=== PATIENT | male | born 1945 | race African-American/Black ===

== ENCOUNTER 2017-03-29 18:36 | Inpatient (IN) | payer MEDICARE, BC ==
[2017-03-29] MEDS: fentaNYL PF VIAL 100 MCG/2 ML VIAL IV ×3 (20:02→23:39)
[2017-03-29] MEDS: ONDANSETRON PF 4 MG/2 ML VIAL. IV (20:02)
[2017-03-29 20:11] LABS: ADD MAN DIFF? NO
[2017-03-29 20:13] LABS: BASO # 0.1 x10^3/uL (0.0-0.2); BASO % 1 % (0-3); EOS # 0.1 x10^3/uL (0.0-0.7); EOS % 1 % (0-3); HEMOGLOBIN 10.8 g/dL (13.0-17.5); LYMPH # 1.6 x10^3/uL (1.0-4.8); LYMPH % 22 % (24-48); MEAN CORPUSCULAR HEMOGLOBIN 31 pg (25-35); MEAN CORPUSCULAR HGB CONC 35 g/dL (31-37); MEAN CORPUSCULAR VOLUME 88 fL (79-100); MONO # 0.6 x10^3/uL (0.0-1.1); MONO % 8 % (0-9); NEUT # 4.8 x10^3uL (1.8-7.7); NEUT % 68 % (31-73); PLATELET COUNT 137 x10^3/uL (140-400); RED BLOOD COUNT 3.53 x10^6/uL (4.30-5.70); RED CELL DISTRIBUTION WIDTH 13.8 % (11.5-14.5); WHITE BLOOD COUNT 7.2 x10^3/uL (4.0-11.0)
[2017-03-29] MEDS ORDERED: ONDANSETRON PF 4 MG/2 ML VIAL. IV (20:15)
[2017-03-29 20:33] LABS: ANION GAP 8 (6-14); BLOOD UREA NITROGEN 11 mg/dL (8-26); BUN/CREATININE RATIO 12 (6-20); CALCIUM 8.9 mg/dL (8.5-10.1); CARBON DIOXIDE 27 mmol/L (21-32); CHLORIDE 107 mmol/L (98-107); CREATININE 0.9 mg/dL (0.7-1.3); GFR 100.9; GLUCOSE 172 mg/dL (70-99); POTASSIUM 4.1 mmol/L (3.5-5.1); SODIUM 142 mmol/L (136-145)
[2017-03-29 20:39] LABS: ALBUMIN/GLOBULIN RATIO 0.9 (1.0-1.7); ALK PHOS 140 U/L (46-116); ALT (SGPT) 23 U/L (16-63); AST (SGOT) 18 U/L (15-37); TOTAL BILIRUBIN 0.2 mg/dL (0.2-1.0); TOTAL PROTEIN 6.3 g/dL (6.4-8.2)
[2017-03-29] MEDS: IV NORMAL SALINE 1000ML BAG 1,000 ML IV (22:26)
[2017-03-30] MEDS: fentaNYL PF VIAL 100 MCG/2 ML VIAL IV ×8 (00:46→21:07)
[2017-03-30] MEDS: LABETALOL 20 MG/4 ML DISP.SYRIN. IVP ×3 (01:50→19:20)
[2017-03-30] MEDS: IV NORMAL SALINE 1000ML BAG 1,000 ML IV ×2 (04:54→08:25)
[2017-03-30] MEDS: HYDROcodone/APAP 7.5/325MG 1 TAB TABLET PO ×3 (10:04→19:21)
[2017-03-30] MEDS: DEXAMETHASONE SOD PHOS 4 MG/ML VIAL IV ×2 (10:04→18:27)
[2017-03-30] MEDS: GLIMEPIRIDE 2 MG TABLET. PO (18:32)
[2017-03-30] MEDS: GABAPENTIN 300 MG CAPSULE. PO (18:32)
[2017-03-30] MEDS: LOSARTAN POTASSIUM 25 MG TABLET. PO (18:33)
[2017-03-30] MEDS: ALBUTEROL SULFATE 2.5 MG/3 ML NEBU. NEB (20:15)
[2017-03-30] MEDS: BUDESONIDE 0.5 MG/2 ML NEBU. NEB (20:15)
[2017-03-30] MEDS ORDERED: ACETAMINOPHEN 325 MG TABLET. PO (21:00)
[2017-03-30 22:20] LABS: MRSA BY PCR Negative (Negative)
[2017-03-31] MEDS: DEXAMETHASONE SOD PHOS 4 MG/ML VIAL IV ×2 (00:09→05:38)
[2017-03-31] MEDS: HYDROcodone/APAP 7.5/325MG 1 TAB TABLET PO ×3 (01:00→15:28)
[2017-03-31] MEDS: LABETALOL 20 MG/4 ML DISP.SYRIN. IVP (02:09)
[2017-03-31] MEDS: fentaNYL PF VIAL 100 MCG/2 ML VIAL IV ×2 (04:49→08:51)
[2017-03-31] MEDS: GLIMEPIRIDE 2 MG TABLET. PO (08:00)
[2017-03-31] MEDS: GABAPENTIN 300 MG CAPSULE. PO (08:00)
[2017-03-31] MEDS: LOSARTAN POTASSIUM 25 MG TABLET. PO (08:01)
[2017-03-31 08:22] LABS: POC GLUCOSE 191 mg/dL (70-99)
[2017-03-31] MEDS ORDERED: DEXTROSE 50% 25 GM / 50ML DISP.SYRIN. IV (08:30)
[2017-03-31] MEDS: BUDESONIDE 0.5 MG/2 ML NEBU. NEB ×2 (08:49→19:41)
[2017-03-31] MEDS: ALBUTEROL SULFATE 2.5 MG/3 ML NEBU. NEB ×4 (08:49→19:44)
[2017-03-31] MEDS: INSULIN ASPART 300 UNITS/3 ML INSULN.PEN SQ ×3 (08:59→18:04)
[2017-03-31] MEDS ORDERED: INSULIN ASPART 300 UNITS/3 ML INSULN.PEN SQ (12:00)
[2017-03-31] MEDS ORDERED: ALPRAZolam 0.5 MG TABLET PO (12:15)
[2017-03-31 12:16] LABS: BASO % 0 % (0-3); EOS % 0 % (0-3); HEMATOCRIT 36.9 % (39.0-53.0); HEMOGLOBIN 12.6 g/dL (13.0-17.5); LYMPH # 0.6 x10^3/uL (1.0-4.8); LYMPH % 5 % (24-48); MEAN CORPUSCULAR HEMOGLOBIN 33 pg (25-35); MEAN CORPUSCULAR HGB CONC 34 g/dL (31-37); MEAN CORPUSCULAR VOLUME 96 fL (79-100); MONO # 0.5 x10^3/uL (0.0-1.1); MONO % 4 % (0-9); NEUT # 12.3 x10^3uL (1.8-7.7); NEUT % 91 % (31-73); PLATELET COUNT 196 x10^3/uL (140-400); RED BLOOD COUNT 3.85 x10^6/uL (4.30-5.70); RED CELL DISTRIBUTION WIDTH 13.2 % (11.5-14.5); WHITE BLOOD COUNT 13.5 x10^3/uL (4.0-11.0)
[2017-03-31 12:18] LABS: ADD MAN DIFF? YES
[2017-03-31 12:28] LABS: % SAT IRON 17 % (15-34); IRON,SERUM 39 ug/dL (65-175)
[2017-03-31] MEDS ORDERED: METOPROLOL SUCC 24HR ER 25 MG TAB.ER.24H. PO (12:30)
[2017-03-31 12:32] LABS: ALBUMIN 2.5 g/dL (3.4-5.0); ALBUMIN/GLOBULIN RATIO 0.9 (1.0-1.7); ALK PHOS 47 U/L (46-116); ALT (SGPT) 10 U/L (16-63); ANION GAP 6 (6-14); AST (SGOT) 13 U/L (15-37); BLOOD UREA NITROGEN 9 mg/dL (8-26); BUN/CREATININE RATIO 13 (6-20); CALCIUM 7.2 mg/dL (8.5-10.1); CARBON DIOXIDE 27 mmol/L (21-32); CHLORIDE 108 mmol/L (98-107); CREATININE 0.7 mg/dL (0.7-1.3); GFR 134.9; GLUCOSE 194 mg/dL (70-99); SODIUM 141 mmol/L (136-145); TOTAL BILIRUBIN 0.4 mg/dL (0.2-1.0); TOTAL PROTEIN 5.4 g/dL (6.4-8.2)
[2017-03-31 12:35] LABS: POC GLUCOSE 156 mg/dL (70-99)
[2017-03-31 13:05] LABS: % LYMPHS 2 % (24-48); % MONOS 1 % (0-10); % SEGS 97 % (35-66); PLT ESTIMATE ADEQUATE (ADEQUATE)
[2017-03-31 13:18] LABS: RETIC COUNT 1.4 % (0.5-2.5)
[2017-03-31] MEDS: POLYETHYLENE GLYCOL 3350 17 GM PACKET. PO (13:36)
[2017-03-31 13:39] LABS: FOLATE 10.66 ng/ml (3.2-20.0)
[2017-03-31 13:39] LABS: VITAMIN-B12 389 pg/mL (247-911)
[2017-03-31] MEDS: TAMSULOSIN 0.4 MG CAP.ER.24H. PO (14:04)
[2017-03-31] MEDS: DULoxetine HCL 30 MG CAPSULE.DR PO ×2 (14:04→20:48)
[2017-03-31] MEDS: oxyCODONE IR 5 MG TABLET PO ×2 (14:04→20:52)
[2017-03-31] MEDS: PREGABALIN 75 MG CAPSULE PO ×2 (14:04→20:49)
[2017-03-31] MEDS: amLODIPine BESYLATE 2.5 MG TABLET PO (14:06)
[2017-03-31] MEDS: METOPROLOL SUCC 24HR ER 25 MG TAB.ER.24H. PO (20:48)
[2017-03-31] MEDS: ATORVASTATIN CALCIUM 40 MG TABLET. PO (20:49)
[2017-03-31] MEDS ORDERED: METOPROLOL TART IMMED RELEASE 25 MG TABLET. PO (21:00)
[2017-03-31 21:17] LABS: POC GLUCOSE 160 mg/dL (70-99)
[2017-04-01 00:10] LABS: HCV ANTIBODY >11.0 s/co ratio (0.0-0.9); HEP A IGM ABDY Negative (Negative); HEP B SURFACE AG Negative (Negative)
[2017-04-01 04:23] LABS: HEMOGLOBIN A1C 5.5 % (4.8-5.6)
[2017-04-01] MEDS: BUDESONIDE 0.5 MG/2 ML NEBU. NEB ×2 (07:15→19:38)
[2017-04-01] MEDS: ALBUTEROL SULFATE 2.5 MG/3 ML NEBU. NEB ×4 (07:15→19:38)
[2017-04-01] MEDS: PREGABALIN 75 MG CAPSULE PO ×2 (07:59→20:53)
[2017-04-01] MEDS: TAMSULOSIN 0.4 MG CAP.ER.24H. PO (07:59)
[2017-04-01] MEDS: DULoxetine HCL 30 MG CAPSULE.DR PO ×2 (07:59→20:51)
[2017-04-01] MEDS: METOPROLOL SUCC 24HR ER 25 MG TAB.ER.24H. PO ×2 (08:00→20:51)
[2017-04-01] MEDS: LOSARTAN POTASSIUM 25 MG TABLET. PO (08:00)
[2017-04-01] MEDS ORDERED: ONDANSETRON PF 4 MG/2 ML VIAL. IV (08:00)
[2017-04-01] MEDS: amLODIPine BESYLATE 2.5 MG TABLET PO (08:00)
[2017-04-01] MEDS: INSULIN ASPART 300 UNITS/3 ML INSULN.PEN SQ ×3 (08:00→17:00)
[2017-04-01] MEDS ORDERED: ONDANSETRON ODT 4 MG TAB.RAPDIS. PO (08:00)
[2017-04-01] MEDS: POLYETHYLENE GLYCOL 3350 17 GM PACKET. PO (08:01)
[2017-04-01] MEDS: GLIMEPIRIDE 2 MG TABLET. PO (08:01)
[2017-04-01] MEDS: HYDROcodone/APAP 7.5/325MG 1 TAB TABLET PO ×3 (08:05→23:48)
[2017-04-01 08:16] LABS: POC GLUCOSE 123 mg/dL (70-99)
[2017-04-01 08:49] LABS: POC GLUCOSE 119 mg/dL (70-99)
[2017-04-01 11:41] LABS: POC GLUCOSE 97 mg/dL (70-99)
[2017-04-01] MEDS ORDERED: ALPRAZolam 0.5 MG TABLET PO (12:30)
[2017-04-01 16:53] LABS: POC GLUCOSE 140 mg/dL (70-99)
[2017-04-01 18:47] LABS: POC GLUCOSE 195 mg/dL (70-99)
[2017-04-01 20:42] LABS: POC GLUCOSE 182 mg/dL (70-99)
[2017-04-01] MEDS: ATORVASTATIN CALCIUM 40 MG TABLET. PO (20:51)
[2017-04-01] MEDS: oxyCODONE IR 5 MG TABLET PO (20:52)
[2017-04-02] MEDS: HYDROcodone/APAP 7.5/325MG 1 TAB TABLET PO ×2 (03:50→13:39)
[2017-04-02] MEDS: ALBUTEROL SULFATE 2.5 MG/3 ML NEBU. NEB ×3 (07:18→15:55)
[2017-04-02] MEDS: BUDESONIDE 0.5 MG/2 ML NEBU. NEB (07:18)
[2017-04-02] MEDS: INSULIN ASPART 300 UNITS/3 ML INSULN.PEN SQ ×2 (08:00→12:00)
[2017-04-02] MEDS: POLYETHYLENE GLYCOL 3350 17 GM PACKET. PO (08:13)
[2017-04-02] MEDS: LOSARTAN POTASSIUM 25 MG TABLET. PO (08:14)
[2017-04-02] MEDS: TAMSULOSIN 0.4 MG CAP.ER.24H. PO (08:14)
[2017-04-02] MEDS: PREGABALIN 75 MG CAPSULE PO (08:14)
[2017-04-02] MEDS: METOPROLOL SUCC 24HR ER 25 MG TAB.ER.24H. PO (08:14)
[2017-04-02] MEDS: GLIMEPIRIDE 2 MG TABLET. PO (08:15)
[2017-04-02] MEDS: DULoxetine HCL 30 MG CAPSULE.DR PO (08:15)
[2017-04-02] MEDS: amLODIPine BESYLATE 2.5 MG TABLET PO (08:15)
[2017-04-02] MEDS: oxyCODONE IR 5 MG TABLET PO (11:20)
[2017-04-02 12:10] LABS: POC GLUCOSE 109 mg/dL (70-99)
[2017-04-02 12:10] LABS: POC GLUCOSE 97 mg/dL (70-99)
== END 2017-04-02 16:50 | DRG 82 ==
LOC: 4 NORTH 03-31 15:05 → ER 18:36 → 1 WEST ICU 20:10
DX: S06.5X9A Traumatic subdural hemorrhage with loss of consciousness of unspecified duration, initial encounter (principal); G95.11 Acute infarction of spinal cord (embolic) (nonembolic); G93.6 Cerebral edema; E11.42 Type 2 diabetes mellitus with diabetic polyneuropathy; J44.9 Chronic obstructive pulmonary disease, unspecified; D63.8 Anemia in other chronic diseases classified elsewhere; E11.40 Type 2 diabetes mellitus with diabetic neuropathy, unspecified; B19.20 Unspecified viral hepatitis C without hepatic coma; F41.9 Anxiety disorder, unspecified; G89.29 Other chronic pain; H53.2 Diplopia; I10 Essential (primary) hypertension; W01.0XXA Fall on same level from slipping, tripping and stumbling without subsequent striking against object, initial encounter; I25.10 Atherosclerotic heart disease of native coronary artery without angina pectoris; N40.0 Benign prostatic hyperplasia without lower urinary tract symptoms; Z79.84 Long term (current) use of oral hypoglycemic drugs; Z79.899 Other long term (current) drug therapy; Z80.0 Family history of malignant neoplasm of digestive organs; Z91.81 History of falling; Z95.5 Presence of coronary angioplasty implant and graft; Z79.4 Long term (current) use of insulin; Y93.89 Activity, other specified; Y92.89 Other specified places as the place of occurrence of the external cause; Y99.8 Other external cause status; Z90.49 Acquired absence of other specified parts of digestive tract
CPT/HCPCS: 36415; 70450; 72125; 76700; 80053; 80074; 82607; 82746; 82962; 83036; 83540; 83550; 85007; 85025; 85045; 85610; 87641; 94640; 94760; 96374; 96375; 97162-GP; 97166-GO; 99285; 99285-25; J1100; J1815; J2405; J3010; J3490; J7030; J7613; J7626

== ENCOUNTER 2017-04-08 12:56 | Inpatient (IN) | payer MEDICARE, BC ==
[2017-04-08] MEDS: IV NORMAL SALINE 1000ML BAG 1,000 ML IV (16:52)
[2017-04-08] MEDS: MORPHINE SULFATE 2 MG/ML DISP.SYRIN. IV ×2 (16:52→20:33)
[2017-04-08 18:19] LABS: ADD MAN DIFF? NO
[2017-04-08 18:22] LABS: BASO % 0 % (0-3); EOS % 0 % (0-3); HEMATOCRIT 30.7 % (39.0-53.0); HEMOGLOBIN 10.9 g/dL (13.0-17.5); LYMPH # 1.4 x10^3/uL (1.0-4.8); LYMPH % 18 % (24-48); MEAN CORPUSCULAR HEMOGLOBIN 30 pg (25-35); MEAN CORPUSCULAR HGB CONC 36 g/dL (31-37); MEAN CORPUSCULAR VOLUME 85 fL (79-100); MONO # 0.7 x10^3/uL (0.0-1.1); MONO % 9 % (0-9); NEUT # 5.9 x10^3uL (1.8-7.7); NEUT % 72 % (31-73); PLATELET COUNT 145 x10^3/uL (140-400); RED CELL DISTRIBUTION WIDTH 13.7 % (11.5-14.5); WHITE BLOOD COUNT 8.2 x10^3/uL (4.0-11.0)
[2017-04-08 18:36] LABS: INR 1.2 (0.8-1.1); PARTIAL THROMBOPLASTIN TIME 32 SEC (24-38)
[2017-04-08 18:46] LABS: ALBUMIN 2.9 g/dL (3.4-5.0); ALBUMIN/GLOBULIN RATIO 0.8 (1.0-1.7); ALK PHOS 135 U/L (46-116); ALT (SGPT) 18 U/L (16-63); ANION GAP 10 (6-14); AST (SGOT) 19 U/L (15-37); BLOOD UREA NITROGEN 17 mg/dL (8-26); BUN/CREATININE RATIO 17 (6-20); CALCIUM 8.7 mg/dL (8.5-10.1); CARBON DIOXIDE 26 mmol/L (21-32); CHLORIDE 100 mmol/L (98-107); GFR 89.4; GLUCOSE 121 mg/dL (70-99); POTASSIUM 3.8 mmol/L (3.5-5.1); SODIUM 136 mmol/L (136-145); TOTAL BILIRUBIN 0.4 mg/dL (0.2-1.0); TOTAL PROTEIN 6.5 g/dL (6.4-8.2)
[2017-04-08] MEDS: oxyCODONE/APAP 5/325 1 TAB TABLET PO (18:59)
[2017-04-08 19:14] LABS: MRSA BY PCR Negative (Negative)
[2017-04-08] MEDS: LABETALOL 20 MG/4 ML DISP.SYRIN. IVP (20:33)
[2017-04-08] MEDS: hydrOXYzine 10 MG TABLET PO (20:52)
[2017-04-09] MEDS: oxyCODONE/APAP 5/325 1 TAB TABLET PO ×4 (00:05→22:20)
[2017-04-09] MEDS: IV NORMAL SALINE 1000ML BAG 1,000 ML IV (05:49)
[2017-04-09] MEDS ORDERED: fentaNYL PF VIAL 100 MCG/2 ML VIAL IV (07:00)
[2017-04-09] MEDS ORDERED: PROCHLORPERAZINE 10 MG/2 ML VIAL. IV (07:00)
[2017-04-09] MEDS ORDERED: ONDANSETRON PF 4 MG/2 ML VIAL. IV ×2 (07:00→11:45)
[2017-04-09] MEDS ORDERED: HYDROmorphone 2 MG/ML VIAL IV (07:00)
[2017-04-09] MEDS ORDERED: MORPHINE SULFATE 2 MG/ML DISP.SYRIN. IV ×2 (07:00→11:45)
[2017-04-09] MEDS: IV RINGERS,LACTATED 1000ML 1,000 ML IV (07:00)
[2017-04-09] MEDS ORDERED: LIDOCAINE 1% PF 2 ML VIAL. ID (07:00)
[2017-04-09] MEDS ORDERED: SURGICEL HEMOSTAT 4X8 EACH. (07:10)
[2017-04-09] MEDS: BUPIVAC MPF-EPI 0.5%-1:200000 30 ML VIAL. INJ (07:30)
[2017-04-09] MEDS ORDERED: DEXAMETHASONE SOD PHOS 20 MG/5 ML VIAL. (07:51)
[2017-04-09] MEDS ORDERED: PROPOFOL 50 ML IV (07:51)
[2017-04-09] MEDS ORDERED: PHENYLEPHRINE 10 MG/ML VIAL. (07:51)
[2017-04-09] MEDS ORDERED: ONDANSETRON PF 4 MG/2 ML VIAL. (07:51)
[2017-04-09] MEDS ORDERED: PROPOFOL 20 ML IV (07:51)
[2017-04-09] MEDS ORDERED: LIDOCAINE 2% PF Vial for OR 5 ML VIAL. (07:51)
[2017-04-09] MEDS ORDERED: ROCURONIUM 50 MG/5 ML VIAL. (07:52)
[2017-04-09] MEDS ORDERED: REMIFENTANIL 2 MG VIAL. IV (07:52)
[2017-04-09] MEDS ORDERED: LIDOCAINE 4% KIT 4 ML SOLUTION. TP (08:14)
[2017-04-09] MEDS ORDERED: GLYCOPYRROLATE 1 MG/5 ML VIAL. (09:31)
[2017-04-09] MEDS: GELATIN SPONGE SIZE 100. (09:40)
[2017-04-09] MEDS: BACITRACIN 50,000 UNIT in IV NORMAL SALINE 1000ML BAG 1,000 ML IRR (09:40)
[2017-04-09] MEDS: BUPIVAC MPF-EPI 0.5%-1:200000 30 ML VIAL. (09:40)
[2017-04-09] MEDS: THROMBIN TOPICAL 20,000 UNIT SPRAY.SYRN KIT TP (09:40)
[2017-04-09] MEDS ORDERED: NEOSTIGMINE METHYLSULFATE 5 MG/5 ML SYRINGE. (10:08)
[2017-04-09] MEDS ORDERED: SEVOFLURANE 61 TO 120 MINUTES. IH (10:17)
[2017-04-09] MEDS: LABETALOL 20 MG/4 ML DISP.SYRIN. IVP (10:51)
[2017-04-09] MEDS ORDERED: traMADol 50 MG TABLET PO (11:45)
[2017-04-09] MEDS ORDERED: oxyCODONE IR 5 MG TABLET PO (11:45)
[2017-04-09] MEDS ORDERED: DEXTROSE 50% 25 GM / 50ML DISP.SYRIN. IV (11:45)
[2017-04-09] MEDS ORDERED: CYCLOBENZAPRINE 10 MG TABLET. PO (11:45)
[2017-04-09] MEDS: INSULIN ASPART 300 UNITS/3 ML INSULN.PEN SQ ×2 (12:00→17:00)
[2017-04-09] MEDS: DULoxetine HCL 30 MG CAPSULE.DR PO ×2 (12:30→20:34)
[2017-04-09] MEDS: METOPROLOL TART IMMED RELEASE 25 MG TABLET. PO ×2 (12:30→20:33)
[2017-04-09] MEDS: amLODIPine BESYLATE 2.5 MG TABLET PO ×2 (12:30→16:51)
[2017-04-09] MEDS: GLIMEPIRIDE 2 MG TABLET. PO (12:30)
[2017-04-09] MEDS: LOSARTAN POTASSIUM 25 MG TABLET. PO ×2 (12:30→16:51)
[2017-04-09] MEDS: TAMSULOSIN 0.4 MG CAP.ER.24H. PO (12:30)
[2017-04-09] MEDS: PREGABALIN 75 MG CAPSULE PO ×2 (12:30→20:34)
[2017-04-09] MEDS: hydrALAZINE 20 MG/ML VIAL. IVP ×2 (12:32→17:54)
[2017-04-09] MEDS: MORPHINE SULFATE 2 MG/ML DISP.SYRIN. IV ×3 (12:32→19:36)
[2017-04-09 12:50] LABS: POC GLUCOSE 164 mg/dL (70-99)
[2017-04-09] MEDS: hydrOXYzine PAMOATE 25 MG CAPSULE PO ×3 (13:00→20:41)
[2017-04-09] MEDS: PREGABALIN 50 MG CAPSULE PO ×2 (13:15→20:34)
[2017-04-09] MEDS: fentaNYL PF VIAL 100 MCG/2 ML VIAL IV (15:03)
[2017-04-09] MEDS: ALBUTEROL SULFATE 2.5 MG/3 ML NEBU. NEB ×2 (15:52→20:05)
[2017-04-09 16:58] LABS: POC GLUCOSE 170 mg/dL (70-99)
[2017-04-09] MEDS: ceFAZolin SODIUM IV Push 1 GM VIAL. IVP (17:39)
[2017-04-09] MEDS: BUDESONIDE 0.5 MG/2 ML NEBU. NEB (20:05)
[2017-04-09] MEDS: ATORVASTATIN CALCIUM 40 MG TABLET. PO (20:33)
[2017-04-09] MEDS: hydrOXYzine 10 MG TABLET PO (20:36)
[2017-04-10] MEDS: ceFAZolin SODIUM IV Push 1 GM VIAL. IVP ×3 (02:42→17:56)
[2017-04-10] MEDS: MORPHINE SULFATE 2 MG/ML DISP.SYRIN. IV (02:43)
[2017-04-10 05:45] LABS: ADD MAN DIFF? NO
[2017-04-10 05:48] LABS: BASO # 0.1 x10^3/uL (0.0-0.2); BASO % 1 % (0-3); EOS # 0.1 x10^3/uL (0.0-0.7); EOS % 1 % (0-3); HEMOGLOBIN 11.2 g/dL (13.0-17.5); LYMPH # 2.6 x10^3/uL (1.0-4.8); LYMPH % 21 % (24-48); MEAN CORPUSCULAR HEMOGLOBIN 29 pg (25-35); MEAN CORPUSCULAR HGB CONC 33 g/dL (31-37); MEAN CORPUSCULAR VOLUME 88 fL (79-100); MONO # 1.3 x10^3/uL (0.0-1.1); MONO % 11 % (0-9); NEUT # 7.9 x10^3uL (1.8-7.7); NEUT % 66 % (31-73); PLATELET COUNT 150 x10^3/uL (140-400); RED BLOOD COUNT 3.85 x10^6/uL (4.30-5.70); RED CELL DISTRIBUTION WIDTH 13.4 % (11.5-14.5)
[2017-04-10 06:05] LABS: ANION GAP 6 (6-14); BLOOD UREA NITROGEN 11 mg/dL (8-26); CALCIUM 8.3 mg/dL (8.5-10.1); CARBON DIOXIDE 27 mmol/L (21-32); CHLORIDE 105 mmol/L (98-107); CREATININE 0.9 mg/dL (0.7-1.3); GFR 100.9; GLUCOSE 128 mg/dL (70-99); POTASSIUM 3.7 mmol/L (3.5-5.1); SODIUM 138 mmol/L (136-145)
[2017-04-10] MEDS: oxyCODONE/APAP 5/325 1 TAB TABLET PO ×2 (07:18→15:34)
[2017-04-10] MEDS: INSULIN ASPART 300 UNITS/3 ML INSULN.PEN SQ ×3 (07:56→17:00)
[2017-04-10] MEDS: BUDESONIDE 0.5 MG/2 ML NEBU. NEB ×2 (08:45→19:08)
[2017-04-10] MEDS: ALBUTEROL SULFATE 2.5 MG/3 ML NEBU. NEB ×4 (08:45→19:08)
[2017-04-10] MEDS: IV NORMAL SALINE 1000ML BAG 1,000 ML IV (08:51)
[2017-04-10] MEDS: amLODIPine BESYLATE 2.5 MG TABLET PO (08:51)
[2017-04-10] MEDS: LOSARTAN POTASSIUM 25 MG TABLET. PO (08:51)
[2017-04-10] MEDS: GLIMEPIRIDE 2 MG TABLET. PO (08:51)
[2017-04-10] MEDS: PREGABALIN 50 MG CAPSULE PO ×3 (08:52→21:04)
[2017-04-10] MEDS: PREGABALIN 75 MG CAPSULE PO ×2 (08:52→21:04)
[2017-04-10] MEDS: hydrOXYzine PAMOATE 25 MG CAPSULE PO ×4 (08:52→21:04)
[2017-04-10] MEDS: TAMSULOSIN 0.4 MG CAP.ER.24H. PO (08:52)
[2017-04-10] MEDS: METOPROLOL TART IMMED RELEASE 25 MG TABLET. PO ×2 (08:52→21:05)
[2017-04-10] MEDS: DULoxetine HCL 30 MG CAPSULE.DR PO ×2 (08:52→21:03)
[2017-04-10] MEDS ORDERED: NON FORMULARY ITEM (Fluticasone/Salmeterol (Advair 100-50 Diskus) 1 PUFF) IH (09:00)
[2017-04-10] MEDS: LACTOBACILLUS RHAMNOSUS GG 1 CAPSULE. PO ×2 (12:18→21:03)
[2017-04-10 12:26] LABS: POC GLUCOSE 168 mg/dL (70-99)
[2017-04-10 16:40] LABS: POC GLUCOSE 91 mg/dL (70-99)
[2017-04-10] MEDS: hydrOXYzine 10 MG TABLET PO (17:56)
[2017-04-10 20:41] LABS: POC GLUCOSE 198 mg/dL (70-99)
[2017-04-10] MEDS: ATORVASTATIN CALCIUM 40 MG TABLET. PO (21:03)
[2017-04-11] MEDS: ceFAZolin SODIUM IV Push 1 GM VIAL. IVP ×2 (01:28→09:56)
[2017-04-11] MEDS: oxyCODONE/APAP 5/325 1 TAB TABLET PO ×4 (01:29→21:35)
[2017-04-11 06:22] LABS: ADD MAN DIFF? NO
[2017-04-11 06:27] LABS: BASO % 0 % (0-3); EOS # 0.1 x10^3/uL (0.0-0.7); EOS % 1 % (0-3); HEMOGLOBIN 10.1 g/dL (13.0-17.5); LYMPH # 2.3 x10^3/uL (1.0-4.8); LYMPH % 22 % (24-48); MEAN CORPUSCULAR HEMOGLOBIN 29 pg (25-35); MEAN CORPUSCULAR HGB CONC 34 g/dL (31-37); MEAN CORPUSCULAR VOLUME 87 fL (79-100); MONO # 1.1 x10^3/uL (0.0-1.1); MONO % 11 % (0-9); NEUT # 6.9 x10^3uL (1.8-7.7); NEUT % 66 % (31-73); PLATELET COUNT 132 x10^3/uL (140-400); RED BLOOD COUNT 3.45 x10^6/uL (4.30-5.70); WHITE BLOOD COUNT 10.5 x10^3/uL (4.0-11.0)
[2017-04-11 06:35] LABS: ANION GAP 6 (6-14); BLOOD UREA NITROGEN 24 mg/dL (8-26); CALCIUM 8.1 mg/dL (8.5-10.1); CARBON DIOXIDE 25 mmol/L (21-32); CHLORIDE 107 mmol/L (98-107); CREATININE 1.2 mg/dL (0.7-1.3); GFR 72.4; GLUCOSE 91 mg/dL (70-99); POTASSIUM 3.8 mmol/L (3.5-5.1); SODIUM 138 mmol/L (136-145)
[2017-04-11] MEDS: BUDESONIDE 0.5 MG/2 ML NEBU. NEB ×2 (07:09→19:28)
[2017-04-11] MEDS: ALBUTEROL SULFATE 2.5 MG/3 ML NEBU. NEB ×4 (07:09→19:28)
[2017-04-11 07:27] LABS: POC GLUCOSE 83 mg/dL (70-99)
[2017-04-11] MEDS: INSULIN ASPART 300 UNITS/3 ML INSULN.PEN SQ ×3 (08:00→17:14)
[2017-04-11] MEDS: GLIMEPIRIDE 2 MG TABLET. PO (09:53)
[2017-04-11] MEDS: DOCUSATE SODIUM 100 MG CAPSULE. PO (09:53)
[2017-04-11] MEDS: hydrOXYzine PAMOATE 25 MG CAPSULE PO ×4 (09:54→20:34)
[2017-04-11] MEDS: TAMSULOSIN 0.4 MG CAP.ER.24H. PO (09:54)
[2017-04-11] MEDS: PREGABALIN 50 MG CAPSULE PO ×3 (09:54→20:31)
[2017-04-11] MEDS: DULoxetine HCL 30 MG CAPSULE.DR PO ×2 (09:54→20:31)
[2017-04-11] MEDS: amLODIPine BESYLATE 2.5 MG TABLET PO (09:54)
[2017-04-11] MEDS: LOSARTAN POTASSIUM 25 MG TABLET. PO (09:55)
[2017-04-11] MEDS: LACTOBACILLUS RHAMNOSUS GG 1 CAPSULE. PO ×2 (09:55→20:31)
[2017-04-11] MEDS: METOPROLOL TART IMMED RELEASE 25 MG TABLET. PO ×2 (09:55→20:32)
[2017-04-11] MEDS: PREGABALIN 75 MG CAPSULE PO ×2 (09:56→20:31)
[2017-04-11 11:25] LABS: POC GLUCOSE 99 mg/dL (70-99)
[2017-04-11 16:28] LABS: POC GLUCOSE 218 mg/dL (70-99)
[2017-04-11] MEDS: ATORVASTATIN CALCIUM 40 MG TABLET. PO (20:31)
[2017-04-11] MEDS: hydrOXYzine 10 MG TABLET PO (20:31)
[2017-04-11 21:28] LABS: POC GLUCOSE 112 mg/dL (70-99)
[2017-04-12] MEDS: ACETAMINOPHEN 325 MG TABLET. PO ×2 (01:00→09:42)
[2017-04-12 05:05] LABS: ADD MAN DIFF? NO
[2017-04-12 05:09] LABS: BASO % 0 % (0-3); EOS # 0.1 x10^3/uL (0.0-0.7); EOS % 1 % (0-3); HEMATOCRIT 29.1 % (39.0-53.0); HEMOGLOBIN 10.2 g/dL (13.0-17.5); LYMPH % 20 % (24-48); MEAN CORPUSCULAR HEMOGLOBIN 31 pg (25-35); MEAN CORPUSCULAR HGB CONC 35 g/dL (31-37); MEAN CORPUSCULAR VOLUME 87 fL (79-100); MONO % 10 % (0-9); NEUT # 6.6 x10^3uL (1.8-7.7); NEUT % 68 % (31-73); PLATELET COUNT 142 x10^3/uL (140-400); RED BLOOD COUNT 3.33 x10^6/uL (4.30-5.70); RED CELL DISTRIBUTION WIDTH 14.2 % (11.5-14.5); WHITE BLOOD COUNT 9.7 x10^3/uL (4.0-11.0)
[2017-04-12 05:36] LABS: ANION GAP 7 (6-14); BLOOD UREA NITROGEN 25 mg/dL (8-26); CALCIUM 8.5 mg/dL (8.5-10.1); CARBON DIOXIDE 25 mmol/L (21-32); CHLORIDE 107 mmol/L (98-107); CREATININE 1.3 mg/dL (0.7-1.3); GLUCOSE 101 mg/dL (70-99); POTASSIUM 3.9 mmol/L (3.5-5.1); SODIUM 139 mmol/L (136-145)
[2017-04-12] MEDS: oxyCODONE/APAP 5/325 1 TAB TABLET PO ×2 (07:11→13:45)
[2017-04-12 07:37] LABS: POC GLUCOSE 111 mg/dL (70-99)
[2017-04-12] MEDS: ALBUTEROL SULFATE 2.5 MG/3 ML NEBU. NEB ×3 (08:00→15:24)
[2017-04-12] MEDS: INSULIN ASPART 300 UNITS/3 ML INSULN.PEN SQ ×2 (08:00→12:00)
[2017-04-12] MEDS: BUDESONIDE 0.5 MG/2 ML NEBU. NEB (08:00)
[2017-04-12] MEDS: GLIMEPIRIDE 2 MG TABLET. PO (09:41)
[2017-04-12] MEDS: METOPROLOL TART IMMED RELEASE 25 MG TABLET. PO (09:41)
[2017-04-12] MEDS: amLODIPine BESYLATE 2.5 MG TABLET PO (09:42)
[2017-04-12] MEDS: LACTOBACILLUS RHAMNOSUS GG 1 CAPSULE. PO (09:42)
[2017-04-12] MEDS: PREGABALIN 50 MG CAPSULE PO ×2 (09:42→13:45)
[2017-04-12] MEDS: PREGABALIN 75 MG CAPSULE PO (09:42)
[2017-04-12] MEDS: hydrOXYzine PAMOATE 25 MG CAPSULE PO ×2 (09:43→13:44)
[2017-04-12] MEDS: TAMSULOSIN 0.4 MG CAP.ER.24H. PO (09:43)
[2017-04-12] MEDS: DULoxetine HCL 30 MG CAPSULE.DR PO (09:43)
[2017-04-12] MEDS: DOCUSATE SODIUM 100 MG CAPSULE. PO (09:43)
[2017-04-12] MEDS: LOSARTAN POTASSIUM 25 MG TABLET. PO (09:43)
[2017-04-12 17:53] LABS: POC GLUCOSE 188 mg/dL (70-99)
[2017-04-13] MEDS ORDERED: amLODIPine BESYLATE 5 MG TABLET PO (09:00)
== END 2017-04-12 17:50 | disposition home or self-care (01) | DRG 26 ==
LOC: 4 NORTH 04-10 16:40 → 1 WEST ICU 12:56
PROVIDERS: Neurological Surgery
PROC: 00C40ZZ Extirpation of Matter from Intracranial Subdural Space, Open Approach (ICD-10-PCS; principal; 2017-04-09 08:30)
DX: I62.00 Nontraumatic subdural hemorrhage, unspecified (principal); E44.1 Mild protein-calorie malnutrition; E11.42 Type 2 diabetes mellitus with diabetic polyneuropathy; E11.51 Type 2 diabetes mellitus with diabetic peripheral angiopathy without gangrene; W18.39XA Other fall on same level, initial encounter; D64.9 Anemia, unspecified; I10 Essential (primary) hypertension; I25.10 Atherosclerotic heart disease of native coronary artery without angina pectoris; M21.371 Foot drop, right foot; Z82.49 Family history of ischemic heart disease and other diseases of the circulatory system; Y93.89 Activity, other specified; Y92.89 Other specified places as the place of occurrence of the external cause; Y99.8 Other external cause status; Z90.49 Acquired absence of other specified parts of digestive tract; Z98.61 Coronary angioplasty status
CPT/HCPCS: 36415; 70450; 80048; 80053; 82962; 85025; 85610; 85730; 87641; 94640; 94760; 97116-GP; 97162-GP; 97530-GP; C1713; J0360; J0690; J1100; J1815; J2270; J2405; J2704; J2710; J3010; J3490; J7030; J7613; J7626; Q0177

== ENCOUNTER 2017-09-17 13:30 | Emergency (ER) | payer MEDICARE, BC ==
[2017-09-17 14:56] LABS: ADD MAN DIFF? NO
[2017-09-17 14:58] LABS: BASO # 0.1 x10^3/uL (0.0-0.2); BASO % 1 % (0-3); EOS # 0.1 x10^3/uL (0.0-0.7); EOS % 1 % (0-3); HEMATOCRIT 35.8 % (39.0-53.0); HEMOGLOBIN 12.3 g/dL (13.0-17.5); LYMPH # 1.9 x10^3/uL (1.0-4.8); LYMPH % 26 % (24-48); MEAN CORPUSCULAR HEMOGLOBIN 29 pg (25-35); MEAN CORPUSCULAR HGB CONC 34 g/dL (31-37); MEAN CORPUSCULAR VOLUME 86 fL (79-100); MONO # 0.7 x10^3/uL (0.0-1.1); MONO % 10 % (0-9); NEUT # 4.7 x10^3uL (1.8-7.7); NEUT % 62 % (31-73); PLATELET COUNT 146 x10^3/uL (140-400); RED BLOOD COUNT 4.19 x10^6/uL (4.30-5.70); RED CELL DISTRIBUTION WIDTH 14.8 % (11.5-14.5); WHITE BLOOD COUNT 7.5 x10^3/uL (4.0-11.0)
[2017-09-17 15:08] LABS: ANION GAP 9 (6-14); BLOOD UREA NITROGEN 10 mg/dL (8-26); BUN/CREATININE RATIO 8 (6-20); CALCIUM 9.1 mg/dL (8.5-10.1); CARBON DIOXIDE 25 mmol/L (21-32); CHLORIDE 102 mmol/L (98-107); CREATININE 1.3 mg/dL (0.7-1.3); GFR 65.8; GLUCOSE 179 mg/dL (70-99); POTASSIUM 4.5 mmol/L (3.5-5.1); SODIUM 136 mmol/L (136-145)
[2017-09-17 15:16] LABS: ALBUMIN 3.2 g/dL (3.4-5.0); ALBUMIN/GLOBULIN RATIO 0.8 (1.0-1.7); ALK PHOS 157 U/L (46-116); ALT (SGPT) 14 U/L (16-63); AST (SGOT) 15 U/L (15-37); LIPASE 122 U/L (73-393); TOTAL BILIRUBIN 0.3 mg/dL (0.2-1.0)
[2017-09-17] MEDS: IOHEXOL 300 MG/ML 100ML VIAL. IV (16:14)
[2017-09-17] MEDS ORDERED: CONTRAST GIVEN. MC (16:15)
[2017-09-17 17:21] LABS: BILIRUBIN,URINE NEGATIVE (NEG); CLARITY,URINE CLEAR; COLOR,URINE YELLOW; GLUCOSE,URINE NEGATIVE (NEG); NITRITE,URINE NEGATIVE (NEG); PH,URINE 6.5; PROTEIN,URINE 100 mg/dL (NEG-TRACE)
[2017-09-17 17:33] LABS: BACTERIA,URINE 0 /HPF (0-FEW); SQUAMOUS EPITHELIAL CELL,UR MOD /LPF; WBC,URINE OCC /HPF (0-4)
[2017-09-17 17:34] LABS: BARBITURATES NEG (NEG); BENZODIAZEPINES NEG (NEG); CANNABINOIDS NEG (NEG); COCAINE NEG (NEG); METHADONE NEG (NEG); OPIATES NEG (NEG); PHENCYCLIDINE NEG (NEG)
[2017-09-17 17:36] LABS: AMPHETAMINE/METHAMPHETAMINE NEG (NEG); ETHANOL, URINE NEG (NEG)
== END 2017-09-17 17:22 | disposition home or self-care (01) ==
LOC: ER 17:22
DX: K59.00 Constipation, unspecified (principal); N40.0 Benign prostatic hyperplasia without lower urinary tract symptoms; E11.40 Type 2 diabetes mellitus with diabetic neuropathy, unspecified; I10 Essential (primary) hypertension; J44.9 Chronic obstructive pulmonary disease, unspecified; I25.10 Atherosclerotic heart disease of native coronary artery without angina pectoris; Z90.49 Acquired absence of other specified parts of digestive tract; Z95.5 Presence of coronary angioplasty implant and graft; Z88.8 Allergy status to other drugs, medicaments and biological substances
CPT/HCPCS: 36415; 74177; 80053; 80307; 81001; 83690; 85025; 99285-25; Q9967

== ENCOUNTER → 2018-04-25 | Outpatient (CLI) | payer MEDICARE, BC ==
[2017-09-17 16:30] VITALS: BP 151/72
[~2018-04-25] MED LIST: ALPR0.5T6 PO; AMLO2.5T5 PO; AMLO5TAB10 PO; ATOR40TA59 PO; CHOL5000 PO; CYCL5TAB PO; DULO30CA2 PO; FLUT1DIS IH; GABA300C18 PO; GLIM4TAB2 PO; HYDR25TA PO; MAGN296S9 PO; METF500T16 PO; METO25TA4 PO; OLME5TAB4 PO; OXYC5TAB4 PO; POLY17PO29 PO; PREG100C PO; PREG75CA PO; TAMS0.4C2 PO
--- NOTE | 2018-04-25 11:05 | KCIC ---
EXAM: Head CT without contrast. HISTORY: Headache. Subdural hematoma. TECHNIQUE: Computed tomographic images of the head were obtained without contrast. *One or more of the following individualized dose reduction techniques were utilized for this examination: 1. Automated exposure control. 2. Adjustment of the mA and/or kV according to patient size. 3. Use of iterative reconstruction technique. COMPARISON: 05/10/2017. FINDINGS: There is no convincing acute or subacute intracranial hemorrhage. There is chronic increased density along the falx due to slight calcification. There are right frontal craniotomy changes. There are areas of decreased attenuation within the cerebral white matter, likely due to chronic small vessel disease. There is mild cerebral volume loss. There are incidental calcifications within the bilateral basal ganglia. The visualized portions of the orbits, paranasal sinuses and mastoid air cells are unremarkable. No suspicious calvarial lesion is seen. IMPRESSION: 1. No acute intracranial finding. 2. Scattered areas of hypodensity within the cerebral white matter, likely due to chronic small vessel disease. 3. Mild cerebral volume loss. 4. Right frontal craniotomy changes. Electronically signed by: Carla Robins MD (04/25/2018 11:01 AM) [place] [id number]
== END | disposition home or self-care (01) ==
LOC: KCIC CT 10:30
PROVIDERS: ATTEND Nurse Practitioner
DX: R51 Headache (principal); R90.82 White matter disease, unspecified; Z87.820 Personal history of traumatic brain injury; Z91.81 History of falling
CPT/HCPCS: 70450

== ENCOUNTER → 2018-07-13 | Outpatient (CLI) | payer MEDICARE, BC ==
[2017-09-17 16:30] VITALS: BP 151/72
--- NOTE | 2018-07-13 13:35 | RAD ---
MRI Brain without contrast History: Worsening headaches, previous hematoma and surgery Technique: Multiplanar, multisequential noncontrast MR imaging was performed of the brain. Comparison: 04/19/2017 Findings: There is mild motion. There is a small 2 mm focus of restricted diffusion of the left periventricular white matter in the left temporal region. There is associated mild T2 and FLAIR hyperintense signal. Ventricular size is within normal limits. There is no midline shift or extra-axial fluid collection. There is a couple of small old left thalamic lacunar infarcts, new since previous exam. Small old lacunar infarct of the right frontal white matter is similar. There is other scattered overall mild T2 and FLAIR hyperintense signal abnormality of the supratentorial parenchyma bilaterally, present previously. There are a couple of old left pontine lacunar infarcts also new since the previous exam, adjacent mild T2 and FLAIR hyperintense signal also somewhat greater. There are a few tiny foci of old microhemorrhage of the left occipital temporal lobes. There is preservation of the major arterial flow voids at the skull base. There has been right parietal craniotomy. There has been lens surgery bilaterally. There is negligible mild maxillary sinus mucosal thickening. There is minimal fluid of the left mastoid air cells greater inferiorly. Cerebellar tonsils are normal in location. There is preserved marrow signal of the clivus. Impression: 1. There is a small subacute lacunar infarct of the left temporal periventricular white matter. There is old lacunar infarcts of the left thalamus and left ba although new since March 2017 exam, also somewhat increased mild T2 and FLAIR hyperintense signal of the ba which may be due to chronic microvascular ischemic disease. There is also mild T2 and FLAIR hyperintense is signal abnormality of the supratentorial parenchyma bilaterally, nonspecific although probably related to chronic microvascular ischemic disease in a patient this age. FOR INTERNAL CODING PURPOSES Critical result: Findings discussed with nurse Yasmeen in the office of Dr. Abdi at 07/13/2018 1:31 PM. RESULT CODE: (C) Electronically signed by: Livan Valdez MD (07/13/2018 1:33 PM) [facility]
== END | disposition home or self-care (01) ==
LOC: MRI 11:54
PROVIDERS: ATTEND Psychiatry & Neurology Neurology
DX: I63.81 Other cerebral infarction due to occlusion or stenosis of small artery (principal)
CPT/HCPCS: 70551

== ENCOUNTER → 2018-08-11 | Outpatient (CLI) | payer MEDICARE, BC ==
[2017-09-17 16:30] VITALS: BP 151/72
--- NOTE | 2018-08-12 16:22 | EEG ---
DATE OF SERVICE: 08/11/2018 EEG NUMBER: [id number] OBJECTIVE: This is a 73-year-old male patient with history of memory loss and confusional episodes. EEG was requested to evaluate cerebral activity and help rule out subclinical seizures. METHODS: Twenty electrodes were applied according to the international 10-20 electrode placement system. EKG monitoring, hyperventilation, intermittent photic stimulation, monopolar and bipolar montages are routinely utilized. The record was obtained on a digital system with video monitoring. FINDINGS: 1. Background: The patient was recorded in the awake and drowsy states. No actual sleep state was recorded. The overall background amplitude is 5-15 microvolts. A posterior dominant rhythm of 8 Hz is observed. However, the overall background amplitude is asymmetric with relatively higher amplitude in C4 and T4 regions. 2. Abnormalities: No specific epileptiform discharge or electrographic seizure is seen. No focal or diffuse slowing. 3. Activation: Hyperventilation was performed with good efforts and normal response. Intermittent photic stimulation was performed with photic driving. No specific epileptiform discharge or electrographic seizure induced by hyperventilation or intermittent photic stimulation. IMPRESSION: This EEG raises question about relative asymmetric amplitude between two hemispheres with higher amplitude in the right parietal and central regions; however, the definitive abnormality cannot be determined in this study. No focal, lateralizing, specific epileptiform discharge or electrographic seizure is seen. WANDER VAZQUZE MD DR: Rosemarie JOB#: [id number] / [id number] DIVYA
== END | disposition home or self-care (01) ==
LOC: RT 08:57
PROVIDERS: ATTEND Psychiatry & Neurology Neurology
DX: R41.3 Other amnesia (principal)
CPT/HCPCS: 95816

== ENCOUNTER → 2018-08-24 | Outpatient (CLI) | payer MEDICARE, BC ==
[2017-09-17 16:30] VITALS: BP 151/72
--- NOTE | 2018-08-24 16:35 | RAD ---
Clinical indications: Lacunar stroke. Duplex sonography of the cervical portion of both carotid arteries was performed including color flow imaging and spectral waveform analysis with flow velocity measurement and geller scale evaluation. Right side: Peak systolic flow velocity of the CCA is 196 cm/sec. Peak systolic flow velocity of the ICA is 72 cm/sec. Thus, the ICA/CCA ratio is 0.36. Peak end diastolic flow velocity of the ICA is 28 cm/sec. The peak systolic velocity of the ECA is 94 cm/sec. Left side: Peak systolic flow velocity of the CCA is 106 cm/sec. Peak systolic flow velocity of the ICA is 189 cm/sec. Thus, the ICA/CCA ratio is 1.8. Peak end diastolic flow velocity of the ICA is 54 cm/sec. Peak systolic flow velocity of the ECA is 132 cm/sec. There is diffuse soft plaque formation throughout the cervical portion of both carotid arteries. On right side, there is a significant stenosis of the mid CCA of 50-69% based on flow velocity. There is plaque within the right carotid bulb and proximal right ICA which is less than 50%.. On the left side, there is plaque present within the carotid bulb along with the CCA. This plaque is less than 50%. There is moderate plaque within the left ICA which is 50-60% based on flow velocity. Antegrade vertebral flow is seen bilaterally. The measurements were made using the NASCET criteria. IMPRESSION: Diffuse plaque is seen within the cervical portion accredited arteries bilaterally. On the right side, there is a 50-69% stenosis of the mid CCA and on left side, there is a 50-69% stenosis of the ICA. However, this is based on flow velocity measurements and not ratios. There is a diffuse increase in flow velocities on both sides which could be due to hypertension. This may artificially accentuate the stenosis. Therefore, recommend CTA of the neck for further evaluation. Electronically signed by: Agustin Garcia MD (08/24/2018 4:31 PM) [place] [id number]
== END | disposition home or self-care (01) ==
LOC: ECHO 08:52
PROVIDERS: ATTEND Psychiatry & Neurology Neurology
DX: I65.23 Occlusion and stenosis of bilateral carotid arteries (principal); I63.9 Cerebral infarction, unspecified; I10 Essential (primary) hypertension
CPT/HCPCS: 93880

== ENCOUNTER → 2018-08-24 | Outpatient (CLI) | payer MEDICARE, BC ==
[2017-09-17 16:30] VITALS: BP 151/72
--- NOTE | 2018-08-24 09:58 | CARD ---
MR#: [id number] Date of Study: 08/24/2018 Ordering Physician: WANDER VAZQUEZ, Referring Physician: WANDER VAZQUEZ, Tech: Evelia Clifford [facility] APPROVED REPORT EXAM: Two-dimensional and M-mode echocardiogram with Doppler, color Doppler with bubble study. Other Information Quality : GoodHR: 79bpm Rhythm : NSR INDICATION CVA/TIA 2D DIMENSIONS RVDd2.9 (2.9-3.5cm)Left Atrium(2D)3.3 (1.6-4.0cm) IVSd1.1 (0.7-1.1cm)Aortic Root(2D)3.3 (2.0-3.7cm) LVDd4.5 (3.9-5.9cm)LVOT Diameter2.2 (1.8-2.4cm) PWd0.9 (0.7-1.1cm)LVDs2.7 (2.5-4.0cm) FS (%) 38.4 %SV62.4 ml LVEF(%)68.9 (>50%) Aortic Valve AoV Peak Cezar.142.3cm/sAoV VTI31.1cm AO Peak GR.8.1mmHgLVOT Peak Cezar.121.6cm/s AO Mean GR.4mmHgAVA (VMAX)3.20cm2 Mitral Valve MV E Sqqqpfnx85.7cm/sMV DECEL UGRE870fg MV A Doabmygs295.5cm/sE/A Ratio0.8 MV A Onacfuai890tg Pulmonary Valve PV Peak Yskeeawp757.2cm/s Tricuspid Valve TR P. Oetaphww004td/sRAP AZAGTUNY2rrVj TR Peak Gr.09dkTlIHZN87mpJf LEFT VENTRICLE The left ventricle is normal size. There is mild concentric left ventricular hypertrophy. The left ve ntricular systolic function is normal and the ejection fraction is within normal range. The Ejection Fraction is 65-70%. There is normal LV segmental wall motion. Transmitral Doppler flow pattern is Gra de I-abnormal relaxation pattern. RIGHT VENTRICLE The right ventricle is normal size. There is normal right ventricular wall thickness. The right ventr icular systolic function is normal. ATRIA The left atrium size is normal. The right atrium size is normal. The interatrial septum is intact wit h no evidence for an atrial septal defect or patent foramen ovale as noted on 2-D or Doppler imaging. Suboptimal agitated saline study but no clear evidence of right to left shunting AORTIC VALVE The aortic valve is normal in structure and function. The aortic valve is trileaflet. Doppler and Col or Flow revealed no significant aortic regurgitation. There is no significant aortic valvular stenosi s. There is no aortic valvular vegetation. MITRAL VALVE The mitral valve is thickened but opens well. There is no evidence of mitral valve prolapse. There is no mitral valve stenosis. Doppler and Color-flow revealed trace mitral regurgitation. TRICUSPID VALVE The tricuspid valve is normal in structure and function. Doppler and Color Flow revealed mild tricusp id regurgitation. There is moderate pulmonary hypertension. The PA pressure was estimated at 54 mmHg. There is no tricuspid valve prolapse or vegetation. There is no tricuspid valve stenosis. PULMONIC VALVE Doppler and Color Flow revealed no pulmonic valvular regurgitation. There is no pulmonic valvular tonia nosis. GREAT VESSELS The aortic root is normal in size. The ascending aorta is normal in size. The IVC is normal in size a nd collapses >50% with inspiration. PERICARDIAL EFFUSION There is no evidence of significant pericardial effusion. Critical Notification Critical Value: No <Conclusion> The left ventricular systolic function is normal and the ejection fraction is within normal range. Th e Ejection Fraction is 65-70%. There is normal LV segmental wall motion. The interatrial septum is intact with no evidence for an atrial septal defect or patent foramen ovale as noted on 2-D or Doppler imaging. Suboptimal agitated saline study but no clear evidence of right to left shunting Doppler and Color Flow revealed mild tricuspid regurgitation. There is moderate pulmonary hypertensio n. The PA pressure was estimated at 54 mmHg. Signed by : Dean Webster, Electronically Approved : 08/24/2018 09:57:29
== END | disposition home or self-care (01) ==
LOC: ECHO 09:00
PROVIDERS: ATTEND Psychiatry & Neurology Neurology
DX: I07.1 Rheumatic tricuspid insufficiency (principal); I27.20 Pulmonary hypertension, unspecified
CPT/HCPCS: 93306

== ENCOUNTER 2018-12-22 06:05 | Inpatient (IN) | payer MEDICARE, BC ==
[~2018-12-22] VITALS: Ht 167.6 cm; Wt 66.9 kg
[~2018-12-22 06:05] MED LIST changes: -GLIM4TAB2 PO; +GLIM4TAB4 PO
[2018-12-22] MEDS ORDERED: DEXTROSE 50% 25 GM / 50ML DISP.SYRIN. IV ONE ×3 (07:15→10:45)
--- NOTE | 2018-12-22 07:21 | RAD ---
AP chest. HISTORY: Short of air AP view was taken of the chest. There is elevation the right diaphragm. There is linear atelectasis in both lung bases. There is mild hazy infiltrate in the mid lung on the right side. PA and lateral views would be of benefit for better evaluation. Heart is normal in size without heart failure. There is no effusion. IMPRESSION: 1. Mild right midlung infiltrate. 2. Linear atelectasis both lung bases. Electronically signed by: Shreyas Freeman MD (12/22/2018 7:18 AM) [facility]
[2018-12-22 07:34] LABS: BILIRUBIN,URINE NEGATIVE (NEG); CLARITY,URINE CLEAR; COLOR,URINE YELLOW; NITRITE,URINE NEGATIVE (NEG); PH,URINE 5.5; PROTEIN,URINE 100 mg/dL (NEG-TRACE); UROBILINOGEN,URINE 0.2 mg/dL (0.2 mg/dL)
[2018-12-22 07:56] LABS: BASO % 0 % (0-3); EOS % 0 % (0-3); HEMATOCRIT 27.2 % (39.0-53.0); HEMOGLOBIN 9.2 g/dL (13.0-17.5); LYMPH % 6 % (24-48); MEAN CORPUSCULAR HEMOGLOBIN 30 pg (25-35); MEAN CORPUSCULAR HGB CONC 34 g/dL (31-37); MEAN CORPUSCULAR VOLUME 88 fL (79-100); MONO # 0.7 x10^3/uL (0.0-1.1); MONO % 5 % (0-9); NEUT # 13.7 x10^3/uL (1.8-7.7); NEUT % 89 % (31-73); PLATELET COUNT 145 x10^3/uL (140-400); RED BLOOD COUNT 3.08 x10^6/uL (4.30-5.70); RED CELL DISTRIBUTION WIDTH 14.1 % (11.5-14.5); WHITE BLOOD COUNT 15.4 x10^3/uL (4.0-11.0)
[2018-12-22 08:01] LABS: RBC,URINE OCC /HPF (0-2)
[2018-12-22 08:02] LABS: BACTERIA,URINE 0 /HPF (0-FEW); SQUAMOUS EPITHELIAL CELL,UR FEW /LPF
--- NOTE | 2018-12-22 08:04 | EKG ---
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
[2018-12-22 08:05] LABS: HYALINE CASTS, URINE FEW /HPF
[2018-12-22] MEDS ORDERED: IV DEXTROSE 5 %-0.45 % NACL 1,000 ML IV ONE (08:15)
[2018-12-22 08:16] LABS: CALCIUM 8.3 mg/dL (8.5-10.1); CREATININE 1.2 mg/dL (0.7-1.3)
[2018-12-22 08:22] LABS: ALBUMIN 2.9 g/dL (3.4-5.0); ALBUMIN/GLOBULIN RATIO 0.9 (1.0-1.7); TOTAL BILIRUBIN 0.1 mg/dL (0.2-1.0); TOTAL PROTEIN 6.1 g/dL (6.4-8.2)
--- NOTE | 2018-12-22 08:33 | PDOC1 ---
History and Physical Date of Admission Date of Admission DATE: 12/22/18 TIME: 08:33 Identification/Chief Complaint Chief Complaint Confusion Source Source: Chart review, Patient History of Present Illness History of Present Illness Mr Oleary is a 73yo M w/ PMHx HTN, DM2, peripheral vascular disease who comes to the ED due to glucose of 22 at home with confusion per his and daughter. Despite D50 x2 doses his glucose continues to drop to 33 and 44. He also c/o chest pain and cough. The pain is right sided, sharp, does not radiate. He also notes a cough for the past 10 days that is productive of some foul sputum. In addition to that he has lost 80 pounds over the past 5 months mostly he claims due to fear of eating with severe abdominal pain on every meal. He feels he had an EGD recently at [facility], is not aware of the results. He was also seen by Dr. Medel and underwent what sounds to be a left femoral arterial procedure as well as C ( and daughter states stenting and bypass) this past 12/14/18. Right middle lobe infiltrate on CXR. EKG - Left axis, S1S2S3 pattern with RBBB and RVH with no prior EKG available at this time. Initial troponin 0.4 Past Medical History Cardiovascular: CAD, HTN CENTRAL NERVOUS SYSTEM: Periperal neuropathy Heme/Onc: Anemia NOS Endocrine: Diabetes Past Surgical History Past Surgical History: Cholecystectomy, Other Family History Family History: Heart Disease Family History: Parent Social History Smoke: No ALCOHOL: occassional Current Medications Current Medications Current Medications Dextrose (Dextrose 50%-Water Syringe) 25 gm STK-MED ONCE IV ; Start 12/22/18 at 07:15; Stop 12/22/18 at 07:16; Status DC Dextrose (Dextrose 50%-Water Syringe) 25 gm 1X ONCE IV Last administered on 12/22/18at 07:27; Start 12/22/18 at 07:15; Stop 12/22/18 at 07:18; Status DC Dextrose/Sodium Chloride 1,000 ml @ 125 mls/hr 1X ONCE IV Last administered on 12/22/18at 08:11; Start 12/22/18 at 08:15; Stop 12/22/18 at 16:14 Active Scripts Active Magnesium Citrate 296 Ml Solution 296 Ml PO ONCE Miralax (Polyethylene Glycol 3350) 17 Gm Powd.pack 1 Packet PO DAILY Vitamin D3 (Cholecalciferol (Vitamin D3)) 5,000 Unit Capsule 5,000 Unit PO DAILY 30 Days Amlodipine Besylate 5 Mg Tablet 5 Mg PO [id number] 30 Days Reported Tamsulosin Hcl 0.4 Mg Cap.er.24h 1 Cap PO DAILY Oxycodone Hcl 5 Mg Tablet 1 Tab PO PRN Q6HRS PRN Benicar (Olmesartan Medoxomil) 5 Mg Tablet 5 Mg PO DAILY Metoprolol Tartrate 25 Mg Tablet 1 Tab PO BID Metformin Hcl 500 Mg Tablet 750 Mg PO TID Lyrica (Pregabalin) 100 Mg Capsule 1 Cap PO TID Hydroxyzine Hcl 25 Mg Tablet 1 Tab PO QID Glimepiride 4 Mg Tablet 1 Tab PO DAILY Cymbalta (Duloxetine Hcl) 30 Mg Capsule.dr 1 Cap PO BID Cyclobenzaprine Hcl 5 Mg Tablet 1-2 Tab PO PRN TID PRN Atorvastatin Calcium 40 Mg Tablet 1 Tab PO HS Alprazolam 0.5 Mg Tablet 1 Tab PO PRN QHS Advair 100-50 Diskus (Fluticasone/Salmeterol) 1 Each Disk.w.dev 1 Puff IH DAILY Allergies Allergies: Coded Allergies: lisinopril (Verified Allergy, Severe, ANGIOEDEMA, 03/29/17) ROS General: YES: Fatigue, Malaise, Appetite; No: Chills, Night Sweats, Other PSYCHOLOGICAL ROS: No: Anxiety, Behavioral Disorder, Concentration difficultie, Decreased libido, Depression, Disorientation, Hallucinations, Hostility, Irritablity, Memory difficulties, Mood Swings, Obsessive thoughts, Physical abuse, Sexual abuse, Sleep disturbances, Suicidal ideation, Other Eyes: No Blurry vision, No Decreased vision, No Double vision, No Dry eyes, No Excessive tearing, No Eye Pain, No Itchy Eyes, No Loss of vision, No Photophobia, No Scotomata, No Uses contacts, No Uses glasses, No Other HEENT: No: Heacaches, Visual Changes, Hearing change, Nasal congestion, Nasal discharge, Oral lesions, Sinus pain, Sore Throat, Epistaxis, Sneezing, Snoring, Tinnitus, Vertigo, Vocal changes, Other ALLERGY AND IMMUNOLOGY: No: Hives, Insect Bite Sensitivity, Itchy/Watery Eyes, Nasal Congestion, Post Nasal Drip, Seasonal Allergies, Other Hematological and Lymphatic: No: Bleeding Problems, Blood Clots, Blood Transfusions, Brusing, Night Sweats, Pallor, Swollen Lymph Nodes, Other ENDOCRINE: No: Breast Changes, Galactorrhea, Hair Pattern Changes, Hot Flashes, Malaise/lethargy, Mood Swings, Palpitations, Polydipsia/polyuria, Skin Changes, Temperature Intolerance, Unexpected Weight Changes, Other Breast: No New/Changing Breast Lumps, No Nipple changes, No Nipple discharge, No Other Respiratory: YES: Cough, Shortness of breath, Tachypnea; No: Hemoptysis, Orthopnea, Pleuritic Pain, SOB with excertion, Sputum Changes, Stridor, Wheezing, Other Cardiovascular: yes Chest Pain; No Palpitations, No Orthopnea, No Paroxysmal Noc. Dyspnea, No Edema, No Lt Headedness, No Other Gastrointestinal: Yes Nausea, Yes Abdominal Pain; No Vomiting, No Diarrhea, No Constipation, No Melena, No Hematochezia, No Other Genitourinary: No Dysuria, No Frequency, No Incontinence, No Hematuria, No Retention, No Discharge, No Urgency, No Pain, No Flank Pain, No Other, No , No , No , No , No , No , No Musculoskeletal: No Gait Disturbance, No Joint Pain, No Joint Stiffness, No Joint Swelling, No Muscle Pain, No Muscular Weakness, No Pain In:, No Swelling In:, No Other Neurological: Yes Confusion; No Behavorial Changes, No Bowel/Bladder ControlChng, No Dizziness, No Gait Disturbance, No Headaches, No Impaired Coord/balance, No Memory Loss, No Numbness/Tingling, No Seizures, No Speech Problems, No Tremors, No Visual Changes, No Weakness, No Other Skin: No Dry Skin, No Eczema, No Hair Changes, No Lumps, No Mole Changes, No Mottling, No Nail Changes, No Pruritus, No Rash, No Skin Lesion Changes, No Other, No Acne Physical Exam General: Alert, Cooperative, moderate distress HEENT: Atraumatic, PERRLA, EOMI, Mucous membr. moist/pink Lungs: Other (Rhonchi on right) Heart: S1S2, RRR, no thrills, no rubs Abdomen: Normal bowel sounds, Soft, No hepatosplenomegaly, No masses, Other (RUQ tender) Rectal Exam: not examined Extremities: No clubbing, No cyanosis, No edema, No tenderness/swelling, Other (Decreased pulses right foot) Skin: No rashes, No breakdown, No significant lesion Neuro: Normal speech, Strength at 5/5 X4 ext, Normal tone, Sensation intact, Cranial nerves 3-12 NL, Reflexes 2+ Psych/Mental Status: Mood NL Vitals Vitals Vital Signs Date Time Temp Pulse Resp B/P (MAP) Pulse Ox O2 Delivery O2 Flow Rate FiO2 12/22/18 06:22 97.8 88 18 158/112 (127) 97 Room Air 97.8 Labs Labs Laboratory Tests Test 12/22/18 06:12 12/22/18 07:14 12/22/18 07:25 12/22/18 07:45 Glucose (Fingerstick) 63 mg/dL (70-99) 33 mg/dL (70-99) Urine Collection Type Unknown Urine Color Yellow Urine Clarity Clear Urine pH 5.5 Urine Specific [place] 1.010 Urine Protein 100 mg/dL (NEG-TRACE) Urine Glucose (UA) Negative mg/dL (NEG) Urine Ketones (Stick) Negative mg/dL (NEG) Urine Blood Negative (NEG) Urine Nitrite Negative (NEG) Urine Bilirubin Negative (NEG) Urine Urobilinogen Dipstick 0.2 mg/dL (0.2 mg/dL) Urine Leukocyte Esterase Negative (NEG) Urine RBC Occ /HPF (0-2) Urine WBC 1-4 /HPF (0-4) Urine Squamous Epithelial Cells Few /LPF Urine Bacteria 0 /HPF (0-FEW) Urine Hyaline Casts Few /HPF White Blood Count 15.4 x10^3/uL (4.0-11.0) Red Blood Count 3.08 x10^6/uL (4.30-5.70) Hemoglobin 9.2 g/dL (13.0-17.5) Hematocrit 27.2 % (39.0-53.0) Mean Corpuscular Volume 88 fL (79-100) Mean Corpuscular Hemoglobin 30 pg (25-35) Mean Corpuscular Hemoglobin Concent 34 g/dL (31-37) Red Cell Distribution Width 14.1 % (11.5-14.5) Platelet Count 145 x10^3/uL (140-400) Neutrophils (%) (Auto) 89 % (31-73) Lymphocytes (%) (Auto) 6 % (24-48) Monocytes (%) (Auto) 5 % (0-9) Eosinophils (%) (Auto) 0 % (0-3) Basophils (%) (Auto) 0 % (0-3) Neutrophils # (Auto) 13.7 x10^3/uL (1.8-7.7) Lymphocytes # (Auto) 1.0 x10^3/uL (1.0-4.8) Monocytes # (Auto) 0.7 x10^3/uL (0.0-1.1) Eosinophils # (Auto) 0.0 x10^3/uL (0.0-0.7) Basophils # (Auto) 0.0 x10^3/uL (0.0-0.2) Sodium Level 142 mmol/L (136-145) Potassium Level 4.0 mmol/L (3.5-5.1) Chloride Level 107 mmol/L (98-107) Carbon Dioxide Level 28 mmol/L (21-32) Anion Gap 7 (6-14) Blood Urea Nitrogen 22 mg/dL (8-26) Creatinine 1.2 mg/dL (0.7-1.3) Estimated GFR (Cockcroft-Gault) 72.0 BUN/Creatinine Ratio 18 (6-20) Glucose Level 70 mg/dL (70-99) Calcium Level 8.3 mg/dL (8.5-10.1) Total Bilirubin 0.1 mg/dL (0.2-1.0) Aspartate Amino Transf (AST/SGOT) 26 U/L (15-37) Alanine Aminotransferase (ALT/SGPT) 21 U/L (16-63) Alkaline Phosphatase 138 U/L (46-116) XP-Umx-J-Type Natriuretic Peptide 1470 pg/mL (0-124) Total Protein 6.1 g/dL (6.4-8.2) Albumin 2.9 g/dL (3.4-5.0) Albumin/Globulin Ratio 0.9 (1.0-1.7) Laboratory Tests Test 12/22/18 06:12 12/22/18 07:14 12/22/18 07:25 12/22/18 07:45 Glucose (Fingerstick) 63 mg/dL (70-99) 33 mg/dL (70-99) Urine Collection Type Unknown Urine Color Yellow Urine Clarity Clear Urine pH 5.5 Urine Specific [place] 1.010 Urine Protein 100 mg/dL (NEG-TRACE) Urine Glucose (UA) Negative mg/dL (NEG) Urine Ketones (Stick) Negative mg/dL (NEG) Urine Blood Negative (NEG) Urine Nitrite Negative (NEG) Urine Bilirubin Negative (NEG) Urine Urobilinogen Dipstick 0.2 mg/dL (0.2 mg/dL) Urine Leukocyte Esterase Negative (NEG) Urine RBC Occ /HPF (0-2) Urine WBC 1-4 /HPF (0-4) Urine Squamous Epithelial Cells Few /LPF Urine Bacteria 0 /HPF (0-FEW) Urine Hyaline Casts Few /HPF White Blood Count 15.4 x10^3/uL (4.0-11.0) Red Blood Count 3.08 x10^6/uL (4.30-5.70) Hemoglobin 9.2 g/dL (13.0-17.5) Hematocrit 27.2 % (39.0-53.0) Mean Corpuscular Volume 88 fL (79-100) Mean Corpuscular Hemoglobin 30 pg (25-35) Mean Corpuscular Hemoglobin Concent 34 g/dL (31-37) Red Cell Distribution Width 14.1 % (11.5-14.5) Platelet Count 145 x10^3/uL (140-400) Neutrophils (%) (Auto) 89 % (31-73) Lymphocytes (%) (Auto) 6 % (24-48) Monocytes (%) (Auto) 5 % (0-9) Eosinophils (%) (Auto) 0 % (0-3) Basophils (%) (Auto) 0 % (0-3) Neutrophils # (Auto) 13.7 x10^3/uL (1.8-7.7) Lymphocytes # (Auto) 1.0 x10^3/uL (1.0-4.8) Monocytes # (Auto) 0.7 x10^3/uL (0.0-1.1) Eosinophils # (Auto) 0.0 x10^3/uL (0.0-0.7) Basophils # (Auto) 0.0 x10^3/uL (0.0-0.2) Sodium Level 142 mmol/L (136-145) Potassium Level 4.0 mmol/L (3.5-5.1) Chloride Level 107 mmol/L (98-107) Carbon Dioxide Level 28 mmol/L (21-32) Anion Gap 7 (6-14) Blood Urea Nitrogen 22 mg/dL (8-26) Creatinine 1.2 mg/dL (0.7-1.3) Estimated GFR (Cockcroft-Gault) 72.0 BUN/Creatinine Ratio 18 (6-20) Glucose Level 70 mg/dL (70-99) Calcium Level 8.3 mg/dL (8.5-10.1) Total Bilirubin 0.1 mg/dL (0.2-1.0) Aspartate Amino Transf (AST/SGOT) 26 U/L (15-37) Alanine Aminotransferase (ALT/SGPT) 21 U/L (16-63) Alkaline Phosphatase 138 U/L (46-116) QU-Pth-O-Type Natriuretic Peptide 1470 pg/mL (0-124) Total Protein 6.1 g/dL (6.4-8.2) Albumin 2.9 g/dL (3.4-5.0) Albumin/Globulin Ratio 0.9 (1.0-1.7) Images Images CXR - elevation the right diaphragm. There is linear atelectasis in both lung bases. There is mild hazy infiltrate in the mid lung on the right side. PA and lateral views would be of benefit for better evaluation. Heart is normal in size without heart failure. There is no effusion. IMPRESSION: 1. Mild right midlung infiltrate. 2. Linear atelectasis both lung bases. VTE Prophylaxis Ordered VTE Prophylaxis Devices: Yes VTE Pharmacological Prophylaxi: Yes Assessment/Plan Assessment/Plan A/P: Metabolic encephalopathy - likely 2/2 hypoglycemia Hypoglycemia - likely 2/2 sulfonylurea, will place on D10 Right middle lobe pneumonia - will treat for CAP. Consult pulm Headache with photosensitivity - will use tylenol prn Weakness - will have PT work with him. Vascular surgery to see for decreased RLE pulses Recent history SDH with evacuation after a fall - no new hemorrhages noted on CT scan 04/17/17 Anemia - likely of chronic disease Diabetes mellitus type II - will hold sulfonylurea permanently given his hypoglycemia. Glucose checks History of chronic right leg weakness for 2 months - Will consult vascular surgery Hypertension - Cont meds CAD - with PCI in 2006. apparently had C this past wednesday12/14/2018 per daughter with no intervention but diffuse disease COPD - nebs Peripheral neuropathy - on gabapentin NSTEMI - Left axis, S1S2S3 pattern with RBBB and RVH with no prior EKG available at this time. Initial troponin 0.4. Will consult cardiology, trend troponins, if greater than 1 would initiate heparin GTT PAD - 12/14 LLE percutaneous revascularization and due for RLE with Dr. Medel on 12/29/2018 Hx of CVA/SDH and moderate carotid artery disease Abdominal pain with distention - will consult GI, order [facility] records. He has a strong appetite currently, but states he is scared to eat 2/2 pain Abnormal weight loss - states he has had through w/u at [facility]. records ordered H/o Hep C - states in SVR, will order HCV FEN - General diet PPX - Lovenox FULL CODE Dispo - Inpatient [facility] KIARRA FLORES MD Dec 22, 2018 08:33
[2018-12-22 08:41] LABS: % BANDS 1 % (0-9); % LYMPHS 11 % (24-48); % MONOS 3 % (0-10); % SEGS 85 % (35-66); PLT ESTIMATE ADEQUATE (ADEQUATE)
--- NOTE | 2018-12-22 09:02 | PDOC2 ---
GWEN RENAE BILINGUAL TEACHER 12/22/18 0902: CARDIAC CONSULT DATE OF CONSULT Date of Consult DATE: 12/22/18 TIME: 08:50 REASON FOR CONSULT Reason for Consult: Elevated troponin REFERRING PHYSICIAN Referring Physician: Swapnil SOURCE Source: Chart review, Patient HISTORY OF PRESENT ILLNESS HISTORY OF PRESENT ILLNESS This is a pleasant 73 yo female admitted for complains of confusion. spouse at the bedside, noted that he started getting confused yesterday then got better and then this morning prompting them to bring him to ED with BG noted at 22 at home. HE was given juice by his daughter. In the last 2 days he also has been having some SOA with exertion but otherwise no respiratory issues, coughs and no fever or chills. No nausea or vomiting. No palpitations and denies any recent falls or injury. Reports no chest pain and no frequent dizziness. He just started getting confused and no specific focal neuro symptoms. His mentation is better after treatment. The consult is for elevated troponin and again he does not have any chest pain. He had LHC last week Wednesday with no intervention but noted with small distal disease per his daughter. He also had LLE revascularization in the iliac region per his spouse description. and is due to see Dr. Medel again on 12/29/2018 for RLE revascularization. 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) GI: Diverticulosis Heme/Onc: Anemia NOS Psych: Anxiety Musculoskeletal: Osteoarthritis Renal/: Benign prostatic enlarg., Other (cystitis) Endocrine: Diabetes (2) Dermatology: No pertinent hx PAST SURGICAL HISTORY Past Surgical History: Cholecystectomy, Other (PCI 2006) FAMILY HISTORY Family History: Heart Disease (father) SOCIAL HISTORY Smoke: <1 pack per day ALCOHOL: occassional Drugs: None Lives: with Family CURRENT MEDICATIONS CURRENT MEDICATIONS Current Medications Medications (Trade) Dose Ordered Sig/Ray Route PRN Reason Start Time Stop Time Status Last Admin Dose Admin Dextrose (Dextrose 50%-Water Syringe) 25 gm 1X ONCE IV 12/22/18 07:15 12/22/18 07:18 DC 12/22/18 07:27 Dextrose/Sodium Chloride 1,000 ml @ 125 mls/hr 1X ONCE IV 12/22/18 08:15 12/22/18 16:14 12/22/18 08:11 ALLERGIES ALLERGIES: Coded Allergies: lisinopril (Verified Allergy, Severe, ANGIOEDEMA, 03/29/17) ROS Review of System 14 point ROS evaluated with pertinent positives noted per HPI PHYSICAL EXAM General: Alert, Oriented X3, Cooperative, No acute distress HEENT: Atraumatic, Mucous membr. moist/pink Lungs: Clear to auscultation, Normal air movement Heart: Regular rate, Normal S1, Normal S2, Other (2/6 RAZ systolic murmur) Extremities: No cyanosis, Other (1+ bilateral LE pitting edema) Skin: No breakdown, No significant lesion Neuro: Normal speech, Sensation intact Psych/Mental Status: Mental status NL, Mood NL MUSCULOSKELETAL: Osteoarthritic changes both hands VITALS/I&O VITALS/I&O: Vital Signs Date Time Temp Pulse Resp B/P (MAP) Pulse Ox O2 Delivery O2 Flow Rate FiO2 12/22/18 06:22 97.8 88 18 158/112 (127) 97 Room Air 97.8 LABS Lab: Laboratory Tests Test 12/22/18 06:12 12/22/18 07:14 12/22/18 07:25 12/22/18 07:45 Glucose (Fingerstick) 63 mg/dL (70-99) L 33 mg/dL (70-99) *L Urine Collection Type Unknown Urine Color Yellow Urine Clarity Clear Urine pH 5.5 Urine Specific [place] 1.010 Urine Protein 100 mg/dL (NEG-TRACE) Urine Glucose (UA) Negative mg/dL (NEG) Urine Ketones (Stick) Negative mg/dL (NEG) Urine Blood Negative (NEG) Urine Nitrite Negative (NEG) Urine Bilirubin Negative (NEG) Urine Urobilinogen Dipstick 0.2 mg/dL (0.2 mg/dL) Urine Leukocyte Esterase Negative (NEG) Urine RBC Occ /HPF (0-2) Urine WBC 1-4 /HPF (0-4) Urine Squamous Epithelial Cells Few /LPF Urine Bacteria 0 /HPF (0-FEW) Urine Hyaline Casts Few /HPF White Blood Count 15.4 x10^3/uL (4.0-11.0) H Red Blood Count 3.08 x10^6/uL (4.30-5.70) L Hemoglobin 9.2 g/dL (13.0-17.5) L Hematocrit 27.2 % (39.0-53.0) L Mean Corpuscular Volume 88 fL (79-100) Mean Corpuscular Hemoglobin 30 pg (25-35) Mean Corpuscular Hemoglobin Concent 34 g/dL (31-37) Red Cell Distribution Width 14.1 % (11.5-14.5) Platelet Count 145 x10^3/uL (140-400) Neutrophils (%) (Auto) 89 % (31-73) H Lymphocytes (%) (Auto) 6 % (24-48) L Monocytes (%) (Auto) 5 % (0-9) Eosinophils (%) (Auto) 0 % (0-3) Basophils (%) (Auto) 0 % (0-3) Neutrophils # (Auto) 13.7 x10^3/uL (1.8-7.7) H Lymphocytes # (Auto) 1.0 x10^3/uL (1.0-4.8) Monocytes # (Auto) 0.7 x10^3/uL (0.0-1.1) Eosinophils # (Auto) 0.0 x10^3/uL (0.0-0.7) Basophils # (Auto) 0.0 x10^3/uL (0.0-0.2) Segmented Neutrophils % 85 % (35-66) H Band Neutrophils % 1 % (0-9) Lymphocytes % 11 % (24-48) L Monocytes % 3 % (0-10) Platelet Estimate Adequate (ADEQUATE) Sodium Level 142 mmol/L (136-145) Potassium Level 4.0 mmol/L (3.5-5.1) Chloride Level 107 mmol/L (98-107) Carbon Dioxide Level 28 mmol/L (21-32) Anion Gap 7 (6-14) Blood Urea Nitrogen 22 mg/dL (8-26) Creatinine 1.2 mg/dL (0.7-1.3) Estimated GFR (Cockcroft-Gault) 72.0 BUN/Creatinine Ratio 18 (6-20) Glucose Level 70 mg/dL (70-99) Calcium Level 8.3 mg/dL (8.5-10.1) L Total Bilirubin 0.1 mg/dL (0.2-1.0) L Aspartate Amino Transferase (AST) 26 U/L (15-37) Alanine Aminotransferase (ALT) 21 U/L (16-63) Alkaline Phosphatase 138 U/L (46-116) H Troponin I Quantitative 0.439 ng/mL (0.000-0.055) ND-Fxh-N-Type Natriuretic Peptide 1470 pg/mL (0-124) H Total Protein 6.1 g/dL (6.4-8.2) L Albumin 2.9 g/dL (3.4-5.0) L Albumin/Globulin Ratio 0.9 (1.0-1.7) L Thyroid Stimulating Hormone (TSH) 0.870 uIU/mL (0.358-3.74) Test 12/22/18 08:05 12/22/18 08:45 Glucose (Fingerstick) 42 mg/dL (70-99) *L 54 mg/dL (70-99) L Laboratory Tests 12/22/18 07:45 Laboratory Tests 12/22/18 07:45 IMAGES IMAGES CONCLUSION: 12/14/2018 Successful drug-eluting stent angioplasty of calcified distal SFA subtotal occlusion with 6.0 x 60 mm Jill NICOLE. Successful drug-eluting balloon angioplasty of proximal right SFA with 5.0 x 40 mm In.Pact Admiral drug-eluting balloon. Successful balloon angioplasty of right LEVER OPERATOR with 7.0 x 20 mm [place] peripheral vascular balloon. RECOMMENDATIONS: Standard post catheterization care. Optimize medical therapy of peripheral arterial disease to prevent future vascular events. Dual antiplatelet therapy with aspirin 81 mg and Plavix 75 mg daily. Attending physician, Dr. Medel, was present for the entire case and performed silva elements of the procedure as needed. ECHOCARDIOGRAM ECHOCARDIOGRAM <Conclusion> The left ventricular systolic function is normal and the ejection fraction is within normal range. The Ejection Fraction is 65-70%. There is normal LV segmental wall motion. The interatrial septum is intact with no evidence for an atrial septal defect or patent foramen ovale as noted on 2-D or Doppler imaging. Suboptimal agitated saline study but no clear evidence of right to left shunting Doppler and Color Flow revealed mild tricuspid regurgitation. There is moderate pulmonary hypertension. The PA pressure was estimated at 54 mmHg. DATE: 08/24/18 0957 STRESS TEST STRESS TEST 09/27/2018 SUMMARY/OPINION: This study is an abnormal study with a moderate sized, moderate intensity, reversible perfusion abnormality involving the inferior wall from apex to midsegments. This may correlate with right coronary artery with or without known disease of apical left anterior descending artery. Left ventricular systolic function is normal with calculated ejection fraction of 71% and end diastolic volume of 86 mL. There are technically no high risk prognostic indicators present. The pharmacologic ECG portion of the study is non-diagnostic for ischemia. Comparison is made to [facility] study performed on September 19, 2009 which showed left ventricular ejection fraction of 69%, left ventricular end-diastolic volume of 55 mL with reversible defect involving the inferior wall probably representing right coronary artery ischemia. The two studies are performed with different cameras and thus precise comparison is difficult to establish. However, current study appears to show reversible perfusion abnormality in the similar territory but with a larger extent and higher intensity. HEART CATH HEART CATH FINDINGS OF SELECTIVE CORONARY ANGIOGRAPHY: 12/02/2018 Left main coronary artery: The left main coronary artery is a medium-sized though relatively long vessel with mild plaquing with calcification distally causing about a 20% stenosis. Left anterior descending artery: The LAD is a vessel that is large and reaches the apex and wraps around it. It has moderate disease throughout its course with a 30% to 40% stenosis diffusely in the proximal midportion, then distally, pre-apically, there is an 80% stenosis unchanged from before. The LAD does give rise to a couple of smaller diagonal branches that have severe disease. Left circumflex artery: The left circumflex artery appears to be a dominant vessel. The previously placed stent patent in its midportion. The stent is patent with only mild restenosis. The large obtuse marginal comes off just before the stent and had a 50% to 40% proximal stenosis and distally toward the end of the obtuse marginal, there is a 70% to 80% stenosis which is new. The circumflex artery wraps around the AV groove to supply a PDA that has moderate diffuse disease. A couple of small obtuse marginal branches come off the circumflex artery and have severe disease. RCA: The RCA appears to be nondominant and is completely occluded. ABDOMINAL AORTOGRAM: The patient has a single renal artery supplying both kidneys without severe stenosis. Abdominal aorta is without significant plaque or aneurysm dilatation. Both common iliac arteries have mild plaquing. Both internal iliac arteries are patent but have severe disease. Both external iliac arteries are patent though the right side has an interposition graft with about a 40% stenosis in the proximal anastomosis, unchanged from before. RIGHT LOWER EXTREMITY ARTERIOGRAM: The right common femoral artery is patent. The right profunda femoris is patent. The right proximal SFA has a 70% stenosis which is focal. The mid-SFA has heavy calcification, and there is a short segment of complete occlusion in the mid-SFA in the calcified segment with reconstitution through collaterals in the prof unda. The right popliteal artery is patent without significant stenosis. Distally below the knee, there is severe disease of an 80% to 90% stenosis in the origin of the proximal portion of the anterior tibial artery. The peroneal artery is completely occluded. The TP trunk has 80% to 90% diffuse stenosis going into the posterior tibial artery. The right foot receives runoff from both the PT and the AT though the flow is sluggish because of 2 tandem lesions proximally as described above. LEFT LOWER EXTREMITY ARTERIOGRAM: The left common femoral artery is widely patent. The left profunda femoris is patent with severe diffuse disease in multiple branches. The previously occluded fem-pop bypass graft is still occluded. The SFA has diffuse moderate to severe disease in its proximal portion of about 70% to 75% throughout, unchanged from before. The mid-SFA has a short segment of focal occlusion which is new. The distal SFA has a previously placed short, 40 mm, drug-eluting stent which is generally patent at its edge with a new 80% stenosis. The patient has severe distal disease though the popliteal has only moderate disease of about 40% to 50%. The TP trunk is completely occluded. The anterior tibial has multiple tandem lesions of 80% to 90%. Distally, the posterior tibial reconstitutes from collaterals. The foot does have 2-vessel runoff from a severely disease AT and occluded PT. FINAL IMPRESSION: This patient does have significant coronary artery disease with complete occlusion of a nondominant RCA, 40% stenosis of the mid-LAD, 80% apical stenosis of the apical LAD, and multiple obtuse marginals having severe diffuse disease. These findings are somewhat progressed from before though the apical LAD lesion was unchanged from before and the obtuse marginal has worsened but is not amenable to PCI. Medical management is recommended. In addition to peripheral arterial disease, we could discuss bringing him back for re-intervention of both legs, at least in the fem-pop region, as the occlusions and the areas of restenosis are still focal and some of them are new and some of them are old. However, long-term patency rate is guarded. He is not a candidate for a fem-pop on left side because of prior failure and non-critical limb ischemia. I am severely concerned about severe distal disease below the knee for future risk for critical limb ischemia. Deepthi Medel MD ASSESSMENT/PLAN ASSESSMENT/PLAN 1. NSTEMI: demand mediated with concurrent diffuse disease as noted in recent [facility] report not amenable to PCI 2. Metabolic encephalopathy: due to hypoglycemia 3. Hypoglycemic reaction: on sulfonylyureas 4. Possible pneumonia with underlying COPD with tobaccoism 5. HTN: labile 6. HLP 7. CAD; PCI in 2006. Recent [facility] 12/14/2018 per daughter with distal diffuse disease 8. PAD: 12/14 LLE percutaneous revascularization and due for RLE with Dr. Medel on 12/29/2018 9. DM2 10. Dementia 11. Hx of CVA/SDH and moderate carotid artery disease 12. Anemia of chronic disease 13. Chronic RBBB Recommendations 1. Continue with ASA and plavix. Diffuse disease as described to coronaries treated medically. 2. Resume BP regimen and secondary prevention measures. Start on imdur. Hydralazine IV PRN 3. Alternate to amaryl and DM regimen per PCP 4. Trend troponin, lipids. A1C. Supportive care. 5. [facility] records reviewed as above ALEJANDRO DIXON MD 12/22/18 1606: CARDIAC CONSULT ASSESSMENT/PLAN ASSESSMENT/PLAN Patient seen and examined. Agree with GAS ATTENDANT's assessment and plan. Agree that non-STEMI most probably demand ischemia. CAD status clinically stable. Mental status changes probably due to metabolic encephalopathy from hypoglycemia Recent cardiac catheterization and aortogram/SENIOR CENTER MANAGER noted above Recent echo showed normal LV function Thank you for your consultation GWEN RENAE APRN Dec 22, 2018 09:02 ALEJANDRO DIXON MD Dec 22, 2018 16:06
--- NOTE | 2018-12-22 09:04 | PHYS DOC ---
Past Medical History Past Medical History: Anxiety, CAD, COPD, Diabetes-Type II, Hypertension, Other Additional Past Medical Histor: BPH,PAD,HEP C,NEUROPATHY,CHRONIC NECK PAIN, SUBDURAL HEMATOMA Past Surgical History: Angioplasty, Cholecystectomy, Other Additional Past Surgical Histo: CARDIAC STENTS,NECK,VEIN STRIPPING,CARPAL TUNNEL, SUBDURAL Alcohol Use: Rarely Drug Use: None Adult General Chief Complaint Chief Complaint: HYPOGLYCEMIA HPI HPI Patient is a 73 year old type 2 diabetes, CAD, hypertension, CVA presents with altered mental status and hypoglycemia. Patient lives at home with spouse. Patient's spouse contacted EMS twice in the past 24 hours due changes of the patient's mental status. To most recent episode, the patient was sleeping and had deep sonorous respirations and was unable to be aroused. Initial blood sugar 22 on EMS arrival. IM Glucagon and oral glucose tablets given prior to ED arrival. Blood sugar is 64. Patient is currently on metformin does not take any other oral hypoglycemics and is not on insulin. Denies recent change medications or missed meals. Patient does have history of dementia. Additional history obtained from patient and spouse. Patient had a coronary stent placed at [facility] in the past week. Denies chest pain or shortness of breath.[] Review of Systems Review of Systems ROS as per HPI All other systems were reviewed and found to be within normal limits, except as documented in this note. Current Medications Current Medications Current Medications Medications (Trade) Dose Ordered Sig/[facility] Start Time Stop Time Status Last Admin Dose Admin Dextrose (Dextrose 50%-Water Syringe) 25 gm 1X ONCE 12/22/18 07:15 12/22/18 07:18 DC 12/22/18 07:27 25 GM Dextrose/Sodium Chloride 1,000 ml @ 125 mls/hr 1X ONCE 12/22/18 08:15 12/22/18 16:14 12/22/18 08:11 125 MLS/HR Allergies Allergies Allergies Coded Allergies Type Severity Reaction Last Updated Verified lisinopril Allergy Severe ANGIOEDEMA 03/29/17 Yes Physical Exam Physical Exam Constitutional: Well developed, disheveled. [] HENT: Normocephalic, atraumatic, bilateral external ears normal, oropharynx moist, nose normal. [] Eyes: PERRL, EOMI. [] Neck: Normal range of motion, no tenderness. [] Cardiovascular:Heart rate regular rhythm, no murmur. [] Lungs & Thorax: Bilateral breath sounds clear to auscultation [] Abdomen: Bowel sounds normal, soft, no tenderness. [] Skin: Warm, dry. [] Back: No tenderness. [] Extremities: No tenderness, no edema. [] Neurologic: Alert and oriented X 3, normal motor function, normal sensory function, no focal deficits noted. [] Psychologic: Affect normal, judgement normal, mood normal. [] Current Patient Data Vital Signs Vital Signs Date Time Temp Pulse Resp B/P (MAP) Pulse Ox O2 Delivery O2 Flow Rate FiO2 12/22/18 06:22 97.8 88 18 158/112 (127) 97 Room Air 97.8 Lab Values Laboratory Tests Test 12/22/18 06:12 12/22/18 07:14 12/22/18 07:25 12/22/18 07:45 Glucose (Fingerstick) 63 mg/dL (70-99) L 33 mg/dL (70-99) *L Urine Collection Type Unknown Urine Color Yellow Urine Clarity Clear Urine pH 5.5 Urine Specific [place] 1.010 Urine Protein 100 mg/dL (NEG-TRACE) Urine Glucose (UA) Negative mg/dL (NEG) Urine Ketones (Stick) Negative mg/dL (NEG) Urine Blood Negative (NEG) Urine Nitrite Negative (NEG) Urine Bilirubin Negative (NEG) Urine Urobilinogen Dipstick 0.2 mg/dL (0.2 mg/dL) Urine Leukocyte Esterase Negative (NEG) Urine RBC Occ /HPF (0-2) Urine WBC 1-4 /HPF (0-4) Urine Squamous Epithelial Cells Few /LPF Urine Bacteria 0 /HPF (0-FEW) Urine Hyaline Casts Few /HPF White Blood Count 15.4 x10^3/uL (4.0-11.0) H Red Blood Count 3.08 x10^6/uL (4.30-5.70) L Hemoglobin 9.2 g/dL (13.0-17.5) L Hematocrit 27.2 % (39.0-53.0) L Mean Corpuscular Volume 88 fL (79-100) Mean Corpuscular Hemoglobin 30 pg (25-35) Mean Corpuscular Hemoglobin Concent 34 g/dL (31-37) Red Cell Distribution Width 14.1 % (11.5-14.5) Platelet Count 145 x10^3/uL (140-400) Neutrophils (%) (Auto) 89 % (31-73) H Lymphocytes (%) (Auto) 6 % (24-48) L Monocytes (%) (Auto) 5 % (0-9) Eosinophils (%) (Auto) 0 % (0-3) Basophils (%) (Auto) 0 % (0-3) Neutrophils # (Auto) 13.7 x10^3/uL (1.8-7.7) H Lymphocytes # (Auto) 1.0 x10^3/uL (1.0-4.8) Monocytes # (Auto) 0.7 x10^3/uL (0.0-1.1) Eosinophils # (Auto) 0.0 x10^3/uL (0.0-0.7) Basophils # (Auto) 0.0 x10^3/uL (0.0-0.2) Segmented Neutrophils % 85 % (35-66) H Band Neutrophils % 1 % (0-9) Lymphocytes % 11 % (24-48) L Monocytes % 3 % (0-10) Platelet Estimate Adequate (ADEQUATE) Sodium Level 142 mmol/L (136-145) Potassium Level 4.0 mmol/L (3.5-5.1) Chloride Level 107 mmol/L (98-107) Carbon Dioxide Level 28 mmol/L (21-32) Anion Gap 7 (6-14) Blood Urea Nitrogen 22 mg/dL (8-26) Creatinine 1.2 mg/dL (0.7-1.3) Estimated GFR (Cockcroft-Gault) 72.0 BUN/Creatinine Ratio 18 (6-20) Glucose Level 70 mg/dL (70-99) Calcium Level 8.3 mg/dL (8.5-10.1) L Total Bilirubin 0.1 mg/dL (0.2-1.0) L Aspartate Amino Transferase (AST) 26 U/L (15-37) Alanine Aminotransferase (ALT) 21 U/L (16-63) Alkaline Phosphatase 138 U/L (46-116) H Troponin I Quantitative 0.439 ng/mL (0.000-0.055) RK-Ptn-B-Type Natriuretic Peptide 1470 pg/mL (0-124) H Total Protein 6.1 g/dL (6.4-8.2) L Albumin 2.9 g/dL (3.4-5.0) L Albumin/Globulin Ratio 0.9 (1.0-1.7) L Thyroid Stimulating Hormone (TSH) 0.870 uIU/mL (0.358-3.74) Test 12/22/18 08:05 12/22/18 08:45 Glucose (Fingerstick) 42 mg/dL (70-99) *L 54 mg/dL (70-99) L Laboratory Tests 12/22/18 07:45 Laboratory Tests 12/22/18 07:45 EKG EKG [EKG: Sinus rhythm, right bundle branch block. Radiology/Procedures Radiology/Procedures [Chest x-ray: Right middle lung infiltrate.] Course & Med Decision Making Course & Med Decision Making Pertinent Labs and Imaging studies reviewed. (See chart for details) [Patient given repeat doses of D50 and placed on D5 drip male due to refractory hypoglycemia. Troponin noted be elevated possibly due to recent procedure. Denies chest pain chest pressure. Patient noted to have elevated white blood cell count with right middle lobe infiltrate. Will place on antibiotics, to the hospitalist service with cardiology consult.] Dragon Disclaimer Dragon Disclaimer This electronic medical record was generated, in whole or in part, using a voice recognition dictation system. Departure Departure Impression: Primary Impression: Hypoglycemia Additional Impressions: Elevated troponin Right middle lobe pneumonia Disposition: ADMITTED INPATIENT Condition: IMPROVED Referrals: SARAH FUENTES (PCP) Problem Qualifiers RICHIE TRINIDAD DO Dec 22, 2018 09:04
[2018-12-22] MEDS ORDERED: CEFEPIME HCL IV Push 2 GM VIAL. IVP ONE (09:15)
[2018-12-22] MEDS ORDERED: AZITHRMYCN 500MG IVPB FOR OMNI 250 ML IV ONE (09:15)
[2018-12-22 09:29] LABS: CHOLESTEROL/HDL RATIO 1.7
[2018-12-22] MEDS ORDERED: CLOPIDOGREL BISULFATE 75 MG TABLET PO ONE (09:30)
[2018-12-22] MEDS: CLOPIDOGREL BISULFATE 75 MG TABLET PO SCH (10:00)
[2018-12-22] MEDS ORDERED: ACETAMINOPHEN 500 MG TABLET PO ONE (11:15)
[2018-12-22] MEDS: IV DEXTROSE 10% 1,000 ML IV SCH ×2 (11:20→22:41)
[2018-12-22 11:30] VITALS: BP 181/69
[2018-12-22] MEDS ORDERED: FLU VAX QS 2019-20 (36MOS+)/PF 0.5 ML SYRINGE. VAX IM ONE (12:30)
[2018-12-22] MEDS: ASPIRIN ENTERIC COATED 81 MG TABLET.DR. PO SCH (12:36)
[2018-12-22] MEDS: METOPROLOL TART IMMED RELEASE 25 MG TABLET. PO SCH ×2 (12:37→20:43)
[2018-12-22] MEDS: amLODIPine BESYLATE 5 MG TABLET PO SCH ×2 (12:37→17:31)
[2018-12-22] MEDS: LOSARTAN POTASSIUM 25 MG TABLET. PO SCH (12:39)
--- NOTE | 2018-12-22 12:40 | PDOC2 ---
GI CONSULT Reason For Consult: abd pain, weight loss HPI: HPI: 73 y/o male evaluated in ER for confusion and hypoglycemia. GI-cabrera, has had abdominal pain for months (?years). Feels "sore" and "burning" and "just hurts" - worse w/ eating, family says afraid to eat and has lost 80 pounds. Reports some bloating and distention as well. No reflux, dysphagia, n/v, diarrhea, hematochezia, or melena. Chronic constipation, previously reported Miralax use. Had EGD and colonoscopy @ [facility] in 2017 prior to cholecystectomy as part of eval for abdominal pain - recalls no significant findings. Cholecystectomy didn't help. H/o Hep C, treated. No pancreas or PUD history. On ASA and Plavix. Chronic anemia, iron studies c/w ACD in 2018. Past imaging noted diverticulosis. PMH: PMH: CAD w/ stent, CVA, NABIL, HTN, HLD, COPD, DM, BPH, peripheral neuropathy, Hep C, SDH w/ evacuation, diverticulosis, anemia heart cath, LLE revascularization FH: Family History: Cancer (brother - colon) Social History: Smoke: Quit ALCOHOL: occassional Drugs: None ROS: GEN: Denies fevers, chills, sweats HEENT: Denies blurred vision, sore throat CV: Denies chest pain RESP: Denies shortness of air, cough GI: Per HPI : Denies hematuria, dysuria ENDO: +weight loss NEURO: +confusion MSK: +weakness SKIN: Denies jaundice, pruritus Vitals: Vitals: Vital Signs Date Time Temp Pulse Resp B/P (MAP) Pulse Ox O2 Delivery O2 Flow Rate FiO2 12/22/18 11:30 98.9 91 20 181/69 (106) 100 Nasal Cannula 1.0 98.9 Labs: Labs: Laboratory Tests Test 12/22/18 06:12 12/22/18 07:14 12/22/18 07:25 12/22/18 07:45 Glucose (Fingerstick) 63 mg/dL (70-99) 33 mg/dL (70-99) Urine Collection Type Unknown Urine Color Yellow Urine Clarity Clear Urine pH 5.5 Urine Specific [place] 1.010 Urine Protein 100 mg/dL (NEG-TRACE) Urine Glucose (UA) Negative mg/dL (NEG) Urine Ketones (Stick) Negative mg/dL (NEG) Urine Blood Negative (NEG) Urine Nitrite Negative (NEG) Urine Bilirubin Negative (NEG) Urine Urobilinogen Dipstick 0.2 mg/dL (0.2 mg/dL) Urine Leukocyte Esterase Negative (NEG) Urine RBC Occ /HPF (0-2) Urine WBC 1-4 /HPF (0-4) Urine Squamous Epithelial Cells Few /LPF Urine Bacteria 0 /HPF (0-FEW) Urine Hyaline Casts Few /HPF White Blood Count 15.4 x10^3/uL (4.0-11.0) Red Blood Count 3.08 x10^6/uL (4.30-5.70) Hemoglobin 9.2 g/dL (13.0-17.5) Hematocrit 27.2 % (39.0-53.0) Mean Corpuscular Volume 88 fL (79-100) Mean Corpuscular Hemoglobin 30 pg (25-35) Mean Corpuscular Hemoglobin Concent 34 g/dL (31-37) Red Cell Distribution Width 14.1 % (11.5-14.5) Platelet Count 145 x10^3/uL (140-400) Neutrophils (%) (Auto) 89 % (31-73) Lymphocytes (%) (Auto) 6 % (24-48) Monocytes (%) (Auto) 5 % (0-9) Eosinophils (%) (Auto) 0 % (0-3) Basophils (%) (Auto) 0 % (0-3) Neutrophils # (Auto) 13.7 x10^3/uL (1.8-7.7) Lymphocytes # (Auto) 1.0 x10^3/uL (1.0-4.8) Monocytes # (Auto) 0.7 x10^3/uL (0.0-1.1) Eosinophils # (Auto) 0.0 x10^3/uL (0.0-0.7) Basophils # (Auto) 0.0 x10^3/uL (0.0-0.2) Segmented Neutrophils % 85 % (35-66) Band Neutrophils % 1 % (0-9) Lymphocytes % 11 % (24-48) Monocytes % 3 % (0-10) Platelet Estimate Adequate (ADEQUATE) Sodium Level 142 mmol/L (136-145) Potassium Level 4.0 mmol/L (3.5-5.1) Chloride Level 107 mmol/L (98-107) Carbon Dioxide Level 28 mmol/L (21-32) Anion Gap 7 (6-14) Blood Urea Nitrogen 22 mg/dL (8-26) Creatinine 1.2 mg/dL (0.7-1.3) Estimated GFR (Cockcroft-Gault) 72.0 BUN/Creatinine Ratio 18 (6-20) Glucose Level 70 mg/dL (70-99) Lactic Acid Level 1.4 mmol/L (0.4-2.0) Calcium Level 8.3 mg/dL (8.5-10.1) Total Bilirubin 0.1 mg/dL (0.2-1.0) Aspartate Amino Transf (AST/SGOT) 26 U/L (15-37) Alanine Aminotransferase (ALT/SGPT) 21 U/L (16-63) Alkaline Phosphatase 138 U/L (46-116) Troponin I Quantitative 0.439 ng/mL (0.000-0.055) WB-Kui-F-Type Natriuretic Peptide 1470 pg/mL (0-124) Total Protein 6.1 g/dL (6.4-8.2) Albumin 2.9 g/dL (3.4-5.0) Albumin/Globulin Ratio 0.9 (1.0-1.7) Triglycerides Level 41 mg/dL (0-150) Cholesterol Level 89 mg/dL (0-200) LDL Cholesterol, Calculated 28 mg/dL (0-100) VLDL Cholesterol, Calculated 8 mg/dL (0-40) Non-HDL Cholesterol Calculated 36 mg/dL (0-129) HDL Cholesterol 53 mg/dL (40-60) Cholesterol/HDL Ratio 1.7 Procalcitonin 0.20 ng/mL (0.00-0.10) Thyroid Stimulating Hormone (TSH) 0.870 uIU/mL (0.358-3.74) Test 12/22/18 08:05 12/22/18 08:45 12/22/18 10:19 12/22/18 10:56 Glucose (Fingerstick) 42 mg/dL (70-99) 54 mg/dL (70-99) 29 mg/dL (70-99) 109 mg/dL (70-99) Test 12/22/18 11:45 12/22/18 12:00 Troponin I Quantitative 1.646 ng/mL (0.000-0.055) Glucose (Fingerstick) 137 mg/dL (70-99) Allergies: Coded Allergies: lisinopril (Verified Allergy, Severe, ANGIOEDEMA, 03/29/17) Medications: Current Medications Medications (Trade) Dose Ordered Sig/Ray Route PRN Reason Start Time Stop Time Status Last Admin Dose Admin Dextrose (Dextrose 50%-Water Syringe) 25 gm 1X ONCE IV 12/22/18 07:15 12/22/18 07:18 DC 12/22/18 07:27 Dextrose/Sodium Chloride 1,000 ml @ 125 mls/hr 1X ONCE IV 12/22/18 08:15 12/22/18 16:14 12/22/18 08:11 Azithromycin 250 ml @ 250 mls/hr 1X ONCE IV 12/22/18 09:15 12/22/18 10:14 DC 12/22/18 10:50 Clopidogrel Bisulfate (Plavix) 75 mg 1X ONCE PO 12/22/18 09:30 12/22/18 09:35 DC 12/22/18 10:55 Dextrose (Dextrose 50%-Water Syringe) 25 gm 1X ONCE IV 12/22/18 10:45 12/22/18 10:46 DC 12/22/18 10:54 Dextrose 1,000 ml @ 125 mls/hr Q8H IV 12/22/18 10:45 12/22/18 11:20 Acetaminophen (Tylenol) 1,000 mg 1X ONCE PO 12/22/18 11:15 12/22/18 11:16 DC 12/22/18 11:05 Imaging: Imaging: CXR IMPRESSION: 1. Mild right midlung infiltrate. 2. Linear atelectasis both lung bases. PE: GEN: uncomfortable HEENT: Atraumatic, PERRL LUNGS: NC, clear anteriorly HEART: RRR ABD: hyperactive bowel sounds, distended, diffusely tender EXTREMITY: No edema SKIN: No rashes, no jaundice NEURO/PSYCH: A & O 3 A/P: A/P: AMS, hypoglycemia Abd pain, distention, weight loss Leucocytosis, ACD CRC screen - UTD Diverticulosis Chronic constipation S/p cholecystectomy Elevated troponin, h/o CAD and PAD w/ recent heart cath and LLE intervention -- Check CT A/P. Rehabilitation Supervisor says [facility] records re: previous 'scopes have been requested. GERMAN OLIVO Dec 22, 2018 12:40
--- NOTE | 2018-12-22 12:43 | NUR ---
Patient received to room 210 per neelima at 1130 from ER accompanied by family. Patient able to walk few steps to bed with assist. Patient alert and oriented to himself and place, confused as to day and date. See assessment and admission. Patient and family verb. understanding fall protocol and bed alarm and code for release of information to family and friends. Patient and family received information folder on hospital. Side rails up times two, bed alarm set, call light at hand. Plavix ordered for 1000 not given as given in ER. Patient has D10 running 125 cc per hour left forearm, right forearm IV saline lock and capped after antibiotic infused, see IV spreadsheet. Patient and family verb. understanding POC, continue cares and monitor.
[2018-12-22] MEDS ORDERED: HEPARIN for IV BOLUS 10,000 UNIT/10 ML VIAL. IV PRN (13:00)
[2018-12-22] MEDS ORDERED: CONTRAST GIVEN. MC PRN (13:00)
[2018-12-22] MEDS ORDERED: IOHEXOL 240 MG/ML 50ML VIAL. PO ONE (13:00)
[2018-12-22] MEDS ORDERED: HEPARIN 25,000UTS/500ML PREMIX 500 ML IV PRN (13:00)
[2018-12-22] MEDS ORDERED: IOHEXOL 300 MG/ML 100ML VIAL. IV ONE (13:00)
--- NOTE | 2018-12-22 13:00 | NUR ---
Patient with elevated troponin, Dr. Camarena and Carley Parikh CHANGE NUMBER OPERATOR notified. See orders.
[2018-12-22] MEDS: IPRATRPIUM/ALBUTEROL 0.5/2.5MG 3 ML NEBU. NEB SCH ×3 (13:09→20:03)
--- NOTE | 2018-12-22 13:10 | EKG ---
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
[2018-12-22] MEDS: CHOLECALCIFEROL (VITAMIN D3) 5,000 UNIT CAPSULE PO SCH (13:13)
[2018-12-22] MEDS: PANTOPRAZOLE IV PUSH 40 MG VIAL. IVP SCH (13:14)
[2018-12-22] MEDS: TAMSULOSIN 0.4 MG CAP.ER.24H. PO SCH (13:14)
--- NOTE | 2018-12-22 13:39 | NUR ---
Heparin drip initiated per protocol, see orders and emar. Patient verb. understanding POC. Dr. Camarena received 12 lead EKG and compared to earlier EKG, stating no changes. Patient verb. understanding NPO for tests except for ice chips and sips water with medications. Consent for release of patient information as requested from [facility] signed with patient arrival on unit and faxed for requested information. Continue cares and monitor.
--- NOTE | 2018-12-22 14:18 | EKG ---
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
[2018-12-22] MEDS: DOXYCYCLINE HYCLATE 100 MG in IV DEXTROSE 5% 100ML 100 ML IV SCH ×2 (14:24→20:43)
[2018-12-22 15:00] VITALS: BP 146/70
--- NOTE | 2018-12-22 15:25 | PDOC2 ---
CONSULT Date of Consult Date of Consult DATE: 12/22/18 TIME: 15:18 Reason for Consult Reason for Consult: Peripheral arterial disease, recent arterial intervention Referring Physician Referring Physician: Dr. Sher Identification/Chief Complaint Chief Complaint Hypoglycemia, abdominal pain. Source Source: Chart review, Patient History of Present Illness Reason for Visit: This is a 73 year old male with history of peripheral arterial disease with recent right lower extremity angiography and angioplasty who presented to the ER with confusion and hypoglycemia. On 12/02/2018 patient had selective coronary angiography due to some ischemia seen on stress test along with diagnostic angiogram for lower extremity claudication. At that time Dr. Medel did not perform any coronary intervention but he recommended repeat angiography to treat his claudication. Thus the patient returned on 12/14/2018 for lower extremity arteriogram with right leg angioplasty. The patient reports his right leg claudication has since resolved following angioplasty. In addition the patient complains of abdominal pain with eating. He states he has had recent evaluation for same at the [facility]. GI medicine has been consulted and patient is scheduled for a CT scan today. GI evaluation in April at suggested no vascular compromise noted on CTA. He denies any non-healing ulcers. He denies any history of TIA or stroke. Past Medical History Cardiovascular: CAD, HTN, Hyperlipidemia, Other (moderate carotid artery disease) Pulmonary: COPD (chronic bronchitis) CENTRAL NERVOUS SYSTEM: CVA, Periperal neuropathy, Other (SDH due fall with craniotomy 03/2017) GI: Diverticulosis Heme/Onc: Anemia NOS Psych: Anxiety Musculoskeletal: Osteoarthritis Renal/: Benign prostatic enlarg., Other (cystitis) Endocrine: Diabetes (2) Dermatology: No pertinent hx Past Surgical History Past Surgical History: Cholecystectomy, Other (PCI 2006) Family History Family History: Heart Disease (father) Social History Social History: Parent No ALCOHOL: occassional Drugs: None Lives: with Family Current Problem List Problem List Problems Medical Problems: (1) Elevated troponin Status: Acute (2) Hypoglycemia Status: Acute (3) Right middle lobe pneumonia Status: Acute Current Medications Current Medications Current Medications Dextrose (Dextrose 50%-Water Syringe) 25 gm STK-MED ONCE IV ; Start 12/22/18 at 07:15; Stop 12/22/18 at 07:16; Status DC Dextrose (Dextrose 50%-Water Syringe) 25 gm 1X ONCE IV Last administered on 12/22/18at 07:27; Start 12/22/18 at 07:15; Stop 12/22/18 at 07:18; Status DC Dextrose/Sodium Chloride 1,000 ml @ 125 mls/hr 1X ONCE IV Last administered on 12/22/18 08:11; Start 12/22/18 at 08:15; Stop 12/22/18 at 16:14 Cefepime HCl (Maxipime) 2 gm 1X ONCE IVP Last administered on 12/22/18at 12:38; Start 12/22/18 at 09:15; Stop 12/22/18 at 09:16; Status DC Albuterol/ Ipratropium (Duoneb) 3 ml RTQID NEB Last administered on 12/22/18at 13:09; Start 12/22/18 at 12:00; Stop 12/23/18 at 11:59 Azithromycin 250 ml @ 250 mls/hr 1X ONCE IV Last administered on 12/22/18at 10:50; Start 12/22/18 at 09:15; Stop 12/22/18 at 10:14; Status DC Amlodipine Besylate (Norvasc) 5 mg [id number] PO Last administered on 12/22/18at 12:37; Start 12/22/18 at 10:00 Atorvastatin Calcium (Lipitor) 40 mg HS PO ; Start 12/22/18 at 21:00 Metoprolol Tartrate (Lopressor) 25 mg BID PO Last administered on 12/22/18at 12:37; Start 12/22/18 at 10:00 Losartan Potassium (Cozaar) 25 mg DAILY PO Last administered on 12/22/18 12:39; Start 12/22/18 at 10:00 Aspirin (Ecotrin) 81 mg DAILYWBKFT PO Last administered on 12/22/18at 12:36; Start 12/22/18 at 10:00 Clopidogrel Bisulfate (Plavix) 75 mg DAILYWBKFT PO ; Start 12/22/18 at 10:00 Clopidogrel Bisulfate (Plavix) 75 mg 1X ONCE PO Last administered on 12/22/18at 10:55; Start 12/22/18 at 09:30; Stop 12/22/18 at 09:35; Status DC Dextrose (Dextrose 50%-Water Syringe) 25 gm 1X ONCE IV Last administered on 12/22/18at 10:54; Start 12/22/18 at 10:45; Stop 12/22/18 at 10:46; Status DC Dextrose 1,000 ml @ 125 mls/hr Q8H IV Last administered on 12/22/18at 11:20; Start 12/22/18 at 10:45 Acetaminophen (Tylenol) 1,000 mg 1X ONCE PO Last administered on 12/22/18at 11:05; Start 12/22/18 at 11:15; Stop 12/22/18 at 11:16; Status DC Influenza Virus Vaccine Quadrival (Afluria Quad 2019-20 (3yr Up) Syringe) 0.5 ml ONCE ONCE VAX IM Last administered on 12/22/18at 15:07; Start 12/22/18 at 12:30; Stop 12/22/18 at 12:31; Status DC Vitamin D (Vitamin D3) 5,000 unit DAILY PO Last administered on 12/22/18at 13:13; Start 12/22/18 at 13:00 Tamsulosin HCl (Flomax) 0.4 mg DAILY PO Last administered on 12/22/18at 13:14; Start 12/22/18 at 13:00 Iohexol (Omnipaque 240 Mg/ml) 30 ml 1X ONCE PO ; Start 12/22/18 at 13:00; Stop 12/22/18 at 13:01; Status DC Iohexol (Omnipaque 300 Mg/ml) 75 ml 1X ONCE IV ; Start 12/22/18 at 13:00; Stop 12/22/18 at 13:01; Status DC Pantoprazole Sodium (PROTONIX VIAL for IV PUSH) 40 mg DAILYAC IVP Last administered on 12/22/18at 13:14; Start 12/22/18 at 13:00 Heparin Sodium/ Dextrose 500 ml @ 16.5 mls/hr CONT PRN IV SEE I/O RECORD Last administered on 12/22/18at 13:29; Start 12/22/18 at 13:00 Heparin Sodium (Porcine) (Heparin Sodium) 1,750 unit PRN Q6HRS PRN IV FOR UFH LEVEL LESS THAN 0.2; Start 12/22/18 at 13:00 Info (CONTRAST GIVEN -- Rx MONITORING) 1 each PRN DAILY PRN MC SEE COMMENTS; Start 12/22/18 at 13:00; Stop 12/24/18 at 12:59 Doxycycline Hyclate 100 mg/ Dextrose 100 ml @ 50 mls/hr Q12HR IV Last admi nistered on 12/22/18at 14:24; Start 12/22/18 at 13:00 Ceftriaxone Sodium (Rocephin) 1 gm Q24H IVP ; Start 12/23/18 at 09:00 Active Scripts Active Vitamin D3 (Cholecalciferol (Vitamin D3)) 5,000 Unit Capsule 5,000 Unit PO DAILY 30 Days Amlodipine Besylate 5 Mg Tablet 5 Mg PO [id number] 30 Days Reported Tamsulosin Hcl 0.4 Mg Cap.er.24h 1 Cap PO DAILY Benicar (Olmesartan Medoxomil) 5 Mg Tablet 5 Mg PO DAILY Metoprolol Tartrate 25 Mg Tablet 1 Tab PO BID Metformin Hcl 500 Mg Tablet 750 Mg PO TID Lyrica (Pregabalin) 100 Mg Capsule 1 Cap PO TID Hydroxyzine Hcl 25 Mg Tablet 1 Tab PO QID PRN Cyclobenzaprine Hcl 5 Mg Tablet 1-2 Tab PO PRN TID PRN Atorvastatin Calcium 40 Mg Tablet 1 Tab PO HS Alprazolam 0.5 Mg Tablet 1 Tab PO PRN QHS Allergies Allergies: Coded Allergies: lisinopril (Verified Allergy, Severe, ANGIOEDEMA, 03/29/17) ROS Review of System Constitutional: Recent weight loss. Respiratory: Positive for cough and sputum production.. Cardiovascular: No current chest pain. Gastrointestinal: As per HPI Integumentary/breast: No rash, or rhinitis or skin changes. Musculoskeletal: As per HPI. Neurological: No gross deficits All other reviews systems negative except history of present illness. Physical Exam Physical Exam Gen.: Alert and oriented 3. Cardiac: HRR Lungs: CTA, nonlabored respirations. Abdomen: Soft, nontender, nondistended, no palpable masses. Extremities:Mild ecchymosis left femoral access site, no hematoma or swelling. Palpable bilateral femoral and radial pulses. Doppler signal present bilateral DP and PT, biphasic on left. Calves soft. Gross motor and sensation intact. Skin: Severe dry skin. No open lesions or ulcers. Neurological: Motor and sensation intact Vitals VITALS Vital Signs Date Time Temp Pulse Resp B/P (MAP) Pulse Ox O2 Delivery O2 Flow Rate FiO2 12/22/18 13:10 100 Nasal Cannula 2.0 12/22/18 12:39 91 181/69 12/22/18 11:30 98.9 20 98.9 Labs Labs Laboratory Tests Test 12/22/18 06:12 12/22/18 07:14 12/22/18 07:25 12/22/18 07:45 Glucose (Fingerstick) 63 mg/dL (70-99) 33 mg/dL (70-99) Urine Collection Type Unknown Urine Color Yellow Urine Clarity Clear Urine pH 5.5 Urine Specific [place] 1.010 Urine Protein 100 mg/dL (NEG-TRACE) Urine Glucose (UA) Negative mg/dL (NEG) Urine Ketones (Stick) Negative mg/dL (NEG) Urine Blood Negative (NEG) Urine Nitrite Negative (NEG) Urine Bilirubin Negative (NEG) Urine Urobilinogen Dipstick 0.2 mg/dL (0.2 mg/dL) Urine Leukocyte Esterase Negative (NEG) Urine RBC Occ /HPF (0-2) Urine WBC 1-4 /HPF (0-4) Urine Squamous Epithelial Cells Few /LPF Urine Bacteria 0 /HPF (0-FEW) Urine Hyaline Casts Few /HPF White Blood Count 15.4 x10^3/uL (4.0-11.0) Red Blood Count 3.08 x10^6/uL (4.30-5.70) Hemoglobin 9.2 g/dL (13.0-17.5) Hematocrit 27.2 % (39.0-53.0) Mean Corpuscular Volume 88 fL (79-100) Mean Corpuscular Hemoglobin 30 pg (25-35) Mean Corpuscular Hemoglobin Concent 34 g/dL (31-37) Red Cell Distribution Width 14.1 % (11.5-14.5) Platelet Count 145 x10^3/uL (140-400) Neutrophils (%) (Auto) 89 % (31-73) Lymphocytes (%) (Auto) 6 % (24-48) Monocytes (%) (Auto) 5 % (0-9) Eosinophils (%) (Auto) 0 % (0-3) Basophils (%) (Auto) 0 % (0-3) Neutrophils # (Auto) 13.7 x10^3/uL (1.8-7.7) Lymphocytes # (Auto) 1.0 x10^3/uL (1.0-4.8) Monocytes # (Auto) 0.7 x10^3/uL (0.0-1.1) Eosinophils # (Auto) 0.0 x10^3/uL (0.0-0.7) Basophils # (Auto) 0.0 x10^3/uL (0.0-0.2) Segmented Neutrophils % 85 % (35-66) Band Neutrophils % 1 % (0-9) Lymphocytes % 11 % (24-48) Monocytes % 3 % (0-10) Platelet Estimate Adequate (ADEQUATE) Sodium Level 142 mmol/L (136-145) Potassium Level 4.0 mmol/L (3.5-5.1) Chloride Level 107 mmol/L (98-107) Carbon Dioxide Level 28 mmol/L (21-32) Anion Gap 7 (6-14) Blood Urea Nitrogen 22 mg/dL (8-26) Creatinine 1.2 mg/dL (0.7-1.3) Estimated GFR (Cockcroft-Gault) 72.0 BUN/Creatinine Ratio 18 (6-20) Glucose Level 70 mg/dL (70-99) Lactic Acid Level 1.4 mmol/L (0.4-2.0) Calcium Level 8.3 mg/dL (8.5-10.1) Total Bilirubin 0.1 mg/dL (0.2-1.0) Aspartate Amino Transf (AST/SGOT) 26 U/L (15-37) Alanine Aminotransferase (ALT/SGPT) 21 U/L (16-63) Alkaline Phosphatase 138 U/L (46-116) Troponin I Quantitative 0.439 ng/mL (0.000-0.055) CV-Pwe-B-Type Natriuretic Peptide 1470 pg/mL (0-124) Total Protein 6.1 g/dL (6.4-8.2) Albumin 2.9 g/dL (3.4-5.0) Albumin/Globulin Ratio 0.9 (1.0-1.7) Triglycerides Level 41 mg/dL (0-150) Cholesterol Level 89 mg/dL (0-200) LDL Cholesterol, Calculated 28 mg/dL (0-100) VLDL Cholesterol, Calculated 8 mg/dL (0-40) Non-HDL Cholesterol Calculated 36 mg/dL (0-129) HDL Cholesterol 53 mg/dL (40-60) Cholesterol/HDL Ratio 1.7 Procalcitonin 0.20 ng/mL (0.00-0.10) Thyroid Stimulating Hormone (TSH) 0.870 uIU/mL (0.358-3.74) Test 12/22/18 08:05 12/22/18 08:45 12/22/18 10:19 12/22/18 10:56 Glucose (Fingerstick) 42 mg/dL (70-99) 54 mg/dL (70-99) 29 mg/dL (70-99) 109 mg/dL (70-99) Test 12/22/18 11:45 12/22/18 12:00 12/22/18 13:10 12/22/18 13:58 Troponin I Quantitative 1.646 ng/mL (0.000-0.055) Glucose (Fingerstick) 137 mg/dL (70-99) 104 mg/dL (70-99) 118 mg/dL (70-99) Test 12/22/18 14:50 12/22/18 15:02 Troponin I Quantitative 1.734 ng/mL (0.000-0.055) Glucose (Fingerstick) 118 mg/dL (70-99) Laboratory Tests Test 12/22/18 06:12 12/22/18 07:14 12/22/18 07:25 12/22/18 07:45 Glucose (Fingerstick) 63 mg/dL (70-99) 33 mg/dL (70-99) Urine Collection Type Unknown Urine Color Yellow Urine Clarity Clear Urine pH 5.5 Urine Specific [place] 1.010 Urine Protein 100 mg/dL (NEG-TRACE) Urine Glucose (UA) Negative mg/dL (NEG) Urine Ketones (Stick) Negative mg/dL (NEG) Urine Blood Negative (NEG) Urine Nitrite Negative (NEG) Urine Bilirubin Negative (NEG) Urine Urobilinogen Dipstick 0.2 mg/dL (0.2 mg/dL) Urine Leukocyte Esterase Negative (NEG) Urine RBC Occ /HPF (0-2) Urine WBC 1-4 /HPF (0-4) Urine Squamous Epithelial Cells Few /LPF Urine Bacteria 0 /HPF (0-FEW) Urine Hyaline Casts Few /HPF White Blood Count 15.4 x10^3/uL (4.0-11.0) Red Blood Count 3.08 x10^6/uL (4.30-5.70) Hemoglobin 9.2 g/dL (13.0-17.5) Hematocrit 27.2 % (39.0-53.0) Mean Corpuscular Volume 88 fL (79-100) Mean Corpuscular Hemoglobin 30 pg (25-35) Mean Corpuscular Hemoglobin Concent 34 g/dL (31-37) Red Cell Distribution Width 14.1 % (11.5-14.5) Platelet Count 145 x10^3/uL (140-400) Neutrophils (%) (Auto) 89 % (31-73) Lymphocytes (%) (Auto) 6 % (24-48) Monocytes (%) (Auto) 5 % (0-9) Eosinophils (%) (Auto) 0 % (0-3) Basophils (%) (Auto) 0 % (0-3) Neutrophils # (Auto) 13.7 x10^3/uL (1.8-7.7) Lymphocytes # (Auto) 1.0 x10^3/uL (1.0-4.8) Monocytes # (Auto) 0.7 x10^3/uL (0.0-1.1) Eosinophils # (Auto) 0.0 x10^3/uL (0.0-0.7) Basophils # (Auto) 0.0 x10^3/uL (0.0-0.2) Segmented Neutrophils % 85 % (35-66) Band Neutrophils % 1 % (0-9) Lymphocytes % 11 % (24-48) Monocytes % 3 % (0-10) Platelet Estimate Adequate (ADEQUATE) Sodium Level 142 mmol/L (136-145) Potassium Level 4.0 mmol/L (3.5-5.1) Chloride Level 107 mmol/L (98-107) Carbon Dioxide Level 28 mmol/L (21-32) Anion Gap 7 (6-14) Blood Urea Nitrogen 22 mg/dL (8-26) Creatinine 1.2 mg/dL (0.7-1.3) Estimated GFR (Cockcroft-Gault) 72.0 BUN/Creatinine Ratio 18 (6-20) Glucose Level 70 mg/dL (70-99) Lactic Acid Level 1.4 mmol/L (0.4-2.0) Calcium Level 8.3 mg/dL (8.5-10.1) Total Bilirubin 0.1 mg/dL (0.2-1.0) Aspartate Amino Transf (AST/SGOT) 26 U/L (15-37) Alanine Aminotransferase (ALT/SGPT) 21 U/L (16-63) Alkaline Phosphatase 138 U/L (46-116) Troponin I Quantitative 0.439 ng/mL (0.000-0.055) IN-Qbu-M-Type Natriuretic Peptide 1470 pg/mL (0-124) Total Protein 6.1 g/dL (6.4-8.2) Albumin 2.9 g/dL (3.4-5.0) Albumin/Globulin Ratio 0.9 (1.0-1.7) Triglycerides Level 41 mg/dL (0-150) Cholesterol Level 89 mg/dL (0-200) LDL Cholesterol, Calculated 28 mg/dL (0-100) VLDL Cholesterol, Calculated 8 mg/dL (0-40) Non-HDL Cholesterol Calculated 36 mg/dL (0-129) HDL Cholesterol 53 mg/dL (40-60) Cholesterol/HDL Ratio 1.7 Procalcitonin 0.20 ng/mL (0.00-0.10) Thyroid Stimulating Hormone (TSH) 0.870 uIU/mL (0.358-3.74) Test 12/22/18 08:05 12/22/18 08:45 12/22/18 10:19 12/22/18 10:56 Glucose (Fingerstick) 42 mg/dL (70-99) 54 mg/dL (70-99) 29 mg/dL (70-99) 109 mg/dL (70-99) Test 12/22/18 11:45 12/22/18 12:00 12/22/18 13:10 12/22/18 13:58 Troponin I Quantitative 1.646 ng/mL (0.000-0.055) Glucose (Fingerstick) 137 mg/dL (70-99) 104 mg/dL (70-99) 118 mg/dL (70-99) Test 12/22/18 14:50 12/22/18 15:02 Troponin I Quantitative 1.734 ng/mL (0.000-0.055) Glucose (Fingerstick) 118 mg/dL (70-99) Assessment/Plan Assessment/Plan 73-year-old male with a history of peripheral arterial disease with claudication and recent angiography with angioplasty of the right lower extremity. Currently patient denies any claudication. His femoral access site appears to healing nicely. Patient is undergoing a gastrointestinal workup. Recent GI evaluation and CTA at the [facility] demonstrated widely patent celiac and superior mesenteric arteries in March 2018. Would recommend patient continue Plavix due to recent angioplasty. In addition recommend continue statin therapy. Recommend patient follow-up with Dr. Medel as scheduled. Will discuss history and examination with Dr. Noguera he will evaluate patient and make additional recommendations as needed. . Pt seen and examined on Nov. I agree with above assessment and plan unless otherwise stated. I reviewed the CT scan of the abdomen and pelvis. The celiac and sma are widely patent. Recommend GI and perhaps urology evaluation. Will be available as needed but no indication for vascular intervention at this time. ARNIE HU APRN Dec 22, 2018 15:25 SARMAD NOGUERA II, MD Dec 22, 2018 20:43
[2018-12-22] MEDS ORDERED: hydrALAZINE 20 MG/ML VIAL. IVP PRN (15:30)
--- NOTE | 2018-12-22 16:01 | NUR ---
Trop. 1.734 reported to [facility] RESPIRATORY CARE TECHNICIAN, to discuss with Dr. Camarena, continue heparin drip. Patient just return from CT. Continue cares and monitor.
[2018-12-22] MEDS: ACETAMINOPHEN 325 MG TABLET. PO PRN (16:14)
[2018-12-22] MEDS: ISOSORBIDE MONONITRATE ER 30 MG TAB.ER.24H PO SCH (16:14)
--- NOTE | 2018-12-22 17:04 | RAD ---
CT ABD PELV W/ORAL IV CONTRAST Indication: Abdominal pain, distention Technique: Postcontrast CT imaging was performed of the abdomen pelvis, multiplanar reconstruction images submitted. Oral contrast was also given. One or more of the following individualized dose reduction techniques were utilized for this examination: 1. Automated exposure control 2. Adjustment of the mA and/or kV according to patient size 3. Use of iterative reconstruction technique. Comparison: September 17, 2017 Findings: There is elevation of the right hemidiaphragm more apparent on this exam. Not fully evaluated, there is some linear likely atelectasis at the right lung base. There is coronary calcification. There is no significant dependent pleural fluid. There has been cholecystectomy. No new focal abnormality is identified of the liver, pancreas, spleen. There is accessory spleen. Both kidneys enhance, no hydronephrosis. There is hazy and strandy change of the bilateral perinephric fat somewhat increased. Small bowel is not significantly dilated. Stomach is distended. There is some stool distention of the colon most notable near the hepatic flexure and the rectum. There is appearance of very mild circumferential prominence of urinary bladder frye. There is no significant adrenal nodularity. No free air or localized extraluminal fluid collection is identified. There is multilevel degenerative disc disease lumbar spine greatest at L4-5 and L5-S1. There is multilevel lumbar facet degenerative change, also variable neural foramina compromise. IMPRESSION: 1. There is some stool distention of the colon greatest near the hepatic flexure and rectum, no small bowel dilatation. Stomach is distended. 2. There is nonspecific mild prominence of urinary bladder frye circumferentially, correlation with urinalysis is advised if not already performed if there is suspicion for cystitis. There is nonspecific somewhat increased hazy and strandy change of bilateral perinephric fat, no hydronephrosis. Again urinalysis may be beneficial if there is any clinical suspicion for pyelonephritis. 3. There is atelectasis of the visualized right lung base. There is increased elevation right hemidiaphragm. 4. There is coronary calcification. Electronically signed by: Livan Valdez MD (12/22/2018 5:01 PM) [id number]
[2018-12-22 19:00] VITALS: BP 136/62
[2018-12-22] MEDS ORDERED: SODIUM PHOSPHATES 19/7GM 133 ML ENEMA. PR PRN (20:15)
--- NOTE | 2018-12-22 20:25 | CONS ---
DATE OF CONSULTATION: 12/22/2018 ATTENDING PHYSICIAN: Dr. Camarena. REASON FOR CONSULTATION: The patient seen in pulmonary consultation at the request of Dr. Camarena for abnormal chest x-ray. HISTORY OF PRESENT ILLNESS: The patient is a 73-year-old with comorbidities including type 2 diabetes, peripheral vascular disease, COPD, peripheral neuropathy and tobacco dependence, in remission, presented to the Emergency Room, confused per his and daughter. He had a low blood sugar at home with 22. The patient was given some dextrose. His blood sugar remained low. He has also had some weight loss. Part of his workup included a chest x-ray, which I personally reviewed revealing evidence of right middle lobe infiltrate and linear atelectasis in the bases. I was asked to see him in consultation. The patient is currently on IV antibiotics. PAST MEDICAL HISTORY: COPD with one acute exacerbation per year. Tobacco dependence, in remission, quit in 2009. He wears no oxygen at home. There is a history of coronary artery disease, hypertension, peripheral neuropathy, diabetes, and cholecystectomy. PAST SURGICAL HISTORY: Status post cholecystectomy. FAMILY HISTORY: Heart disease. REVIEW OF SYSTEMS: CONSTITUTIONAL: No fever or chills. EYES: No change in visual acuity. HENT: No nasal congestion or sore throat. PULMONARY: As indicated above. CARDIOVASCULAR: No chest pain. No pressure. GASTROINTESTINAL: No nausea, vomiting, diarrhea. GENITOURINARY: No dysuria or frequency. MUSCULOSKELETAL: No localized muscle aches or joint pains. SKIN: No new skin rashes. NEUROLOGIC: No headaches, diplopia, or blurred vision. CURRENT MEDICATION: List was reviewed. ALLERGIES: LISINOPRIL. HOME MEDICATION: List was reviewed. PHYSICAL EXAMINATION: GENERAL: The patient did not appear to be in any respiratory distress, currently on 2 liters of oxygen supplementation. HEENT: Eyes, the sclerae were nonicteric. NECK: Jugular venous distention was not elevated. No lymphadenopathy. CHEST: Full expansion. LUNGS: Adequate airway flow with no wheezes. CARDIOVASCULAR: Regular rate and rhythm with S1, S2, no S3. ABDOMEN: Soft, nontender, nondistended. EXTREMITIES: No clubbing, cyanosis. Minimal edema. NEUROLOGICAL: The patient was awake, alert, following commands. A detailed neuro exam was not performed. LABORATORY DATA: White count was elevated. Hemoglobin and hematocrit were noted. Electrolytes were noted. Glucose level was noted. RADIOLOGICAL DATA: Chest x-ray as indicated above. IMPRESSION: 1. Abnormal x-ray. 2. Suspect gram-negative, possibly gram-positive pneumonia. 3. Hypoglycemia. 4. Metabolic encephalopathy, improved. 5. Peripheral vascular disease. 6. History of subdural hematoma. 7. Type 2 diabetes. 8. Chronic weakness. 9. Acute exacerbation of chronic obstructive pulmonary disease. 10. Coronary artery disease. 11. History of hepatitis C. 12. Persistent abdominal pain. PLAN: 1. I concur with current antibiotics. 2. Bronchodilators. 3. Monitor blood sugars. 4. Follow GI input. 5. Follow Vascular Surgery input. I do appreciate the privilege in sharing in the patient's care. SARAH MCLAUGHLIN MD DR: CATINA/lyndsay JOB#: [id number] / [id number]
[2018-12-22] MEDS: ATORVASTATIN CALCIUM 40 MG TABLET. PO SCH (20:42)
[2018-12-22 23:00] VITALS: BP 123/54
[2018-12-23 00:08] LABS: HEMOGLOBIN A1C 5.4 % (4.8-5.6)
[2018-12-23 03:00] VITALS: BP 131/65
[2018-12-23 04:48] LABS: CREATININE 1.4 mg/dL (0.7-1.3); GFR 60.3; POTASSIUM 4.4 mmol/L (3.5-5.1)
[2018-12-23] MEDS: IPRATRPIUM/ALBUTEROL 0.5/2.5MG 3 ML NEBU. NEB SCH ×5 (07:41→20:00)
[2018-12-23 07:47] VITALS: BP 162/70
[2018-12-23] MEDS: PANTOPRAZOLE IV PUSH 40 MG VIAL. IVP SCH (07:56)
[2018-12-23] MEDS: CLOPIDOGREL BISULFATE 75 MG TABLET PO SCH (07:56)
[2018-12-23] MEDS: ASPIRIN ENTERIC COATED 81 MG TABLET.DR. PO SCH (07:57)
[2018-12-23] MEDS: amLODIPine BESYLATE 5 MG TABLET PO SCH ×2 (07:58→18:25)
--- NOTE | 2018-12-23 08:23 | PDOC ---
PROGRESS NOTES Chief Complaint Chief Complaint A/P: Metabolic encephalopathy - likely 2/2 hypoglycemia Hypoglycemia - likely 2/2 sulfonylurea, will place on D10 Right middle lobe pneumonia - will treat for CAP. Consult pulm Headache with photosensitivity - will use tylenol prn Weakness - will have PT work with him. Vascular surgery to see for decreased RLE pulses Recent history SDH with evacuation after a fall - no new hemorrhages noted on CT scan 04/17/17 Anemia - likely of chronic disease Diabetes mellitus type II - will hold sulfonylurea permanently given his hypoglycemia. Glucose checks History of chronic right leg weakness for 2 months - Will consult vascular surgery Hypertension - Cont meds CAD - with PCI in 2006. apparently had LHC this past wednesday12/14/2018 per daughter with no intervention but diffuse disease COPD - nebs Peripheral neuropathy - on gabapentin NSTEMI - Left axis, S1S2S3 pattern with RBBB and RVH with no prior EKG available at this time. Initial troponin 0.4. Will consult cardiology, trend troponins, if greater than 1 would initiate heparin GTT PAD - 12/14 LLE percutaneous revascularization and due for RLE with Dr. Medel on 12/29/2018 Hx of CVA/SDH and moderate carotid artery disease Abdominal pain with distention - will consult GI, order [facility] records. He has a strong appetite currently, but states he is scared to eat 2/2 pain Abnormal weight loss - states he has had through w/u at [facility]. records ordered H/o Hep C - states in SVR, will order HCV FEN - General diet PPX - Lovenox FULL CODE Dispo - Inpatient CVC History of Present Illness History of Present Illness Mr Oleary is a 73yo M w/ PMHx HTN, DM2, peripheral vascular disease who comes to the ED due to glucose of 22 at home with confusion per his and daughter. Despite D50 x2 doses his glucose continues to drop to 33 and 44. He also c/o chest pain and cough. The pain is right sided, sharp, does not radiate. He also notes a cough for the past 10 days that is productive of some foul sputum. In addition to that he has lost 80 pounds over the past 5 months mostly he claims due to fear of eating with severe abdominal pain on every meal. He feels he had an EGD recently at [facility], is not aware of the results. He was also seen by Dr. Medel and underwent what sounds to be a left femoral arterial procedure as well as LHC ( and daughter states stenting and bypass) this past 12/14/18. Right middle lobe infiltrate on CXR. EKG - Left axis, S1S2S3 pattern with RBBB and RVH with no prior EKG available at this time. Initial troponin 0.4, climbed and peaked 1.734. Started heparin GTT. Seen by cardiology in consultation as well as GI, vascular surgery, and pulmonlogy. CT abdomen/pelvis - 1. There is some stool distention of the colon greatest near the hepatic flexure and rectum, no small bowel dilatation. Stomach is distended. 2. There is nonspecific mild prominence of urinary bladder frye circumferentially, correlation with urinalysis is advised if not already perform ed if there is suspicion for cystitis. There is nonspecific somewhat increased hazy and strandy change of bilateral perinephric fat, no hydronephrosis. 3. There is atelectasis of the visualized right lung base. There is increased elevation right hemidiaphragm. 4. There is coronary calcification. Blood glucose in 170s this morning on D10. Abdominal pain still present. Cough still present. chest pain resolved. Vitals Vitals Vital Signs Date Time Temp Pulse Resp B/P (MAP) Pulse Ox O2 Delivery O2 Flow Rate FiO2 12/23/18 07:58 87 162/70 12/23/18 07:47 98.1 16 97 Nasal Cannula 2.0 98.1 Physical Exam General: Alert, Cooperative, moderate distress Heart: Regular rate, Normal S1, Normal S2, Other (2/6 RAZ systolic murmur) Lungs: Clear Abdomen: Normal bowel sounds, Soft, No hepatosplenomegaly, No masses, Other (RUQ tender) Extremities: No clubbing, No cyanosis, No edema, No tenderness/swelling, Other (Decreased pulses right foot) Skin: No rashes, No breakdown, No significant lesion Labs LABS Laboratory Tests Test 12/22/18 08:45 12/22/18 10:19 12/22/18 10:56 12/22/18 11:45 Glucose (Fingerstick) 54 mg/dL (70-99) 29 mg/dL (70-99) 109 mg/dL (70-99) Troponin I Quantitative 1.646 ng/mL (0.000-0.055) Test 12/22/18 12:00 12/22/18 13:10 12/22/18 13:58 12/22/18 14:50 Glucose (Fingerstick) 137 mg/dL (70-99) 104 mg/dL (70-99) 118 mg/dL (70-99) Troponin I Quantitative 1.734 ng/mL (0.000-0.055) Test 12/22/18 15:02 12/22/18 16:05 12/22/18 17:04 12/22/18 17:54 Glucose (Fingerstick) 118 mg/dL (70-99) 109 mg/dL (70-99) 103 mg/dL (70-99) 116 mg/dL (70-99) Test 12/22/18 18:59 12/22/18 19:40 12/22/18 19:45 12/22/18 20:24 Glucose (Fingerstick) 118 mg/dL (70-99) 121 mg/dL (70-99) Troponin I Quantitative 1.438 ng/mL (0.000-0.055) Heparin Anti-Xa Act, Unfractionated < 0.10 IU/mL (0.30-0.70) Test 12/22/18 21:45 12/23/18 02:35 12/23/18 04:15 12/23/18 07:51 Glucose (Fingerstick) 112 mg/dL (70-99) 118 mg/dL (70-99) 173 mg/dL (70-99) Heparin Anti-Xa Act, Unfractionated 0.24 IU/mL (0.30-0.70) Sodium Level 139 mmol/L (136-145) Potassium Level 4.4 mmol/L (3.5-5.1) Chloride Level 108 mmol/L (98-107) Carbon Dioxide Level 22 mmol/L (21-32) Anion Gap 9 (6-14) Blood Urea Nitrogen 18 mg/dL (8-26) Creatinine 1.4 mg/dL (0.7-1.3) Estimated GFR (Cockcroft-Gault) 60.3 Glucose Level 135 mg/dL (70-99) Calcium Level 8.0 mg/dL (8.5-10.1) Troponin I Quantitative 1.112 ng/mL (0.000-0.055) Assessment and Plan Assessmemt and Plan Problems Medical Problems: (1) Abdominal pain Status: Acute (2) Abnormal weight loss Status: Acute (3) Anemia Status: Chronic (4) CAD (coronary artery disease) Status: Chronic (5) COPD (chronic obstructive pulmonary disease) Status: Chronic (6) DM2 (diabetes mellitus, type 2) Status: Chronic (7) Elevated troponin Status: Acute (8) Headache Status: Chronic (9) HTN (hypertension) Status: Chronic (10) Hypoglycemia Status: Acute (11) Metabolic encephalopathy Status: Acute (12) NSTEMI (non-ST elevated myocardial infarction) Status: Chronic (13) PAD (peripheral artery disease) Status: Chronic (14) Peripheral neuropathy Status: Chronic (15) Peripheral vascular disease Status: Chronic (16) Right middle lobe pneumonia Status: Acute (17) Weakness Status: Chronic Comment Review of Relevant I have reviewed the following items denise (where applicable) has been applied. Labs Laboratory Tests Test 12/22/18 06:12 12/22/18 07:14 12/22/18 07:25 12/22/18 07:45 Glucose (Fingerstick) 63 mg/dL (70-99) 33 mg/dL (70-99) Urine Collection Type Unknown Urine Color Yellow Urine Clarity Clear Urine pH 5.5 Urine Specific [place] 1.010 Urine Protein 100 mg/dL (NEG-TRACE) Urine Glucose (UA) Negative mg/dL (NEG) Urine Ketones (Stick) Negative mg/dL (NEG) Urine Blood Negative (NEG) Urine Nitrite Negative (NEG) Urine Bilirubin Negative (NEG) Urine Urobilinogen Dipstick 0.2 mg/dL (0.2 mg/dL) Urine Leukocyte Esterase Negative (NEG) Urine RBC Occ /HPF (0-2) Urine WBC 1-4 /HPF (0-4) Urine Squamous Epithelial Cells Few /LPF Urine Bacteria 0 /HPF (0-FEW) Urine Hyaline Casts Few /HPF White Blood Count 15.4 x10^3/uL (4.0-11.0) Red Blood Count 3.08 x10^6/uL (4.30-5.70) Hemoglobin 9.2 g/dL (13.0-17.5) Hematocrit 27.2 % (39.0-53.0) Mean Corpuscular Volume 88 fL (79-100) Mean Corpuscular Hemoglobin 30 pg (25-35) Mean Corpuscular Hemoglobin Concent 34 g/dL (31-37) Red Cell Distribution Width 14.1 % (11.5-14.5) Platelet Count 145 x10^3/uL (140-400) Neutrophils (%) (Auto) 89 % (31-73) Lymphocytes (%) (Auto) 6 % (24-48) Monocytes (%) (Auto) 5 % (0-9) Eosinophils (%) (Auto) 0 % (0-3) Basophils (%) (Auto) 0 % (0-3) Neutrophils # (Auto) 13.7 x10^3/uL (1.8-7.7) Lymphocytes # (Auto) 1.0 x10^3/uL (1.0-4.8) Monocytes # (Auto) 0.7 x10^3/uL (0.0-1.1) Eosinophils # (Auto) 0.0 x10^3/uL (0.0-0.7) Basophils # (Auto) 0.0 x10^3/uL (0.0-0.2) Segmented Neutrophils % 85 % (35-66) Band Neutrophils % 1 % (0-9) Lymphocytes % 11 % (24-48) Monocytes % 3 % (0-10) Platelet Estimate Adequate (ADEQUATE) Sodium Level 142 mmol/L (136-145) Potassium Level 4.0 mmol/L (3.5-5.1) Chloride Level 107 mmol/L (98-107) Carbon Dioxide Level 28 mmol/L (21-32) Anion Gap 7 (6-14) Blood Urea Nitrogen 22 mg/dL (8-26) Creatinine 1.2 mg/dL (0.7-1.3) Estimated GFR (Cockcroft-Gault) 72.0 BUN/Creatinine Ratio 18 (6-20) Glucose Level 70 mg/dL (70-99) Hemoglobin A1c 5.4 % (4.8-5.6) Lactic Acid Level 1.4 mmol/L (0.4-2.0) Calcium Level 8.3 mg/dL (8.5-10.1) Total Bilirubin 0.1 mg/dL (0.2-1.0) Aspartate Amino Transf (AST/SGOT) 26 U/L (15-37) Alanine Aminotransferase (ALT/SGPT) 21 U/L (16-63) Alkaline Phosphatase 138 U/L (46-116) Troponin I Quantitative 0.439 ng/mL (0.000-0.055) OK-Pik-M-Type Natriuretic Peptide 1470 pg/mL (0-124) Total Protein 6.1 g/dL (6.4-8.2) Albumin 2.9 g/dL (3.4-5.0) Albumin/Globulin Ratio 0.9 (1.0-1.7) Triglycerides Level 41 mg/dL (0-150) Cholesterol Level 89 mg/dL (0-200) LDL Cholesterol, Calculated 28 mg/dL (0-100) VLDL Cholesterol, Calculated 8 mg/dL (0-40) Non-HDL Cholesterol Calculated 36 mg/dL (0-129) HDL Cholesterol 53 mg/dL (40-60) Cholesterol/HDL Ratio 1.7 Tumor Marker Alpha Fetoprotein 2.5 ng/mL (0.0-8.3) Procalcitonin 0.20 ng/mL (0.00-0.10) Thyroid Stimulating Hormone (TSH) 0.870 uIU/mL (0.358-3.74) Hepatitis C IgG Antibody Reactive (Nonreactive) Test 12/22/18 08:05 12/22/18 08:45 12/22/18 10:19 12/22/18 10:56 Glucose (Fingerstick) 42 mg/dL (70-99) 54 mg/dL (70-99) 29 mg/dL (70-99) 109 mg/dL (70-99) Test 12/22/18 11:45 12/22/18 12:00 12/22/18 13:10 12/22/18 13:58 Troponin I Quantitative 1.646 ng/mL (0.000-0.055) Glucose (Fingerstick) 137 mg/dL (70-99) 104 mg/dL (70-99) 118 mg/dL (70-99) Test 12/22/18 14:50 12/22/18 15:02 12/22/18 16:05 12/22/18 17:04 Troponin I Quantitative 1.734 ng/mL (0.000-0.055) Glucose (Fingerstick) 118 mg/dL (70-99) 109 mg/dL (70-99) 103 mg/dL (70-99) Test 12/22/18 17:54 12/22/18 18:59 12/22/18 19:40 12/22/18 19:45 Glucose (Fingerstick) 116 mg/dL (70-99) 118 mg/dL (70-99) Troponin I Quantitative 1.438 ng/mL (0.000-0.055) Heparin Anti-Xa Act, Unfractionated < 0.10 IU/mL (0.30-0.70) Test 12/22/18 20:24 12/22/18 21:45 12/23/18 02:35 12/23/18 04:15 Glucose (Fingerstick) 121 mg/dL (70-99) 112 mg/dL (70-99) 118 mg/dL (70-99) Heparin Anti-Xa Act, Unfractionated 0.24 IU/mL (0.30-0.70) Sodium Level 139 mmol/L (136-145) Potassium Level 4.4 mmol/L (3.5-5.1) Chloride Level 108 mmol/L (98-107) Carbon Dioxide Level 22 mmol/L (21-32) Anion Gap 9 (6-14) Blood Urea Nitrogen 18 mg/dL (8-26) Creatinine 1.4 mg/dL (0.7-1.3) Estimated GFR (Cockcroft-Gault) 60.3 Glucose Level 135 mg/dL (70-99) Calcium Level 8.0 mg/dL (8.5-10.1) Troponin I Quantitative 1.112 ng/mL (0.000-0.055) Test 12/23/18 07:51 Glucose (Fingerstick) 173 mg/dL (70-99) Laboratory Tests Test 12/22/18 08:45 12/22/18 10:19 12/22/18 10:56 12/22/18 11:45 Glucose (Fingerstick) 54 mg/dL (70-99) 29 mg/dL (70-99) 109 mg/dL (70-99) Troponin I Quantitative 1.646 ng/mL (0.000-0.055) Test 12/22/18 12:00 12/22/18 13:10 12/22/18 13:58 12/22/18 14:50 Glucose (Fingerstick) 137 mg/dL (70-99) 104 mg/dL (70-99) 118 mg/dL (70-99) Troponin I Quantitative 1.734 ng/mL (0.000-0.055) Test 12/22/18 15:02 12/22/18 16:05 12/22/18 17:04 12/22/18 17:54 Glucose (Fingerstick) 118 mg/dL (70-99) 109 mg/dL (70-99) 103 mg/dL (70-99) 116 mg/dL (70-99) Test 12/22/18 18:59 12/22/18 19:40 12/22/18 19:45 12/22/18 20:24 Glucose (Fingerstick) 118 mg/dL (70-99) 121 mg/dL (70-99) Troponin I Quantitative 1.438 ng/mL (0.000-0.055) Heparin Anti-Xa Act, Unfractionated < 0.10 IU/mL (0.30-0.70) Test 12/22/18 21:45 12/23/18 02:35 12/23/18 04:15 12/23/18 07:51 Glucose (Fingerstick) 112 mg/dL (70-99) 118 mg/dL (70-99) 173 mg/dL (70-99) Heparin Anti-Xa Act, Unfractionated 0.24 IU/mL (0.30-0.70) Sodium Level 139 mmol/L (136-145) Potassium Level 4.4 mmol/L (3.5-5.1) Chloride Level 108 mmol/L (98-107) Carbon Dioxide Level 22 mmol/L (21-32) Anion Gap 9 (6-14) Blood Urea Nitrogen 18 mg/dL (8-26) Creatinine 1.4 mg/dL (0.7-1.3) Estimated GFR (Cockcroft-Gault) 60.3 Glucose Level 135 mg/dL (70-99) Calcium Level 8.0 mg/dL (8.5-10.1) Troponin I Quantitative 1.112 ng/mL (0.000-0.055) Medications Current Medications Dextrose (Dextrose 50%-Water Syringe) 25 gm STK-MED ONCE IV ; Start 12/22/18 at 07:15; Stop 12/22/18 at 07:16; Status DC Dextrose (Dextrose 50%-Water Syringe) 25 gm 1X ONCE IV Last administered on 12/22/18 07:27; Start 12/22/18 at 07:15; Stop 12/22/18 at 07:18; Status DC Dextrose/Sodium Chloride 1,000 ml @ 125 mls/hr 1X ONCE IV Last administered on 12/22/18at 08:11; Start 12/22/18 at 08:15; Stop 12/22/18 at 16:14; Status DC Cefepime HCl (Maxipime) 2 gm 1X ONCE IVP Last administered on 12/22/18at 12:38; Start 12/22/18 at 09:15; Stop 12/22/18 at 09:16; Status DC Albuterol/ Ipratropium (Duoneb) 3 ml RTQID NEB Last administered on 12/23/18at 07:41; Start 12/22/18 at 12:00; Stop 12/23/18 at 11:59 Azithromycin 250 ml @ 250 mls/hr 1X ONCE IV Last administered on 12/22/18at 10:50; Start 12/22/18 at 09:15; Stop 12/22/18 at 10:14; Status DC Amlodipine Besylate (Norvasc) 5 mg [id number] PO Last administered on 12/23/18 07:58; Start 12/22/18 at 10:00 Atorvastatin Calcium (Lipitor) 40 mg HS PO Last administered on 12/22/18 20:42; Start 12/22/18 at 21:00 Metoprolol Tartrate (Lopressor) 25 mg BID PO Last administered on 12/22/18at 20:43; Start 12/22/18 at 10:00 Losartan Potassium (Cozaar) 25 mg DAILY PO Last administered on 12/22/18 12:39; Start 12/22/18 at 10:00 Aspirin (Ecotrin) 81 mg DAILYWBKFT PO Last administered on 12/23/18 07:57; Start 12/22/18 at 10:00 Clopidogrel Bisulfate (Plavix) 75 mg DAILYWBKFT PO Last administered on 12/23/18 07:56; Start 12/22/18 at 10:00 Clopidogrel Bisulfate (Plavix) 75 mg 1X ONCE PO Last administered on 12/22/18at 10:55; Start 12/22/18 at 09:30; Stop 12/22/18 at 09:35; Status DC Dextrose (Dextrose 50%-Water Syringe) 25 gm 1X ONCE IV Last administered on 12/22/18 10:54; Start 12/22/18 at 10:45; Stop 12/22/18 at 10:46; Status DC Dextrose 1,000 ml @ 125 mls/hr Q8H IV Last administered on 12/22/18at 22:41; Start 12/22/18 at 10:45 Acetaminophen (Tylenol) 1,000 mg 1X ONCE PO Last administered on 12/22/18 11:05; Start 12/22/18 at 11:15; Stop 12/22/18 at 11:16; Status DC Influenza Virus Vaccine Quadrival (Afluria Quad 2019-20 (3yr Up) Syringe) 0.5 ml ONCE ONCE VAX IM Last administered on 12/22/18at 15:07; Start 12/22/18 at 12:3 0; Stop 12/22/18 at 12:31; Status DC Vitamin D (Vitamin D3) 5,000 unit DAILY PO Last administered on 12/22/18 13:13; Start 12/22/18 at 13:00 Tamsulosin HCl (Flomax) 0.4 mg DAILY PO Last administered on 12/22/18 13:14; Start 12/22/18 at 13:00 Iohexol (Omnipaque 240 Mg/ml) 30 ml 1X ONCE PO Last administered on 12/22/18 13:00; Start 12/22/18 at 13:00; Stop 12/22/18 at 13:01; Status DC Iohexol (Omnipaque 300 Mg/ml) 75 ml 1X ONCE IV Last administered on 12/22/18 15:33; Start 12/22/18 at 13:00; Stop 12/22/18 at 13:01; Status DC Pantoprazole Sodium (PROTONIX VIAL for IV PUSH) 40 mg DAILYAC IVP Last administered on 12/23/18at 07:56; Start 12/22/18 at 13:00 Heparin Sodium/ Dextrose 500 ml @ 16.5 mls/hr CONT PRN IV SEE I/O RECORD Last administered on 12/22/18 13:29; Start 12/22/18 at 13:00 Heparin Sodium (Porcine) (Heparin Sodium) 1,750 unit PRN Q6HRS PRN IV FOR UFH LEVEL LESS THAN 0.2 Last administered on 12/22/18at 20:47; Start 12/22/18 at 13:00 Info (CONTRAST GIVEN -- Rx MONITORING) 1 each PRN DAILY PRN MC SEE COMMENTS; Start 12/22/18 at 13:00; Stop 12/24/18 at 12:59 Doxycycline Hyclate 100 mg/ Dextrose 100 ml @ 50 mls/hr Q12HR IV Last administered on 12/22/18at 20:43; Start 12/22/18 at 13:00 Ceftriaxone Sodium (Rocephin) 1 gm Q24H IVP ; Start 12/23/18 at 09:00 Hydralazine HCl (Apresoline Inj) 10 mg PRN Q4HRS PRN IVP ELEVATED BP, SEE COMMENTS; Start 12/22/18 at 15:30 Isosorbide Mononitrate (Imdur) 30 mg DAILY PO Last administered on 12/22/18at 16:14; Start 12/22/18 at 16:00 Acetaminophen (Tylenol) 650 mg PRN Q6HRS PRN PO PAIN Last administered on 12/22/18at 16:14; Start 12/22/18 at 16:15 Sodium Monofluorophosphate (Fleet Adult) 133 ml DAILY PRN RI CONSTIPATION; Start 12/22/18 at 20:15 Active Scripts Active Vitamin D3 (Cholecalciferol (Vitamin D3)) 5,000 Unit Capsule 5,000 Unit PO DAILY 30 Days Amlodipine Besylate 5 Mg Tablet 5 Mg PO [id number] 30 Days Reported Tamsulosin Hcl 0.4 Mg Cap.er.24h 1 Cap PO DAILY Benicar (Olmesartan Medoxomil) 5 Mg Tablet 5 Mg PO DAILY Metoprolol Tartrate 25 Mg Tablet 1 Tab PO BID Metformin Hcl 500 Mg Tablet 750 Mg PO TID Lyrica (Pregabalin) 100 Mg Capsule 1 Cap PO TID Hydroxyzine Hcl 25 Mg Tablet 1 Tab PO QID PRN Cyclobenzaprine Hcl 5 Mg Tablet 1-2 Tab PO PRN TID PRN Atorvastatin Calcium 40 Mg Tablet 1 Tab PO HS Alprazolam 0.5 Mg Tablet 1 Tab PO PRN QHS Vitals/I & O Vital Sign - Last 24 Hours 12/22/18 12/22/18 12/22/18 12/22/18 08:45 09:15 09:45 10:15 Pulse 94 90 100 94 Resp 24 27 27 B/P (MAP) 168/74 (105) 178/75 (109) 175/75 (108) 176/72 (106) Pulse Ox 100 100 100 100 O2 Delivery Nasal Cannula Nasal Cannula Nasal Cannula Nasal Cannula O2 Flow Rate 1.5 1.5 1.5 1.5 12/22/18 12/22/18 12/22/18 12/22/18 10:45 11:07 11:22 11:30 Pulse 92 98 96 Resp 24 23 B/P (MAP) 173/74 (107) 156/72 (100) 173/77 (109) Pulse Ox 100 100 100 O2 Delivery Nasal Cannula Nasal Cannula Nasal Cannula Nasal Cannula O2 Flow Rate 1.5 1.5 1.5 1.5 12/22/18 12/22/18 12/22/18 12/22/18 11:30 12:37 12:37 12:39 Temp 98.9 98.9 Pulse 91 91 91 91 Resp 20 B/P (MAP) 181/69 (106) 181/69 181/69 181/69 Pulse Ox 100 O2 Delivery Nasal Cannula O2 Flow Rate 1.0 12/22/18 12/22/18 12/22/18 12/22/18 13:10 15:00 16:14 16:18 Temp 98.7 98.7 Pulse 90 90 Resp 18 B/P (MAP) 146/70 (95) 146/70 Pulse Ox 100 100 O2 Delivery Nasal Cannula Nasal Cannula Nasal Cannula O2 Flow Rate 2.0 2.0 2.0 12/22/18 12/22/18 12/22/18 12/22/18 17:31 19:00 20:00 20:05 Temp 98.4 98.4 Pulse 80 92 Resp 24 B/P (MAP) 137/57 136/62 (86) Pulse Ox 100 100 O2 Delivery Nasal Cannula Nasal Cannula Nasal Cannula O2 Flow Rate 2.0 1.5 2.0 12/22/18 12/22/18 12/23/18 12/23/18 20:43 23:00 03:00 07:41 Temp 99.2 98.5 99.2 98.5 Pulse 92 75 81 Resp 16 16 B/P (MAP) 136/62 123/54 (77) 131/65 (87) Pulse Ox 100 95 98 O2 Delivery Nasal Cannula Nasal Cannula Room Air O2 Flow Rate 2.0 2.0 12/23/18 12/23/18 07:47 07:58 Temp 98.1 98.1 Pulse 87 87 Resp 16 B/P (MAP) 162/70 (100) 162/70 Pulse Ox 97 O2 Delivery Nasal Cannula O2 Flow Rate 2.0 Intake and Output 12/22/18 12/22/18 12/23/18 15:00 23:00 07:00 Intake Total 965 ml 200 ml 1905 ml Output Total 400 ml 800 ml 750 ml Balance 565 ml -600 ml 1155 ml KIARRA FLORES MD Dec 23, 2018 08:23
[2018-12-23] MEDS ORDERED: BISACODYL 10 MG SUPP.RECT. PR PRN (08:30)
[2018-12-23] MEDS: cefTRIAXone IV Push 1 GM VIAL. IVP SCH (09:28)
[2018-12-23] MEDS: LOSARTAN POTASSIUM 25 MG TABLET. PO SCH (09:29)
[2018-12-23] MEDS: CHOLECALCIFEROL (VITAMIN D3) 5,000 UNIT CAPSULE PO SCH (09:29)
[2018-12-23] MEDS: METOPROLOL TART IMMED RELEASE 25 MG TABLET. PO SCH ×2 (09:29→21:48)
[2018-12-23] MEDS: ISOSORBIDE MONONITRATE ER 30 MG TAB.ER.24H PO SCH (09:29)
[2018-12-23] MEDS: TAMSULOSIN 0.4 MG CAP.ER.24H. PO SCH (09:31)
[2018-12-23] MEDS: DOXYCYCLINE HYCLATE 100 MG in IV DEXTROSE 5% 100ML 100 ML IV SCH ×2 (09:32→21:48)
--- NOTE | 2018-12-23 10:13 | PDOC ---
PULMONARY PROGRESS NOTES Subjective PT NOT MORE SOA Vitals Vital Signs Date Time Temp Pulse Resp B/P (MAP) Pulse Ox O2 Delivery O2 Flow Rate FiO2 12/23/18 09:29 87 162/70 12/23/18 07:47 98.1 16 97 Nasal Cannula 2.0 98.1 ROS: No Nausea, No Chest Pain, No Increase Cough Lungs: Crackles Cardiovascular: S1, S2 Abdomen: Soft Extremities: No Edema Skin: Warm Labs Laboratory Tests Test 12/22/18 06:12 12/22/18 07:14 12/22/18 07:25 12/22/18 07:45 Glucose (Fingerstick) 63 mg/dL (70-99) 33 mg/dL (70-99) Urine Collection Type Unknown Urine Color Yellow Urine Clarity Clear Urine pH 5.5 Urine Specific [place] 1.010 Urine Protein 100 mg/dL (NEG-TRACE) Urine Glucose (UA) Negative mg/dL (NEG) Urine Ketones (Stick) Negative mg/dL (NEG) Urine Blood Negative (NEG) Urine Nitrite Negative (NEG) Urine Bilirubin Negative (NEG) Urine Urobilinogen Dipstick 0.2 mg/dL (0.2 mg/dL) Urine Leukocyte Esterase Negative (NEG) Urine RBC Occ /HPF (0-2) Urine WBC 1-4 /HPF (0-4) Urine Squamous Epithelial Cells Few /LPF Urine Bacteria 0 /HPF (0-FEW) Urine Hyaline Casts Few /HPF White Blood Count 15.4 x10^3/uL (4.0-11.0) Red Blood Count 3.08 x10^6/uL (4.30-5.70) Hemoglobin 9.2 g/dL (13.0-17.5) Hematocrit 27.2 % (39.0-53.0) Mean Corpuscular Volume 88 fL (79-100) Mean Corpuscular Hemoglobin 30 pg (25-35) Mean Corpuscular Hemoglobin Concent 34 g/dL (31-37) Red Cell Distribution Width 14.1 % (11.5-14.5) Platelet Count 145 x10^3/uL (140-400) Neutrophils (%) (Auto) 89 % (31-73) Lymphocytes (%) (Auto) 6 % (24-48) Monocytes (%) (Auto) 5 % (0-9) Eosinophils (%) (Auto) 0 % (0-3) Basophils (%) (Auto) 0 % (0-3) Neutrophils # (Auto) 13.7 x10^3/uL (1.8-7.7) Lymphocytes # (Auto) 1.0 x10^3/uL (1.0-4.8) Monocytes # (Auto) 0.7 x10^3/uL (0.0-1.1) Eosinophils # (Auto) 0.0 x10^3/uL (0.0-0.7) Basophils # (Auto) 0.0 x10^3/uL (0.0-0.2) Segmented Neutrophils % 85 % (35-66) Band Neutrophils % 1 % (0-9) Lymphocytes % 11 % (24-48) Monocytes % 3 % (0-10) Platelet Estimate Adequate (ADEQUATE) Sodium Level 142 mmol/L (136-145) Potassium Level 4.0 mmol/L (3.5-5.1) Chloride Level 107 mmol/L (98-107) Carbon Dioxide Level 28 mmol/L (21-32) Anion Gap 7 (6-14) Blood Urea Nitrogen 22 mg/dL (8-26) Creatinine 1.2 mg/dL (0.7-1.3) Estimated GFR (Cockcroft-Gault) 72.0 BUN/Creatinine Ratio 18 (6-20) Glucose Level 70 mg/dL (70-99) Hemoglobin A1c 5.4 % (4.8-5.6) Lactic Acid Level 1.4 mmol/L (0.4-2.0) Calcium Level 8.3 mg/dL (8.5-10.1) Total Bilirubin 0.1 mg/dL (0.2-1.0) Aspartate Amino Transf (AST/SGOT) 26 U/L (15-37) Alanine Aminotransferase (ALT/SGPT) 21 U/L (16-63) Alkaline Phosphatase 138 U/L (46-116) Troponin I Quantitative 0.439 ng/mL (0.000-0.055) FV-Vcq-T-Type Natriuretic Peptide 1470 pg/mL (0-124) Total Protein 6.1 g/dL (6.4-8.2) Albumin 2.9 g/dL (3.4-5.0) Albumin/Globulin Ratio 0.9 (1.0-1.7) Triglycerides Level 41 mg/dL (0-150) Cholesterol Level 89 mg/dL (0-200) LDL Cholesterol, Calculated 28 mg/dL (0-100) VLDL Cholesterol, Calculated 8 mg/dL (0-40) Non-HDL Cholesterol Calculated 36 mg/dL (0-129) HDL Cholesterol 53 mg/dL (40-60) Cholesterol/HDL Ratio 1.7 Tumor Marker Alpha Fetoprotein 2.5 ng/mL (0.0-8.3) Procalcitonin 0.20 ng/mL (0.00-0.10) Thyroid Stimulating Hormone (TSH) 0.870 uIU/mL (0.358-3.74) Hepatitis C IgG Antibody Reactive (Nonreactive) Test 12/22/18 08:05 12/22/18 08:45 12/22/18 10:12/22/18 10:56 Glucose (Fingerstick) 42 mg/dL (70-99) 54 mg/dL (70-99) 29 mg/dL (70-99) 109 mg/dL (70-99) Test 12/22/18 11:45 12/22/18 12:00 12/22/18 13:10 12/22/18 13:58 Troponin I Quantitative 1.646 ng/mL (0.000-0.055) Glucose (Fingerstick) 137 mg/dL (70-99) 104 mg/dL (70-99) 118 mg/dL (70-99) Test 12/22/18 14:50 12/22/18 15:02 12/22/18 16:05 12/22/18 17:04 Troponin I Quantitative 1.734 ng/mL (0.000-0.055) Glucose (Fingerstick) 118 mg/dL (70-99) 109 mg/dL (70-99) 103 mg/dL (70-99) Test 12/22/18 17:54 12/22/18 18:59 12/22/18 19:40 12/22/18 19:45 Glucose (Fingerstick) 116 mg/dL (70-99) 118 mg/dL (70-99) Troponin I Quantitative 1.438 ng/mL (0.000-0.055) Heparin Anti-Xa Act, Unfractionated < 0.10 IU/mL (0.30-0.70) Test 12/22/18 20:24 12/22/18 21:45 12/23/18 02:35 12/23/18 04:15 Glucose (Fingerstick) 121 mg/dL (70-99) 112 mg/dL (70-99) 118 mg/dL (70-99) Heparin Anti-Xa Act, Unfractionated 0.24 IU/mL (0.30-0.70) Sodium Level 139 mmol/L (136-145) Potassium Level 4.4 mmol/L (3.5-5.1) Chloride Level 108 mmol/L (98-107) Carbon Dioxide Level 22 mmol/L (21-32) Anion Gap 9 (6-14) Blood Urea Nitrogen 18 mg/dL (8-26) Creatinine 1.4 mg/dL (0.7-1.3) Estimated GFR (Cockcroft-Gault) 60.3 Glucose Level 135 mg/dL (70-99) Calcium Level 8.0 mg/dL (8.5-10.1) Troponin I Quantitative 1.112 ng/mL (0.000-0.055) Test 12/23/18 07:51 Glucose (Fingerstick) 173 mg/dL (70-99) Laboratory Tests Test 12/22/18 10:19 12/22/18 10:56 12/22/18 11:45 12/22/18 12:00 Glucose (Fingerstick) 29 mg/dL (70-99) 109 mg/dL (70-99) 137 mg/dL (70-99) Troponin I Quantitative 1.646 ng/mL (0.000-0.055) Test 12/22/18 13:10 12/22/18 13:58 12/22/18 14:50 12/22/18 15:02 Glucose (Fingerstick) 104 mg/dL (70-99) 118 mg/dL (70-99) 118 mg/dL (70-99) Troponin I Quantitative 1.734 ng/mL (0.000-0.055) Test 12/22/18 16:05 12/22/18 17:04 12/22/18 17:54 12/22/18 18:59 Glucose (Fingerstick) 109 mg/dL (70-99) 103 mg/dL (70-99) 116 mg/dL (70-99) 118 mg/dL (70-99) Test 12/22/18 19:40 12/22/18 19:45 12/22/18 20:24 12/22/18 21:45 Troponin I Quantitative 1.438 ng/mL (0.000-0.055) Heparin Anti-Xa Act, Unfractionated < 0.10 IU/mL (0.30-0.70) Glucose (Fingerstick) 121 mg/dL (70-99) 112 mg/dL (70-99) Test 12/23/18 02:35 12/23/18 04:15 12/23/18 07:51 Glucose (Fingerstick) 118 mg/dL (70-99) 173 mg/dL (70-99) Heparin Anti-Xa Act, Unfractionated 0.24 IU/mL (0.30-0.70) Sodium Level 139 mmol/L (136-145) Potassium Level 4.4 mmol/L (3.5-5.1) Chloride Level 108 mmol/L (98-107) Carbon Dioxide Level 22 mmol/L (21-32) Anion Gap 9 (6-14) Blood Urea Nitrogen 18 mg/dL (8-26) Creatinine 1.4 mg/dL (0.7-1.3) Estimated GFR (Cockcroft-Gault) 60.3 Glucose Level 135 mg/dL (70-99) Calcium Level 8.0 mg/dL (8.5-10.1) Troponin I Quantitative 1.112 ng/mL (0.000-0.055) Medications Active Scripts Medications Dose Route/Sig Max Daily Dose Days Date Category Vitamin D3 (Cholecalciferol (Vitamin D3)) 5,000 Unit Capsule 5,000 Unit PO DAILY 04/26/17 Rx Amlodipine Besylate 5 Mg Tablet 5 Mg PO [id number] 30 04/26/17 Rx Tamsulosin Hcl 0.4 Mg Cap.er.24h 1 Cap PO DAILY 03/30/17 Reported Benicar (Olmesartan Medoxomil) 5 Mg Tablet 5 Mg PO DAILY 03/30/17 Reported Metoprolol Tartrate 25 Mg Tablet 1 Tab PO BID 03/30/17 Reported Metformin Hcl 500 Mg Tablet 750 Mg PO TID 03/30/17 Reported Lyrica (Pregabalin) 100 Mg Capsule 1 Cap PO TID 03/30/17 Reported Hydroxyzine Hcl 25 Mg Tablet 1 Tab PO QID PRN 03/30/17 Reported Cyclobenzaprine Hcl 5 Mg Tablet 1-2 Tab PO PRN TID PRN 03/30/17 Reported Atorvastatin Calcium 40 Mg Tablet 1 Tab PO HS 03/30/17 Reported Alprazolam 0.5 Mg Tablet 1 Tab PO PRN QHS 03/30/17 Reported Impression . IMPRESSION: 1. Abnormal x-ray. 2. Suspect gram-negative, possibly gram-positive pneumonia. 3. Hypoglycemia. 4. Metabolic encephalopathy, improved. 5. Peripheral vascular disease. 6. History of subdural hematoma. 7. Type 2 diabetes. 8. Chronic weakness. 9. Acute exacerbation of chronic obstructive pulmonary disease. 10. Coronary artery disease. 11. History of hepatitis C. 12. Persistent abdominal pain. Plan . WILL CONTINUE THE SAME FOR NOW NO SURGERY HAS BEEN PLANNED FOR PAD 1. I concur with current antibiotics. 2. Bronchodilators. 3. Monitor blood sugars. 4. Follow GI input. 5. Follow Vascular Surgery input. SARAH MCLAUGHLIN MD Dec 23, 2018 10:13
[2018-12-23 10:37] VITALS: BP 150/67
[2018-12-23] MEDS ORDERED: DEXTROSE 50% 25 GM / 50ML DISP.SYRIN. IV PRN (11:15)
[2018-12-23] MEDS: INSULIN LISPRO 300 UNITS/3 ML VIAL. SQ SCH ×2 (12:00→17:24)
--- NOTE | 2018-12-23 13:47 | PDOC ---
[facility] [employer] 12/23/18 1347: CARDIO Progress Notes Date and Time Date of Service 12/23/2018 Time of Evaluation 1330 Subjective Subjective: No Chest Pain, No shortness of breath, No Palpitations Vitals Vitals Vital Signs Date Time Temp Pulse Resp B/P (MAP) Pulse Ox O2 Delivery O2 Flow Rate FiO2 12/23/18 11:02 Room Air 12/23/18 10:37 98.8 89 16 150/67 (94) 97 2.0 98.8 Weight Weight [ ] Input and Output Intake and Output Intake and Output 12/23/18 07:00 Intake Total 3070 ml Output Total 1950 ml Balance 1120 ml Intake Oral 240 ml IV Total 2830 ml Output Urine Total 1950 ml # Voids 1 # Bowel Movements 3 Laboratory Labs Laboratory Tests Test 12/22/18 13:58 12/22/18 14:50 12/22/18 15:02 12/22/18 16:05 Glucose (Fingerstick) 118 mg/dL (70-99) 118 mg/dL (70-99) 109 mg/dL (70-99) Troponin I Quantitative 1.734 ng/mL (0.000-0.055) Test 12/22/18 17:04 12/22/18 17:54 12/22/18 18:59 12/22/18 19:40 Glucose (Fingerstick) 103 mg/dL (70-99) 116 mg/dL (70-99) 118 mg/dL (70-99) Troponin I Quantitative 1.438 ng/mL (0.000-0.055) Test 12/22/18 19:45 12/22/18 20:24 12/22/18 21:45 12/23/18 02:35 Heparin Anti-Xa Act, Unfractionated < 0.10 IU/mL (0.30-0.70) Glucose (Fingerstick) 121 mg/dL (70-99) 112 mg/dL (70-99) 118 mg/dL (70-99) Test 12/23/18 04:15 12/23/18 07:51 12/23/18 10:25 12/23/18 11:02 Heparin Anti-Xa Act, Unfractionated 0.24 IU/mL (0.30-0.70) 0.46 IU/mL (0.30-0.70) Sodium Level 139 mmol/L (136-145) Potassium Level 4.4 mmol/L (3.5-5.1) Chloride Level 108 mmol/L (98-107) Carbon Dioxide Level 22 mmol/L (21-32) Anion Gap 9 (6-14) Blood Urea Nitrogen 18 mg/dL (8-26) Creatinine 1.4 mg/dL (0.7-1.3) Estimated GFR (Cockcroft-Gault) 60.3 Glucose Level 135 mg/dL (70-99) Calcium Level 8.0 mg/dL (8.5-10.1) Troponin I Quantitative 1.112 ng/mL (0.000-0.055) Glucose (Fingerstick) 173 mg/dL (70-99) 170 mg/dL (70-99) Microbiology Micro Microbiology 12/22/18 Blood Culture - Preliminary, Resulted NO GROWTH AFTER 1 DAY Physical Exam HEENT: Neck Supple W Full Motion Chest: Symmetric LUNGS: Clear to Auscultation Heart: S1S2, RRR (SR), no thrills Abdomen: Soft N/T Extremities: No Calf Tenderness Neurology: alert, oriented, follow commands Assessment Assessment 1. NSTEMI: demand mediated with concurrent diffuse disease as noted in recent [facility] report not amenable to PCI 2. Metabolic encephalopathy: due to hypoglycemia 3. Hypoglycemic reaction: was on sulfonylyureas 4. Possible pneumonia with underlying COPD with tobaccoism: pulmonary following 5. HTN: labile 6. HLP 7. CAD; PCI in 2006. Recent [facility] 12/14/2018 per daughter with distal diffuse disease 8. PAD: 12/14 LLE percutaneous revascularization and due for RLE with Dr. Medel on 12/29/2018 9. DM2: A1C 5.4 10. Dementia 11. Hx of CVA/SDH and moderate carotid artery disease 12. Anemia of chronic disease 13. Chronic RBBB Recommendations 1. Continue with ASA and plavix. DC heparin. Diffuse disease as described to coronaries treated medically. 2. Resume BP regimen and uptitrate per BP trend. and continue secondary prevention measures. Continue on imdur. Hydralazine IV PRN 3. Follow up with Dr. Medel. Discussed with spouse to inform [facility] cardiology in regards to his stay here for potential rescheduling of his RLE revascularization ALEJANDRO DIXON MD 12/23/18 [id number]: CARDIO Progress Notes Assessment Assessment Patient seen and examined. Agree with [employer] CONTROL [employer] INTEGRATOR's assessment and plan. nonstemi prob demand ischemia CAD and PAD clinically stable Follow up with primary collections professional at [facility] Dec 23, 2018 13:47 ALEJANDRO DIXON MD Dec 23, 2018 22:09
--- NOTE | 2018-12-23 13:50 | NUR ---
SS following for discharge planning. SS reviewed pt chart. Pt is from home with spouse and is currently requiring oxygen. SS will continue to follow for discharge planning.
[2018-12-23 14:34] VITALS: BP 150/61
--- NOTE | 2018-12-23 16:12 | PDOC ---
G I PROGRESS NOTE Subjective Says "hanging in there". Still with abdominal complaints. Did stool spontaneously last night; may have transiently helped. Objective Cardiac issues noted. Physical Exam Lungs clear. RRR Abdomen still distended. Tender in LUQ area. Review of Relevant I have reviewed the following items denise (where applicable) has been applied. Labs Laboratory Tests Test 12/22/18 06:12 12/22/18 07:14 12/22/18 07:25 12/22/18 07:45 Glucose (Fingerstick) 63 mg/dL (70-99) 33 mg/dL (70-99) Urine Collection Type Unknown Urine Color Yellow Urine Clarity Clear Urine pH 5.5 Urine Specific [place] 1.010 Urine Protein 100 mg/dL (NEG-TRACE) Urine Glucose (UA) Negative mg/dL (NEG) Urine Ketones (Stick) Negative mg/dL (NEG) Urine Blood Negative (NEG) Urine Nitrite Negative (NEG) Urine Bilirubin Negative (NEG) Urine Urobilinogen Dipstick 0.2 mg/dL (0.2 mg/dL) Urine Leukocyte Esterase Negative (NEG) Urine RBC Occ /HPF (0-2) Urine WBC 1-4 /HPF (0-4) Urine Squamous Epithelial Cells Few /LPF Urine Bacteria 0 /HPF (0-FEW) Urine Hyaline Casts Few /HPF White Blood Count 15.4 x10^3/uL (4.0-11.0) Red Blood Count 3.08 x10^6/uL (4.30-5.70) Hemoglobin 9.2 g/dL (13.0-17.5) Hematocrit 27.2 % (39.0-53.0) Mean Corpuscular Volume 88 fL (79-100) Mean Corpuscular Hemoglobin 30 pg (25-35) Mean Corpuscular Hemoglobin Concent 34 g/dL (31-37) Red Cell Distribution Width 14.1 % (11.5-14.5) Platelet Count 145 x10^3/uL (140-400) Neutrophils (%) (Auto) 89 % (31-73) Lymphocytes (%) (Auto) 6 % (24-48) Monocytes (%) (Auto) 5 % (0-9) Eosinophils (%) (Auto) 0 % (0-3) Basophils (%) (Auto) 0 % (0-3) Neutrophils # (Auto) 13.7 x10^3/uL (1.8-7.7) Lymphocytes # (Auto) 1.0 x10^3/uL (1.0-4.8) Monocytes # (Auto) 0.7 x10^3/uL (0.0-1.1) Eosinophils # (Auto) 0.0 x10^3/uL (0.0-0.7) Basophils # (Auto) 0.0 x10^3/uL (0.0-0.2) Segmented Neutrophils % 85 % (35-66) Band Neutrophils % 1 % (0-9) Lymphocytes % 11 % (24-48) Monocytes % 3 % (0-10) Platelet Estimate Adequate (ADEQUATE) Sodium Level 142 mmol/L (136-145) Potassium Level 4.0 mmol/L (3.5-5.1) Chloride Level 107 mmol/L (98-107) Carbon Dioxide Level 28 mmol/L (21-32) Anion Gap 7 (6-14) Blood Urea Nitrogen 22 mg/dL (8-26) Creatinine 1.2 mg/dL (0.7-1.3) Estimated GFR (Cockcroft-Gault) 72.0 BUN/Creatinine Ratio 18 (6-20) Glucose Level 70 mg/dL (70-99) Hemoglobin A1c 5.4 % (4.8-5.6) Lactic Acid Level 1.4 mmol/L (0.4-2.0) Calcium Level 8.3 mg/dL (8.5-10.1) Total Bilirubin 0.1 mg/dL (0.2-1.0) Aspartate Amino Transf (AST/SGOT) 26 U/L (15-37) Alanine Aminotransferase (ALT/SGPT) 21 U/L (16-63) Alkaline Phosphatase 138 U/L (46-116) Troponin I Quantitative 0.439 ng/mL (0.000-0.055) XR-Owc-P-Type Natriuretic Peptide 1470 pg/mL (0-124) Total Protein 6.1 g/dL (6.4-8.2) Albumin 2.9 g/dL (3.4-5.0) Albumin/Globulin Ratio 0.9 (1.0-1.7) Triglycerides Level 41 mg/dL (0-150) Cholesterol Level 89 mg/dL (0-200) LDL Cholesterol, Calculated 28 mg/dL (0-100) VLDL Cholesterol, Calculated 8 mg/dL (0-40) Non-HDL Cholesterol Calculated 36 mg/dL (0-129) HDL Cholesterol 53 mg/dL (40-60) Cholesterol/HDL Ratio 1.7 Tumor Marker Alpha Fetoprotein 2.5 ng/mL (0.0-8.3) Procalcitonin 0.20 ng/mL (0.00-0.10) Thyroid Stimulating Hormone (TSH) 0.870 uIU/mL (0.358-3.74) Hepatitis C IgG Antibody Reactive (Nonreactive) Test 12/22/18 08:05 12/22/18 08:45 12/22/18 10:19 12/22/18 10:56 Glucose (Fingerstick) 42 mg/dL (70-99) 54 mg/dL (70-99) 29 mg/dL (70-99) 109 mg/dL (70-99) Test 12/22/18 11:45 12/22/18 12:00 12/22/18 13:10 12/22/18 13:58 Troponin I Quantitative 1.646 ng/mL (0.000-0.055) Glucose (Fingerstick) 137 mg/dL (70-99) 104 mg/dL (70-99) 118 mg/dL (70-99) Test 12/22/18 14:50 12/22/18 15:02 12/22/18 16:05 12/22/18 17:04 Troponin I Quantitative 1.734 ng/mL (0.000-0.055) Glucose (Fingerstick) 118 mg/dL (70-99) 109 mg/dL (70-99) 103 mg/dL (70-99) Test 12/22/18 17:54 12/22/18 18:59 12/22/18 19:40 12/22/18 19:45 Glucose (Fingerstick) 116 mg/dL (70-99) 118 mg/dL (70-99) Troponin I Quantitative 1.438 ng/mL (0.000-0.055) Heparin Anti-Xa Act, Unfractionated < 0.10 IU/mL (0.30-0.70) Test 12/22/18 20:24 12/22/18 21:45 12/23/18 02:35 12/23/18 04:15 Glucose (Fingerstick) 121 mg/dL (70-99) 112 mg/dL (70-99) 118 mg/dL (70-99) Heparin Anti-Xa Act, Unfractionated 0.24 IU/mL (0.30-0.70) Sodium Level 139 mmol/L (136-145) Potassium Level 4.4 mmol/L (3.5-5.1) Chloride Level 108 mmol/L (98-107) Carbon Dioxide Level 22 mmol/L (21-32) Anion Gap 9 (6-14) Blood Urea Nitrogen 18 mg/dL (8-26) Creatinine 1.4 mg/dL (0.7-1.3) Estimated GFR (Cockcroft-Gault) 60.3 Glucose Level 135 mg/dL (70-99) Calcium Level 8.0 mg/dL (8.5-10.1) Troponin I Quantitative 1.112 ng/mL (0.000-0.055) Test 12/23/18 07:51 12/23/18 10:25 12/23/18 11:02 Glucose (Fingerstick) 173 mg/dL (70-99) 170 mg/dL (70-99) Heparin Anti-Xa Act, Unfractionated 0.46 IU/mL (0.30-0.70) Laboratory Tests Test 12/22/18 17:04 12/22/18 17:54 12/22/18 18:59 12/22/18 19:40 Glucose (Fingerstick) 103 mg/dL (70-99) 116 mg/dL (70-99) 118 mg/dL (70-99) Troponin I Quantitative 1.438 ng/mL (0.000-0.055) Test 12/22/18 19:45 12/22/18 20:24 12/22/18 21:45 12/23/18 02:35 Heparin Anti-Xa Act, Unfractionated < 0.10 IU/mL (0.30-0.70) Glucose (Fingerstick) 121 mg/dL (70-99) 112 mg/dL (70-99) 118 mg/dL (70-99) Test 12/23/18 04:15 12/23/18 07:51 12/23/18 10:25 12/23/18 11:02 Heparin Anti-Xa Act, Unfractionated 0.24 IU/mL (0.30-0.70) 0.46 IU/mL (0.30-0.70) Sodium Level 139 mmol/L (136-145) Potassium Level 4.4 mmol/L (3.5-5.1) Chloride Level 108 mmol/L (98-107) Carbon Dioxide Level 22 mmol/L (21-32) Anion Gap 9 (6-14) Blood Urea Nitrogen 18 mg/dL (8-26) Creatinine 1.4 mg/dL (0.7-1.3) Estimated GFR (Cockcroft-Gault) 60.3 Glucose Level 135 mg/dL (70-99) Calcium Level 8.0 mg/dL (8.5-10.1) Troponin I Quantitative 1.112 ng/mL (0.000-0.055) Glucose (Fingerstick) 173 mg/dL (70-99) 170 mg/dL (70-99) Microbiology 12/22/18 Blood Culture - Preliminary, Resulted NO GROWTH AFTER 1 DAY Vitals/I & O Vital Sign - Last 24 Hours 12/22/18 12/22/18 12/22/18 12/22/18 16:14 16:18 17:31 19:00 Temp 98.4 98.4 Pulse 90 80 92 Resp 24 B/P (MAP) 146/70 137/57 136/62 (86) Pulse Ox 100 O2 Delivery Nasal Cannula Nasal Cannula O2 Flow Rate 2.0 2.0 12/22/18 12/22/18 12/22/18 12/22/18 20:00 20:05 20:43 23:00 Temp 99.2 99.2 Pulse 92 75 Resp 16 B/P (MAP) 136/62 123/54 (77) Pulse Ox 100 100 O2 Delivery Nasal Cannula Nasal Cannula Nasal Cannula O2 Flow Rate 1.5 2.0 2.0 12/23/18 12/23/18 12/23/18 12/23/18 03:00 07:41 07:47 07:58 Temp 98.5 98.1 98.5 98.1 Pulse 81 87 87 Resp 16 16 B/P (MAP) 131/65 (87) 162/70 (100) 162/70 Pulse Ox 95 98 97 O2 Delivery Nasal Cannula Room Air Nasal Cannula O2 Flow Rate 2.0 2.0 12/23/18 12/23/18 12/23/18 12/23/18 08:00 09:29 09:29 09:29 Pulse 87 87 87 B/P (MAP) 162/70 162/70 162/70 O2 Delivery Room Air 12/23/18 12/23/18 12/23/18 12/23/18 10:37 11:02 14:34 15:38 Temp 98.8 99.3 98.8 99.3 Pulse 89 82 Resp 16 16 B/P (MAP) 150/67 (94) 150/61 (90) Pulse Ox 97 98 97 O2 Delivery Nasal Cannula Room Air Nasal Cannula Room Air O2 Flow Rate 2.0 2.0 Intake and Output 12/22/18 12/22/18 12/23/18 14:59 22:59 06:59 Intake Total 965 ml 200 ml 1905 ml Output Total 400 ml 800 ml 750 ml Balance 565 ml -600 ml [address]: Findings: There is elevation of the right hemidiaphragm more apparent on this exam. Not fully evaluated, there is some linear likely atelectasis at the right lung base. There is coronary calcification. There is no significant dependent pleural fluid. There has been cholecystectomy. No new focal abnormality is identified of the liver, pancreas, spleen. There is accessory spleen. Both kidneys enhance, no hydronephrosis. There is hazy and strandy change of the bilateral perinephric fat somewhat increased. Small bowel is not significantly dilated. Stomach is distended. There is some stool distention of the colon most notable near the hepatic flexure and the rectum. There is appearance of very mild circumferential prominence of urinary bladder frye. There is no significant adrenal nodularity. No free air or localized extraluminal fluid collection is identified. There is multilevel degenerative disc disease lumbar spine greatest at L4-5 and L5-S1. There is multilevel lumbar facet degenerative change, also variable neural foramina compromise. IMPRESSION: 1. There is some stool distention of the colon greatest near the hepatic flexure and rectum, no small bowel dilatation. Stomach is distended. 2. There is nonspecific mild prominence of urinary bladder frye circumferentially, correlation with urinalysis is advised if not already performed if there is suspicion for cystitis. There is nonspecific somewhat increased hazy and strandy change of bilateral perinephric fat, no hydronephrosis. Again urinalysis may be beneficial if there is any clinical suspicion for pyelonephritis. 3. There is atelectasis of the visualized right lung base. There is increased elevation right hemidiaphragm. 4. There is coronary calcification. --aside from constipation, not much GI-cabrera. Problem List Problems Medical Problems: (1) Abdominal pain Status: Acute (2) Abnormal weight loss Status: Acute (3) Anemia Status: Chronic (4) CAD (coronary artery disease) Status: Chronic (5) COPD (chronic obstructive pulmonary disease) Status: Chronic (6) DM2 (diabetes mellitus, type 2) Status: Chronic (7) Elevated troponin Status: Acute (8) Headache Status: Chronic (9) HTN (hypertension) Status: Chronic (10) Hypoglycemia Status: Acute (11) Metabolic encephalopathy Status: Acute (12) NSTEMI (non-ST elevated myocardial infarction) Status: Chronic (13) PAD (peripheral artery disease) Status: Chronic (14) Peripheral neuropathy Status: Chronic (15) Peripheral vascular disease Status: Chronic (16) Right middle lobe pneumonia Status: Acute (17) Weakness Status: Chronic Assessment Abdominal pain,cryptic. Constipation contributes? Plan of Care: Continue current Tx, Mgmt Plan of Care Note Daily Miralax. Reinstitute diet. RADHA TREJO MD Dec 23, 2018 16:12
[2018-12-23] MEDS: POLYETHYLENE GLYCOL 3350 17 GM PACKET. PO SCH (17:20)
[2018-12-23 19:00] VITALS: BP 147/75
[2018-12-23] MEDS: ATORVASTATIN CALCIUM 40 MG TABLET. PO SCH (21:47)
[2018-12-23 23:00] VITALS: BP 151/74
[2018-12-24 03:00] VITALS: BP 157/70
[2018-12-24] MEDS: amLODIPine BESYLATE 5 MG TABLET PO SCH ×2 (06:06→08:38)
[2018-12-24 07:26] VITALS: BP 159/82
[2018-12-24] MEDS: PANTOPRAZOLE 40 MG TABLET.DR. PO SCH (07:29)
[2018-12-24] MEDS: INSULIN LISPRO 300 UNITS/3 ML VIAL. SQ SCH ×3 (07:29→16:20)
[2018-12-24] MEDS: IPRATRPIUM/ALBUTEROL 0.5/2.5MG 3 ML NEBU. NEB SCH ×4 (08:04→19:20)
[2018-12-24] MEDS: CLOPIDOGREL BISULFATE 75 MG TABLET PO SCH (08:37)
[2018-12-24] MEDS: CHOLECALCIFEROL (VITAMIN D3) 5,000 UNIT CAPSULE PO SCH (08:37)
[2018-12-24] MEDS: LOSARTAN POTASSIUM 25 MG TABLET. PO SCH (08:38)
[2018-12-24] MEDS: ASPIRIN ENTERIC COATED 81 MG TABLET.DR. PO SCH (08:38)
[2018-12-24] MEDS: TAMSULOSIN 0.4 MG CAP.ER.24H. PO SCH (08:38)
[2018-12-24] MEDS: ISOSORBIDE MONONITRATE ER 30 MG TAB.ER.24H PO SCH (08:38)
[2018-12-24] MEDS: POLYETHYLENE GLYCOL 3350 17 GM PACKET. PO SCH (08:39)
[2018-12-24] MEDS: METOPROLOL TART IMMED RELEASE 25 MG TABLET. PO SCH ×2 (08:39→20:17)
[2018-12-24] MEDS: cefTRIAXone IV Push 1 GM VIAL. IVP SCH (09:00)
[2018-12-24] MEDS: DOXYCYCLINE HYCLATE 100 MG in IV DEXTROSE 5% 100ML 100 ML IV SCH ×2 (09:37→20:18)
[2018-12-24 10:50] VITALS: BP 143/68
--- NOTE | 2018-12-24 11:08 | PDOC ---
G I PROGRESS NOTE Subjective Still with complaints of abdominal pain. Denies N, V. Eating poorly. Physical Exam Lungs clear. RRR Abdomen hard to examine with voluntary guarding; softer when auscultated. Seems quite superficial tenderness. Has bowel sounds. Review of Relevant I have reviewed the following items denise (where applicable) has been applied. Labs Laboratory Tests Test 12/22/18 11:45 12/22/18 12:00 12/22/18 13:10 12/22/18 13:58 Troponin I Quantitative 1.646 ng/mL (0.000-0.055) Glucose (Fingerstick) 137 mg/dL (70-99) 104 mg/dL (70-99) 118 mg/dL (70-99) Test 12/22/18 14:50 12/22/18 15:02 12/22/18 16:05 12/22/18 17:04 Troponin I Quantitative 1.734 ng/mL (0.000-0.055) Glucose (Fingerstick) 118 mg/dL (70-99) 109 mg/dL (70-99) 103 mg/dL (70-99) Test 12/22/18 17:54 12/22/18 18:59 12/22/18 19:40 12/22/18 19:45 Glucose (Fingerstick) 116 mg/dL (70-99) 118 mg/dL (70-99) Troponin I Quantitative 1.438 ng/mL (0.000-0.055) Heparin Anti-Xa Act, Unfractionated < 0.10 IU/mL (0.30-0.70) Test 12/22/18 20:24 12/22/18 21:45 12/23/18 02:35 12/23/18 04:15 Glucose (Fingerstick) 121 mg/dL (70-99) 112 mg/dL (70-99) 118 mg/dL (70-99) Heparin Anti-Xa Act, Unfractionated 0.24 IU/mL (0.30-0.70) Sodium Level 139 mmol/L (136-145) Potassium Level 4.4 mmol/L (3.5-5.1) Chloride Level 108 mmol/L (98-107) Carbon Dioxide Level 22 mmol/L (21-32) Anion Gap 9 (6-14) Blood Urea Nitrogen 18 mg/dL (8-26) Creatinine 1.4 mg/dL (0.7-1.3) Estimated GFR (Cockcroft-Gault) 60.3 Glucose Level 135 mg/dL (70-99) Calcium Level 8.0 mg/dL (8.5-10.1) Troponin I Quantitative 1.112 ng/mL (0.000-0.055) Test 12/23/18 07:51 12/23/18 10:25 12/23/18 11:02 12/23/18 16:54 Glucose (Fingerstick) 173 mg/dL (70-99) 170 mg/dL (70-99) 172 mg/dL (70-99) Heparin Anti-Xa Act, Unfractionated 0.46 IU/mL (0.30-0.70) Test 12/23/18 20:52 12/24/18 07:29 Glucose (Fingerstick) 176 mg/dL (70-99) 101 mg/dL (70-99) Laboratory Tests Test 12/23/18 16:54 12/23/18 20:52 12/24/18 07:29 Glucose (Fingerstick) 172 mg/dL (70-99) 176 mg/dL (70-99) 101 mg/dL (70-99) Microbiology 12/22/18 Blood Culture - Preliminary, Resulted NO GROWTH AFTER 1 DAY Vitals/I & O Vital Sign - Last 24 Hours 12/23/18 12/23/18 12/23/18 12/23/18 14:34 15:38 18:25 19:00 Temp 99.3 98.2 99.3 98.2 Pulse 82 86 85 Resp 16 16 B/P (MAP) 150/61 (90) 143/68 147/75 (99) Pulse Ox 98 97 98 O2 Delivery Nasal Cannula Room Air Nasal Cannula O2 Flow Rate 2.0 2.0 12/23/18 12/23/18 12/23/18 12/23/18 20:00 20:20 21:48 23:00 Temp 98.0 98.0 Pulse 85 80 Resp 20 B/P (MAP) 147/75 151/74 (99) Pulse Ox 97 98 O2 Delivery Room Air Room Air Nasal Cannula O2 Flow Rate 2.0 12/24/18 12/24/18 12/24/18 12/24/18 03:00 06:06 07:26 08:00 Temp 98.5 98.1 98.5 98.1 Pulse 86 86 86 Resp 20 20 B/P (MAP) 157/70 (99) 157/70 159/82 (107) Pulse Ox 98 98 O2 Delivery Nasal Cannula Nasal Cannula Room Air O2 Flow Rate 2.0 2.0 12/24/18 12/24/18 12/24/18 12/24/18 08:05 08:38 08:38 08:38 Pulse 86 86 86 B/P (MAP) 159/82 159/82 159/82 Pulse Ox 97 O2 Delivery Room Air 12/24/18 12/24/18 08:39 10:50 Temp 98.2 98.2 Pulse 86 84 Resp 20 B/P (MAP) 159/82 143/68 (93) Pulse Ox 98 O2 Delivery Nasal Cannula O2 Flow Rate 2.0 Intake and Output 12/23/18 12/23/18 12/24/18 15:00 23:00 07:00 Intake Total 480 ml 100 ml 400 ml Output Total 1625 ml 450 ml 1350 ml Balance -1145 ml -350 ml -950 ml Problem List Problems Medical Problems: (1) Abdominal pain Status: Acute (2) Abnormal weight loss Status: Acute (3) Anemia Status: Chronic (4) CAD (coronary artery disease) Status: Chronic (5) COPD (chronic obstructive pulmonary disease) Status: Chronic (6) DM2 (diabetes mellitus, type 2) Status: Chronic (7) Elevated troponin Status: Acute (8) Headache Status: Chronic (9) HTN (hypertension) Status: Chronic (10) Hypoglycemia Status: Acute (11) Metabolic encephalopathy Status: Acute (12) NSTEMI (non-ST elevated myocardial infarction) Status: Chronic (13) PAD (peripheral artery disease) Status: Chronic (14) Peripheral neuropathy Status: Chronic (15) Peripheral vascular disease Status: Chronic (16) Right middle lobe pneumonia Status: Acute (17) Weakness Status: Chronic Assessment Abdominal pain; complaints seem out or proportion to exam, imaging. Constipation, on PEG Plan of Care: Continue current Tx, Mgmt Plan of Care Note Observe; more cathartic if not regular stooling. RADHA TREJO MD Dec 24, 2018 11:08
[2018-12-24 14:36] VITALS: BP 168/74
--- NOTE | 2018-12-24 14:39 | PDOC ---
PROGRESS NOTES Chief Complaint Chief Complaint A/P: Metabolic encephalopathy - likely 2/2 hypoglycemia Hypoglycemia - likely 2/2 sulfonylurea, will place on D10 Right middle lobe pneumonia - will treat for CAP. Consult pulm Headache with photosensitivity - will use tylenol prn Weakness - will have PT work with him. Vascular surgery to see for decreased RLE pulses Recent history SDH with evacuation after a fall - no new hemorrhages noted on CT scan 04/17/17 Anemia - likely of chronic disease Diabetes mellitus type II - will hold sulfonylurea permanently given his hypoglycemia. Glucose checks History of chronic right leg weakness for 2 months - Will consult vascular surgery Hypertension - Cont meds CAD - with PCI in 2006. apparently had LHC this past wednesday12/14/2018 per daughter with no intervention but diffuse disease COPD - nebs Peripheral neuropathy - on gabapentin NSTEMI - Left axis, S1S2S3 pattern with RBBB and RVH with no prior EKG available at this time. Initial troponin 0.4. Will consult cardiology, trend troponins, if greater than 1 would initiate heparin GTT PAD - 12/14 LLE percutaneous revascularization and due for RLE with Dr. Medel on 12/29/2018 Hx of CVA/SDH and moderate carotid artery disease Abdominal pain with distention - will consult GI, order [facility] records. He has a strong appetite currently, but states he is scared to eat 2/2 pain Abnormal weight loss - states he has had through w/u at [facility]. records ordered H/o Hep C - states in SVR, will order HCV FEN - General diet PPX - Lovenox FULL CODE Dispo - Inpatient CVC History of Present Illness History of Present Illness Mr Oleary is a 73yo M w/ PMHx HTN, DM2, peripheral vascular disease who comes to the ED due to glucose of 22 at home with confusion per his and daughter. Despite D50 x2 doses his glucose continues to drop to 33 and 44. He also c/o chest pain and cough. The pain is right sided, sharp, does not radiate. He also notes a cough for the past 10 days that is productive of some foul sputum. In addition to that he has lost 80 pounds over the past 5 months mostly he claims due to fear of eating with severe abdominal pain on every meal. He feels he had an EGD recently at [facility], is not aware of the results. He was also seen by Dr. Medel and underwent what sounds to be a left femoral arterial procedure as well as LHC ( and daughter states stenting and bypass) this past 12/14/18. Right middle lobe infiltrate on CXR. EKG - Left axis, S1S2S3 pattern with RBBB and RVH with no prior EKG available at this time. Initial troponin 0.4, climbed and peaked 1.734. Started heparin GTT. Seen by cardiology in consultation as well as GI, vascular surgery, and pulmonlogy. CT abdomen/pelvis - 1. There is some stool distention of the colon greatest near the hepatic flexure and rectum, no small bowel dilatation. Stomach is distended. 2. There is nonspecific mild prominence of urinary bladder frye circumferentially, correlation with urinalysis is advised if not already perform ed if there is suspicion for cystitis. There is nonspecific somewhat increased hazy and strandy change of bilateral perinephric fat, no hydronephrosis. 3. There is atelectasis of the visualized right lung base. There is increased elevation right hemidiaphragm. 4. There is coronary calcification. Blood glucose in 170s this morning on D10. Abdominal pain still present. Cough still present. chest pain resolved. He has been constipated, but did refuse bowel regimen. Vitals Vitals Vital Signs Date Time Temp Pulse Resp B/P (MAP) Pulse Ox O2 Delivery O2 Flow Rate FiO2 12/24/18 11:40 Room Air 12/24/18 10:50 98.2 84 20 143/68 (93) 98 2.0 98.2 Physical Exam General: Alert, Cooperative, moderate distress Heart: Regular rate, Normal S1, Normal S2, Other (2/6 RAZ systolic murmur) Lungs: Crackles Abdomen: Normal bowel sounds, Soft, No hepatosplenomegaly, No masses, Other (RUQ tender) Extremities: No clubbing, No cyanosis, No edema, No tenderness/swelling, Other (Decreased pulses right foot) Skin: No rashes, No breakdown, No significant lesion Labs LABS Laboratory Tests Test 12/23/18 16:54 12/23/18 20:52 12/24/18 07:29 12/24/18 11:32 Glucose (Fingerstick) 172 mg/dL (70-99) 176 mg/dL (70-99) 101 mg/dL (70-99) 169 mg/dL (70-99) Assessment and Plan Assessmemt and Plan Problems Medical Problems: (1) Abdominal pain Status: Acute (2) Abnormal weight loss Status: Acute (3) Anemia Status: Chronic (4) CAD (coronary artery disease) Status: Chronic (5) COPD (chronic obstructive pulmonary disease) Status: Chronic (6) DM2 (diabetes mellitus, type 2) Status: Chronic (7) Elevated troponin Status: Acute (8) Headache Status: Chronic (9) HTN (hypertension) Status: Chronic (10) Hypoglycemia Status: Acute (11) Metabolic encephalopathy Status: Acute (12) NSTEMI (non-ST elevated myocardial infarction) Status: Chronic (13) PAD (peripheral artery disease) Status: Chronic (14) Peripheral neuropathy Status: Chronic (15) Peripheral vascular disease Status: Chronic (16) Right middle lobe pneumonia Status: Acute (17) Weakness Status: Chronic Comment Review of Relevant I have reviewed the following items denise (where applicable) has been applied. Labs Laboratory Tests Test 12/22/18 14:50 12/22/18 15:02 12/22/18 16:05 12/22/18 17:04 Troponin I Quantitative 1.734 ng/mL (0.000-0.055) Glucose (Fingerstick) 118 mg/dL (70-99) 109 mg/dL (70-99) 103 mg/dL (70-99) Test 12/22/18 17:54 12/22/18 18:59 12/22/18 19:40 12/22/18 19:45 Glucose (Fingerstick) 116 mg/dL (70-99) 118 mg/dL (70-99) Troponin I Quantitative 1.438 ng/mL (0.000-0.055) Heparin Anti-Xa Act, Unfractionated < 0.10 IU/mL (0.30-0.70) Test 12/22/18 20:24 12/22/18 21:45 12/23/18 02:35 12/23/18 04:15 Glucose (Fingerstick) 121 mg/dL (70-99) 112 mg/dL (70-99) 118 mg/dL (70-99) Heparin Anti-Xa Act, Unfractionated 0.24 IU/mL (0.30-0.70) Sodium Level 139 mmol/L (136-145) Potassium Level 4.4 mmol/L (3.5-5.1) Chloride Level 108 mmol/L (98-107) Carbon Dioxide Level 22 mmol/L (21-32) Anion Gap 9 (6-14) Blood Urea Nitrogen 18 mg/dL (8-26) Creatinine 1.4 mg/dL (0.7-1.3) Estimated GFR (Cockcroft-Gault) 60.3 Glucose Level 135 mg/dL (70-99) Calcium Level 8.0 mg/dL (8.5-10.1) Troponin I Quantitative 1.112 ng/mL (0.000-0.055) Test 12/23/18 07:51 12/23/18 10:25 12/23/18 11:02 12/23/18 16:54 Glucose (Fingerstick) 173 mg/dL (70-99) 170 mg/dL (70-99) 172 mg/dL (70-99) Heparin Anti-Xa Act, Unfractionated 0.46 IU/mL (0.30-0.70) Test 12/23/18 20:52 12/24/18 07:29 12/24/18 11:32 Glucose (Fingerstick) 176 mg/dL (70-99) 101 mg/dL (70-99) 169 mg/dL (70-99) Laboratory Tests Test 12/23/18 16:54 12/23/18 20:52 12/24/18 07:29 12/24/18 11:32 Glucose (Fingerstick) 172 mg/dL (70-99) 176 mg/dL (70-99) 101 mg/dL (70-99) 169 mg/dL (70-99) Microbiology 12/22/18 Blood Culture - Preliminary, Resulted NO GROWTH AFTER 2 DAYS Medications Current Medications Dextrose (Dextrose 50%-Water Syringe) 25 gm STK-MED ONCE IV ; Start 12/22/18 at 07:15; Stop 12/22/18 at 07:16; Status DC Dextrose (Dextrose 50%-Water Syringe) 25 gm 1X ONCE IV Last administered on 12/22/18at 07:27; Start 12/22/18 at 07:15; Stop 12/22/18 at 07:18; Status DC Dextrose/Sodium Chloride 1,000 ml @ 125 mls/hr 1X ONCE IV Last administered on 12/22/18at 08:11; Start 12/22/18 at 08:15; Stop 12/22/18 at 16:14; Status DC Cefepime HCl (Maxipime) 2 gm 1X ONCE IVP Last administered on 12/22/18at 12:38; Start 12/22/18 at 09:15; Stop 12/22/18 at 09:16; Status DC Albuterol/ Ipratropium (Duoneb) 3 ml RTQID NEB Last administered on 12/23/18at 11:02; Start 12/22/18 at 12:00; Stop 12/23/18 at 11:59; Status DC Azithromycin 250 ml @ 250 mls/hr 1X ONCE IV Last administered on 12/22/18at 10:50; Start 12/22/18 at 09:15; Stop 12/22/18 at 10:14; Status DC Amlodipine Besylate (Norvasc) 5 mg [id number] PO Last administered on 12/24/18at 08:38; Start 12/22/18 at 10:00 Atorvastatin Calcium (Lipitor) 40 mg HS PO Last administered on 12/23/18at 21:47; Start 12/22/18 at 21:00 Metoprolol Tartrate (Lopressor) 25 mg BID PO Last administered on 12/24/18 08:39; Start 12/22/18 at 10:00 Losartan Potassium (Cozaar) 25 mg DAILY PO Last administered on 12/24/18at 08:38; Start 12/22/18 at 10:00 Aspirin (Ecotrin) 81 mg DAILYWBKFT PO Last administered on 12/24/18at 08:38; Start 12/22/18 at 10:00 Clopidogrel Bisulfate (Plavix) 75 mg DAILYWBKFT PO Last administered on 12/24/18at 08:37; Start 12/22/18 at 10:00 Clopidogrel Bisulfate (Plavix) 75 mg 1X ONCE PO Last administered on 9at 10:55; Start 12/22/18 at 09:30; Stop 12/22/18 at 09:35; Status DC Dextrose (Dextrose 50%-Water Syringe) 25 gm 1X ONCE IV Last administered on 12/22/18at 10:54; Start 12/22/18 at 10:45; Stop 12/22/18 at 10:46; Status DC Dextrose 1,000 ml @ 125 mls/hr Q8H IV Last administered on 12/22/18 22:41; Start 12/22/18 at 10:45; Stop 12/23/18 at 11:06; Status DC Acetaminophen (Tylenol) 1,000 mg 1X ONCE PO Last administered on 12/22/18 11:05; Start 12/22/18 at 11:15; Stop 12/22/18 at 11:16; Status DC Influenza Virus Vaccine Quadrival (Afluria Quad 2019-20 (3yr Up) Syringe) 0.5 ml ONCE ONCE VAX IM Last administered on 12/22/18at 15:07; Start 12/22/18 at 12:30; Stop 12/22/18 at 12:31; Status DC Vitamin D (Vitamin D3) 5,000 unit DAILY PO Last administered on 12/24/18 08:37; Start 12/22/18 at 13:00 Tamsulosin HCl (Flomax) 0.4 mg DAILY PO Last administered on 12/24/18 08:38; Start 12/22/18 at 13:00 Iohexol (Omnipaque 240 Mg/ml) 30 ml 1X ONCE PO Last administered on 12/22/18 13:00; Start 12/22/18 at 13:00; Stop 12/22/18 at 13:01; Status DC Iohexol (Omnipaque 300 Mg/ml) 75 ml 1X ONCE IV Last administered on 12/22/18 15:33; Start 12/22/18 at 13:00; Stop 12/22/18 at 13:01; Status DC Pantoprazole Sodium (PROTONIX VIAL for IV PUSH) 40 mg DAILYAC IVP Last administered on 12/23/18at 07:56; Start 12/22/18 at 13:00; Stop 12/23/18 at 16:15; Status DC Heparin Sodium/ Dextrose 500 ml @ 16.5 mls/hr CONT PRN IV SEE I/O RECORD Last administered on 12/22/18at 13:29; Start 12/22/18 at 13:00 Heparin Sodium (Porcine) (Heparin Sodium) 1,750 unit PRN Q6HRS PRN IV FOR UFH LEVEL LESS THAN 0.2 Last administered on 12/22/18at 20:47; Start 12/22/18 at 13:00 Info (CONTRAST GIVEN -- Rx MONITORING) 1 each PRN DAILY PRN MC SEE COMMENTS; Start 12/22/18 at 13:00; Stop 12/24/18 at 12:59; Status DC Doxycycline Hyclate 100 mg/ Dextrose 100 ml @ 50 mls/hr Q12HR IV Last administered on 12/24/18at 09:37; Start 12/22/18 at 13:00 Ceftriaxone Sodium (Rocephin) 1 gm Q24H IVP Last administered on 12/24/18at 09:00; Start 12/23/18 at 09:00 Hydralazine HCl (Apresoline Inj) 10 mg PRN Q4HRS PRN IVP ELEVATED BP, SEE COMMENTS; Start 12/22/18 at 15:30 Isosorbide Mononitrate (Imdur) 30 mg DAILY PO Last administered on 12/24/18at 08:38; Start 12/22/18 at 16:00 Acetaminophen (Tylenol) 650 mg PRN Q6HRS PRN PO PAIN Last administered on 12/22/18at 16:14; Start 12/22/18 at 16:15 Sodium Monofluorophosphate (Fleet Adult) 133 ml DAILY PRN RI CONSTIPATION; Start 12/22/18 at 20:15 Bisacodyl (Dulcolax Supp) 10 mg PRN DAILY PRN RI CONSTIPATION; Start 12/23/18 at 08:30 Insulin Human Lispro (HumaLOG) 0-5 UNITS TIDWMEALS SQ Last administered on 12/23/18at 17:24; Start 12/23/18 at 12:00 Dextrose (Dextrose 50%-Water Syringe) 12.5 gm PRN Q15MIN PRN IV SEE COMMENTS; Start 12/23/18 at 11:15 Albuterol/ Ipratropium (Duoneb) 3 ml RTQID NEB Last administered on 12/24/18at 11:40; Start 12/23/18 at 12:00 Polyethylene Glycol (miraLAX PACKET) 17 gm DAILY PO Last administered on 12/23/18at 17:20; Start 12/23/18 at 17:00 Pantoprazole Sodium (Protonix) 40 mg DAILYAC PO Last administered on 12/24/18at 07:29; Start 12/24/18 at 07:30 Active Scripts Active Vitamin D3 (Cholecalciferol (Vitamin D3)) 5,000 Unit Capsule 5,000 Unit PO DAILY 30 Days Amlodipine Besylate 5 Mg Tablet 5 Mg PO [id number] 30 Days Reported Tamsulosin Hcl 0.4 Mg Cap.er.24h 1 Cap PO DAILY Benicar (Olmesartan Medoxomil) 5 Mg Tablet 5 Mg PO DAILY Metoprolol Tartrate 25 Mg Tablet 1 Tab PO BID Metformin Hcl 500 Mg Tablet 750 Mg PO TID Lyrica (Pregabalin) 100 Mg Capsule 1 Cap PO TID Hydroxyzine Hcl 25 Mg Tablet 1 Tab PO QID PRN Cyclobenzaprine Hcl 5 Mg Tablet 1-2 Tab PO PRN TID PRN Atorvastatin Calcium 40 Mg Tablet 1 Tab PO HS Alprazolam 0.5 Mg Tablet 1 Tab PO PRN QHS Vitals/I & O Vital Sign - Last 24 Hours 12/23/18 12/23/18 12/23/18 12/23/18 15:38 18:25 19:00 20:00 Temp 98.2 98.2 Pulse 86 85 Resp 16 B/P (MAP) 143/68 147/75 (99) Pulse Ox 97 98 O2 Delivery Room Air Nasal Cannula Room Air O2 Flow Rate 2.0 12/23/18 12/23/18 12/23/18 12/24/18 20:20 21:48 23:00 03:00 Temp 98.0 98.5 98.0 98.5 Pulse 85 80 86 Resp 20 20 B/P (MAP) 147/75 151/74 (99) 157/70 (99) Pulse Ox 97 98 98 O2 Delivery Room Air Nasal Cannula Nasal Cannula O2 Flow Rate 2.0 2.0 12/24/18 12/24/18 12/24/18 12/24/18 06:06 07:26 08:00 08:05 Temp 98.1 98.1 Pulse 86 86 Resp 20 B/P (MAP) 157/70 159/82 (107) Pulse Ox 98 97 O2 Delivery Nasal Cannula Room Air Room Air O2 Flow Rate 2.0 12/24/18 12/24/18 12/24/18 12/24/18 08:38 08:38 08:38 08:39 Pulse 86 86 86 86 B/P (MAP) 159/82 159/82 159/82 159/82 12/24/18 12/24/18 10:50 11:40 Temp 98.2 98.2 Pulse 84 Resp 20 B/P (MAP) 143/68 (93) Pulse Ox 98 O2 Delivery Nasal Cannula Room Air O2 Flow Rate 2.0 Intake and Output 12/23/18 12/23/18 12/24/18 15:00 23:00 07:00 Intake Total 480 ml 100 ml 400 ml Output Total 1625 ml 450 ml 1350 ml Balance -1145 ml -350 ml -950 ml KIARRA FLORES MD Dec 24, 2018 14:39
[2018-12-24] MEDS ORDERED: MAGNESIUM CITRATE 296 ML SOLUTION. PO ONE (15:00)
[2018-12-24] MEDS: DOCUSATE SODIUM 100 MG CAPSULE. PO SCH ×2 (15:00→20:17)
--- NOTE | 2018-12-24 16:01 | PDOC ---
PULMONARY PROGRESS NOTES Subjective 73 yo male wiuth hx of smoking between ages of 20 and 66. Hx of COPD. CXR indicative of right lung pneumonia. PT NOT MORE SOA. No cough Vitals Vital Signs Date Time Temp Pulse Resp B/P (MAP) Pulse Ox O2 Delivery O2 Flow Rate FiO2 12/24/18 15:20 Room Air 12/24/18 14:36 98.5 86 20 168/74 (105) 97 2.0 98.5 ROS: No Nausea, No Chest Pain, No Increase Cough General: Alert, Oriented X4, No acute distress Lungs: Other (diminished breath sounds diffusely) Cardiovascular: S1, S2 Abdomen: Soft Neuro Exam: Alert, Oriented Extremities: No Edema Skin: Warm Labs Laboratory Tests Test 12/22/18 16:05 12/22/18 17:04 12/22/18 17:54 12/22/18 18:59 Glucose (Fingerstick) 109 mg/dL (70-99) 103 mg/dL (70-99) 116 mg/dL (70-99) 118 mg/dL (70-99) Test 12/22/18 19:40 12/22/18 19:45 12/22/18 20:24 12/22/18 21:45 Troponin I Quantitative 1.438 ng/mL (0.000-0.055) Heparin Anti-Xa Act, Unfractionated < 0.10 IU/mL (0.30-0.70) Glucose (Fingerstick) 121 mg/dL (70-99) 112 mg/dL (70-99) Test 12/23/18 02:35 12/23/18 04:15 12/23/18 07:51 12/23/18 10:25 Glucose (Fingerstick) 118 mg/dL (70-99) 173 mg/dL (70-99) Heparin Anti-Xa Act, Unfractionated 0.24 IU/mL (0.30-0.70) 0.46 IU/mL (0.30-0.70) Sodium Level 139 mmol/L (136-145) Potassium Level 4.4 mmol/L (3.5-5.1) Chloride Level 108 mmol/L (98-107) Carbon Dioxide Level 22 mmol/L (21-32) Anion Gap 9 (6-14) Blood Urea Nitrogen 18 mg/dL (8-26) Creatinine 1.4 mg/dL (0.7-1.3) Estimated GFR (Cockcroft-Gault) 60.3 Glucose Level 135 mg/dL (70-99) Calcium Level 8.0 mg/dL (8.5-10.1) Troponin I Quantitative 1.112 ng/mL (0.000-0.055) Test 12/23/18 11:02 12/23/18 16:54 12/23/18 20:52 12/24/18 07:29 Glucose (Fingerstick) 170 mg/dL (70-99) 172 mg/dL (70-99) 176 mg/dL (70-99) 101 mg/dL (70-99) Test 12/24/18 11:32 Glucose (Fingerstick) 169 mg/dL (70-99) Laboratory Tests Test 12/23/18 16:54 12/23/18 20:52 12/24/18 07:29 12/24/18 11:32 Glucose (Fingerstick) 172 mg/dL (70-99) 176 mg/dL (70-99) 101 mg/dL (70-99) 169 mg/dL (70-99) Medications Active Scripts Medications Dose Route/Sig Max Daily Dose Days Date Category Vitamin D3 (Cholecalciferol (Vitamin D3)) 5,000 Unit Capsule 5,000 Unit PO DAILY 30 04/26/17 Rx Amlodipine Besylate 5 Mg Tablet 5 Mg PO [id number] 30 04/26/17 Rx Tamsulosin Hcl 0.4 Mg Cap.er.24h 1 Cap PO DAILY 03/30/17 Reported Benicar (Olmesartan Medoxomil) 5 Mg Tablet 5 Mg PO DAILY 03/30/17 Reported Metoprolol Tartrate 25 Mg Tablet 1 Tab PO BID 03/30/17 Reported Metformin Hcl 500 Mg Tablet 750 Mg PO TID 03/30/17 Reported Lyrica (Pregabalin) 100 Mg Capsule 1 Cap PO TID 03/30/17 Reported Hydroxyzine Hcl 25 Mg Tablet 1 Tab PO QID PRN 03/30/17 Reported Cyclobenzaprine Hcl 5 Mg Tablet 1-2 Tab PO PRN TID PRN 03/30/17 Reported Atorvastatin Calcium 40 Mg Tablet 1 Tab PO HS 03/30/17 Reported Alprazolam 0.5 Mg Tablet 1 Tab PO PRN QHS 03/30/17 Reported Impression . IMPRESSION: 1. pneumonia with good clinical response to antibiotics. 2. COPD 3. Hypoglycemia. 4. Metabolic encephalopathy, improved. 5. Peripheral vascular disease. 6. History of subdural hematoma. 7. Type 2 diabetes. 8. Chronic weakness. 9. Acute exacerbation of chronic obstructive pulmonary disease. 10. Coronary artery disease. 11. History of hepatitis C. 12. Persistent abdominal pain. Plan . 1. I concur with current antibiotics. 2. Bronchodilators. 3. Monitor blood sugars. 4. Follow GI input. 5. Follow Vascular Surgery input. Will need follow up cxr in 4-6 to make sure resolution and further investigation if not resolved at that time. GINO PINEDA MD Dec 24, 2018 16:01
[2018-12-24] MEDS: DICYCLOMINE HCL 10 MG CAPSULE PO PRN (16:12)
[2018-12-24 19:36] VITALS: BP 159/70
[2018-12-24] MEDS: LACTOBACILLUS RHAMNOSUS GG 1 CAPSULE. PO SCH (20:17)
[2018-12-24] MEDS: ATORVASTATIN CALCIUM 40 MG TABLET. PO SCH (20:17)
[2018-12-24] MEDS: PSYLLIUM HUSK (SUGAR FREE) 1 PKT PACKET PO SCH (20:17)
[2018-12-24 23:20] VITALS: BP 162/82
[2018-12-25 03:12] VITALS: BP 149/63
[2018-12-25] MEDS: amLODIPine BESYLATE 5 MG TABLET PO SCH ×2 (06:02→17:18)
[2018-12-25 07:00] VITALS: BP 153/67
[2018-12-25] MEDS: INSULIN LISPRO 300 UNITS/3 ML VIAL. SQ SCH ×3 (07:25→17:00)
[2018-12-25] MEDS: IPRATRPIUM/ALBUTEROL 0.5/2.5MG 3 ML NEBU. NEB SCH ×4 (08:06→20:08)
[2018-12-25] MEDS: CHOLECALCIFEROL (VITAMIN D3) 5,000 UNIT CAPSULE PO SCH (08:30)
[2018-12-25] MEDS: TAMSULOSIN 0.4 MG CAP.ER.24H. PO SCH (08:30)
[2018-12-25] MEDS: LOSARTAN POTASSIUM 25 MG TABLET. PO SCH (08:31)
[2018-12-25] MEDS: ISOSORBIDE MONONITRATE ER 30 MG TAB.ER.24H PO SCH (08:31)
[2018-12-25] MEDS: PANTOPRAZOLE 40 MG TABLET.DR. PO SCH (08:31)
[2018-12-25] MEDS: ASPIRIN ENTERIC COATED 81 MG TABLET.DR. PO SCH (08:31)
[2018-12-25] MEDS: METOPROLOL TART IMMED RELEASE 25 MG TABLET. PO SCH ×2 (08:31→19:45)
[2018-12-25] MEDS: DOCUSATE SODIUM 100 MG CAPSULE. PO SCH ×2 (08:31→19:45)
[2018-12-25] MEDS: LACTOBACILLUS RHAMNOSUS GG 1 CAPSULE. PO SCH ×2 (08:31→19:44)
[2018-12-25] MEDS: CLOPIDOGREL BISULFATE 75 MG TABLET PO SCH (08:31)
[2018-12-25] MEDS: DOXYCYCLINE HYCLATE 100 MG in IV DEXTROSE 5% 100ML 100 ML IV SCH ×2 (08:32→19:45)
[2018-12-25] MEDS: cefTRIAXone IV Push 1 GM VIAL. IVP SCH (08:32)
[2018-12-25] MEDS: DICYCLOMINE HCL 10 MG CAPSULE PO PRN ×2 (08:34→17:18)
[2018-12-25] MEDS: POLYETHYLENE GLYCOL 3350 17 GM PACKET. PO SCH ×2 (09:00→19:46)
--- NOTE | 2018-12-25 09:36 | PDOC ---
PULMONARY PROGRESS NOTES Subjective 73 yo male wiuth hx of smoking between ages of 20 and 66. Hx of COPD. CXR indicative of right lung pneumonia. No SOA overnight although he is greatly fatigued walking to restroom. Vitals Vital Signs Date Time Temp Pulse Resp B/P (MAP) Pulse Ox O2 Delivery O2 Flow Rate FiO2 12/25/18 08:31 90 153/67 12/25/18 08:06 98 Room Air 12/25/18 07:00 98.5 18 98.5 12/24/18 14:36 2.0 ROS: No Nausea, No Chest Pain, No Increase Cough General: Alert, Oriented X4, No acute distress Lungs: Other (diminished breath sounds diffusely) Cardiovascular: S1, S2 Abdomen: Soft Neuro Exam: Alert, Oriented Extremities: No Edema Skin: Warm Labs Laboratory Tests Test 12/23/18 10:25 12/23/18 11:02 12/23/18 16:54 12/23/18 20:52 Heparin Anti-Xa Act, Unfractionated 0.46 IU/mL (0.30-0.70) Glucose (Fingerstick) 170 mg/dL (70-99) 172 mg/dL (70-99) 176 mg/dL (70-99) Test 12/24/18 07:29 12/24/18 11:32 12/24/18 16:11 12/24/18 21:03 Glucose (Fingerstick) 101 mg/dL (70-99) 169 mg/dL (70-99) 194 mg/dL (70-99) 140 mg/dL (70-99) Test 12/25/18 07:18 Glucose (Fingerstick) 121 mg/dL (70-99) Laboratory Tests Test 12/24/18 11:32 12/24/18 16:11 12/24/18 21:03 12/25/18 07:18 Glucose (Fingerstick) 169 mg/dL (70-99) 194 mg/dL (70-99) 140 mg/dL (70-99) 121 mg/dL (70-99) Medications Active Scripts Medications Dose Route/Sig Max Daily Dose Days Date Category Vitamin D3 (Cholecalciferol (Vitamin D3)) 5,000 Unit Capsule 5,000 Unit PO DAILY 30 04/26/17 Rx Amlodipine Besylate 5 Mg Tablet 5 Mg PO BID66 30 04/26/17 Rx Tamsulosin Hcl 0.4 Mg Cap.er.24h 1 Cap PO DAILY 03/30/17 Reported Benicar (Olmesartan Medoxomil) 5 Mg Tablet 5 Mg PO DAILY 03/30/17 Reported Metoprolol Tartrate 25 Mg Tablet 1 Tab PO BID 03/30/17 Reported Metformin Hcl 500 Mg Tablet 750 Mg PO TID 03/30/17 Reported Lyrica (Pregabalin) 100 Mg Capsule 1 Cap PO TID 03/30/17 Reported Hydroxyzine Hcl 25 Mg Tablet 1 Tab PO QID PRN 03/30/17 Reported Cyclobenzaprine Hcl 5 Mg Tablet 1-2 Tab PO PRN TID PRN 03/30/17 Reported Atorvastatin Calcium 40 Mg Tablet 1 Tab PO HS 03/30/17 Reported Alprazolam 0.5 Mg Tablet 1 Tab PO PRN QHS 03/30/17 Reported Impression . IMPRESSION: 1. pneumonia with good clinical response to antibiotics. 2. COPD 3. Hypoglycemia. 4. Metabolic encephalopathy, improved. 5. Peripheral vascular disease. 6. History of subdural hematoma. 7. Type 2 diabetes. 8. Chronic weakness. 9. Acute exacerbation of chronic obstructive pulmonary disease. 10. Coronary artery disease. 11. History of hepatitis C. 12. Persistent abdominal pain. Plan . 1. I concur with current antibiotics. 2. Bronchodilators. 3. Monitor blood sugars. 4. Follow GI input. 5. Follow Vascular Surgery input. Will need follow up cxr in 4-6 to make sure resolution and further investigation if not resolved at that time. GINO PINEDA MD Dec 25, 2018 09:36
[2018-12-25 10:14] VITALS: BP 134/65
--- NOTE | 2018-12-25 10:37 | PDOC ---
PROGRESS NOTES Chief Complaint Chief Complaint A/P: Metabolic encephalopathy - likely 2/2 hypoglycemia Hypoglycemia - likely 2/2 sulfonylurea, will d/c outpatient use Right middle lobe pneumonia - will treat for CAP. Consulted pulm Headache with photosensitivity - will use tylenol prn Weakness - will have PT work with him. Vascular surgery to see for decreased RLE pulses Recent history SDH with evacuation after a fall - no new hemorrhages noted on CT scan 04/17/17 Anemia - likely of chronic disease Diabetes mellitus type II - will hold sulfonylurea permanently given his hypoglycemia. Glucose checks History of chronic right leg weakness for 2 months - appreciate vascular surgery Hypertension - Cont meds CAD - with PCI in 2006. apparently had LHC this past wednesday12/14/2018 per daughter with no intervention but diffuse disease COPD - nebs Peripheral neuropathy - on gabapentin NSTEMI - Left axis, S1S2S3 pattern with RBBB and RVH with no prior EKG available at this time. Initial troponin 0.4. Will consult cardiology, trend troponins, off heparin GTT now PAD - 12/14 LLE percutaneous revascularization and due for RLE with Dr. Medel on 12/29/2018 Hx of CVA/SDH and moderate carotid artery disease Abdominal pain with distention - will consult GI, order [facility] records. He has a strong appetite currently, but states he is scared to eat 2/2 pain Abnormal weight loss - states he has had through w/u at [facility]. records ordered H/o Hep C - states in SVR, will order HCV FEN - General diet PPX - Lovenox FULL CODE Dispo - Inpatient CVC History of Present Illness History of Present Illness Mr Oleary is a 73yo M w/ PMHx HTN, DM2, peripheral vascular disease who comes to the ED due to glucose of 22 at home with confusion per his and daughter. Despite D50 x2 doses his glucose continues to drop to 33 and 44. He also c/o chest pain and cough. The pain is right sided, sharp, does not radiate. He also notes a cough for the past 10 days that is productive of some foul sputum. In addition to that he has lost 80 pounds over the past 5 months mostly he claims due to fear of eating with severe abdominal pain on every meal. He feels he had an EGD recently at [facility], is not aware of the results. He was also seen by Dr. Medel and underwent what sounds to be a left femoral arterial procedure as well as LHC ( and daughter states stenting and bypass) this past 12/14/18. Right middle lobe infiltrate on CXR. EKG - Left axis, S1S2S3 pattern with RBBB and RVH with no prior EKG available at this time. Initial troponin 0.4, climbed and peaked 1.734. Started heparin GTT. Seen by cardiology in consultation as well as GI, vascular surgery, and pulmonlogy. CT abdomen/pelvis - 1. There is some stool distention of the colon greatest near the hepatic flexure and rectum, no small bowel dilatation. Stomach is distended. 2. There is nonspecific mild prominence of urinary bladder frye circumferentially, correlation with urinalysis is advised if not already performed if there is suspicion for cystitis. There is nonspecific somewhat increased hazy and strandy change of bilateral perinephric fat, no hydronephro sis. 3. There is atelectasis of the visualized right lung base. There is increased elevation right hemidiaphragm. 4. There is coronary calcification. 12/24: Blood glucose in 170s this morning on D10. Abdominal pain still present. Cough still present. chest pain resolved. He has been constipated, but did refuse bowel regimen. Bowel movement yesterday evening, refusing stool softeners. Bentyl helping with pain. Glucose improved. Cough is improving. No further confusion. Vitals Vitals Vital Signs Date Time Temp Pulse Resp B/P (MAP) Pulse Ox O2 Delivery O2 Flow Rate FiO2 12/25/18 10:14 98.7 88 18 134/65 (88) 99 Room Air 98.7 12/24/18 14:36 2.0 Physical Exam General: Alert, Cooperative, moderate distress Heart: Regular rate, Normal S1, Normal S2, Other (2/6 RAZ systolic murmur) Lungs: Other (diminished breath sounds diffusely) Abdomen: Normal bowel sounds, Soft, No hepatosplenomegaly, No masses, Other (RUQ tender) Extremities: No clubbing, No cyanosis, No edema, No tenderness/swelling, Other (Decreased pulses right foot) Skin: No rashes, No breakdown, No significant lesion Labs LABS Laboratory Tests Test 12/24/18 11:32 12/24/18 16:11 12/24/18 21:03 12/25/18 07:18 Glucose (Fingerstick) 169 mg/dL (70-99) 194 mg/dL (70-99) 140 mg/dL (70-99) 121 mg/dL (70-99) Assessment and Plan Assessmemt and Plan Problems Medical Problems: (1) Abdominal pain Status: Acute (2) Abnormal weight loss Status: Acute (3) Anemia Status: Chronic (4) CAD (coronary artery disease) Status: Chronic (5) COPD (chronic obstructive pulmonary disease) Status: Chronic (6) DM2 (diabetes mellitus, type 2) Status: Chronic (7) Elevated troponin Status: Acute (8) Headache Status: Chronic (9) HTN (hypertension) Status: Chronic (10) Hypoglycemia Status: Acute (11) Metabolic encephalopathy Status: Acute (12) NSTEMI (non-ST elevated myocardial infarction) Status: Chronic (13) PAD (peripheral artery disease) Status: Chronic (14) Peripheral neuropathy Status: Chronic (15) Peripheral vascular disease Status: Chronic (16) Right middle lobe pneumonia Status: Acute (17) Weakness Status: Chronic Comment Review of Relevant I have reviewed the following items denise (where applicable) has been applied. Labs Laboratory Tests Test 12/23/18 11:02 12/23/18 16:54 12/23/18 20:52 12/24/18 07:29 Glucose (Fingerstick) 170 mg/dL (70-99) 172 mg/dL (70-99) 176 mg/dL (70-99) 101 mg/dL (70-99) Test 12/24/18 11:32 12/24/18 16:11 12/24/18 21:03 12/25/18 07:18 Glucose (Fingerstick) 169 mg/dL (70-99) 194 mg/dL (70-99) 140 mg/dL (70-99) 121 mg/dL (70-99) Laboratory Tests Test 12/24/18 11:32 12/24/18 16:11 12/24/18 21:03 12/25/18 07:18 Glucose (Fingerstick) 169 mg/dL (70-99) 194 mg/dL (70-99) 140 mg/dL (70-99) 121 mg/dL (70-99) Microbiology 12/22/18 Blood Culture - Preliminary, Resulted NO GROWTH AFTER 2 DAYS Medications Current Medications Dextrose (Dextrose 50%-Water Syringe) 25 gm STK-MED ONCE IV ; Start 12/22/18 at 07:15; Stop 12/22/18 at 07:16; Status DC Dextrose (Dextrose 50%-Water Syringe) 25 gm 1X ONCE IV Last administered on 12/22/18at 07:27; Start 12/22/18 at 07:15; Stop 12/22/18 at 07:18; Status DC Dextrose/Sodium Chloride 1,000 ml @ 125 mls/hr 1X ONCE IV Last administered on 12/22/18at 08:11; Start 12/22/18 at 08:15; Stop 12/22/18 at 16:14; Status DC Cefepime HCl (Maxipime) 2 gm 1X ONCE IVP Last administered on 12/22/18at 12:38; Start 12/22/18 at 09:15; Stop 12/22/18 at 09:16; Status DC Albuterol/ Ipratropium (Duoneb) 3 ml RTQID NEB Last administered on 12/23/18at 11:02; Start 12/22/18 at 12:00; Stop 12/23/18 at 11:59; Status DC Azithromycin 250 ml @ 250 mls/hr 1X ONCE IV Last administered on 12/22/18at 10:50; Start 12/22/18 at 09:15; Stop 12/22/18 at 10:14; Status DC Amlodipine Besylate (Norvasc) 5 mg [id number] PO Last administered on 12/25/18 06:02; Start 12/22/18 at 10:00 Atorvastatin Calcium (Lipitor) 40 mg HS PO Last administered on 12/24/18at 20:17; Start 12/22/18 at 21:00 Metoprolol Tartrate (Lopressor) 25 mg BID PO Last administered on 12/25/18 08:31; Start 12/22/18 at 10:00 Losartan Potassium (Cozaar) 25 mg DAILY PO Last administered on 12/25/18 08:31; Start 12/22/18 at 10:00 Aspirin (Ecotrin) 81 mg DAILYWBKFT PO Last administered on 12/25/18 08:31; Start 12/22/18 at 10:00 Clopidogrel Bisulfate (Plavix) 75 mg DAILYWBKFT PO Last administered on 11/3/19at 08:31; Start 12/22/18 at 10:00 Clopidogrel Bisulfate (Plavix) 75 mg 1X ONCE PO Last administered on 10:55; Start 12/22/18 at 09:30; Stop 12/22/18 at 09:35; Status DC Dextrose (Dextrose 50%-Water Syringe) 25 gm 1X ONCE IV Last administered on 12/22/18 10:54; Start 12/22/18 at 10:45; Stop 12/22/18 at 10:46; Status DC Dextrose 1,000 ml @ 125 mls/hr Q8H IV Last administered on 12/22/18 22:41; Start 12/22/18 at 10:45; Stop 12/23/18 at 11:06; Status DC Acetaminophen (Tylenol) 1,000 mg 1X ONCE PO Last administered on 12/22/18 11:05; Start 12/22/18 at 11:15; Stop 12/22/18 at 11:16; Status DC Influenza Virus Vaccine Quadrival (Afluria Quad 2019-20 (3yr Up) Syringe) 0.5 ml ONCE ONCE VAX IM Last administered on 12/22/18 15:07; Start 12/22/18 at 12:30; Stop 12/22/18 at 12:31; Status DC Vitamin D (Vitamin D3) 5,000 unit DAILY PO Last administered on 12/25/18 08:30; Start 12/22/18 at 13:00 Tamsulosin HCl (Flomax) 0.4 mg DAILY PO Last administered on 12/25/18 08:30; Start 12/22/18 at 13:00 Iohexol (Omnipaque 240 Mg/ml) 30 ml 1X ONCE PO Last administered on 12/22/18 13:00; Start 12/22/18 at 13:00; Stop 12/22/18 at 13:01; Status DC Iohexol (Omnipaque 300 Mg/ml) 75 ml 1X ONCE IV Last administered on 12/22/18 15:33; Start 12/22/18 at 13:00; Stop 12/22/18 at 13:01; Status DC Pantoprazole Sodium (PROTONIX VIAL for IV PUSH) 40 mg DAILYAC IVP Last administered on 12/23/18 07:56; Start 12/22/18 at 13:00; Stop 12/23/18 at 16:15; Status DC Heparin Sodium/ Dextrose 500 ml @ 16.5 mls/hr CONT PRN IV SEE I/O RECORD Last administered on 12/22/18at 13:29; Start 12/22/18 at 13:00; Stop 12/24/18 at 17:09; Status DC Heparin Sodium (Porcine) (Heparin Sodium) 1,750 unit PRN Q6HRS PRN IV FOR UFH LEVEL LESS THAN 0.2 Last administered on 12/22/18at 20:47; Start 12/22/18 at 13:00; Stop 12/24/18 at 17:09; Status DC Info (CONTRAST GIVEN -- Rx MONITORING) 1 each PRN DAILY PRN MC SEE COMMENTS; Start 12/22/18 at 13:00; Stop 12/24/18 at 12:59; Status DC Doxycycline Hyclate 100 mg/ Dextrose 100 ml @ 50 mls/hr Q12HR IV Last administered on 12/25/18at 08:32; Start 12/22/18 at 13:00 Ceftriaxone Sodium (Rocephin) 1 gm Q24H IVP Last administered on 12/25/18at 08:32; Start 12/23/18 at 09:00 Hydralazine HCl (Apresoline Inj) 10 mg PRN Q4HRS PRN IVP ELEVATED BP, SEE COMMENTS; Start 12/22/18 at 15:30; Stop 12/24/18 at 14:39; Status DC Isosorbide Mononitrate (Imdur) 30 mg DAILY PO Last administered on 12/25/18at 08:31; Start 12/22/18 at 16:00 Acetaminophen (Tylenol) 650 mg PRN Q6HRS PRN PO PAIN Last administered on 12/22/18at 16:14; Start 12/22/18 at 16:15 Sodium Monofluorophosphate (Fleet Adult) 133 ml DAILY PRN MT CONSTIPATION; Start 12/22/18 at 20:15; Stop 12/24/18 at 14:39; Status DC Bisacodyl (Dulcolax Supp) 10 mg PRN DAILY PRN MT CONSTIPATION, 1ST CHOICE; Start 12/23/18 at 08:30 Insulin Human Lispro (HumaLOG) 0-5 UNITS TIDWMEALS SQ Last administered on 12/24/18 16:20; Start 12/23/18 at 12:00 Dextrose (Dextrose 50%-Water Syringe) 12.5 gm PRN Q15MIN PRN IV SEE COMMENTS; Start 12/23/18 at 11:15 Albuterol/ Ipratropium (Duoneb) 3 ml RTQID NEB Last administered on 12/25/18 08:06; Start 12/23/18 at 12:00 Polyethylene Glycol (miraLAX PACKET) 17 gm DAILY PO Last administered on 12/23/18at 17:20; Start 12/23/18 at 17:00 Pantoprazole Sodium (Protonix) 40 mg DAILYAC PO Last administered on 12/25/18 08:31; Start 12/24/18 at 07:30 Magnesium Citrate (Citroma) 296 ml 1X ONCE PO ; Start 12/24/18 at 15:00; Stop 12/24/18 at 15:01; Status DC Psyllium Hydrophilic Mucilloid (Metamucil Fiber Packet) 1 pkt QHS PO Last administered on 12/24/18 20:17; Start 12/24/18 at 21:00 Docusate Sodium (Colace) 100 mg BID PO Last administered on 12/25/18 08:31; Start 12/24/18 at 15:00 Dicyclomine HCl (Bentyl) 10 mg PRN TID PRN PO abdominal cramping Last administered on 12/25/18 08:34; Start 12/24/18 at 14:45 Lactobacillus Rhamnosus (Culturelle) 1 cap BID PO Last administered on 12/25/18 08:31; Start 12/24/18 at 21:00 Active Scripts Active Vitamin D3 (Cholecalciferol (Vitamin D3)) 5,000 Unit Capsule 5,000 Unit PO DAILY 30 Days Amlodipine Besylate 5 Mg Tablet 5 Mg PO [id number] 30 Days Reported Tamsulosin Hcl 0.4 Mg Cap.er.24h 1 Cap PO DAILY Benicar (Olmesartan Medoxomil) 5 Mg Tablet 5 Mg PO DAILY Metoprolol Tartrate 25 Mg Tablet 1 Tab PO BID Metformin Hcl 500 Mg Tablet 750 Mg PO TID Lyrica (Pregabalin) 100 Mg Capsule 1 Cap PO TID Hydroxyzine Hcl 25 Mg Tablet 1 Tab PO QID PRN Cyclobenzaprine Hcl 5 Mg Tablet 1-2 Tab PO PRN TID PRN Atorvastatin Calcium 40 Mg Tablet 1 Tab PO HS Alprazolam 0.5 Mg Tablet 1 Tab PO PRN QHS Vitals/I & O Vital Sign - Last 24 Hours 12/24/18 12/24/18 12/24/18 12/24/18 10:50 11:40 14:36 15:20 Temp 98.2 98.5 98.2 98.5 Pulse 84 86 Resp 20 20 B/P (MAP) 143/68 (93) 168/74 (105) Pulse Ox 98 97 O2 Delivery Nasal Cannula Room Air Nasal Cannula Room Air O2 Flow Rate 2.0 2.0 12/24/18 12/24/18 12/24/18 12/24/18 19:21 19:36 19:39 20:17 Temp 99.2 99.2 Pulse 94 94 Resp 20 B/P (MAP) 159/70 (99) 159/70 Pulse Ox 98 98 O2 Delivery Room Air Room Air Room Air 12/24/18 12/25/18 12/25/18 12/25/18 23:20 03:12 06:02 07:00 Temp 98.9 99.0 98.5 98.9 99.0 98.5 Pulse 89 87 87 90 Resp 20 18 18 B/P (MAP) 162/82 (108) 149/63 (91) 149/63 153/67 (95) Pulse Ox 97 96 98 O2 Delivery Room Air Room Air Room Air 12/25/18 12/25/18 12/25/18 12/25/18 08:00 08:06 08:31 08:31 Pulse 90 90 B/P (MAP) 153/67 153/67 Pulse Ox 98 O2 Delivery Room Air Room Air 12/25/18 12/25/18 08:31 10:14 Temp 98.7 98.7 Pulse 90 88 Resp 18 B/P (MAP) 153/67 134/65 (88) Pulse Ox 99 O2 Delivery Room Air Intake and Output 12/24/18 12/24/18 12/25/18 15:00 23:00 07:00 Intake Total 240 ml 900 ml 640 ml Output Total 700 ml 1200 ml 1300 ml Balance -460 ml -300 ml -660 ml KIARRA FLORES MD Dec 25, 2018 10:37
[2018-12-25] MEDS ORDERED: METOCLOPRAMIDE 5 MG TABLET. PO PRN (10:45)
[2018-12-25 11:27] LABS: ALBUMIN 2.4 g/dL (3.4-5.0); ALBUMIN/GLOBULIN RATIO 0.8 (1.0-1.7); CALCIUM 8.1 mg/dL (8.5-10.1); CREATININE 1.1 mg/dL (0.7-1.3); GFR 79.6; POTASSIUM 4.4 mmol/L (3.5-5.1); TOTAL BILIRUBIN 0.2 mg/dL (0.2-1.0); TOTAL PROTEIN 5.4 g/dL (6.4-8.2)
[2018-12-25 11:37] LABS: BASO % 1 % (0-3); EOS # 0.1 x10^3/uL (0.0-0.7); EOS % 1 % (0-3); HEMATOCRIT 22.4 % (39.0-53.0); HEMOGLOBIN 7.7 g/dL (13.0-17.5); LYMPH # 0.9 x10^3/uL (1.0-4.8); LYMPH % 14 % (24-48); MEAN CORPUSCULAR HEMOGLOBIN 30 pg (25-35); MEAN CORPUSCULAR HGB CONC 34 g/dL (31-37); MEAN CORPUSCULAR VOLUME 88 fL (79-100); MONO # 0.5 x10^3/uL (0.0-1.1); MONO % 8 % (0-9); NEUT # 4.9 x10^3/uL (1.8-7.7); NEUT % 76 % (31-73); PLATELET COUNT 124 x10^3/uL (140-400); RED BLOOD COUNT 2.54 x10^6/uL (4.30-5.70); RED CELL DISTRIBUTION WIDTH 14.3 % (11.5-14.5); WHITE BLOOD COUNT 6.4 x10^3/uL (4.0-11.0)
--- NOTE | 2018-12-25 11:56 | PDOC ---
G I PROGRESS NOTE Subjective Still with complaints of abdominal pain; now band-like across upper abdomen mostly. No stools. Objective Pretty good intack yesterday; all soup he says. Physical Exam Lungs clear. RRR Abdomen soft, not more distended. Upper abdominal tenderness to very light touch. Review of Relevant I have reviewed the following items denise (where applicable) has been applied. Labs Laboratory Tests Test 12/23/18 16:54 12/23/18 20:52 12/24/18 07:29 12/24/18 11:32 Glucose (Fingerstick) 172 mg/dL (70-99) 176 mg/dL (70-99) 101 mg/dL (70-99) 169 mg/dL (70-99) Test 12/24/18 16:11 12/24/18 21:03 12/25/18 07:18 12/25/18 10:40 Glucose (Fingerstick) 194 mg/dL (70-99) 140 mg/dL (70-99) 121 mg/dL (70-99) White Blood Count 6.4 x10^3/uL (4.0-11.0) Red Blood Count 2.54 x10^6/uL (4.30-5.70) Hemoglobin 7.7 g/dL (13.0-17.5) Hematocrit 22.4 % (39.0-53.0) Mean Corpuscular Volume 88 fL (79-100) Mean Corpuscular Hemoglobin 30 pg (25-35) Mean Corpuscular Hemoglobin Concent 34 g/dL (31-37) Red Cell Distribution Width 14.3 % (11.5-14.5) Platelet Count 124 x10^3/uL (140-400) Neutrophils (%) (Auto) 76 % (31-73) Lymphocytes (%) (Auto) 14 % (24-48) Monocytes (%) (Auto) 8 % (0-9) Eosinophils (%) (Auto) 1 % (0-3) Basophils (%) (Auto) 1 % (0-3) Neutrophils # (Auto) 4.9 x10^3/uL (1.8-7.7) Lymphocytes # (Auto) 0.9 x10^3/uL (1.0-4.8) Monocytes # (Auto) 0.5 x10^3/uL (0.0-1.1) Eosinophils # (Auto) 0.1 x10^3/uL (0.0-0.7) Basophils # (Auto) 0.0 x10^3/uL (0.0-0.2) Sodium Level 141 mmol/L (136-145) Potassium Level 4.4 mmol/L (3.5-5.1) Chloride Level 107 mmol/L (98-107) Carbon Dioxide Level 27 mmol/L (21-32) Anion Gap 7 (6-14) Blood Urea Nitrogen 9 mg/dL (8-26) Creatinine 1.1 mg/dL (0.7-1.3) Estimated GFR (Cockcroft-Gault) 79.6 BUN/Creatinine Ratio 8 (6-20) Glucose Level 197 mg/dL (70-99) Calcium Level 8.1 mg/dL (8.5-10.1) Total Bilirubin 0.2 mg/dL (0.2-1.0) Aspartate Amino Transf (AST/SGOT) 26 U/L (15-37) Alanine Aminotransferase (ALT/SGPT) 23 U/L (16-63) Alkaline Phosphatase 122 U/L (46-116) Total Protein 5.4 g/dL (6.4-8.2) Albumin 2.4 g/dL (3.4-5.0) Albumin/Globulin Ratio 0.8 (1.0-1.7) Test 12/25/18 11:28 Glucose (Fingerstick) 159 mg/dL (70-99) Laboratory Tests Test 12/24/18 16:11 12/24/18 21:03 12/25/18 07:18 12/25/18 10:40 Glucose (Fingerstick) 194 mg/dL (70-99) 140 mg/dL (70-99) 121 mg/dL (70-99) White Blood Count 6.4 x10^3/uL (4.0-11.0) Red Blood Count 2.54 x10^6/uL (4.30-5.70) Hemoglobin 7.7 g/dL (13.0-17.5) Hematocrit 22.4 % (39.0-53.0) Mean Corpuscular Volume 88 fL (79-100) Mean Corpuscular Hemoglobin 30 pg (25-35) Mean Corpuscular Hemoglobin Concent 34 g/dL (31-37) Red Cell Distribution Width 14.3 % (11.5-14.5) Platelet Count 124 x10^3/uL (140-400) Neutrophils (%) (Auto) 76 % (31-73) Lymphocytes (%) (Auto) 14 % (24-48) Monocytes (%) (Auto) 8 % (0-9) Eosinophils (%) (Auto) 1 % (0-3) Basophils (%) (Auto) 1 % (0-3) Neutrophils # (Auto) 4.9 x10^3/uL (1.8-7.7) Lymphocytes # (Auto) 0.9 x10^3/uL (1.0-4.8) Monocytes # (Auto) 0.5 x10^3/uL (0.0-1.1) Eosinophils # (Auto) 0.1 x10^3/uL (0.0-0.7) Basophils # (Auto) 0.0 x10^3/uL (0.0-0.2) Sodium Level 141 mmol/L (136-145) Potassium Level 4.4 mmol/L (3.5-5.1) Chloride Level 107 mmol/L (98-107) Carbon Dioxide Level 27 mmol/L (21-32) Anion Gap 7 (6-14) Blood Urea Nitrogen 9 mg/dL (8-26) Creatinine 1.1 mg/dL (0.7-1.3) Estimated GFR (Cockcroft-Gault) 79.6 BUN/Creatinine Ratio 8 (6-20) Glucose Level 197 mg/dL (70-99) Calcium Level 8.1 mg/dL (8.5-10.1) Total Bilirubin 0.2 mg/dL (0.2-1.0) Aspartate Amino Transf (AST/SGOT) 26 U/L (15-37) Alanine Aminotransferase (ALT/SGPT) 23 U/L (16-63) Alkaline Phosphatase 122 U/L (46-116) Total Protein 5.4 g/dL (6.4-8.2) Albumin 2.4 g/dL (3.4-5.0) Albumin/Globulin Ratio 0.8 (1.0-1.7) Test 12/25/18 11:28 Glucose (Fingerstick) 159 mg/dL (70-99) Microbiology 12/22/18 Blood Culture - Preliminary, Resulted NO GROWTH AFTER 3 DAYS Vitals/I & O Vital Sign - Last 24 Hours 12/24/18 12/24/18 12/24/18 12/24/18 14:36 15:20 19:21 19:36 Temp 98.5 99.2 98.5 99.2 Pulse 86 94 Resp 20 20 B/P (MAP) 168/74 (105) 159/70 (99) Pulse Ox 97 98 98 O2 Delivery Nasal Cannula Room Air Room Air Room Air O2 Flow Rate 2.0 12/24/18 12/24/18 12/24/18 12/25/18 19:39 20:17 23:20 03:12 Temp 98.9 99.0 98.9 99.0 Pulse 94 89 87 Resp 20 18 B/P (MAP) 159/70 162/82 (108) 149/63 (91) Pulse Ox 97 96 O2 Delivery Room Air Room Air Room Air 12/25/18 12/25/18 12/25/18 12/25/18 06:02 07:00 08:00 08:06 Temp 98.5 98.5 Pulse 87 90 Resp 18 B/P (MAP) 149/63 153/67 (95) Pulse Ox 98 98 O2 Delivery Room Air Room Air Room Air 12/25/18 12/25/18 12/25/18 12/25/18 08:31 08:31 08:31 10:14 Temp 98.7 98.7 Pulse 90 90 90 88 Resp 18 B/P (MAP) 153/67 153/67 153/67 134/65 (88) Pulse Ox 99 O2 Delivery Room Air 12/25/18 11:18 Pulse Ox 98 O2 Delivery Room Air Intake and Output 12/24/18 12/24/18 12/25/18 15:00 23:00 07:00 Intake Total 240 ml 900 ml 640 ml Output Total 700 ml 1200 ml 1300 ml Balance -460 ml -300 ml -660 ml Problem List Problems Medical Problems: (1) Abdominal pain Status: Acute (2) Abnormal weight loss Status: Acute (3) Anemia Status: Chronic (4) CAD (coronary artery disease) Status: Chronic (5) COPD (chronic obstructive pulmonary disease) Status: Chronic (6) DM2 (diabetes mellitus, type 2) Status: Chronic (7) Elevated troponin Status: Acute (8) Headache Status: Chronic (9) HTN (hypertension) Status: Chronic (10) Hypoglycemia Status: Acute (11) Metabolic encephalopathy Status: Acute (12) NSTEMI (non-ST elevated myocardial infarction) Status: Chronic (13) PAD (peripheral artery disease) Status: Chronic (14) Peripheral neuropathy Status: Chronic (15) Peripheral vascular disease Status: Chronic (16) Right middle lobe pneumonia Status: Acute (17) Weakness Status: Chronic Assessment Abdominal pain; suspect some GERD element, but tenderness suggests superficial process--painful neuropathy? Constipation. Plan of Care Note BID Miralax Ducolax tab x 1. Back imaging? Trial of gabapentin? RADHA TREJO MD Dec 25, 2018 11:56
[2018-12-25] MEDS ORDERED: BISACODYL 5 MG TABLET.DR. PO PRN (12:00)
[2018-12-25 14:26] VITALS: BP 149/70
--- NOTE | 2018-12-25 17:19 | NUR ---
Patient not eating dinner. Insulin meal dose held.
[2018-12-25 18:43] VITALS: BP 148/76
[2018-12-25] MEDS: ATORVASTATIN CALCIUM 40 MG TABLET. PO SCH (19:45)
[2018-12-25] MEDS: PSYLLIUM HUSK (SUGAR FREE) 1 PKT PACKET PO SCH (19:46)
[2018-12-25 22:28] VITALS: BP 132/63
[2018-12-26 02:26] VITALS: BP 148/75
[2018-12-26] MEDS: DICYCLOMINE HCL 10 MG CAPSULE PO PRN (05:39)
[2018-12-26] MEDS: amLODIPine BESYLATE 5 MG TABLET PO SCH (05:40)
[2018-12-26] MEDS: ACETAMINOPHEN 325 MG TABLET. PO PRN (05:40)
[2018-12-26 07:00] VITALS: BP 133/54
[2018-12-26] MEDS: INSULIN LISPRO 300 UNITS/3 ML VIAL. SQ SCH ×2 (08:00→12:00)
[2018-12-26] MEDS: IPRATRPIUM/ALBUTEROL 0.5/2.5MG 3 ML NEBU. NEB SCH ×2 (08:27→11:38)
--- NOTE | 2018-12-26 08:37 | PDOC ---
PULMONARY PROGRESS NOTES Subjective pt not more soa ready for d/c Vitals Vital Signs Date Time Temp Pulse Resp B/P (MAP) Pulse Ox O2 Delivery O2 Flow Rate FiO2 12/26/18 08:27 98 Room Air 12/26/18 07:00 98.4 81 18 133/54 (80) 98.4 12/25/18 20:00 2.0 ROS: No Nausea, No Chest Pain, No Increase Cough General: Alert, Oriented X4, No acute distress Lungs: Other (diminished breath sounds diffusely) Cardiovascular: S1, S2 Abdomen: Soft Neuro Exam: Alert, Oriented Extremities: No Edema Skin: Warm Labs Laboratory Tests Test 12/24/18 11:32 12/24/18 16:11 12/24/18 21:03 12/25/18 07:18 Glucose (Fingerstick) 169 mg/dL (70-99) 194 mg/dL (70-99) 140 mg/dL (70-99) 121 mg/dL (70-99) Test 12/25/18 10:40 12/25/18 11:28 12/25/18 16:44 12/25/18 21:30 White Blood Count 6.4 x10^3/uL (4.0-11.0) Red Blood Count 2.54 x10^6/uL (4.30-5.70) Hemoglobin 7.7 g/dL (13.0-17.5) Hematocrit 22.4 % (39.0-53.0) Mean Corpuscular Volume 88 fL (79-100) Mean Corpuscular Hemoglobin 30 pg (25-35) Mean Corpuscular Hemoglobin Concent 34 g/dL (31-37) Red Cell Distribution Width 14.3 % (11.5-14.5) Platelet Count 124 x10^3/uL (140-400) Neutrophils (%) (Auto) 76 % (31-73) Lymphocytes (%) (Auto) 14 % (24-48) Monocytes (%) (Auto) 8 % (0-9) Eosinophils (%) (Auto) 1 % (0-3) Basophils (%) (Auto) 1 % (0-3) Neutrophils # (Auto) 4.9 x10^3/uL (1.8-7.7) Lymphocytes # (Auto) 0.9 x10^3/uL (1.0-4.8) Monocytes # (Auto) 0.5 x10^3/uL (0.0-1.1) Eosinophils # (Auto) 0.1 x10^3/uL (0.0-0.7) Basophils # (Auto) 0.0 x10^3/uL (0.0-0.2) Sodium Level 141 mmol/L (136-145) Potassium Level 4.4 mmol/L (3.5-5.1) Chloride Level 107 mmol/L (98-107) Carbon Dioxide Level 27 mmol/L (21-32) Anion Gap 7 (6-14) Blood Urea Nitrogen 9 mg/dL (8-26) Creatinine 1.1 mg/dL (0.7-1.3) Estimated GFR (Cockcroft-Gault) 79.6 BUN/Creatinine Ratio 8 (6-20) Glucose Level 197 mg/dL (70-99) Calcium Level 8.1 mg/dL (8.5-10.1) Total Bilirubin 0.2 mg/dL (0.2-1.0) Aspartate Amino Transf (AST/SGOT) 26 U/L (15-37) Alanine Aminotransferase (ALT/SGPT) 23 U/L (16-63) Alkaline Phosphatase 122 U/L (46-116) Total Protein 5.4 g/dL (6.4-8.2) Albumin 2.4 g/dL (3.4-5.0) Albumin/Globulin Ratio 0.8 (1.0-1.7) Glucose (Fingerstick) 159 mg/dL (70-99) 221 mg/dL (70-99) 214 mg/dL (70-99) Test 12/26/18 08:08 Glucose (Fingerstick) 120 mg/dL (70-99) Laboratory Tests Test 12/25/18 10:40 12/25/18 11:28 12/25/18 16:44 12/25/18 21:30 White Blood Count 6.4 x10^3/uL (4.0-11.0) Red Blood Count 2.54 x10^6/uL (4.30-5.70) Hemoglobin 7.7 g/dL (13.0-17.5) Hematocrit 22.4 % (39.0-53.0) Mean Corpuscular Volume 88 fL (79-100) Mean Corpuscular Hemoglobin 30 pg (25-35) Mean Corpuscular Hemoglobin Concent 34 g/dL (31-37) Red Cell Distribution Width 14.3 % (11.5-14.5) Platelet Count 124 x10^3/uL (140-400) Neutrophils (%) (Auto) 76 % (31-73) Lymphocytes (%) (Auto) 14 % (24-48) Monocytes (%) (Auto) 8 % (0-9) Eosinophils (%) (Auto) 1 % (0-3) Basophils (%) (Auto) 1 % (0-3) Neutrophils # (Auto) 4.9 x10^3/uL (1.8-7.7) Lymphocytes # (Auto) 0.9 x10^3/uL (1.0-4.8) Monocytes # (Auto) 0.5 x10^3/uL (0.0-1.1) Eosinophils # (Auto) 0.1 x10^3/uL (0.0-0.7) Basophils # (Auto) 0.0 x10^3/uL (0.0-0.2) Sodium Level 141 mmol/L (136-145) Potassium Level 4.4 mmol/L (3.5-5.1) Chloride Level 107 mmol/L (98-107) Carbon Dioxide Level 27 mmol/L (21-32) Anion Gap 7 (6-14) Blood Urea Nitrogen 9 mg/dL (8-26) Creatinine 1.1 mg/dL (0.7-1.3) Estimated GFR (Cockcroft-Gault) 79.6 BUN/Creatinine Ratio 8 (6-20) Glucose Level 197 mg/dL (70-99) Calcium Level 8.1 mg/dL (8.5-10.1) Total Bilirubin 0.2 mg/dL (0.2-1.0) Aspartate Amino Transf (AST/SGOT) 26 U/L (15-37) Alanine Aminotransferase (ALT/SGPT) 23 U/L (16-63) Alkaline Phosphatase 122 U/L (46-116) Total Protein 5.4 g/dL (6.4-8.2) Albumin 2.4 g/dL (3.4-5.0) Albumin/Globulin Ratio 0.8 (1.0-1.7) Glucose (Fingerstick) 159 mg/dL (70-99) 221 mg/dL (70-99) 214 mg/dL (70-99) Test 12/26/18 08:08 Glucose (Fingerstick) 120 mg/dL (70-99) Medications Active Scripts Medications Dose Route/Sig Max Daily Dose Days Date Category Vitamin D3 (Cholecalciferol (Vitamin D3)) 5,000 Unit Capsule 5,000 Unit PO DAILY 30 04/26/17 Rx Amlodipine Besylate 5 Mg Tablet 5 Mg PO [id number] 30 04/26/17 Rx Tamsulosin Hcl 0.4 Mg Cap.er.24h 1 Cap PO DAILY 03/30/17 Reported Benicar (Olmesartan Medoxomil) 5 Mg Tablet 5 Mg PO DAILY 03/30/17 Reported Metoprolol Tartrate 25 Mg Tablet 1 Tab PO BID 03/30/17 Reported Metformin Hcl 500 Mg Tablet 750 Mg PO TID 03/30/17 Reported Lyrica (Pregabalin) 100 Mg Capsule 1 Cap PO TID 03/30/17 Reported Hydroxyzine Hcl 25 Mg Tablet 1 Tab PO QID PRN 03/30/17 Reported Cyclobenzaprine Hcl 5 Mg Tablet 1-2 Tab PO PRN TID PRN 03/30/17 Reported Atorvastatin Calcium 40 Mg Tablet 1 Tab PO HS 03/30/17 Reported Alprazolam 0.5 Mg Tablet 1 Tab PO PRN QHS 03/30/17 Reported Impression . IMPRESSION: 1. pneumonia with good clinical response to antibiotics. 2. COPD 3. Hypoglycemia. 4. Metabolic encephalopathy, improved. 5. Peripheral vascular disease. 6. History of subdural hematoma. 7. Type 2 diabetes. 8. Chronic weakness. 9. Acute exacerbation of chronic obstructive pulmonary disease. 10. Coronary artery disease. 11. History of hepatitis C. 12. Persistent abdominal pain. Plan . ok to d/c follow up in office in 6 weeks cxr prior to visit Will need follow up cxr in 4-6 to make sure resolution and further investigation if not resolved at that time. SARAH MCLAUGHLIN MD Dec 26, 2018 08:37
[2018-12-26] MEDS: CHOLECALCIFEROL (VITAMIN D3) 5,000 UNIT CAPSULE PO SCH (08:50)
[2018-12-26] MEDS: CLOPIDOGREL BISULFATE 75 MG TABLET PO SCH (08:50)
[2018-12-26] MEDS: ASPIRIN ENTERIC COATED 81 MG TABLET.DR. PO SCH (08:51)
[2018-12-26] MEDS: PANTOPRAZOLE 40 MG TABLET.DR. PO SCH (08:51)
[2018-12-26] MEDS: ISOSORBIDE MONONITRATE ER 30 MG TAB.ER.24H PO SCH (08:51)
[2018-12-26] MEDS: LACTOBACILLUS RHAMNOSUS GG 1 CAPSULE. PO SCH (08:51)
[2018-12-26] MEDS: METOPROLOL TART IMMED RELEASE 25 MG TABLET. PO SCH (08:51)
[2018-12-26] MEDS: TAMSULOSIN 0.4 MG CAP.ER.24H. PO SCH (08:51)
[2018-12-26] MEDS: cefTRIAXone IV Push 1 GM VIAL. IVP SCH (08:52)
[2018-12-26] MEDS: LOSARTAN POTASSIUM 25 MG TABLET. PO SCH (08:52)
[2018-12-26] MEDS: DOCUSATE SODIUM 100 MG CAPSULE. PO SCH (08:52)
[2018-12-26] MEDS: DOXYCYCLINE HYCLATE 100 MG in IV DEXTROSE 5% 100ML 100 ML IV SCH (08:53)
[2018-12-26] MEDS: POLYETHYLENE GLYCOL 3350 17 GM PACKET. PO SCH (09:00)
[2018-12-26 11:00] VITALS: BP 149/74
--- NOTE | 2018-12-26 11:00 | PDOC ---
PROGRESS NOTES Chief Complaint Chief Complaint A/P: Metabolic encephalopathy - likely 2/2 hypoglycemia Hypoglycemia - likely 2/2 sulfonylurea, will d/c outpatient use Right middle lobe pneumonia - will treat for CAP. Consulted pulm Headache with photosensitivity - will use tylenol prn Weakness - will have PT work with him. Vascular surgery to see for decreased RLE pulses Recent history SDH with evacuation after a fall - no new hemorrhages noted on CT scan 04/17/17 Anemia - likely of chronic disease Diabetes mellitus type II - will hold sulfonylurea permanently given his hypoglycemia. Glucose checks History of chronic right leg weakness for 2 months - appreciate vascular surgery Hypertension - Cont meds CAD - with PCI in 2006. apparently had LHC this past wednesday12/14/2018 per daughter with no intervention but diffuse disease COPD - nebs Peripheral neuropathy - on gabapentin NSTEMI - Left axis, S1S2S3 pattern with RBBB and RVH with no prior EKG available at this time. Initial troponin 0.4. Will consult cardiology, trend troponins, off heparin GTT now PAD - 12/14 LLE percutaneous revascularization and due for RLE with Dr. Medel on 12/29/2018 Hx of CVA/SDH and moderate carotid artery disease Abdominal pain with distention - will consult GI, order [facility] records. He has a strong appetite currently, but states he is scared to eat 2/2 pain Abnormal weight loss - states he has had through w/u at [facility]. records ordered H/o Hep C - states in SVR, will order HCV FEN - General diet PPX - Lovenox FULL CODE Dispo - Inpatient CVC History of Present Illness History of Present Illness Mr Oleary is a 73yo M w/ PMHx HTN, DM2, peripheral vascular disease who comes to the ED due to glucose of 22 at home with confusion per his and daughter. Despite D50 x2 doses his glucose continues to drop to 33 and 44. He also c/o chest pain and cough. The pain is right sided, sharp, does not radiate. He also notes a cough for the past 10 days that is productive of some foul sputum. In addition to that he has lost 80 pounds over the past 5 months mostly he claims due to fear of eating with severe abdominal pain on every meal. He feels he had an EGD recently at [facility], is not aware of the results. He was also seen by Dr. Medel and underwent what sounds to be a left femoral arterial procedure as well as C ( and daughter states stenting and bypass) this past 12/14/18. Right middle lobe infiltrate on CXR. EKG - Left axis, S1S2S3 pattern with RBBB and RVH with no prior EKG available at this time. Initial troponin 0.4, climbed and peaked 1.734. Started heparin GTT. Seen by cardiology in consultation as well as GI, vascular surgery, and pulmonlogy. CT abdomen/pelvis - 1. There is some stool distention of the colon greatest near the hepatic flexure and rectum, no small bowel dilatation. Stomach is distended. 2. There is nonspecific mild prominence of urinary bladder frye circumferentially, correlation with urinalysis is advised if not already performed if there is suspicion for cystitis. There is nonspecific somewhat increased hazy and strandy change of bilateral perinephric fat, no hydronephro sis. 3. There is atelectasis of the visualized right lung base. There is increased elevation right hemidiaphragm. 4. There is coronary calcification. 12/24: Blood glucose in 170s this morning on D10. Abdominal pain still present. Cough still present. chest pain resolved. He has been constipated, but did refuse bowel regimen. 12/25: Bowel movement yesterday evening, refusing stool softeners. Bentyl helping with pain. Glucose improved. Cough is improving. No further confusion. He is feeling much better, anemia w/u still in process, however he wishes to go, does have f/u. Overall his abdominal pain improved with bentyl. He is off O2, cough improved, Shortness of breath improved. No Chest pain. No further hypoglycemia. Home health with [facility] in [facility]. Has f/u at [facility]. Vitals Vitals Vital Signs Date Time Temp Pulse Resp B/P (MAP) Pulse Ox O2 Delivery O2 Flow Rate FiO2 12/26/18 08:52 81 133/54 12/26/18 08:27 98 Room Air 12/26/18 07:00 98.4 18 98.4 12/25/18 20:00 2.0 Physical Exam General: Alert, Cooperative, moderate distress Heart: Regular rate, Normal S1, Normal S2, Other (2/6 RAZ systolic murmur) Lungs: Other (diminished breath sounds diffusely) Abdomen: Normal bowel sounds, Soft, No hepatosplenomegaly, No masses, Other (RUQ tender) Extremities: No clubbing, No cyanosis, No edema, No tenderness/swelling, Other (Decreased pulses right foot) Skin: No rashes, No breakdown, No significant lesion Labs LABS Laboratory Tests Test 12/25/18 11:28 12/25/18 16:44 12/25/18 21:30 12/26/18 08:08 Glucose (Fingerstick) 159 mg/dL (70-99) 221 mg/dL (70-99) 214 mg/dL (70-99) 120 mg/dL (70-99) Assessment and Plan Assessmemt and Plan Problems Medical Problems: (1) Abdominal pain Status: Acute (2) Abnormal weight loss Status: Acute (3) Anemia Status: Chronic (4) CAD (coronary artery disease) Status: Chronic (5) COPD (chronic obstructive pulmonary disease) Status: Chronic (6) DM2 (diabetes mellitus, type 2) Status: Chronic (7) Elevated troponin Status: Acute (8) Headache Status: Chronic (9) HTN (hypertension) Status: Chronic (10) Hypoglycemia Status: Acute (11) Metabolic encephalopathy Status: Acute (12) NSTEMI (non-ST elevated myocardial infarction) Status: Chronic (13) PAD (peripheral artery disease) Status: Chronic (14) Peripheral neuropathy Status: Chronic (15) Peripheral vascular disease Status: Chronic (16) Right middle lobe pneumonia Status: Acute (17) Weakness Status: Chronic Comment Review of Relevant I have reviewed the following items denise (where applicable) has been applied. Labs Laboratory Tests Test 12/24/18 11:32 12/24/18 16:11 12/24/18 21:03 12/25/18 07:18 Glucose (Fingerstick) 169 mg/dL (70-99) 194 mg/dL (70-99) 140 mg/dL (70-99) 121 mg/dL (70-99) Test 12/25/18 10:40 12/25/18 11:28 12/25/18 16:44 12/25/18 21:30 White Blood Count 6.4 x10^3/uL (4.0-11.0) Red Blood Count 2.54 x10^6/uL (4.30-5.70) Hemoglobin 7.7 g/dL (13.0-17.5) Hematocrit 22.4 % (39.0-53.0) Mean Corpuscular Volume 88 fL (79-100) Mean Corpuscular Hemoglobin 30 pg (25-35) Mean Corpuscular Hemoglobin Concent 34 g/dL (31-37) Red Cell Distribution Width 14.3 % (11.5-14.5) Platelet Count 124 x10^3/uL (140-400) Neutrophils (%) (Auto) 76 % (31-73) Lymphocytes (%) (Auto) 14 % (24-48) Monocytes (%) (Auto) 8 % (0-9) Eosinophils (%) (Auto) 1 % (0-3) Basophils (%) (Auto) 1 % (0-3) Neutrophils # (Auto) 4.9 x10^3/uL (1.8-7.7) Lymphocytes # (Auto) 0.9 x10^3/uL (1.0-4.8) Monocytes # (Auto) 0.5 x10^3/uL (0.0-1.1) Eosinophils # (Auto) 0.1 x10^3/uL (0.0-0.7) Basophils # (Auto) 0.0 x10^3/uL (0.0-0.2) Sodium Level 141 mmol/L (136-145) Potassium Level 4.4 mmol/L (3.5-5.1) Chloride Level 107 mmol/L (98-107) Carbon Dioxide Level 27 mmol/L (21-32) Anion Gap 7 (6-14) Blood Urea Nitrogen 9 mg/dL (8-26) Creatinine 1.1 mg/dL (0.7-1.3) Estimated GFR (Cockcroft-Gault) 79.6 BUN/Creatinine Ratio 8 (6-20) Glucose Level 197 mg/dL (70-99) Calcium Level 8.1 mg/dL (8.5-10.1) Total Bilirubin 0.2 mg/dL (0.2-1.0) Aspartate Amino Transf (AST/SGOT) 26 U/L (15-37) Alanine Aminotransferase (ALT/SGPT) 23 U/L (16-63) Alkaline Phosphatase 122 U/L (46-116) Total Protein 5.4 g/dL (6.4-8.2) Albumin 2.4 g/dL (3.4-5.0) Albumin/Globulin Ratio 0.8 (1.0-1.7) Glucose (Fingerstick) 159 mg/dL (70-99) 221 mg/dL (70-99) 214 mg/dL (70-99) Test 12/26/18 08:08 Glucose (Fingerstick) 120 mg/dL (70-99) Laboratory Tests Test 12/25/18 11:28 12/25/18 16:44 12/25/18 21:30 12/26/18 08:08 Glucose (Fingerstick) 159 mg/dL (70-99) 221 mg/dL (70-99) 214 mg/dL (70-99) 120 mg/dL (70-99) Microbiology 12/22/18 Blood Culture - Preliminary, Resulted NO GROWTH AFTER 3 DAYS Medications Current Medications Dextrose (Dextrose 50%-Water Syringe) 25 gm STK-MED ONCE IV ; Start 12/22/18 at 07:15; Stop 12/22/18 at 07:16; Status DC Dextrose (Dextrose 50%-Water Syringe) 25 gm 1X ONCE IV Last administered on 12/22/18at 07:27; Start 12/22/18 at 07:15; Stop 12/22/18 at 07:18; Status DC Dextrose/Sodium Chloride 1,000 ml @ 125 mls/hr 1X ONCE IV Last administered on 12/22/18at 08:11; Start 12/22/18 at 08:15; Stop 12/22/18 at 16:14; Status DC Cefepime HCl (Maxipime) 2 gm 1X ONCE IVP Last administered on 12/22/18at 12:38; Start 12/22/18 at 09:15; Stop 12/22/18 at 09:16; Status DC Albuterol/ Ipratropium (Duoneb) 3 ml RTQID NEB Last administered on 12/23/18at 11:02; Start 12/22/18 at 12:00; Stop 12/23/18 at 11:59; Status DC Azithromycin 250 ml @ 250 mls/hr 1X ONCE IV Last administered on 12/22/18at 10:50; Start 12/22/18 at 09:15; Stop 12/22/18 at 10:14; Status DC Amlodipine Besylate (Norvasc) 5 mg [id number] PO Last administered on 12/26/18 05:40; Start 12/22/18 at 10:00 Atorvastatin Calcium (Lipitor) 40 mg HS PO Last administered on 12/25/18at 19:45; Start 12/22/18 at 21:00 Metoprolol Tartrate (Lopressor) 25 mg BID PO Last administered on 12/26/18at 0 8:51; Start 12/22/18 at 10:00 Losartan Potassium (Cozaar) 25 mg DAILY PO Last administered on 12/26/18 08:52; Start 12/22/18 at 10:00 Aspirin (Ecotrin) 81 mg DAILYWBKFT PO Last administered on 12/26/18 08:51; Start 12/22/18 at 10:00 Clopidogrel Bisulfate (Plavix) 75 mg DAILYWBKFT PO Last administered on 12/26/18 08:50; Start 12/22/18 at 10:00 Clopidogrel Bisulfate (Plavix) 75 mg 1X ONCE PO Last administered on 12/22/18 10:55; Start 12/22/18 at 09:30; Stop 12/22/18 at 09:35; Status DC Dextrose (Dextrose 50%-Water Syringe) 25 gm 1X ONCE IV Last administered on 12/22/18 10:54; Start 12/22/18 at 10:45; Stop 12/22/18 at 10:46; Status DC Dextrose 1,000 ml @ 125 mls/hr Q8H IV Last administered on 12/22/18at 22:41; Start 12/22/18 at 10:45; Stop 12/23/18 at 11:06; Status DC Acetaminophen (Tylenol) 1,000 mg 1X ONCE PO Last administered on 12/22/18 11:05; Start 12/22/18 at 11:15; Stop 12/22/18 at 11:16; Status DC Influenza Virus Vaccine Quadrival (Afluria Quad 2019-20 (3yr Up) Syringe) 0.5 ml ONCE ONCE VAX IM Last administered on 12/22/18at 15:07; Start 12/22/18 at 12:30; Stop 12/22/18 at 12:31; Status DC Vitamin D (Vitamin D3) 5,000 unit DAILY PO Last administered on 12/26/18 08:50; Start 12/22/18 at 13:00 Tamsulosin HCl (Flomax) 0.4 mg DAILY PO Last administered on 12/26/18at 08:51; Start 12/22/18 at 13:00 Iohexol (Omnipaque 240 Mg/ml) 30 ml 1X ONCE PO Last administered on 12/22/18at 13:00; Start 12/22/18 at 13:00; Stop 12/22/18 at 13:01; Status DC Iohexol (Omnipaque 300 Mg/ml) 75 ml 1X ONCE IV Last administered on 12/22/18at 15:33; Start 12/22/18 at 13:00; Stop 12/22/18 at 13:01; Status DC Pantoprazole Sodium (PROTONIX VIAL for IV PUSH) 40 mg DAILYAC IVP Last administered on 12/23/18at 07:56; Start 12/22/18 at 13:00; Stop 12/23/18 at 16:15; Status DC Heparin Sodium/ Dextrose 500 ml @ 16.5 mls/hr CONT PRN IV SEE I/O RECORD Last administered on 12/22/18at 13:29; Start 12/22/18 at 13:00; Stop 12/24/18 at 17:09; Status DC Heparin Sodium (Porcine) (Heparin Sodium) 1,750 unit PRN Q6HRS PRN IV FOR UFH LEVEL LESS THAN 0.2 Last administered on 12/22/18at 20:47; Start 12/22/18 at 13:00; Stop 12/24/18 at 17:09; Status DC Info (CONTRAST GIVEN -- Rx MONITORING) 1 each PRN DAILY PRN MC SEE COMMENTS; Start 12/22/18 at 13:00; Stop 12/24/18 at 12:59; Status DC Doxycycline Hyclate 100 mg/ Dextrose 100 ml @ 50 mls/hr Q12HR IV Last administered on 12/26/18at 08:53; Start 12/22/18 at 13:00 Ceftriaxone Sodium (Rocephin) 1 gm Q24H IVP Last administered on 12/26/18at 08:52; Start 12/23/18 at 09:00 Hydralazine HCl (Apresoline Inj) 10 mg PRN Q4HRS PRN IVP ELEVATED BP, SEE COMMENTS; Start 12/22/18 at 15:30; Stop 12/24/18 at 14:39; Status DC Isosorbide Mononitrate (Imdur) 30 mg DAILY PO Last administered on 12/26/18 08:51; Start 12/22/18 at 16:00 Acetaminophen (Tylenol) 650 mg PRN Q6HRS PRN PO PAIN Last administered on 12/26/18 05:40; Start 12/22/18 at 16:15 Sodium Monofluorophosphate (Fleet Adult) 133 ml DAILY PRN AR CONSTIPATION; Start 12/22/18 at 20:15; Stop 12/24/18 at 14:39; Status DC Bisacodyl (Dulcolax Supp) 10 mg PRN DAILY PRN AR CONSTIPATION, 1ST CHOICE; Start 12/23/18 at 08:30 Insulin Human Lispro (HumaLOG) 0-5 UNITS TIDWMEALS SQ Last administered on 12/25/18 12:01; Start 12/23/18 at 12:00 Dextrose (Dextrose 50%-Water Syringe) 12.5 gm PRN Q15MIN PRN IV SEE COMMENTS; Start 12/23/18 at 11:15 Albuterol/ Ipratropium (Duoneb) 3 ml RTQID NEB Last administered on 12/26/18 08:27; Start 12/23/18 at 12:00 Polyethylene Glycol (miraLAX PACKET) 17 gm DAILY PO Last administered on 12/23/18at 17:20; Start 12/23/18 at 17:00; Stop 12/25/18 at 11:57; Status DC Pantoprazole Sodium (Protonix) 40 mg DAILYAC PO Last administered on 12/26/18 08:51; Start 12/24/18 at 07:30 Magnesium Citrate (Citroma) 296 ml 1X ONCE PO ; Start 12/24/18 at 15:00; Stop 12/24/18 at 15:01; Status DC Psyllium Hydrophilic Mucilloid (Metamucil Fiber Packet) 1 pkt QHS PO Last admi nistered on 12/25/18 19:46; Start 12/24/18 at 21:00 Docusate Sodium (Colace) 100 mg BID PO Last administered on 12/26/18at 08:52; Start 12/24/18 at 15:00 Dicyclomine HCl (Bentyl) 10 mg PRN TID PRN PO abdominal cramping Last administered on 12/26/18at 05:39; Start 12/24/18 at 14:45 Lactobacillus Rhamnosus (Culturelle) 1 cap BID PO Last administered on 12/26/18at 08:51; Start 12/24/18 at 21:00 Metoclopramide HCl (Reglan) 5 mg PRN BFRMEALHC PRN PO NAUSEA/VOMITING; Start 12/25/18 at 10:45 Polyethylene Glycol (miraLAX PACKET) 17 gm BID PO Last administered on 12/25/18at 19:46; Start 12/25/18 at 21:00 Bisacodyl (Dulcolax Tab) 5 mg PRN DAILY PRN PO CONSTIPATION; Start 12/25/18 at 12:00 Active Scripts Active Vitamin D3 (Cholecalciferol (Vitamin D3)) 5,000 Unit Capsule 5,000 Unit PO DAILY 30 Days Amlodipine Besylate 5 Mg Tablet 5 Mg PO [id number] 30 Days Reported Tamsulosin Hcl 0.4 Mg Cap.er.24h 1 Cap PO DAILY Benicar (Olmesartan Medoxomil) 5 Mg Tablet 5 Mg PO DAILY Metoprolol Tartrate 25 Mg Tablet 1 Tab PO BID Metformin Hcl 500 Mg Tablet 750 Mg PO TID Lyrica (Pregabalin) 100 Mg Capsule 1 Cap PO TID Hydroxyzine Hcl 25 Mg Tablet 1 Tab PO QID PRN Cyclobenzaprine Hcl 5 Mg Tablet 1-2 Tab PO PRN TID PRN Atorvastatin Calcium 40 Mg Tablet 1 Tab PO HS Alprazolam 0.5 Mg Tablet 1 Tab PO PRN QHS Vitals/I & O Vital Sign - Last 24 Hours 12/25/18 12/25/18 12/25/18 12/25/18 11:18 14:26 17:18 18:43 Temp 99.0 99.0 99.0 99.0 Pulse 90 90 92 Resp 18 18 B/P (MAP) 149/70 (96) 149/70 148/76 (100) Pulse Ox 98 95 96 O2 Delivery Room Air Room Air Room Air 12/25/18 12/25/18 12/25/18 12/25/18 19:45 20:00 20:08 22:28 Temp 99.0 99.0 Pulse 92 78 Resp 18 B/P (MAP) 148/76 132/63 (86) Pulse Ox 100 96 O2 Delivery Room Air Room Air Room Air O2 Flow Rate 2.0 12/26/18 12/26/18 12/26/18 12/26/18 02:26 05:40 07:00 08:00 Temp 98.6 98.4 98.6 98.4 Pulse 77 77 81 Resp 18 18 B/P (MAP) 148/75 (99) 148/75 133/54 (80) Pulse Ox 97 98 O2 Delivery Room Air Room Air Room Air 12/26/18 12/26/18 12/26/18 12/26/18 08:27 08:51 08:51 08:52 Pulse 81 81 81 B/P (MAP) 133/54 133/54 133/54 Pulse Ox 98 O2 Delivery Room Air Intake and Output 12/25/18 12/25/18 12/26/18 15:00 23:00 07:00 Intake Total 480 ml 600 ml 240 ml Output Total 700 ml 300 ml 750 ml Balance -220 ml 300 ml -510 ml KIARRA FLORES MD Dec 26, 2018 10:59
[2018-12-26] MEDS ORDERED: DOXY100C14 PO (12:54)
[2018-12-26] MEDS ORDERED: ISOS30TA4 PO (12:54)
[2018-12-26] MEDS ORDERED: PANT40TA77 PO (12:54)
[2018-12-26] MEDS ORDERED: CEFU500T46 PO (12:54)
[2018-12-26] MEDS ORDERED: DICY10CA3 PO (12:54)
[2018-12-26] MEDS ORDERED: CLOP75TA PO (12:54)
[2018-12-26] MEDS ORDERED: LACT1CAP19 PO (12:54)
--- NOTE | 2018-12-26 12:57 | SNU/HH DC ---
DISCHARGE WITH HOME HEALTH DISCHARGE INFORMATION: Discharge Date: Dec 26, 2018 Final Diagnosis: Problems Medical Problems: (1) Abdominal pain Status: Acute (2) Abnormal weight loss Status: Acute (3) Anemia Status: Chronic (4) CAD (coronary artery disease) Status: Chronic (5) COPD (chronic obstructive pulmonary disease) Status: Chronic (6) DM2 (diabetes mellitus, type 2) Status: Chronic (7) Elevated troponin Status: Acute (8) Headache Status: Chronic (9) HTN (hypertension) Status: Chronic (10) Hypoglycemia Status: Acute (11) Metabolic encephalopathy Status: Acute (12) NSTEMI (non-ST elevated myocardial infarction) Status: Chronic (13) PAD (peripheral artery disease) Status: Chronic (14) Peripheral neuropathy Status: Chronic (15) Peripheral vascular disease Status: Chronic (16) Right middle lobe pneumonia Status: Acute (17) Weakness Status: Chronic Condition on Discharge: Stable CODE STATUS: Code Status: Full HOME HEALTH: Face to Face: I certify this patient is under my care and that I, or a nurse practitioner or physician's safety admin assistant working with me, had a face to face encounter that meets the physician face to face encounter requirements with this patient on 12/26/2018. Medical Complications: DM, HTN, Pneumonia Fci For: Assess/Skilled Observatio, Diabetic Care, Medication Management RN For Eval/Treatment: Yes Physical Therapy For: Evalulation/Treatment Occupational Therapy For: Evaluation/Treatment Home Health Aide For: Self-care Pt Meets Homebound Status: Unsteady balance w/ amb,, Limited distance walking POST DISCHARGE ORDERS: Activity Instructions for Disc: Avoid exertion Weight Bearing Status after Di: As tolerated Bathing Instructions: Shower-keep dressing dry DIET AFTER DISCHARGE: ADA Wound/Incision Care: Keep wound/cast CDI CHECKS AFTER DISCHARGE: Checks after discharge: Check blood sugar, ac/hs FOLLOW-UP: Additional Instructions: STOP TAKING ANY SULFONYLUREA MEDICATIONS FOR DIABETES (NO GLYBURIDE, NO GLIPIZIDE, NO GLIMEPIRIDE) TREATMENT/EQUIPMENT ORDERS: Adaptive Equipment Issued: Kevin Frank CERTIFICATION STATEMENT: Certification Statement: Certification Statement: Based on the above finding, I certify that this patient is confined to the home and needs intermittent correction care, physical therapy and/or speech therapy, or continues to need occupational therapy.~ This patient is under my care, and I have initiated the establishment of the plan of care.~ This patient will be followed by myself or a community physician who will periodically review the plan of care. Home Meds Active Scripts Cefuroxime Axetil (CEFUROXIME) 500 Mg Tablet, 1 TAB PO BID for Pneumonia for 5 Days, #10 TAB 0 Refills Prov:KIARRA FLORES MD 12/26/18 Doxycycline Monohydrate (DOXYCYCLINE MONOHYDRATE) 100 Mg Capsule, 1 CAP PO BID for Pneumonia for 5 Days, #10 CAP Prov:KIARRA FLORES MD 12/26/18 Dicyclomine Hcl (DICYCLOMINE HCL) 10 Mg Capsule, 10 MG PO PRN TID PRN for abdominal cramping for 30 Days, #90 CAP 2 Refills Prov:KIARRA FLORES MD 12/26/18 Clopidogrel Bisulfate (CLOPIDOGREL) 75 Mg Tablet, 75 MG PO DAILYWBKFT for PVD for 30 Days, #30 TAB Prov:KIARRA FLORES MD 12/26/18 Isosorbide Mononitrate (ISOSORBIDE MONONITRATE ER) 30 Mg Tab.er.24h, 30 MG PO DAILY for HTN for 30 Days, #30 TAB.SR Prov:KIARRA FLORES MD 12/26/18 Lactobacillus Rhamnosus Gg (CULTURELLE) 1 Each Cap.sprink, 1 CAP PO BID for GI for 5 Days, #10 CAP Prov:KIARRA FLORES MD 12/26/18 Pantoprazole Sodium (PANTOPRAZOLE SODIUM ) 40 Mg Tablet.dr, 40 MG PO DAILYAC for GERD for 30 Days, #30 TAB.SR Prov:KIARRA FLORES MD 12/26/18 Cholecalciferol (Vitamin D3) (VITAMIN D3) 5,000 Unit Capsule, 5000 UNIT PO DAILY for 30 Days, #30 CAP Prov:SADAF IGLESIAS MD 04/26/17 Amlodipine Besylate (AMLODIPINE BESYLATE) 5 Mg Tablet, 5 MG PO BID66 for 30 D ays, #60 TAB Prov:SADAF IGLESIAS MD 04/26/17 Reported Medications Tamsulosin Hcl (TAMSULOSIN HCL) 0.4 Mg Cap.er.24h, 1 CAP PO DAILY, #30 CAP 5 Refills 03/30/17 Olmesartan Medoxomil (BENICAR) 5 Mg Tablet, 5 MG PO DAILY, TAB 03/30/17 Metoprolol Tartrate (METOPROLOL TARTRATE) 25 Mg Tablet, 1 TAB PO BID, #180 TAB 1 Refill 03/30/17 Pregabalin (LYRICA) 100 Mg Capsule, 1 CAP PO TID, #90 CAP 2 Refills 03/30/17 Hydroxyzine Hcl (HYDROXYZINE HCL) 25 Mg Tablet, 1 TAB PO QID PRN for ALLERGIES, #30 TAB 03/30/17 Cyclobenzaprine Hcl (CYCLOBENZAPRINE HCL) 5 Mg Tablet, 1-2 TAB PO PRN TID PRN for PAIN, #30 TAB 03/30/17 Atorvastatin Calcium (ATORVASTATIN CALCIUM) 40 Mg Tablet, 1 TAB PO HS, #30 TAB 5 Refills 03/30/17 Alprazolam (ALPRAZOLAM) 0.5 Mg Tablet, 1 TAB PO PRN QHS, #30 TAB 03/30/17 Discontinued Reported Medications Metformin Hcl (METFORMIN HCL) 500 Mg Tablet, 750 MG PO TID for ANTI-DIABETIC, TAB 0 Refills 03/30/17 KIARRA FLORES MD Dec 26, 2018 12:57
--- NOTE | 2018-12-26 13:00 | PDOC3 ---
Discharge Summary Visit Information Date of Admission: Dec 22, 2018 Date of Discharge: Dec 26, 2018 Admitting Diagnosis: Symptomatic hypoglycemia, abdominal pain Final Diagnosis Problems Medical Problems: (1) Abdominal pain Status: Acute (2) Abnormal weight loss Status: Acute (3) Anemia Status: Chronic (4) CAD (coronary artery disease) Status: Chronic (5) COPD (chronic obstructive pulmonary disease) Status: Chronic (6) DM2 (diabetes mellitus, type 2) Status: Chronic (7) Elevated troponin Status: Acute (8) Headache Status: Chronic (9) HTN (hypertension) Status: Chronic (10) Hypoglycemia Status: Acute (11) Metabolic encephalopathy Status: Acute (12) NSTEMI (non-ST elevated myocardial infarction) Status: Chronic (13) PAD (peripheral artery disease) Status: Chronic (14) Peripheral neuropathy Status: Chronic (15) Peripheral vascular disease Status: Chronic (16) Right middle lobe pneumonia Status: Acute (17) Weakness Status: Chronic Brief Hospital Course Allergies Allergies Coded Allergies Type Severity Reaction Last Updated Verified lisinopril Allergy Severe ANGIOEDEMA 03/29/17 Yes Vital Signs Vital Signs Date Time Temp Pulse Resp B/P (MAP) Pulse Ox O2 Delivery O2 Flow Rate FiO2 12/26/18 11:38 98 Room Air 12/26/18 11:00 98.1 75 20 149/74 (99) 98.1 12/25/18 20:00 2.0 Lab Results Laboratory Tests Test 12/24/18 16:11 12/24/18 21:03 12/25/18 07:18 12/25/18 10:40 Glucose (Fingerstick) 194 mg/dL (70-99) 140 mg/dL (70-99) 121 mg/dL (70-99) White Blood Count 6.4 x10^3/uL (4.0-11.0) Red Blood Count 2.54 x10^6/uL (4.30-5.70) Hemoglobin 7.7 g/dL (13.0-17.5) Hematocrit 22.4 % (39.0-53.0) Mean Corpuscular Volume 88 fL (79-100) Mean Corpuscular Hemoglobin 30 pg (25-35) Mean Corpuscular Hemoglobin Concent 34 g/dL (31-37) Red Cell Distribution Width 14.3 % (11.5-14.5) Platelet Count 124 x10^3/uL (140-400) Neutrophils (%) (Auto) 76 % (31-73) Lymphocytes (%) (Auto) 14 % (24-48) Monocytes (%) (Auto) 8 % (0-9) Eosinophils (%) (Auto) 1 % (0-3) Basophils (%) (Auto) 1 % (0-3) Neutrophils # (Auto) 4.9 x10^3/uL (1.8-7.7) Lymphocytes # (Auto) 0.9 x10^3/uL (1.0-4.8) Monocytes # (Auto) 0.5 x10^3/uL (0.0-1.1) Eosinophils # (Auto) 0.1 x10^3/uL (0.0-0.7) Basophils # (Auto) 0.0 x10^3/uL (0.0-0.2) Sodium Level 141 mmol/L (136-145) Potassium Level 4.4 mmol/L (3.5-5.1) Chloride Level 107 mmol/L (98-107) Carbon Dioxide Level 27 mmol/L (21-32) Anion Gap 7 (6-14) Blood Urea Nitrogen 9 mg/dL (8-26) Creatinine 1.1 mg/dL (0.7-1.3) Estimated GFR (Cockcroft-Gault) 79.6 BUN/Creatinine Ratio 8 (6-20) Glucose Level 197 mg/dL (70-99) Calcium Level 8.1 mg/dL (8.5-10.1) Total Bilirubin 0.2 mg/dL (0.2-1.0) Aspartate Amino Transf (AST/SGOT) 26 U/L (15-37) Alanine Aminotransferase (ALT/SGPT) 23 U/L (16-63) Alkaline Phosphatase 122 U/L (46-116) Total Protein 5.4 g/dL (6.4-8.2) Albumin 2.4 g/dL (3.4-5.0) Albumin/Globulin Ratio 0.8 (1.0-1.7) Test 12/25/18 11:28 12/25/18 16:44 12/25/18 21:30 12/26/18 08:08 Glucose (Fingerstick) 159 mg/dL (70-99) 221 mg/dL (70-99) 214 mg/dL (70-99) 120 mg/dL (70-99) Test 12/26/18 12:04 Glucose (Fingerstick) 165 mg/dL (70-99) Laboratory Tests Test 12/25/18 16:44 12/25/18 21:30 12/26/18 08:08 12/26/18 12:04 Glucose (Fingerstick) 221 mg/dL (70-99) 214 mg/dL (70-99) 120 mg/dL (70-99) 165 mg/dL (70-99) Brief Hospital Course Mr Oleary is a 73yo M w/ PMHx HTN, DM2, peripheral vascular disease who comes to the ED due to glucose of 22 at home with confusion per his and daughter. Despite D50 x2 doses his glucose continues to drop to 33 and 44. He also c/o chest pain and cough. The pain is right sided, sharp, does not radiate. He also notes a cough for the past 10 days that is productive of some foul sputum. In addition to that he has lost 80 pounds over the past 5 months mostly he claims due to fear of eating with severe abdominal pain on every meal. He feels he had an EGD recently at [facility], is not aware of the results. He was also seen by Dr. Medel and underwent what sounds to be a left femoral arterial procedure as well as [facility] ( and daughter states stenting and bypass) this past 12/14/18. Right middle lobe infiltrate on CXR. EKG - Left axis, S1S2S3 pattern with RBBB and RVH with no prior EKG available at this time. Initial troponin 0.4, climbed and peaked 1.734. Started heparin GTT. Seen by cardiology in consultation as well as GI, vascular surgery, and pulmonlogy. CT abdomen/pelvis - 1. There is some stool distention of the colon greatest near the hepatic flexure and rectum, no small bowel dilatation. Stomach is di stended. 2. There is nonspecific mild prominence of urinary bladder frye circumferentially, correlation with urinalysis is advised if not already performed if there is suspicion for cystitis. There is nonspecific somewhat increased hazy and strandy change of bilateral perinephric fat, no hydronephrosis. 3. There is atelectasis of the visualized right lung base. There is increased elevation right hemidiaphragm. 4. There is coronary calcification. 12/24: Blood glucose in 170s this morning on D10. Abdominal pain still present. Cough still present. chest pain resolved. He has been constipated, but did refuse bowel regimen. 12/25: Bowel movement yesterday evening, refusing stool softeners. Bentyl helping with pain. Glucose improved. Cough is improving. No further confusion. He is feeling much better, anemia w/u still in process, however he wishes to go, does have f/u. Overall his abdominal pain improved with bentyl. He is off O2, cough improved, Shortness of breath improved. No Chest pain. No further hypoglycemia. Home health with [facility] in [facility]. Has f/u at [facility]. Problem list: Metabolic encephalopathy - likely 2/2 hypoglycemia Hypoglycemia - likely 2/2 sulfonylurea, will d/c outpatient use Right middle lobe pneumonia - will treat for CAP. Consulted pulm Headache with photosensitivity - will use tylenol prn Weakness - will have PT work with him. Vascular surgery to see for decreased RLE pulses Recent history SDH with evacuation after a fall - no new hemorrhages noted on CT scan 04/17/17 Anemia - likely of chronic disease Diabetes mellitus type II - will hold sulfonylurea permanently given his hypoglycemia. Glucose checks History of chronic right leg weakness for 2 months - appreciate vascular surgery Hypertension - Cont meds CAD - with PCI in 2006. apparently had C this past wednesday12/14/2018 per daughter with no intervention but diffuse disease COPD - nebs Peripheral neuropathy - on gabapentin NSTEMI - Left axis, S1S2S3 pattern with RBBB and RVH with no prior EKG available at this time. Initial troponin 0.4. Will consult cardiology, trend troponins, off heparin GTT now PAD - 12/14 LLE percutaneous revascularization and due for RLE with Dr. Medel on 12/29/2018 Hx of CVA/SDH and moderate carotid artery disease Abdominal pain with distention - will consult GI, order [facility] records. He has a strong appetite currently, but states he is scared to eat 2/2 pain Abnormal weight loss - states he has had through w/u at [facility]. records ordered H/o Hep C - states in SVR, will order HCV Greater than 30 minutes spent on d/c Discharge Information Condition at Discharge: Improved Follow Up: Weeks Disposition/Orders: D/C to Home w/ HH Scheduled Alprazolam (Alprazolam) 0.5 Mg Tablet, 1 TAB PO PRN QHS, #30 (Reported) Entered as Reported by: KYLAH ROSENBAUM on 03/30/17 1125 Amlodipine Besylate (Amlodipine Besylate) 5 Mg Tablet, 5 MG PO BID66 for 30 Days, #60 Prescribed by: SADAF IGLESIAS MD on 04/26/17 1142 Last Action: Continued on 12/22/18929 by GWEN RENAE Atorvastatin Calcium (Atorvastatin Calcium) 40 Mg Tablet, 1 TAB PO HS, #30 Ref 5 (Reported) Entered as Reported by: KYLAH ROSENBAUM on 03/30/17 1135 Last Action: Continued on 12/22/18929 by GWEN RENAE Cefuroxime Axetil (Cefuroxime) 500 Mg Tablet, 1 TAB PO BID for Pneumonia for 5 Days, #10 Ref 0 Prescribed by: KIARRA FLORES MD on 12/26/18 1254 Cholecalciferol (Vitamin D3) (Vitamin D3) 5,000 Unit Capsule, 5,000 UNIT PO DAILY for 30 Days, #30 Prescribed by: SADAF IGLESIAS MD on 04/26/17 1142 Last Action: Continued on 12/22/18 1245 by KIARRA FLORES MD Clopidogrel Bisulfate (Clopidogrel) 75 Mg Tablet, 75 MG PO DAILYWBKFT for PVD for 30 Days, #30 Prescribed by: KIARRA FLORES MD on 12/26/18 1254 Doxycycline Monohydrate (Doxycycline Monohydrate) 100 Mg Capsule, 1 CAP PO BID for Pneumonia for 5 Days, #10 Prescribed by: KIARRA FLORES MD on 12/26/18 1254 Isosorbide Mononitrate (Isosorbide Mononitrate Er) 30 Mg Tab.er.24h, 30 MG PO DAILY for HTN for 30 Days, #30 Prescribed by: KIARRA FLORES MD on 12/26/18 1254 Lactobacillus Rhamnosus Gg (Culturelle) 1 Each Cap.sprink, 1 CAP PO BID for GI for 5 Days, #10 Prescribed by: KIARRA FLORES MD on 12/26/18 1254 Metoprolol Tartrate (Metoprolol Tartrate) 25 Mg Tablet, 1 TAB PO BID, #180 Ref 1 (Reported) Entered as Reported by: KYLAH ROSENBAUM on 03/30/171134 Last Action: Continued on 12/22/18929 by GWEN RENAE Olmesartan Medoxomil (Benicar) 5 Mg Tablet, 5 MG PO DAILY, (Reported) Entered as Reported by: KYLAH ROSENBAUM on 03/30/171134 Last Action: Converted on 12/22/18929 by GWEN RENAE Pantoprazole Sodium (Pantoprazole Sodium ) 40 Mg Tablet.dr, 40 MG PO DAILYAC for GERD for 30 Days, #30 Prescribed by: KIARRA FLORES MD on 12/26/18 1254 Pregabalin (Lyrica) 100 Mg Capsule, 1 CAP PO TID, #90 Ref 2 (Reported) Entered as Reported by: KYLAH ROSENBAUM on 03/30/171134 Tamsulosin Hcl (Tamsulosin Hcl) 0.4 Mg Cap.er.24h, 1 CAP PO DAILY, #30 Ref 5 (Reported) Entered as Reported by: KYLAH ROSENBAUM on 03/30/171134 Last Action: Continued on 12/22/181244 by KIARRA FLORES MD Scheduled PRN Cyclobenzaprine Hcl (Cyclobenzaprine Hcl) 5 Mg Tablet, 1-2 TAB PO PRN TID PRN for PAIN, #30 (Reported) Entered as Reported by: KYLAH ROSENBAUM on 03/30/171134 Dicyclomine Hcl (Dicyclomine Hcl) 10 Mg Capsule, 10 MG PO PRN TID PRN for abdominal cramping for 30 Days, #90 Ref 2 Prescribed by: KIARRA FLORES MD on 12/26/18 1254 Hydroxyzine Hcl (Hydroxyzine Hcl) 25 Mg Tablet, 1 TAB PO QID PRN for ALLERGIES, #30 (Reported) Entered as Reported by: KYLAH ROSENBAUM on 03/30/171134 Last Action: Edited on 12/22/181153 by STELLA MILAN Discontinued Medications Metformin Hcl (Metformin Hcl) 500 Mg Tablet, 750 MG PO TID for ANTI-DIABETIC, Ref 0 (Reported) Entered as Reported by: KYLAH ROSENBAUM on 03/30/171134 KIARRA FLORES MD Dec 26, 2018 13:00
--- NOTE | 2018-12-26 13:29 | NUR ---
SS following up with discharge planning. Discharge orders received for home healthcare. SS met with pt and pt's spouse in room to discuss home healthcare and discharge planning. Pt reported that he was previously on services with [facility], ; fax [phone]. SS phoned and faxed discharge orders and referral to [facility]. Pt's RN notified.
--- NOTE | 2018-12-26 13:41 | NUR ---
pt discharged home with spouse. HH services established. scripts sent to [facility] in [place]. meds and follow up discussed w/ pt and . IV removed cath intact. pt stable upon dc.
[2018-12-30 13:12] LABS: HCV ULTRA QUANT PCR HCV Not Detected IU/mL (.)
== END 2018-12-26 13:30 | disposition home health service (06) | DRG 177 ==
LOC: ER 06:05 → 2 NORTH 07:30
PROVIDERS: ADMIT Internal Medicine; ATTEND Internal Medicine
DX: J15.6 Pneumonia due to other Gram-negative bacteria (principal); I21.4 Non-ST elevation (NSTEMI) myocardial infarction; G93.41 Metabolic encephalopathy; J98.11 Atelectasis; J44.1 Chronic obstructive pulmonary disease with (acute) exacerbation; J44.0 Chronic obstructive pulmonary disease with (acute) lower respiratory infection; E11.649 Type 2 diabetes mellitus with hypoglycemia without coma; F41.9 Anxiety disorder, unspecified; G89.29 Other chronic pain; M19.90 Unspecified osteoarthritis, unspecified site; I25.10 Atherosclerotic heart disease of native coronary artery without angina pectoris; E11.51 Type 2 diabetes mellitus with diabetic peripheral angiopathy without gangrene; E11.42 Type 2 diabetes mellitus with diabetic polyneuropathy; F03.90 Unspecified dementia, unspecified severity, without behavioral disturbance, psychotic disturbance, mood disturbance, and anxiety; I45.10 Unspecified right bundle-branch block; E78.5 Hyperlipidemia, unspecified; I10 Essential (primary) hypertension; D63.8 Anemia in other chronic diseases classified elsewhere; K59.00 Constipation, unspecified; F17.211 Nicotine dependence, cigarettes, in remission; N40.0 Benign prostatic hyperplasia without lower urinary tract symptoms; Z95.5 Presence of coronary angioplasty implant and graft; Z88.8 Allergy status to other drugs, medicaments and biological substances; Z90.49 Acquired absence of other specified parts of digestive tract; Z79.02 Long term (current) use of antithrombotics/antiplatelets; Z86.73 Personal history of transient ischemic attack (TIA), and cerebral infarction without residual deficits; Z80.0 Family history of malignant neoplasm of digestive organs; Z82.49 Family history of ischemic heart disease and other diseases of the circulatory system
CPT/HCPCS: 36415; 71045; 74177; 80048; 80053; 80061; 81001; 82105; 82962; 83036; 83540; 83550; 83605; 83880; 84145; 84443; 84484; 85007; 85025; 85520; 86803; 87040; 87521; 90471; 90686; 93005; 94640; 96365; 96375; C9113; J0456; J0692; J0696; J1644; J1815; J3490; J7042; J7620; Q9966; Q9967; 99285-25; G0378

== ENCOUNTER 2019-03-16 20:13 | Emergency (ER) | payer MEDICARE, BC ==
[~2019-03-16] VITALS: Ht 167.6 cm; Wt 70.0 kg
[~2019-03-16 20:13] MED LIST changes: +CEFU500T46 PO; +CLOP75TA PO; +CYAN10002 SQ; +DICY10CA3 PO; +DOXY100C14 PO; +FERR324T2 PO; -GLIM4TAB4 PO; +GLIM4TAB8 PO; +IPRA3AMP29 NEB; +ISOS30TA4 PO; +LACT10SO35 PO; +LACT1CAP19 PO; +MAGN296S68 PO; -MAGN296S9 PO; +METF750T39 PO; +PANT40TA77 PO
[2019-03-16 21:25] LABS: BASO % 1 % (0-3); EOS % 1 % (0-3); HEMATOCRIT 25.1 % (39.0-53.0); HEMOGLOBIN 8.5 g/dL (13.0-17.5); LYMPH # 0.5 x10^3/uL (1.0-4.8); LYMPH % 12 % (24-48); MEAN CORPUSCULAR HEMOGLOBIN 30 pg (25-35); MEAN CORPUSCULAR HGB CONC 34 g/dL (31-37); MEAN CORPUSCULAR VOLUME 88 fL (79-100); MONO # 0.6 x10^3/uL (0.0-1.1); MONO % 13 % (0-9); NEUT # 3.5 x10^3/uL (1.8-7.7); NEUT % 74 % (31-73); PLATELET COUNT 99 x10^3/uL (140-400); RED BLOOD COUNT 2.84 x10^6/uL (4.30-5.70); RED CELL DISTRIBUTION WIDTH 14.3 % (11.5-14.5); WHITE BLOOD COUNT 4.7 x10^3/uL (4.0-11.0)
[2019-03-16 21:26] LABS: BILIRUBIN,URINE NEGATIVE (NEG); CLARITY,URINE CLEAR; COLOR,URINE YELLOW; NITRITE,URINE NEGATIVE (NEG); PH,URINE 7.5; PROTEIN,URINE >=300 mg/dL (NEG-TRACE); UROBILINOGEN,URINE 0.2 mg/dL (0.2 mg/dL)
[2019-03-16 21:32] LABS: BACTERIA,URINE 0 /HPF (0-FEW); SQUAMOUS EPITHELIAL CELL,UR OCC /LPF; WBC,URINE 0 /HPF (0-4)
[2019-03-16 21:35] LABS: CREATININE 1.5 mg/dL (0.7-1.3); GFR 55.7; POTASSIUM 4.5 mmol/L (3.5-5.1)
[2019-03-16 21:47] LABS: INFLUENZA A PATIENT NEGATIVE (NEGATIVE); INFLUENZA B PATIENT NEGATIVE (NEGATIVE)
[2019-03-16 21:48] LABS: ALBUMIN 2.8 g/dL (3.4-5.0); ALBUMIN/GLOBULIN RATIO 0.9 (1.0-1.7); TOTAL BILIRUBIN 0.2 mg/dL (0.2-1.0)
[2019-03-16] MEDS ORDERED: ACETAMINOPHEN 500 MG TABLET PO ONE (22:00)
--- NOTE | 2019-03-16 22:14 | RAD ---
Exam: Chest one view INDICATION: Fever TECHNIQUE: Frontal view of the chest Comparisons: 03/01/2019 FINDINGS: The cardiomediastinal silhouette and pulmonary vessels are within normal limits. The lung and pleural spaces are clear. IMPRESSION: No acute cardiopulmonary process. Electronically signed by: Cecy García MD (03/16/2019 10:12 PM) [facility]
[2019-03-17] MEDS ORDERED: CONTRAST GIVEN. MC PRN (00:15)
[2019-03-17] MEDS ORDERED: IOHEXOL 300 MG/ML 100ML VIAL. IV ONE (00:15)
--- NOTE | 2019-03-17 00:38 | PHYS DOC ---
Past Medical History Past Medical History: Anxiety, CAD, COPD, Diabetes-Type II, High Cholesterol, Hypertension, Other Additional Past Medical Histor: BPH,PAD,HEP C,NEUROPATHY,CHRONIC NECK PAIN, SUBDURAL HEMATOMA Past Surgical History: Angioplasty, Cholecystectomy, Other Additional Past Surgical Histo: CARDIAC STENTS,NECK,VEIN STRIPPING,CARPAL TUNNEL, SUBDURAL, BILAT KNEE Alcohol Use: Rarely Drug Use: None Adult General Chief Complaint Chief Complaint: FEVER HPI HPI 73-year-old male with underlying history of hypertension, hyperlipidemia, diabetes, COPD presents to the emergency department with complaints of fever, abdominal pain. Patient's initial temperature 102.5 axillary. Poorly patient's abdominal pain started today around noon however talking with the patient he states this is a chronic abdominal discomfort. States that she presented today to see him subsequently had left lower extremity swelling, fever, rectal cough. Upon arrival patient was evaluated with laboratory values obtained. He denies any headache or visual change from his baseline. Nothing makes his symptoms worse, nothing makes his symptoms better. Review of Systems Review of Systems Constitutional: Denies fever or chills [] HENT: nasal congestion Respiratory: Denies cough or shortness of breath [] Cardiovascular: No additional information not addressed in HPI [] GI: + abdominal pain, no nausea, vomiting, bloody stools or diarrhea [] : Denies dysuria or hematuria [] Musculoskeletal: Denies back pain or joint pain [] Integument: Denies rash or skin lesions [] Neurologic: Denies headache, focal weakness or sensory changes [] All other systems were reviewed and found to be within normal limits, except as documented in this note. Current Medications Current Medications Current Medications Medications (Trade) Dose Ordered Sig/Ray Start Time Stop Time Status Last Admin Dose Admin Acetaminophen (Tylenol) 1,000 mg 1X ONCE 03/16/19 22:00 03/16/19 22:01 DC 03/16/19 21:54 1,000 MG Info (CONTRAST GIVEN -- Rx MONITORING) 1 each PRN DAILY PRN 03/17/19 00:15 03/19/19 00:14 Iohexol (Omnipaque 300 Mg/ml) 60 ml 1X ONCE 03/17/19 00:15 03/17/19 00:16 DC 03/17/19 00:20 60 ML Allergies Allergies Allergies Coded Allergies Type Severity Reaction Last Updated Verified lisinopril Allergy Severe ANGIOEDEMA 03/29/17 Yes Physical Exam Physical Exam Constitutional: Well developed, well nourished, mild distress, non-toxic appearance. [] HENT: Normocephalic, atraumatic, bilateral external ears normal, oropharynx moist, no oral exudates, nose normal. [] Eyes: PERRLA, EOMI, conjunctiva normal, no discharge. [] Cardiovascular:Heart rate regular rhythm, no murmur [] Lungs & Thorax: Bilateral breath sounds clear to auscultation [] Abdomen: Bowel sounds normal, soft, mild tenderness - generalized, no masses, no pulsatile masses. [] Skin: Warm, dry, no erythema, no rash. [] Back: No tenderness, no CVA tenderness. [] Extremities: No tenderness, no edema. [] Neurologic: Alert and oriented X 3, no focal deficits noted. [] Psychologic: Affect normal, judgement normal, mood normal. [] Current Patient Data Vital Signs Vital Signs Date Time Temp Pulse Resp B/P (MAP) Pulse Ox O2 Delivery O2 Flow Rate FiO2 03/16/19 23:50 100.9 90 20 180/74 (109) 98 Room Air 100.9 Lab Values Laboratory Tests Test 03/16/19 21:05 White Blood Count 4.7 x10^3/uL (4.0-11.0) Red Blood Count 2.84 x10^6/uL (4.30-5.70) L Hemoglobin 8.5 g/dL (13.0-17.5) L Hematocrit 25.1 % (39.0-53.0) L Mean Corpuscular Volume 88 fL (79-100) Mean Corpuscular Hemoglobin 30 pg (25-35) Mean Corpuscular Hemoglobin Concent 34 g/dL (31-37) Red Cell Distribution Width 14.3 % (11.5-14.5) Platelet Count 99 x10^3/uL (140-400) L Neutrophils (%) (Auto) 74 % (31-73) H Lymphocytes (%) (Auto) 12 % (24-48) L Monocytes (%) (Auto) 13 % (0-9) H Eosinophils (%) (Auto) 1 % (0-3) Basophils (%) (Auto) 1 % (0-3) Neutrophils # (Auto) 3.5 x10^3/uL (1.8-7.7) Lymphocytes # (Auto) 0.5 x10^3/uL (1.0-4.8) L Monocytes # (Auto) 0.6 x10^3/uL (0.0-1.1) Eosinophils # (Auto) 0.0 x10^3/uL (0.0-0.7) Basophils # (Auto) 0.0 x10^3/uL (0.0-0.2) D-Dimer (Roxann) 2.08 ug/mlFEU (0.00-0.50) H Urine Collection Type Void Urine Color Yellow Urine Clarity Clear Urine pH 7.5 Urine Specific [place] 1.010 Urine Protein >=300 mg/dL (NEG-TRACE) Urine Glucose (UA) Negative mg/dL (NEG) Urine Ketones (Stick) Negative mg/dL (NEG) Urine Blood Moderate (NEG) Urine Nitrite Negative (NEG) Urine Bilirubin Negative (NEG) Urine Urobilinogen Dipstick 0.2 mg/dL (0.2 mg/dL) Urine Leukocyte Esterase Negative (NEG) Urine RBC 11-20 /HPF (0-2) Urine WBC 0 /HPF (0-4) Urine Squamous Epithelial Cells Occ /LPF Urine Bacteria 0 /HPF (0-FEW) Sodium Level 140 mmol/L (136-145) Potassium Level 4.5 mmol/L (3.5-5.1) Chloride Level 107 mmol/L (98-107) Carbon Dioxide Level 23 mmol/L (21-32) Anion Gap 10 (6-14) Blood Urea Nitrogen 18 mg/dL (8-26) Creatinine 1.5 mg/dL (0.7-1.3) H Estimated GFR (Cockcroft-Gault) 55.7 BUN/Creatinine Ratio 12 (6-20) Glucose Level 132 mg/dL (70-99) H Lactic Acid Level 0.9 mmol/L (0.4-2.0) Calcium Level 8.0 mg/dL (8.5-10.1) L Total Bilirubin 0.2 mg/dL (0.2-1.0) Aspartate Amino Transferase (AST) 17 U/L (15-37) Alanine Aminotransferase (ALT) 13 U/L (16-63) L Alkaline Phosphatase 144 U/L (46-116) H Troponin I Quantitative 0.045 ng/mL (0.000-0.055) Total Protein 6.0 g/dL (6.4-8.2) L Albumin 2.8 g/dL (3.4-5.0) L Albumin/Globulin Ratio 0.9 (1.0-1.7) L Influenza Type A Antigen Negative (NEGATIVE) Influenza Type B Antigen Negative (NEGATIVE) Laboratory Tests 03/16/19 21:05 Laboratory Tests 03/16/19 21:05 EKG EKG EKG, left axis deviation, evidence of right bundle-branch block, no STEMI, heart rate 94 interpretation time 2121[] Radiology/Procedures Radiology/Procedures [facility] [address] [place], [place] [id number] IMAGING REPORT Signed PATIENT: ASHLEY NICHOLS ACCOUNT: [id number] : 1945 LOCATION: ER AGE: 73 SEX: M EXAM STATUS: REG ER ORD. PHYSICIAN: TANGELA ELIZABETH MD REASON: Fever/Cough PROCEDURE: PORTABLE CHEST 1V Exam: Chest one view INDICATION: Fever TECHNIQUE: Frontal view of the chest Comparisons: 03/01/2019 FINDINGS: The cardiomediastinal silhouette and pulmonary vessels are within normal limits. The lung and pleural spaces are clear. IMPRESSION: No acute cardiopulmonary process. Electronically signed by: Cecy Thacker MD (03/16/2019 10:12 PM) [facility] DICTATED and SIGNED BY: CECY THACKER MD DATE: 03/16/192211 [] Course & Med Decision Making Course & Med Decision Making Pertinent Labs and Imaging studies reviewed. (See chart for details) []73-year-old male with underlying history of hypertension, hyperlipidemia, diabetes, COPD presents to the emergency department with complaints of fever, ab dominal pain. Patient's initial temperature 102.5 axillary. Poorly patient's abdominal pain started today around noon however talking with the patient he states this is a chronic abdominal discomfort. States that she presented today to see him subsequently had left lower extremity swelling, fever, rectal cough. Upon arrival patient was evaluated with laboratory values obtained. He denies any headache or visual change from his baseline. Nothing makes his symptoms worse, nothing makes his symptoms better. Labs/Imaging reviewed creat 1.5, lactic acid 0.9, UAD negative, Influenza negative, chest xray US left lower ext without evidence of acute DVT Temperature improved with tylenol Will cover patient with abx for URI given history of congestion/cough/sputum production CT abd/pelvis negative for acute process DIscussed findings with patient/family at bedside Alcira Disclaimer Dragon Disclaimer This electronic medical record was generated, in whole or in part, using a voice recognition dictation system. Departure Departure Impression: Primary Impression: Fever Additional Impressions: URI (upper respiratory infection) BPH (benign prostatic hyperplasia) HTN (hypertension) Disposition: HOME, SELF-CARE Condition: IMPROVED Referrals: SARAH FUENTES (PCP) Patient Instructions: Fever, Adult, [id number], Upper Respiratory Infection, Adult, [id number] Additional Instructions: Recommend follow up with PCP 3 - 5 days Return to the ER with worsening symptoms, intractable pain, fever, altered mental status Tylenol/Motrin as needed for pain Take antibiotics as directed CT without acute process, labs reviewed without findings of infection Scripts Doxycycline Hyclate (DOXYCYCLINE HYCLATE) 100 Mg Capsule 1 CAP PO BID, #14 CAP Prov: TANGELA ELIZABETH MD 03/17/19 Problem Qualifiers Primary Impression: Fever Fever type: unspecified Qualified Codes: R50.9 - Fever, unspecified Additional Impressions: URI (upper respiratory infection) URI type: unspecified URI Qualified Codes: J06.9 - Acute upper respiratory infection, unspecified BPH (benign prostatic hyperplasia) Lower urinary tract symptom presence: unspecified whether lower urinary tract symptoms present Qualified Codes: N40.0 - Benign prostatic hyperplasia without lower urinary tract symptoms HTN (hypertension) Hypertension type: essential hypertension Qualified Codes: I10 - Essential (primary) hypertension TANGELA ELIZABETH MD Mar 17, 2019 00:38
--- NOTE | 2019-03-17 01:09 | RAD ---
CT abdomen pelvis with contrast. HISTORY: Abdominal pain, fever CT scan the abdomen pelvis was done using 60 mL Omnipaque 300 contrast. Comparison is made with a study from December 22, 2018. There is atelectasis in the lung bases. There is atelectasis in the lingula which is new compared to the prior study. There is no effusion. Liver is normal in appearance. The patient's had a cholecystectomy. Spleen and adrenal glands are normal. A pancreatic lesion is not identified. There is no mass noted in the kidneys. There is slight dilatation of the renal collecting systems probably related to the distended bladder. There is perinephric stranding about both kidneys similar to the prior study. There is no abnormal new fluid collection. There is no bowel obstruction. Appendix is normal. Bladder is distended. There is increased stool at the rectum. Patient's had a previous stent placed at the common femoral artery on the right. There is degenerative disc disease in lumbar spine. IMPRESSION: 1. Increased stool at the rectum. 2. Mild distended bladder. 3. Perinephric stranding about the kidneys similar to the prior study. Slight dilatation the renal collecting systems probably related to the distended bladder. 4. Increased atelectasis in the lingula. 5. No other acute finding in the abdomen or pelvis. PQRS Compliance Statement: One or more of the following individualized dose reduction techniques were utilized for this examination: 1. Automated exposure control 2. Adjustment of the mA and/or kV according to patient size 3. Use of iterative reconstruction technique Electronically signed by: Shreyas Freeman MD (03/17/2019 1:06 AM) [id number]
[2019-03-17] MEDS ORDERED: DOXY100C2 PO (01:34)
[2019-03-17 01:42] VITALS: BP 184/82
--- NOTE | 2019-03-17 01:56 | RAD ---
Left lower extremity venous ultrasound, : History: Edema, elevated d-dimer Duplex evaluation including grayscale, color flow and spectral Doppler analysis was performed. The femoral and popliteal veins show no filling defects to suggest DVT. The visualized calf veins are unremarkable. A focal stenosis was identified in the proximal superficial femoral artery with velocity increase to 193 cm/s. There is possible decreased flow in the distal SFA. Arteries were not evaluated otherwise. IMPRESSION: 1. There is no sonographic evidence of deep vein thrombosis in the left lower extremity. Electronically signed by: Shreyas Freeman MD (03/17/2019 1:53 AM) [id number]
--- NOTE | 2019-03-17 06:56 | EKG ---
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
== END 2019-03-17 01:50 | disposition home or self-care (01) ==
LOC: ER 20:13
DX: J06.9 Acute upper respiratory infection, unspecified (principal); N40.0 Benign prostatic hyperplasia without lower urinary tract symptoms; I10 Essential (primary) hypertension; R50.9 Fever, unspecified; F41.9 Anxiety disorder, unspecified; I25.10 Atherosclerotic heart disease of native coronary artery without angina pectoris; J44.9 Chronic obstructive pulmonary disease, unspecified; E78.00 Pure hypercholesterolemia, unspecified; E11.21 Type 2 diabetes mellitus with diabetic nephropathy; G89.29 Other chronic pain; I73.9 Peripheral vascular disease, unspecified; R60.0 Localized edema; Z90.49 Acquired absence of other specified parts of digestive tract; Z98.890 Other specified postprocedural states; Z88.8 Allergy status to other drugs, medicaments and biological substances
CPT/HCPCS: 36415; 71045; 74177; 80053; 81001; 83605; 84484; 85025; 85379; 87040; 87804; 93005; 93971; 99285; Q9967

== ENCOUNTER → 2019-10-12 | Outpatient (CLI) | payer MEDICARE, BC ==
[~2019-10-12] MED LIST changes: +DOXY100C2 PO; +PREG-9 PO; -PREG75CA PO
--- NOTE | 2019-10-12 16:48 | RAD ---
EXAM: Left lower extremity venous Doppler sonogram. HISTORY: Pain and swelling. TECHNIQUE: Finch scale and color Doppler sonographic evaluation of the left lower extremity veins with spectral waveform analysis was performed. FINDINGS: There is normal color flow, normal compressibility and there are normal spectral waveforms in the common femoral, superficial femoral, popliteal, posterior tibial and greater saphenous veins. IMPRESSION: No Doppler evidence of lower extremity deep venous thrombosis. Electronically signed by: Carla Robins MD (10/12/2019 4:45 PM) [facility]
--- NOTE | 2019-10-12 17:02 | RAD ---
EXAM: LOWER EXTREMITY ARTERIAL DOPPLER SONOGRAM WITH ANKLE-BRACHIAL INDICES (PARTHA). HISTORY: Peripheral arterial disease. Left lower extremity bypass grafting. TECHNIQUE: Grayscale and Doppler sonographic evaluation of the lower extremities was performed and pressure readings were assessed. FINDINGS: On the left, and superficial femoral artery bypass graft is patent without clear intrastent stenosis. Waveforms are noted but likely biphasic within the left common femoral artery. They are biphasic throughout the graft. The [place] superficial femoral artery appears to be mostly occluded. The popliteal artery demonstrates a biphasic waveform. The peroneal artery is not well visualized. There are monophasic waveforms within the distal posterior tibial and dorsalis pedis arteries. On the right, there are biphasic waveforms from the common femoral artery through the proximal anterior tibial artery. There is a monophasic waveform within the dorsalis pedis artery. The distal posterior tibial artery is biphasic. Right brachial pressure: 162 mmHg Left brachial pressure: 158 mmHg Right ankle pressure: 171 mmHg Right ankle PARTHA: 1.02 Left ankle pressure: 140 mmHg Left ankle PARTHA: 0.86 IMPRESSION: 1. Patent left common femoral-popliteal bypass graft. 2. Findings consistent with mildly flow-limiting stenosis proximal to the left common femoral artery. Stenosis becomes significantly flow-limiting within the trifurcation vessels. 3. Mildly flow-limiting stenosis proximal to the right common femoral artery. 4. Stenosis becomes significantly flow-limiting within the right distal anterior tibial artery. 5. Mildly decreased ankle-brachial index on the left. Electronically signed by: Jeannie Delaney MD (10/12/2019 5:00 PM) [id number]
== END | disposition home or self-care (01) ==
LOC: US 14:07
PROVIDERS: ATTEND Family Medicine
DX: I70.201 Unspecified atherosclerosis of native arteries of extremities, right leg (principal); R22.42 Localized swelling, mass and lump, left lower limb
CPT/HCPCS: 93922; 93925; 93971

== ENCOUNTER 2019-11-24 15:28 | Emergency (ER) | payer MEDICARE, BC ==
[~2019-11-24] VITALS: Ht 167.6 cm; Wt 69.1 kg
[2019-11-24] MEDS ORDERED: IV NORMAL SALINE 1000ML BAG 1,000 ML IV SCH (16:50)
--- NOTE | 2019-11-24 16:53 | PHYS DOC ---
Past Medical History Past Medical History: Anxiety, CAD, COPD, Diabetes-Type II, High Cholesterol, Hypertension, TIA, Other Additional Past Medical Histor: BPH,PAD,HEP C,NEUROPATHY,CHRONIC NECK PAIN, SUBDURAL HEMATOMA Past Surgical History: Angioplasty, Cholecystectomy, Other Additional Past Surgical Histo: CARDIAC STENTS,NECK,VEIN STRIPPING,CARPAL TUNNEL, SUBDURAL, BILAT KNEE Smoking Status: Former Smoker Additional Information: quit smoking 12 years ago Alcohol Use: Rarely Drug Use: None General Adult EDM: Chief Complaint: BLOOD SUGAR PROBLEM HPI: HPI: 74-year-old male past medical history significant for CAD, CHF, COPD, diabetes, hypertension, hyperlipidemia, subdural hemorrhage, hepatitis C and TIA, presents the ED with complaints of hyperglycemia, home health aide checked his glucose and it was 565. Patient states his glucose usually runs between 90 and 130. Is taking metformin and glyburide, no insulin. No recent change in medications. Patient states his last abnormality with his glucose was in November 2018 for hypoglycemia. Reports congestive heart failure exacerbation 2 weeks ago and was admitted to [facility], was started on lasix. States he feels weak but denies any associated fever, sore throat, cough, difficulties breathing or chest pain. Review of Systems: Review of Systems: Constitutional: Denies fever or chills. [] Eyes: Denies change in visual acuity. [] HENT: Denies nasal congestion or sore throat. [] Respiratory: Denies cough or shortness of breath. [] Cardiovascular: Denies chest pain or edema. [] GI: Denies abdominal pain, nausea, vomiting, bloody stools or diarrhea. [] : Denies dysuria. [] Musculoskeletal: Denies back pain or joint pain. [] Integument: Denies rash. [] Neurologic: Denies headache, focal weakness or sensory changes. [] Endocrine: Denies polyuria or polydipsia. [] Lymphatic: Denies swollen glands. [] Psychiatric: Denies depression or anxiety. [] Heart Score: Risk Factors: Risk Factors: DM, Current or recent (<one month) smoker, HTN, HLP, family history of CAD, obesity. Risk Scores: Score 0 - 3: 2.5% MACE over next 6 weeks - Discharge Home Score 4 - 6: 20.3% MACE over next 6 weeks - Admit for Clinical Observation Score 7 - 10: 72.7% MACE over next 6 weeks - Early Invasive Strategies Allergies: Allergies: Allergies Coded Allergies Type Severity Reaction Last Updated Verified lisinopril Allergy Severe ANGIOEDEMA 11/24/19 Yes Physical Exam: PE: Constitutional: Well developed, well nourished, no acute distress, non-toxic appearance. [] HENT: Normocephalic, atraumatic, bilateral external ears normal, oropharynx moist, no oral exudates, nose normal. [] Eyes: EOMI, conjunctiva normal, no discharge. [] Neck: Normal range of motion, no tenderness, supple, no stridor. [] Cardiovascular:Heart rate regular rhythm, no murmur [] Lungs & Thorax: Bilateral breath sounds clear to auscultation [] Abdomen: Bowel sounds normal, soft, no tenderness, no masses, no pulsatile masses. [] Skin: Warm, dry, no erythema, no rash. [] Back: No tenderness, no CVA tenderness. [] Extremities: No tenderness, no cyanosis, no clubbing, ROM intact, no edema. [] Neurologic: Alert and oriented X 3, normal motor function, normal sensory function, no focal deficits noted. [] Psychologic: Affect normal, judgement normal, mood normal. [] Current Patient Data: Labs: Laboratory Tests Test 11/24/19 16:29 Glucose (Fingerstick) 207 mg/dL (70-99) H Vital Signs: Vital Signs Date Time Temp Pulse Resp B/P (MAP) Pulse Ox O2 Delivery O2 Flow Rate FiO2 11/24/19 16:10 98.3 69 18 157/83 (107) 100 Room Air 98.3 EKG: EKG: [] Patient at 60 bpm, left axis deviation, right bundle branch block, no T wave inversions, no ST elevations or ST depressions Radiology/Procedures: Radiology/Procedures: IMAGING REPORT Signed PATIENT: ASHLEY NICHOLS ACCOUNT: [id number] : 1945 LOCATION: ER AGE: 74 SEX: M EXAM STATUS: REG ER ORD. PHYSICIAN: RICK BRITTON DO REASON: hyperglycemia PROCEDURE: PORTABLE CHEST 1V PORTABLE CHEST 1V Clinical indications: Hyperglycemia. COMPARISON: March 16, 2019. Findings: Chronic elevation of the right hemidiaphragm with chronic right lung base atelectasis is seen and is unchanged. No acute lung infiltrate or pleural effusion or pulmonary edema or lung mass or pneumothorax is seen. The heart size, pulmonary vasculature, mediastinum and both eemli are unremarkable. Impression: No new radiographic abnormality is seen. Electronically signed by: Rashmi Garcia MD (11/24/2019 5:14 PM) [id number] DICTATED and SIGNED BY: RASHMI GARCIA MD DATE: 11/24/19 1714 Course & Med Decision Making: Course & Med Decision Making Pertinent Labs and Imaging studies reviewed. (See chart for details) Concern for hyperglycemia, no AG in a patient with no signs of infection. Labs do show worsening renal function -patient was admitted to 2 weeks ago, no recent comparison. Labs also show a potassium of 5.4 and stable normocytic anemia. Patient reports he was recently started on Lasix and has a cardiology appointment on Wednesday. -I advised patient he have his renal unction checked on Wednesday with his plant reliability engineer and discuss possible alternative diuretic. Will have patient follow-up with his primary care physician in 3 to 5 days to have his renal function rechecked. Very strict ED return precautions given for syncope, chest pain, dyspnea, anuria or flulike symptoms-pt and son educated that a rising potassium could have life threatening consequences-they both appear to be very knowledgeable, low suspicion of noncompliance. Encouraged urgent outpatient follow-up with PMD and nephrology. Life-threatening processes were considered but are low suspicion at this time, given history and physical exam. Pt was educated on all prescription medications and adverse effects. All patient's questions were answered and pt was stable at time of discharge. I spoken with the patient and her caregivers. I explained the patient's condition, diagnoses and treatment plan based on the information available to me at this time. I have answered the patient and her caregiver's questions and addressed any concerns. The patient and her caregivers have a good understanding of patient's diagnosis, condition and treatment plan as can be expected at this point. Vital signs have been stable. Patient's condition is stable and appropriate for discharge from the emergency department. Patient will pursue further outpatient evaluation with primary care physician or other designated or consulting physician as outlined in the discharge instructions. The patient and/or caregivers are agreeable to this plan of care and follow-up instructions have been explained in detail. The patient and/or caregivers have received these instructions in written form and have expressed an understanding of the discharge instructions. The patient and/or caregivers are aware that any significant change of condition or worsening of symptoms should prompt immediate return to this or the closest emergency department or call to 911Veronica Eli Disclaimer: Alcira Disclaimer: This electronic medical record was generated, in whole or in part, using a voice recognition dictation system. Departure Departure Impression: Primary Impression: Hyperglycemia due to diabetes mellitus Additional Impressions: LUIS (acute kidney injury) Normocytic anemia Disposition: 01 HOME, SELF-CARE Condition: STABLE Referrals: SARAH FUENTES (PCP) Follow-up with pmd in 3-5 days to have your renal function checked CREATININE IS 2.7 (gfr 28) AND POTASSIUM 5.4 ON 11/24/19 Patient Instructions: Diabetes Meal Planning Guide, Hyperglycemia Additional Instructions: [facility] Address: [address] [place] [id number] EMERGENCY DEPARTMENT GENERAL DISCHARGE INSTRUCTIONS Thank you for coming to [facility] Emergency Department (ED) today and trusting us with you care. We trust that you had a positive experience in our Emergency Department. If you wish to speak to the department management, you may call the Director at [phone]. YOUR FOLLOW UP INSTRUCTIONS ARE FOLLOWS: 1. Do you have a private Doctor? If you do not have a private doctor, please ask for a resource list of physicians or clinics that may be able to assist you with follow up care. 2. The Emergency Physicain has interpreted your x-rays. The X-Ray specialist will also review them. If there is a change in the findings, you will be notified in 48 hours when at all possible. 3. A lab test or culture has been done, your results will be reviewed and you will be notified if you need a change in treatment. ADDITIONAL INSTRUCTIONS AND INFORMATION: 1. Your care today has been supervised by a physician who is specially trained in emergency care. Many problems require more than one evaluation for a complete diagnosis and treatment. We recommend that you schedule your follow up appointment as recommended to ensure complete treatment of you illness or injury. If you are unable to obtain follow up care and continue to have a problem, or if your condition worsens, we recommend that you return to the ED. 2. We are not able to safely determine your condition over the phone nor are we able to give sound medical advice over the phone. For these safety reasons, if you call for medical advice we will ask you to come to the ED for further evaluation. 3. If you have any questions regarding these discharge instructions please call the ED at [phone]. SAFETY INFORMATION: In the interest of safety, wellness, and injury prevention; we encourage you to wear your sealbelt, if you smoke; quite smoking, and we encourage family to use a protective helmet for bicycling and other sporting events that present an increased risk for head injury. IF YOUR SYMPTOMS WORSEN OR NEW SYMPTOMS DEVELOP, OR YOU HAVE CONCERNS ABOUT YOUR CONDITION; OR IF YOUR CONDITION WORSENS WHILE YOU ARE WAITING FOR YOUR FOLLOW UP A PPOINTMENT; EITHER CONTACT YOUR PRIMARY CARE DOCTOR, THE PHYSICIAN WHOSE NAME AND NUMBER YOU WERE GIVEN, OR RETURN TO THE ED IMMEDIATELY. RICK WETZEL DO Nov 24, 2019 16:53
[2019-11-24] MEDS ORDERED: IV NORMAL SALINE 1000ML BAG 1,000 ML IV ONE (17:00)
[2019-11-24 17:12] LABS: BASO % 1 % (0-3); EOS # 0.1 x10^3/uL (0.0-0.7); EOS % 1 % (0-3); HEMATOCRIT 31.6 % (39.0-53.0); HEMOGLOBIN 10.5 g/dL (13.0-17.5); LYMPH # 1.2 x10^3/uL (1.0-4.8); LYMPH % 17 % (24-48); MEAN CORPUSCULAR HEMOGLOBIN 30 pg (25-35); MEAN CORPUSCULAR HGB CONC 33 g/dL (31-37); MEAN CORPUSCULAR VOLUME 91 fL (79-100); MONO # 0.6 x10^3/uL (0.0-1.1); MONO % 9 % (0-9); NEUT % 73 % (31-73); PLATELET COUNT 103 x10^3/uL (140-400); RED BLOOD COUNT 3.49 x10^6/uL (4.30-5.70); RED CELL DISTRIBUTION WIDTH 15.4 % (11.5-14.5); WHITE BLOOD COUNT 6.9 x10^3/uL (4.0-11.0)
--- NOTE | 2019-11-24 17:17 | RAD ---
PORTABLE CHEST 1V Clinical indications: Hyperglycemia. COMPARISON: March 16, 2019. Findings: Chronic elevation of the right hemidiaphragm with chronic right lung base atelectasis is seen and is unchanged. No acute lung infiltrate or pleural effusion or pulmonary edema or lung mass or pneumothorax is seen. The heart size, pulmonary vasculature, mediastinum and both emeli are unremarkable. Impression: No new radiographic abnormality is seen. Electronically signed by: Agustin Garcia MD (11/24/2019 5:14 PM) [id number]
[2019-11-24 17:44] LABS: CALCIUM 8.4 mg/dL (8.5-10.1); CREATININE 2.7 mg/dL (0.7-1.3); GFR 28.2; POTASSIUM 5.4 mmol/L (3.5-5.1)
[2019-11-24 17:49] LABS: ALBUMIN/GLOBULIN RATIO 0.9 (1.0-1.7); TOTAL BILIRUBIN 0.2 mg/dL (0.2-1.0); TOTAL PROTEIN 6.3 g/dL (6.4-8.2)
[2019-11-24 18:38] VITALS: BP 150/72
== END 2019-11-24 19:06 | disposition home or self-care (01) ==
LOC: ER 15:28
DX: E11.65 Type 2 diabetes mellitus with hyperglycemia (principal); N17.9 Acute kidney failure, unspecified; D64.9 Anemia, unspecified; G89.11 Acute pain due to trauma; I11.0 Hypertensive heart disease with heart failure; I50.9 Heart failure, unspecified; E11.40 Type 2 diabetes mellitus with diabetic neuropathy, unspecified; E78.5 Hyperlipidemia, unspecified; I25.10 Atherosclerotic heart disease of native coronary artery without angina pectoris; J44.9 Chronic obstructive pulmonary disease, unspecified; Z86.73 Personal history of transient ischemic attack (TIA), and cerebral infarction without residual deficits; Z95.5 Presence of coronary angioplasty implant and graft; Z87.891 Personal history of nicotine dependence; Z90.49 Acquired absence of other specified parts of digestive tract
CPT/HCPCS: 36415; 71045; 80053; 82962; 83690; 83735; 84100; 84484; 85025; 96360; 99285; J7030

== ENCOUNTER 2021-04-04 19:50 | Inpatient (IN) | payer MEDICARE, BC ==
[~2021-04-04] VITALS: Ht 172.7 cm; Wt 69.4 kg
[~2021-04-04 19:50] MED LIST changes: +ACET500T68 PO; +AMLO-186 PO; -AMLO5TAB10 PO; +ASPI-630 PO; +CHOL400T55 PO; +CYAN10002 IM; +DOXY-181 PO; -DOXY100C14 PO; -DOXY100C2 PO; +DOXY100C3 PO; +ERGO500089 PO; +ESCITALOPRAM OXA5 M1 PO; +FURO-68 PO; +HYDR-2761 PO; +HYDR-2869 PO; -ISOS30TA4 PO; +ISOS30TA68 PO; +LACT20SO PO; +NITR0.4T24 SL; +NYST15PO9 TP; +PATI8.4P PO; +TAMS0.4C97 PO
--- NOTE | 2021-04-04 19:58 | PHYS DOC ---
Past Medical History Past Medical History: Anxiety, CAD, COPD, Diabetes-Type II, High Cholesterol, Hypertension, TIA, Other Additional Past Medical Histor: BPH,PAD,HEP C,NEUROPATHY,CHRONIC NECK PAIN, SUBDURAL HEMATOMA Past Surgical History: Angioplasty, Cholecystectomy, Other Additional Past Surgical Histo: CARDIAC STENTS,NECK,VEIN STRIPPING,CARPAL TUNNEL,SUBDURAL,BILAT KNEE Smoking Status: Never Smoker Alcohol Use: None Drug Use: None General Adult EDM: Chief Complaint: ALTERED MENTAL STATUS HPI: HPI: Patient is a 75 year old male brought in by EMS from home, after family reportedly noticed that he had been confused and weak, demonstrating alteration in mental status, reportedly since 0500 this morning. He comes in by EMS at nearly 8 PM. The patient denies any physical discomfort or pain. It is difficult to obtain any meaningful information from him, as he is very confused. There is no report of trauma or injury. No reported fever. The patient denies nausea. He is wearing an attends, which is very wet, it is unknown if he is chronically incontinent or not. The patient is drowsy but awake, oriented to person and place, he is unable to provide any other meaningful answers to any other questions. When I asked him if he is any pain, he moans and nods his head no. His arrives later in the ED, and she reports that he has had progressive weakness and confusion for at least 1 week. No reported head trauma or falls. No reported vomiting. He normally is able to ambulate mostly on his own, occasionally with a walker, but for the past week or so, he has been "sliding around" and using a walker, requiring significant assistance. Review of Systems: Review of Systems: Review of systems is significantly limited by current clinical condition. Review of systems is as per HPI. Heart Score: C/O Chest Pain: N/A Risk Factors: Risk Factors: DM, Current or recent (<one month) smoker, HTN, HLP, family history of CAD, obesity. Risk Scores: Score 0 - 3: 2.5% MACE over next 6 weeks - Discharge Home Score 4 - 6: 20.3% MACE over next 6 weeks - Admit for Clinical Observation Score 7 - 10: 72.7% MACE over next 6 weeks - Early Invasive Strategies Allergies: Allergies: Allergies Coded Allergies Type Severity Reaction Last Updated Verified lisinopril Allergy Severe ANGIOEDEMA 11/24/19 Yes Physical Exam: PE: Constitutional: He is frail and chronically ill-appearing. He is lying on the ED gurney, mildly acutely ill-appearing. Nontoxic. HENT: Normocephalic, atraumatic, oropharynx is patent and clear, mucous membranes slightly tacky. No evidence of oral or facial or dental trauma Eyes: PERRL, EOMI, conjunctiva normal, no discharge. Sclera are anicteric. Neck: Normal range of motion, no tenderness, supple, no stridor. Trachea midline. No meningismus. Cardiovascular:Heart rate regular rhythm, +2 radial pulses bilaterally, equal and symmetric bilateral posterior tibial pulses. Lungs & Thorax: Managed breath sounds in bilateral bases. Mid and upper lung nascimento demonstrate mild rhonchi and fine rales. No stridor, no wheezing. No tachypnea. Equal chest rise, no evidence of any thorax or chest wall trauma. He speaks in full sentences. No cyanosis. No distress Abdomen: Abdomen is soft, nondistended, nontender to palpation, no palpable masses, no palpable pulsatile mass. No audible bruit. No flank or abdominal ecchymoses are noted. Skin: Warm, dry, no erythema, no rash. No jaundice. Poor skin turgor. Extremities: No tenderness, no cyanosis, no clubbing, ROM intact, no edema. No calf tenderness. Pelvis is stable Neurologic: He is drowsy, he is awake. He is not alert. He is oriented to person and place only. He does not know the date, situation, he will not answer most questions appropriately. He does follow commands. 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 No facial asymmetry/cranial nerves II through XII grossly intact. Speech is slow but fluent. No obvious dysarthria noted. He localizes to pain. He does move all 4 extremities equally. Psychologic: Affect is flat. EKG: EKG: EKG is interpreted at 1956 Rhythm is sinus Rate is 87 bpm Corea is left RBBB No STEMI Radiology/Procedures: Radiology/Procedures: IMAGING REPORT Signed PATIENT: ASHLEY NICHOLS ACCOUNT: [id number] : 1945 LOCATION: ER AGE: 75 SEX: M EXAM STATUS: PRE ER ORD. PHYSICIAN: JAME LOPEZ DO REASON: AMS PROCEDURE: PORTABLE CHEST 1V Exam: Chest one view INDICATION: Altered mental status TECHNIQUE: Frontal view of the chest Comparisons: 11/30/2019 FINDINGS: The cardiomediastinal silhouette and pulmonary vessels are within normal limits. Strandy opacity at the lung bases bilaterally. No pleural effusion. IMPRESSION: Strandy bibasilar airspace disease may relate to atelectasis. Electronically signed by: Cecy Thacker MD (04/04/2021 9:05 PM) HARSHILCRISS DICTATED and SIGNED BY: CECY THACKER MD DATE: 04/04/[id number] 0 IMAGING REPORT Signed PATIENT: ASHLEY NICHOLS ACCOUNT: [id number] : 1945 LOCATION: ER AGE: 75 SEX: M EXAM STATUS: REG ER ORD. PHYSICIAN: JAME LOPEZ DO REASON: AMS PROCEDURE: CT HEAD WO CONTRAST Exam: CT head INDICATION: Altered mental status TECHNIQUE: Sequential axial images through the head were obtained without the administration of IV contrast. Exposure: One or more of the following in the visualized dose reduction techniques were utilized for this examination: 1. Automated exposure control 2. Adjustment of the MA and/or KV according to patient size 3. Use of iterative of reconstructive technique Comparisons: 11/30/2019 FINDINGS: No focal parenchymal lesion or hemorrhage is identified. There is no midline shift or sulcal effacement. Moderate patchy hypodensity in the periventricular white matter which is similar when compared to the prior study. No acute vascular territory infarction is identified. Finch-white distinction is preserved. The ventricular system is within normal limits without compression hydrocephalus. The basal cisterns are well maintained. Craniotomy changes at the right frontal region. The visualized portions of the paranasal sinuses and mastoid air cells are well-pneumatized. No acute fractures. IMPRESSION: Chronic changes without acute intracranial abnormality. Electronically signed by: Cecy Thacekr MD (04/04/2021 9:36 PM) HARSHIL-AARON DICTATED and SIGNED BY: CECY THACKER MD DATE: 04/04/21 [id number] Course & Med Decision Making: Course & Med Decision Making Pertinent Labs and Imaging studies reviewed. (See chart for details) The patient is given IV fluids. Blood cultures are ordered. IV Rocephin given empirically for urinary tract infection. I discussed the findings, differential diagnosis and plan of care with the patient as well as with his . I have discussed my recommendation for admission. The patient and his are comfortable with this. He is resting comfortably, and he continues to deny any physical complaints or pain. He is accepted for admission by Dr. Mix. Dragon Disclaimer: Alcira Disclaimer: This electronic medical record was generated, in whole or in part, using a voice recognition dictation system. Departure Departure Impression: Primary Impression: Delirium Additional Impressions: Urinary tract infection Generalized weakness Disposition: ADMITTED INPATIENT Admitting Physician: MARIE (Dr. Mix) Condition: STABLE Referrals: SARAH FUENTES (PCP) JAME LOPEZ DO Apr 04, 2021 19:58
[2021-04-04 20:26] LABS: BILIRUBIN,URINE NEGATIVE (NEG); CLARITY,URINE CLOUDY; COLOR,URINE YELLOW; NITRITE,URINE POSITIVE (NEG); PH,URINE 6.5 (<5.0-8.0); PROTEIN,URINE 100 mg/dL (NEG-TRACE); UROBILINOGEN,URINE 0.2 mg/dL (0.2 mg/dL)
[2021-04-04 20:34] LABS: BACTERIA,URINE MANY /HPF (0-FEW); RBC,URINE >40 /HPF (0-2); WBC,URINE >40 /HPF (0-4)
[2021-04-04] MEDS ORDERED: IV NORMAL SALINE 500ML BAG 500 ML IV ONE (20:45)
[2021-04-04 20:48] LABS: BASO % 0 % (0-3); EOS % 0 % (0-3); HEMATOCRIT 35.9 % (39.0-53.0); HEMOGLOBIN 12.2 g/dL (13.0-17.5); LYMPH # 0.4 x10^3/uL (1.0-4.8); LYMPH % 5 % (24-48); MEAN CORPUSCULAR HEMOGLOBIN 30 pg (25-35); MEAN CORPUSCULAR HGB CONC 34 g/dL (31-37); MEAN CORPUSCULAR VOLUME 87 fL (79-100); MONO # 0.8 x10^3/uL (0.0-1.1); MONO % 8 % (0-9); NEUT # 8.3 x10^3/uL (1.8-7.7); NEUT % 87 % (31-73); PLATELET COUNT 100 x10^3/uL (140-400); RED BLOOD COUNT 4.13 x10^6/uL (4.30-5.70); RED CELL DISTRIBUTION WIDTH 14.7 % (11.5-14.5); WHITE BLOOD COUNT 9.5 x10^3/uL (4.0-11.0)
[2021-04-04 20:59] LABS: CALCIUM 8.1 mg/dL (8.5-10.1); CREATININE 3.1 mg/dL (0.7-1.3); POTASSIUM 4.2 mmol/L (3.5-5.1)
[2021-04-04] MEDS ORDERED: cefTRIAXone IV Push 1 GM VIAL. IVP ONE (21:00)
[2021-04-04 21:05] LABS: ALBUMIN 3.7 g/dL (3.4-5.0); ALBUMIN/GLOBULIN RATIO 0.9 (1.0-1.7); MAGNESIUM 2.8 mg/dL (1.8-2.4); PHOSPHORUS 3.4 mg/dL (2.6-4.7); TOTAL BILIRUBIN 0.4 mg/dL (0.2-1.0); TOTAL PROTEIN 7.6 g/dL (6.4-8.2)
--- NOTE | 2021-04-04 21:07 | RAD ---
Exam: Chest one view INDICATION: Altered mental status TECHNIQUE: Frontal view of the chest Comparisons: 11/30/2019 FINDINGS: The cardiomediastinal silhouette and pulmonary vessels are within normal limits. Strandy opacity at the lung bases bilaterally. No pleural effusion. IMPRESSION: Strandy bibasilar airspace disease may relate to atelectasis. Electronically signed by: Cecy García MD (04/04/2021 9:05 PM) ROSETTA
--- NOTE | 2021-04-04 21:38 | RAD ---
Exam: CT head INDICATION: Altered mental status TECHNIQUE: Sequential axial images through the head were obtained without the administration of IV co ntrast. Exposure: One or more of the following in the visualized dose reduction techniques were utilized for this examination: 1. Automated exposure control 2. Adjustment of the MA and/or KV according to patient size 3. Use of iterative of reconstructive technique Comparisons: 11/30/2019 FINDINGS: No focal parenchymal lesion or hemorrhage is identified. There is no midline shift or sulcal effaceme nt. Moderate patchy hypodensity in the periventricular white matter which is similar when compared to the prior study. No acute vascular territory infarction is identified. Finch-white distinction is preserv ed. The ventricular system is within normal limits without compression hydrocephalus. The basal cisterns are well maintained. Craniotomy changes at the right frontal region. The visualized portions of the paranasal sinuses and mastoid air cells are well-pneumatized. No acute fractures. IMPRESSION: Chronic changes without acute intracranial abnormality. Electronically signed by: Cecy García MD (04/04/2021 9:36 PM) [facility]
[2021-04-04] MEDS ORDERED: ACETAMINOPHEN 325 MG TABLET. PO PRN (22:45)
[2021-04-04] MEDS ORDERED: ONDANSETRON PF 4 MG/2 ML VIAL. IVP PRN (22:45)
[2021-04-04] MEDS: IV NORMAL SALINE 1000ML BAG 1,000 ML IV SCH (22:45)
[2021-04-04 23:00] VITALS: BP 154/85
--- NOTE | 2021-04-05 02:32 | EKG ---
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
[2021-04-05 03:00] VITALS: BP 136/46
[2021-04-05] MEDS: IV NORMAL SALINE 1000ML BAG 1,000 ML IV SCH ×4 (06:08→20:42)
[2021-04-05 07:00] VITALS: BP 140/60
[2021-04-05 07:30] LABS: CREATININE 3.1 mg/dL (0.7-1.3)
[2021-04-05] MEDS ORDERED: IPRATRPIUM/ALBUTEROL 0.5/2.5MG 3 ML NEBU. NEB PRN (10:00)
[2021-04-05 11:00] VITALS: BP 107/68
[2021-04-05] MEDS: ISOSORBIDE MONONITRATE ER 30 MG TAB.ER.24H PO SCH (11:25)
[2021-04-05] MEDS: cefTRIAXone IV Push 1 GM VIAL. IVP SCH (11:26)
[2021-04-05] MEDS: TAMSULOSIN 0.4 MG CAP.ER.24H. PO SCH (11:27)
--- NOTE | 2021-04-05 13:00 | PDOC ---
GENERAL General: History and physical [id number] VITAL SIGNS Vital Signs/I&O: Vital Signs Date Time Temp Pulse Resp B/P (MAP) Pulse Ox O2 Delivery O2 Flow Rate FiO2 04/05/21 11:25 80 140/60 04/05/21 07:00 18 93 Room Air 04/05/21 03:00 98.3 98.3 I & O 04/04/21 04/04/21 04/05/21 15:00 23:00 07:00 Intake Total 0 ml Balance 0 ml ALLERGIES Allergies: Allergies Coded Allergies Type Severity Reaction Last Updated Verified lisinopril Allergy Severe ANGIOEDEMA 04/04/21 Yes MEDS Medications: Current Medications Medications (Trade) Dose Ordered Sig/Ray Route PRN Reason Start Time Stop Time Status Last Admin Dose Admin Ceftriaxone Sodium (Rocephin) 1 gm 1X ONCE IVP 04/04/21 21:00 04/04/21 21:01 DC 04/04/21 20:53 Sodium Chloride 500 ml @ 500 mls/hr 1X ONCE IV 04/04/21 20:45 04/04/21 21:44 DC 04/04/21 20:54 Sodium Chloride 1,000 ml @ 75 mls/hr [id number] IV 04/04/21 22:45 04/05/21 06:08 Ceftriaxone Sodium (Rocephin) 1 gm Q24H IVP 04/05/21 10:00 04/05/21 11:26 Isosorbide Mononitrate (Imdur) 30 mg DAILY PO 04/05/21 10:00 04/05/21 11:25 Tamsulosin HCl (Flomax) 0.4 mg DAILY PO 04/05/21 10:00 04/05/21 11:27 Sodium Chloride 1,000 ml @ 100 mls/hr Q10H IV 04/05/21 11:00 04/05/21 11:24 LAB Lab: Laboratory Tests Test 04/04/21 20:05 04/04/21 20:15 04/04/21 20:35 04/05/21 06:40 OT-Qvf-[id number]-Type Natriuretic Peptide 551 pg/mL (0-124) H Thyroid Stimulating Hormone (TSH) 0.683 uIU/mL (0.358-3.74) Urine Collection Type Unknown Urine Color Yellow Urine Clarity Cloudy Urine pH 6.5 (<5.0-8.0) Urine Specific [place] 1.010 (1.000-1.030) Urine Protein 100 mg/dL (NEG-TRACE) Urine Glucose (UA) Negative mg/dL (NEG) Urine Ketones (Stick) Negative mg/dL (NEG) Urine Blood Large (NEG) Urine Nitrite Positive (NEG) Urine Bilirubin Negative (NEG) Urine Urobilinogen Dipstick 0.2 mg/dL (0.2 mg/dL) Urine Leukocyte Esterase Large (NEG) Urine RBC >40 /HPF (0-2) Urine WBC >40 /HPF (0-4) Urine Squamous Epithelial Cells Few /LPF Urine Bacteria Many /HPF (0-FEW) Urine Mucus Slight /LPF White Blood Count 9.5 x10^3/uL (4.0-11.0) Red Blood Count 4.13 x10^6/uL (4.30-5.70) L Hemoglobin 12.2 g/dL (13.0-17.5) L Hematocrit 35.9 % (39.0-53.0) L Mean Corpuscular Volume 87 fL (79-100) Mean Corpuscular Hemoglobin 30 pg (25-35) Mean Corpuscular Hemoglobin Concent 34 g/dL (31-37) Red Cell Distribution Width 14.7 % (11.5-14.5) H Platelet Count 100 x10^3/uL (140-400) L Neutrophils (%) (Auto) 87 % (31-73) H Lymphocytes (%) (Auto) 5 % (24-48) L Monocytes (%) (Auto) 8 % (0-9) Eosinophils (%) (Auto) 0 % (0-3) Basophils (%) (Auto) 0 % (0-3) Neutrophils # (Auto) 8.3 x10^3/uL (1.8-7.7) H Lymphocytes # (Auto) 0.4 x10^3/uL (1.0-4.8) L Monocytes # (Auto) 0.8 x10^3/uL (0.0-1.1) Eosinophils # (Auto) 0.0 x10^3/uL (0.0-0.7) Basophils # (Auto) 0.0 x10^3/uL (0.0-0.2) Sodium Level 142 mmol/L (136-145) 142 mmol/L (136-145) Potassium Level 4.2 mmol/L (3.5-5.1) 4.0 mmol/L (3.5-5.1) Chloride Level 100 mmol/L (98-107) 104 mmol/L (98-107) Carbon Dioxide Level 27 mmol/L (21-32) 25 mmol/L (21-32) Anion Gap 15 (6-14) H 13 (6-14) Blood Urea Nitrogen 83 mg/dL (8-26) H 83 mg/dL (8-26) H Creatinine 3.1 mg/dL (0.7-1.3) H 3.1 mg/dL (0.7-1.3) H Estimated GFR (Cockcroft-Gault) 24.0 24.0 BUN/Creatinine Ratio 27 (6-20) H Glucose Level 138 mg/dL (70-99) H 138 mg/dL (70-99) H Lactic Acid Level 1.4 mmol/L (0.4-2.0) Calcium Level 8.1 mg/dL (8.5-10.1) L 8.0 mg/dL (8.5-10.1) L Phosphorus Level 3.4 mg/dL (2.6-4.7) Magnesium Level 2.8 mg/dL (1.8-2.4) H Total Bilirubin 0.4 mg/dL (0.2-1.0) Aspartate Amino Transferase (AST) 8 U/L (15-37) L Alanine Aminotransferase (ALT) 9 U/L (16-63) L Alkaline Phosphatase 123 U/L (46-116) H Creatine Kinase 176 U/L (39-308) Troponin I High Sensitivity 14 ng/L (4-75) Total Protein 7.6 g/dL (6.4-8.2) Albumin 3.7 g/dL (3.4-5.0) Albumin/Globulin Ratio 0.9 (1.0-1.7) L Test 04/05/21 11:34 SARS-CoV-2 Antigen (Rapid) Negative (NEGATIVE) Laboratory Tests 04/04/21 20:35 Laboratory Tests 04/04/21 20:35 04/05/21 06:40 Justifications for Admission Other Justification LASHAE BEY MD Apr 05, 2021 13:00
[2021-04-05] MEDS: NYSTATIN 100,000 UNITS/ML 5 ML ORAL.SUSP. SWSW SCH ×3 (13:30→20:42)
[2021-04-05] MEDS: ENOXAPARIN 30 MG/0.3 ML SYRINGE. SQ SCH (13:35)
[2021-04-05 15:00] VITALS: BP 122/49
--- NOTE | 2021-04-05 15:58 | HP ---
DATE OF SERVICE: 04/05/2021 ADMIT DATE: 04/04/2021 HISTORY OF PRESENT ILLNESS: This patient is a 75-year-old man who is a continuity outpatient of Dr. Fuentes, who uses the [facility] hospitalist here at [facility], I am rounding for them this weekend. The patient is seen accompanied by his , here with several days of confusion, weakness, malaise. She feels that he has improved some since admission, but she is still worried about him. She tells me that they have both been fully vaccinated and boosted for COVID along with flu vaccination. They both had a prolonged respiratory illness several weeks ago, they were able to nurse themselves at home and fully recovered from that over a week ago. She noticed several days back that the patient was not as interactive as usual. serves as the patient's historian. He is awake and interactive, but unable to participate in the history of present illness documentation. There are no fever or chills reported. Denies any nausea, vomiting, change in bowel habits. There is no cough, congestion, chest pain or palpitations. The patient denies any pain anywhere. All other systems reviewed and negative. PAST MEDICAL HISTORY: The patient has significant vascular disease and follows with Vascular Surgery at after bilateral femoral popliteal bypass grafts in the past. The patient has stage 5 renal failure, in fact tells me that the ethologist that they see, Dr. Zapata, has told them that he is just about ready for dialysis. The patient follows with Cardiology at for his significant coronary artery disease. He does have several stents. Hypertension. Hyperlipidemia. MEDICATIONS: Please see the medication reconciliation form. SOCIAL HISTORY: The patient is happily . He and his live independently in their own home. There is no reported tobacco, alcohol or illicit drugs noted. FAMILY HISTORY: Reviewed in full and noncontributory to the present illness. PHYSICAL EXAMINATION: VITAL SIGNS: Reviewed since admission and they are notable for that the patient has been afebrile. Blood pressure has been in the 140s-160s/70s, heart rate is in the 70s-80s and regular. He is breathing comfortably and saturating 98-100% on room air. GENERAL: The patient is a frail 75-year-old man who appears older than stated age, resting comfortably in bed in no acute distress. He is awake and interactive, but not at his baseline orientation. HEENT: Unremarkable for acute abnormality. NECK: Soft and supple. No adenopathy or thyromegaly noted. CHEST: Clear to auscultation. HEART: S1, S2 normal. Regular rate and rhythm. No murmurs or gallops are noted. ABDOMEN: Normoactive bowel sounds, soft, nontender, nondistended. No masses or organomegaly noted. EXTREMITIES: Notable for that his pulses are intact throughout. No edema, rashes or lesions are noted. LABORATORY AND OTHER STUDIES: Admission white count is 9.5, hemoglobin is 12.2, platelet count is 100. Chemistry panel is notable for a creatinine of 3.1, which appears to be at his baseline per . Liver function tests are normal. Electrolytes are unremarkable. Urinalysis demonstrates marked pyuria and hematuria. Culture of his urine is pending. His blood culture appears to be growing Gram-negative rods with final identification pending. Rapid COVID swab is negative. Flu is pending. CT brain unremarkable for acute abnormality. Chest x-ray is notable for chronic bibasilar airspace disease, may be related to atelectasis. ASSESSMENT, PLAN AND IMPRESSION: A 75-year-old man admitted with acute metabolic encephalopathy secondary to urinary tract infection and bacteremia. He is not meeting criteria for sepsis. He seems to be recovering with antibiotics already. His baseline is quite frail. We will continue broad-spectrum antibiotics and reassess in the morning. It sounds like his is hoping to get him home rather than even considering post-hospital care. We may need to consult the therapy teams depending on his progress. We will use renal dose Lovenox for deep venous thrombosis prophylaxis. The patient is a full code. Given the extent of his multi-morbidity and the bacteremia, inpatient status is most appropriate. ELISSA/SHANE/CINTHIA DR: ELISSA/lyndsay TID: [id number] CC: SARAH FUENTES, MD Jodi [facility]
--- NOTE | 2021-04-05 16:13 | RAD ---
EXAM: RENAL ULTRASOUND CLINICAL HISTORY: Reason: renal failure COMPARISON: None available. TECHNIQUE: Ultrasound examination of the bilateral kidneys and urinary bladder was performed. FINDINGS: The right kidney measures 9.9 cm in bipolar length. The renal cortex is normal in thickness. Renal ec hogenicity is normal. 7 mm simple appearing cyst at the lower pole of the right kidney. There is no e vidence for hydronephrosis, shadowing renal calculus or focal abnormality . The left kidney measures 9.7 cm in bipolar length. The left kidney is mostly obscured given suboptima l sonographic window. The renal cortex is normal in thickness. Renal echogenicity is normal. There is no evidence for hydronephrosis, shadowing renal calculus or focal abnormality. Images of the partially filled urinary bladder are unremarkable. IMPRESSION: Normal sonographic survey of the kidneys and bladder. Electronically signed by: Rashid Viveros MD (04/05/2021 4:11 PM) WONG
[2021-04-05 19:00] VITALS: BP 137/77
[2021-04-05] MEDS: ATORVASTATIN CALCIUM 40 MG TABLET. PO SCH (20:43)
[2021-04-05] MEDS: METOPROLOL TART IMMED RELEASE 25 MG TABLET. PO SCH (20:43)
[2021-04-05 23:00] VITALS: BP 133/47
[2021-04-06 03:13] VITALS: BP 152/62
[2021-04-06] MEDS: IV NORMAL SALINE 1000ML BAG 1,000 ML IV SCH ×2 (05:48→20:27)
[2021-04-06 07:00] VITALS: BP 164/66
[2021-04-06 07:53] LABS: BASO % 0 % (0-3); EOS % 0 % (0-3); HEMATOCRIT 33.6 % (39.0-53.0); HEMOGLOBIN 11.1 g/dL (13.0-17.5); LYMPH # 0.5 x10^3/uL (1.0-4.8); LYMPH % 8 % (24-48); MEAN CORPUSCULAR HEMOGLOBIN 29 pg (25-35); MEAN CORPUSCULAR HGB CONC 33 g/dL (31-37); MEAN CORPUSCULAR VOLUME 87 fL (79-100); MONO # 0.7 x10^3/uL (0.0-1.1); MONO % 10 % (0-9); NEUT # 5.4 x10^3/uL (1.8-7.7); NEUT % 81 % (31-73); PLATELET COUNT 90 x10^3/uL (140-400); RED BLOOD COUNT 3.84 x10^6/uL (4.30-5.70); RED CELL DISTRIBUTION WIDTH 14.5 % (11.5-14.5); WHITE BLOOD COUNT 6.6 x10^3/uL (4.0-11.0)
[2021-04-06] MEDS: CLOPIDOGREL BISULFATE 75 MG TABLET PO SCH ×2 (08:00→09:32)
[2021-04-06 08:34] LABS: ALBUMIN 2.9 g/dL (3.4-5.0); ALBUMIN/GLOBULIN RATIO 0.7 (1.0-1.7); CALCIUM 7.9 mg/dL (8.5-10.1); CREATININE 3.1 mg/dL (0.7-1.3); POTASSIUM 4.1 mmol/L (3.5-5.1); TOTAL BILIRUBIN 0.2 mg/dL (0.2-1.0); TOTAL PROTEIN 7.3 g/dL (6.4-8.2)
[2021-04-06] MEDS: NYSTATIN 100,000 UNITS/ML 5 ML ORAL.SUSP. SWSW SCH ×5 (09:00→20:27)
[2021-04-06] MEDS: ASPIRIN CHEWABLE 81 MG TABLET. PO SCH ×2 (09:00→09:32)
[2021-04-06] MEDS: METOPROLOL TART IMMED RELEASE 25 MG TABLET. PO SCH ×3 (09:00→20:29)
[2021-04-06] MEDS: ISOSORBIDE MONONITRATE ER 30 MG TAB.ER.24H PO SCH ×2 (09:00→09:32)
[2021-04-06] MEDS: TAMSULOSIN 0.4 MG CAP.ER.24H. PO SCH ×2 (09:00→09:32)
[2021-04-06] MEDS: cefTRIAXone IV Push 1 GM VIAL. IVP SCH (09:33)
[2021-04-06] MEDS: LACTOBACILLUS RHAMNOSUS GG 1 CAPSULE. PO SCH ×2 (10:00→20:28)
[2021-04-06 11:00] VITALS: BP 156/68
--- NOTE | 2021-04-06 11:09 | PDOC2 ---
CONSULT Date of Consult Date of Consult DATE: 04/06/21 TIME: 11:02 Reason for Consult Reason for Consult: LUIS Referring Physician Referring Physician: BRAYAN Identification/Chief Complaint Chief Complaint CONFUSION Source Source: Chart review History of Present Illness Reason for Visit: THIS IS A 75 YR WITH SEVERAL DAYS OF CONFUSION AND POOR PO INTAKE. EVALUATION C/W DEHYDRATION, AN UTI AND LUIS WITH CR OF 3.1. HE HAS CKD WITH BASELINE CR OF 1.5 C/W STAGE 3B CKD. HE HAS HX OF BPH AND HAS BEEN ON FLOMAX Past Medical History Cardiovascular: CAD, HTN, Hyperlipidemia, Other Pulmonary: COPD CENTRAL NERVOUS SYSTEM: CVA, Periperal neuropathy GI: Other Heme/Onc: Anemia NOS Hepatobiliary: Hep A/B/C Psych: Anxiety, Other Musculoskeletal: low back pain Renal/: Benign prostatic enlarg. Endocrine: Diabetes Past Surgical History Past Surgical History: Cholecystectomy, Cataract Removal, Other Family History Family History: Heart Disease Social History Social History: Parent ALCOHOL: occassional Drugs: None Lives: with Family Current Problem List Problem List Problems Medical Problems: (1) Delirium Status: Acute (2) Generalized weakness Status: Acute (3) Urinary tract infection Status: Acute Current Medications Current Medications Current Medications Ceftriaxone Sodium (Rocephin) 1 gm 1X ONCE IVP Last administered on 04/04/21at 20:53; Start 04/04/21 at 21:00; Stop 04/04/21 at 21:01; Status DC Sodium Chloride 500 ml @ 500 mls/hr 1X ONCE IV Last administered on 04/04/21at 20:54; Start 04/04/21 at 20:45; Stop 04/04/21 at 21:44; Status DC Ondansetron HCl (Zofran) 4 mg PRN Q8HRS PRN IVP NAUSEA/VOMITING 1ST CHOICE; Start 04/04/21 at 22:45; Stop 04/05/21 at 22:44; Status DC Sodium Chloride 1,000 ml @ 75 mls/hr [id number] IV Last administered on 04/05/21at 20:42; Start 04/04/21 at 22:45 Acetaminophen (Tylenol) 650 mg PRN Q6HRS PRN PO MILD PAIN / TEMP > 100.3'F; Start 04/04/21 at 22:45 Ceftriaxone Sodium (Rocephin) 1 gm Q24H IVP Last administered on 04/06/21at 09:33; Start 04/05/21 at 10:00 Aspirin (Aspirin Chewable) 81 mg DAILY PO ; Start 04/06/21 at 09:00 Atorvastatin Calcium (Lipitor) 40 mg HS PO Last administered on 04/05/21at 20:43; Start 04/05/21 at 21:00 Clopidogrel Bisulfate (Plavix) 75 mg DAILYWBKFT PO ; Start 04/06/21 at 08:00 Hydralazine HCl (Apresoline) 50 mg TID PO Last administered on 04/05/21at 20:43; Start 04/05/21 at 14:00 Albuterol/ Ipratropium (Duoneb) 2.5 ml PRN Q6HRS PRN NEB SHORTNESS OF BREATH; Start 04/05/21 at 10:00 Isosorbide Mononitrate (Imdur) 30 mg DAILY PO Last administered on 04/05/21at 11:25; Start 04/05/21 at 10:00 Metoprolol Tartrate (Lopressor) 25 mg BID PO Last administered on 04/05/21 20:43; Start 04/05/21 at 21:00 Tamsulosin HCl (Flomax) 0.4 mg DAILY PO Last administered on 04/05/21 11:27; Start 04/05/21 at 10:00 Sodium Chloride 1,000 ml @ 100 mls/hr Q10H IV Last administered on 04/06/21at 05:48; Start 04/05/21 at 11:00 Nystatin (Nystatin Oral Susp) 5 ml [id number] Last administered on 04/05/21 20:42; Start 04/05/21 at 13:00 Enoxaparin Sodium (Lovenox 30mg Syringe) 30 mg Q24H SQ Last administered on 04/05/21at 13:35; Start 04/05/21 at 13:00 Chlorpromazine HCl (Thorazine) 10 mg PRN Q6HRS PRN PO HICCUPS Last administered on 04/05/21at 20:43; Start 04/05/21 at 15:45 Lactobacillus Rhamnosus (Culturelle) 1 cap BID PO ; Start 04/06/21 at 10:00 Active Scripts Active Veltassa (Patiromer Calcium Sorbitex) 8.4 Gm Powd.pack 8.4 Gm PO DAILY Lasix (Furosemide) 40 Mg Tablet 1 Tab PO DAILY 5 Days Alprazolam 0.5 Mg Tablet 1 Tab PO PRN QHS Dicyclomine Hcl 10 Mg Capsule 10 Mg PO PRN TID PRN 30 Days Clopidogrel (Clopidogrel Bisulfate) 75 Mg Tablet 75 Mg PO DAILYWBKFT 30 Days Isosorbide Mononitrate Er (Isosorbide Mononitrate) 30 Mg Tab.er.24h 30 Mg PO DAILY 30 Days Pantoprazole Sodium (Pantoprazole Sodium) 40 Mg Tablet.dr 40 Mg PO DAILYAC 30 Days Vitamin D3 (Cholecalciferol (Vitamin D3)) 5,000 Unit Capsule 5,000 Unit PO DAILY 30 Days Reported Vitamin D3 (Cholecalciferol (Vitamin D3)) 10 Mcg Tablet 10 Mcg PO DAILY Vitamin D2 (Ergocalciferol (Vitamin D2)) 1,250 Mcg Capsule 1,250 Mcg PO WEEKLY Acetaminophen 500 Mg Tablet 1 Tab PO PRN Q6HRS PRN 15 Days Flomax (Tamsulosin Hcl) 0.4 Mg Cap.er.24h 1 Cap PO DAILY Nystatin 15 Gm Powder 1 Layla TP BID 7 Days apply to affected area(s) Nitrostat (Nitroglycerin) 0.4 Mg Tab.subl 0.4 Mg SL PRN Q5MIN PRN Lactulose 20 Gm/30 Ml Solution 20 Gm PO PRN BID PRN Hydroxyzine Hcl 25 Mg Tablet 1 Tab PO PRN QID PRN Hydrocodone-Apap 5-325 (Hydrocodone Bit/Acetaminophen) 1 Tab Tablet 1 Tab PO PRN TID PRN Hydralazine Hcl 50 Mg Tablet 1 Tab PO TID Escitalopram Oxalate 5 Mg Tablet 5 Mg PO DAILY Cyanocobalamin Injection (Cyanocobalamin (Vitamin B-12)) 1,000 Mcg/1 Ml Vial 1,000 Mcg IM QMONTH Aspirin 81 Mg Tab.chew 1 Tab PO DAILY Glimepiride 4 Mg Tablet 4 Mg PO DAILY Ferrous Gluconate 324 Mg Tablet 1 Tab PO DAILYWBKFT Metformin Hcl Er (Metformin Hcl) 750 Mg Tab.er.24h 750 Mg PO TID Duoneb 0.5-3(2.5) Mg/3 Ml (Albuterol/Ipratropium) 3 Ml Ampul.neb 1 Vial NEB PRN Q6HRS PRN Metoprolol Tartrate 25 Mg Tablet 1 Tab PO BID Lyrica (Pregabalin) 100 Mg Capsule 1 Cap PO BID Cyclobenzaprine Hcl 5 Mg Tablet 1-2 Tab PO PRN TID PRN Atorvastatin Calcium 40 Mg Tablet 1 Tab PO HS Allergies Allergies: Coded Allergies: lisinopril (Verified Allergy, Severe, ANGIOEDEMA, 04/04/21) ROS Review of System UNABLE TO OBTAIN Physical Exam General: Alert, Cooperative, No acute distress HEENT: Atraumatic, PERRLA, Other (DRY MUCOSA) Lungs: Clear to auscultation Heart: Regular rate Abdomen: Normal bowel sounds, Soft, No tenderness Extremities: No cyanosis Skin: No breakdown Neuro: Other (CONFUSED, NO ASYMMETRY) Psych/Mental Status: Other (CONFUSED) MUSCULOSKELETAL: Other (MUSCLE ATROPHY) Vitals VITALS Vital Signs Date Time Temp Pulse Resp B/P (MAP) Pulse Ox O2 Delivery O2 Flow Rate FiO2 04/06/21 07:00 99.5 85 18 164/66 (98) 91 Room Air 99.5 Labs Labs Laboratory Tests Test 04/04/21 20:05 04/04/21 20:15 04/04/21 20:35 04/05/21 06:40 [id number]-Type Natriuretic Peptide 551 pg/mL (0-124) Thyroid Stimulating Hormone (TSH) 0.683 uIU/mL (0.358-3.74) Urine Collection Type Unknown Urine Color Yellow Urine Clarity Cloudy Urine pH 6.5 (<5.0-8.0) Urine Specific [place] 1.010 (1.000-1.030) Urine Protein 100 mg/dL (NEG-TRACE) Urine Glucose (UA) Negative mg/dL (NEG) Urine Ketones (Stick) Negative mg/dL (NEG) Urine Blood Large (NEG) Urine Nitrite Positive (NEG) Urine Bilirubin Negative (NEG) Urine Urobilinogen Dipstick 0.2 mg/dL (0.2 mg/dL) Urine Leukocyte Esterase Large (NEG) Urine RBC >40 /HPF (0-2) Urine WBC >40 /HPF (0-4) Urine Squamous Epithelial Cells Few /LPF Urine Bacteria Many /HPF (0-FEW) Urine Mucus Slight /LPF White Blood Count 9.5 x10^3/uL (4.0-11.0) Red Blood Count 4.13 x10^6/uL (4.30-5.70) Hemoglobin 12.2 g/dL (13.0-17.5) Hematocrit 35.9 % (39.0-53.0) Mean Corpuscular Volume 87 fL (79-100) Mean Corpuscular Hemoglobin 30 pg (25-35) Mean Corpuscular Hemoglobin Concent 34 g/dL (31-37) Red Cell Distribution Width 14.7 % (11.5-14.5) Platelet Count 100 x10^3/uL (140-400) Neutrophils (%) (Auto) 87 % (31-73) Lymphocytes (%) (Auto) 5 % (24-48) Monocytes (%) (Auto) 8 % (0-9) Eosinophils (%) (Auto) 0 % (0-3) Basophils (%) (Auto) 0 % (0-3) Neutrophils # (Auto) 8.3 x10^3/uL (1.8-7.7) Lymphocytes # (Auto) 0.4 x10^3/uL (1.0-4.8) Monocytes # (Auto) 0.8 x10^3/uL (0.0-1.1) Eosinophils # (Auto) 0.0 x10^3/uL (0.0-0.7) Basophils # (Auto) 0.0 x10^3/uL (0.0-0.2) Sodium Level 142 mmol/L (136-145) 142 mmol/L (136-145) Potassium Level 4.2 mmol/L (3.5-5.1) 4.0 mmol/L (3.5-5.1) Chloride Level 100 mmol/L (98-107) 104 mmol/L (98-107) Carbon Dioxide Level 27 mmol/L (21-32) 25 mmol/L (21-32) Anion Gap 15 (6-14) 13 (6-14) Blood Urea Nitrogen 83 mg/dL (8-26) 83 mg/dL (8-26) Creatinine 3.1 mg/dL (0.7-1.3) 3.1 mg/dL (0.7-1.3) Estimated GFR (Cockcroft-Gault) 24.0 24.0 BUN/Creatinine Ratio 27 (6-20) Glucose Level 138 mg/dL (70-99) 138 mg/dL (70-99) Lactic Acid Level 1.4 mmol/L (0.4-2.0) Calcium Level 8.1 mg/dL (8.5-10.1) 8.0 mg/dL (8.5-10.1) Phosphorus Level 3.4 mg/dL (2.6-4.7) Magnesium Level 2.8 mg/dL (1.8-2.4) Total Bilirubin 0.4 mg/dL (0.2-1.0) Aspartate Amino Transf (AST/SGOT) 8 U/L (15-37) Alanine Aminotransferase (ALT/SGPT) 9 U/L (16-63) Alkaline Phosphatase 123 U/L (46-116) Creatine Kinase 176 U/L (39-308) Troponin I High Sensitivity 14 ng/L (4-75) Total Protein 7.6 g/dL (6.4-8.2) Albumin 3.7 g/dL (3.4-5.0) Albumin/Globulin Ratio 0.9 (1.0-1.7) Test 04/05/21 11:34 04/06/21 06:40 SARS-CoV-2 Antigen (Rapid) Negative (NEGATIVE) White Blood Count 6.6 x10^3/uL (4.0-11.0) Red Blood Count 3.84 x10^6/uL (4.30-5.70) Hemoglobin 11.1 g/dL (13.0-17.5) Hematocrit 33.6 % (39.0-53.0) Mean Corpuscular Volume 87 fL (79-100) Mean Corpuscular Hemoglobin 29 pg (25-35) Mean Corpuscular Hemoglobin Concent 33 g/dL (31-37) Red Cell Distribution Width 14.5 % (11.5-14.5) Platelet Count 90 x10^3/uL (140-400) Neutrophils (%) (Auto) 81 % (31-73) Lymphocytes (%) (Auto) 8 % (24-48) Monocytes (%) (Auto) 10 % (0-9) Eosinophils (%) (Auto) 0 % (0-3) Basophils (%) (Auto) 0 % (0-3) Neutrophils # (Auto) 5.4 x10^3/uL (1.8-7.7) Lymphocytes # (Auto) 0.5 x10^3/uL (1.0-4.8) Monocytes # (Auto) 0.7 x10^3/uL (0.0-1.1) Eosinophils # (Auto) 0.0 x10^3/uL (0.0-0.7) Basophils # (Auto) 0.0 x10^3/uL (0.0-0.2) Sodium Level 145 mmol/L (136-145) Potassium Level 4.1 mmol/L (3.5-5.1) Chloride Level 109 mmol/L (98-107) Carbon Dioxide Level 20 mmol/L (21-32) Anion Gap 16 (6-14) Blood Urea Nitrogen 86 mg/dL (8-26) Creatinine 3.1 mg/dL (0.7-1.3) Estimated GFR (Cockcroft-Gault) 24.0 BUN/Creatinine Ratio 28 (6-20) Glucose Level 160 mg/dL (70-99) Calcium Level 7.9 mg/dL (8.5-10.1) Total Bilirubin 0.2 mg/dL (0.2-1.0) Aspartate Amino Transf (AST/SGOT) 27 U/L (15-37) Alanine Aminotransferase (ALT/SGPT) 12 U/L (16-63) Alkaline Phosphatase 97 U/L (46-116) Total Protein 7.3 g/dL (6.4-8.2) Albumin 2.9 g/dL (3.4-5.0) Albumin/Globulin Ratio 0.7 (1.0-1.7) Laboratory Tests Test 04/05/21 11:34 04/06/21 06:40 SARS-CoV-2 Antigen (Rapid) Negative (NEGATIVE) White Blood Count 6.6 x10^3/uL (4.0-11.0) Red Blood Count 3.84 x10^6/uL (4.30-5.70) Hemoglobin 11.1 g/dL (13.0-17.5) Hematocrit 33.6 % (39.0-53.0) Mean Corpuscular Volume 87 fL (79-100) Mean Corpuscular Hemoglobin 29 pg (25-35) Mean Corpuscular Hemoglobin Concent 33 g/dL (31-37) Red Cell Distribution Width 14.5 % (11.5-14.5) Platelet Count 90 x10^3/uL (140-400) Neutrophils (%) (Auto) 81 % (31-73) Lymphocytes (%) (Auto) 8 % (24-48) Monocytes (%) (Auto) 10 % (0-9) Eosinophils (%) (Auto) 0 % (0-3) Basophils (%) (Auto) 0 % (0-3) Neutrophils # (Auto) 5.4 x10^3/uL (1.8-7.7) Lymphocytes # (Auto) 0.5 x10^3/uL (1.0-4.8) Monocytes # (Auto) 0.7 x10^3/uL (0.0-1.1) Eosinophils # (Auto) 0.0 x10^3/uL (0.0-0.7) Basophils # (Auto) 0.0 x10^3/uL (0.0-0.2) Sodium Level 145 mmol/L (136-145) Potassium Level 4.1 mmol/L (3.5-5.1) Chloride Level 109 mmol/L (98-107) Carbon Dioxide Level 20 mmol/L (21-32) Anion Gap 16 (6-14) Blood Urea Nitrogen 86 mg/dL (8-26) Creatinine 3.1 mg/dL (0.7-1.3) Estimated GFR (Cockcroft-Gault) 24.0 BUN/Creatinine Ratio 28 (6-20) Glucose Level 160 mg/dL (70-99) Calcium Level 7.9 mg/dL (8.5-10.1) Total Bilirubin 0.2 mg/dL (0.2-1.0) Aspartate Amino Transf (AST/SGOT) 27 U/L (15-37) Alanine Aminotransferase (ALT/SGPT) 12 U/L (16-63) Alkaline Phosphatase 97 U/L (46-116) Total Protein 7.3 g/dL (6.4-8.2) Albumin 2.9 g/dL (3.4-5.0) Albumin/Globulin Ratio 0.7 (1.0-1.7) Images Images EXAM: RENAL ULTRASOUND CLINICAL HISTORY: Reason: renal failure COMPARISON: None available. TECHNIQUE: Ultrasound examination of the bilateral kidneys and urinary bladder was performed. FINDINGS: The right kidney measures 9.9 cm in bipolar length. The renal cortex is normal in thickness. Renal echogenicity is normal. 7 mm simple appearing cyst at the lower pole of the right kidney. There is no evidence for hydronephrosis, shadowing renal calculus or focal abnormality . The left kidney measures 9.7 cm in bipolar length. The left kidney is mostly obscured given suboptimal sonographic window. The renal cortex is normal in thickness. Renal echogenicity is normal. There is no evidence for hydronephrosis, shadowing renal calculus or focal abnormality. Images of the partially filled urinary bladder are unremarkable. IMPRESSION: Normal sonographic survey of the kidneys and bladder. Electronically signed by: Rashid Viveros MD (04/05/2021 4:11 PM) [facility] Assessment/Plan Assessment/Plan IMP LUIS WITH CR OF 3.1 CKD STAGE 3B WITH BASELINE CR OF 1.9 DEHYDRATION URINARY TRACT INFECTION ENCEPHALOPATHY BPH PLAN HOLD LASIX HOLD METFORMIN ANTIBIOTICS HYDRATION CONT FLOMAX LABS IN AM ARELY BHATT MD Apr 06, 2021 11:09
[2021-04-06] MEDS: ENOXAPARIN 30 MG/0.3 ML SYRINGE. SQ SCH (14:16)
[2021-04-06] MEDS ORDERED: BISACODYL 10 MG SUPP.RECT. PR PRN (14:45)
[2021-04-06] MEDS ORDERED: ACETAMINOPHEN 650 MG SUPP.RECT. PR PRN (14:45)
[2021-04-06] MEDS ORDERED: MORPHINE SULFATE 2 MG/ML INJ. IVP PRN (14:45)
--- NOTE | 2021-04-06 14:48 | PDOC ---
GENERAL General: Patient examined chart reviewed seen with nursing and at bedside. Patient had no overnight events but this morning was noted to be more somnolent and was unable to swallow pills. Bedside swallow evaluation demonstrates impaired swallow we are now holding oral pills and oral intake. Patient is less responsive today is concerned because she has not seen him in this state in the past. He is crying out in pain but cannot verbalize where it is it appears that his lower abdominal pelvic area are most painful. We will add low-dose morphine for pain but use very judiciously given his acute metabolic encephalopathy. We are still waiting on final culture results from [place] but he does have gram-negative rods in his blood strain. Urine culture is still pending. I have written for aspirin suppository given his extensive peripheral arterial disease. His other oral meds will need to be held at this point. Speech and swallow therapy have been consulted and their assistance is appreciated. We will also proceed with a CT abdomen pelvis without contrast given his renal insufficiency. He does have a history of constipation and we will use Dulcolax suppository and fleets enema as needed. All other systems are reviewed and otherwise negative. Time spent today is 30 minutes with greater than 50% in counseling and coordination of care most of which in discussion with patient, , and nursing regarding care plan and progress. Problems: (1) Generalized weakness (2) Urinary tract infection (3) Constipation (4) DM2 (diabetes mellitus, type 2) (5) HTN (hypertension) (6) CAD (coronary artery disease) (7) Peripheral neuropathy (8) Abdominal pain (9) Peripheral vascular disease VITAL SIGNS Vital Signs/I&O: Vital Signs Date Time Temp Pulse Resp B/P (MAP) Pulse Ox O2 Delivery O2 Flow Rate FiO2 04/06/21 14:00 85 164/66 04/06/21 08:00 Room Air 04/06/21 07:00 99.5 18 91 99.5 I & O 04/05/21 04/05/21 04/06/21 15:00 23:00 07:00 Output Total 0 ml Balance 0 ml Patient is more confused today crying out in pain unable to verbalize where the pain is but seems to be in his lower abdomen and pelvic region. He is able to follow some commands and responds in one-word cries HEENT exam is notable for dry mucous membranes neck is soft and supple no adenopathy or thyromegaly noted Chest is clear to auscultation Heart S1-S2 normal regular rate and rhythm no murmurs or gallops are noted Abdomen notable for tenderness in his lower quadrants some fullness in his right mid lower abdomen. Groin exam is unremarkable. Back and joint exam is unremarkable for acute abnormality. We examined his back and buttocks in full and there are no skin issues noted. Pulses are weak but intact throughout ALLERGIES Allergies: Allergies Coded Allergies Type Severity Reaction Last Updated Verified lisinopril Allergy Severe ANGIOEDEMA 04/04/21 Yes MEDS Medications: Current Medications Medications (Trade) Dose Ordered Sig/Ray Start Time Stop Time Status Last Admin Dose Admin Acetaminophen (Tylenol) 650 mg PRN Q6HRS PRN 04/04/21 22:45 Albuterol/ Ipratropium (Duoneb) 2.5 ml PRN Q6HRS PRN 04/05/21 10:00 Aspirin (Aspirin Chewable) 81 mg DAILY 04/06/21 09:00 Atorvastatin Calcium (Lipitor) 40 mg HS 04/05/21 21:00 04/05/21 20:43 Ceftriaxone Sodium (Rocephin) 1 gm Q24H 04/05/21 10:00 04/06/21 09:33 Chlorpromazine HCl (Thorazine) 10 mg PRN Q6HRS PRN 04/05/21 15:45 04/05/21 20:43 Clopidogrel Bisulfate (Plavix) 75 mg [id number] 04/06/21 08:00 Enoxaparin Sodium (Lovenox 30mg Syringe) 30 mg Q24H 04/05/21 13:00 04/06/21 14:16 Hydralazine HCl (Apresoline) 50 mg TID 04/05/21 14:00 04/05/21 20:43 Isosorbide Mononitrate (Imdur) 30 mg DAILY 04/05/21 10:00 04/05/21 11:25 Lactobacillus Rhamnosus (Culturelle) 1 cap BID 04/06/21 10:00 Metoprolol Tartrate (Lopressor) 25 mg BID 04/05/21 21:00 04/05/21 20:43 Nystatin (Nystatin Oral Susp) 5 ml [id number] 04/05/21 13:00 04/05/21 20:42 Ondansetron HCl (Zofran) 4 mg PRN Q8HRS PRN 04/04/21 22:45 04/05/21 22:44 DC Sodium Chloride 1,000 ml @ 100 mls/hr Q10H 04/05/21 11:00 04/06/21 05:48 Tamsulosin HCl (Flomax) 0.4 mg DAILY 04/05/21 10:00 04/05/21 11:27 Current Medications Medications (Trade) Dose Ordered Sig/Ray Route PRN Reason Start Time Stop Time Status Last Admin Dose Admin Atorvastatin Calcium (Lipitor) 40 mg HS PO 04/05/21 21:00 04/05/21 20:43 Metoprolol Tartrate (Lopressor) 25 mg BID PO 04/05/21 21:00 04/05/21 20:43 Chlorpromazine HCl (Thorazine) 10 mg PRN Q6HRS PRN PO HICCUPS 04/05/21 15:45 04/05/21 20:43 LAB Lab: Laboratory Tests Test 04/06/21 06:40 White Blood Count 6.6 x10^3/uL (4.0-11.0) Red Blood Count 3.84 x10^6/uL (4.30-5.70) L Hemoglobin 11.1 g/dL (13.0-17.5) L Hematocrit 33.6 % (39.0-53.0) L Mean Corpuscular Volume 87 fL (79-100) Mean Corpuscular Hemoglobin 29 pg (25-35) Mean Corpuscular Hemoglobin Concent 33 g/dL (31-37) Red Cell Distribution Width 14.5 % (11.5-14.5) Platelet Count 90 x10^3/uL (140-400) L Neutrophils (%) (Auto) 81 % (31-73) H Lymphocytes (%) (Auto) 8 % (24-48) L Monocytes (%) (Auto) 10 % (0-9) H Eosinophils (%) (Auto) 0 % (0-3) Basophils (%) (Auto) 0 % (0-3) Neutrophils # (Auto) 5.4 x10^3/uL (1.8-7.7) Lymphocytes # (Auto) 0.5 x10^3/uL (1.0-4.8) L Monocytes # (Auto) 0.7 x10^3/uL (0.0-1.1) Eosinophils # (Auto) 0.0 x10^3/uL (0.0-0.7) Basophils # (Auto) 0.0 x10^3/uL (0.0-0.2) Sodium Level 145 mmol/L (136-145) Potassium Level 4.1 mmol/L (3.5-5.1) Chloride Level 109 mmol/L (98-107) H Carbon Dioxide Level 20 mmol/L (21-32) L Anion Gap 16 (6-14) H Blood Urea Nitrogen 86 mg/dL (8-26) H Creatinine 3.1 mg/dL (0.7-1.3) H Estimated GFR (Cockcroft-Gault) 24.0 BUN/Creatinine Ratio 28 (6-20) H Glucose Level 160 mg/dL (70-99) H Calcium Level 7.9 mg/dL (8.5-10.1) L Total Bilirubin 0.2 mg/dL (0.2-1.0) Aspartate Amino Transferase (AST) 27 U/L (15-37) Alanine Aminotransferase (ALT) 12 U/L (16-63) L Alkaline Phosphatase 97 U/L (46-116) Total Protein 7.3 g/dL (6.4-8.2) Albumin 2.9 g/dL (3.4-5.0) L Albumin/Globulin Ratio 0.7 (1.0-1.7) L Laboratory Tests 04/06/21 06:40 Laboratory Tests 04/06/21 06:40 ASSESSMENT & PLAN A&P Plan as noted above This note was created using [employer] and may have omissions and/or errors due to the nature of real-time 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 Justifications for Admission Other Justification Problem Qualifiers (1) Urinary tract infection: Urinary tract infection type: site unspecified LASHAE BEY MD Apr 06, 2021 14:48
[2021-04-06 15:00] VITALS: BP 168/67
[2021-04-06 19:47] VITALS: BP 152/60
[2021-04-06] MEDS: ATORVASTATIN CALCIUM 40 MG TABLET. PO SCH (20:29)
[2021-04-06 23:12] VITALS: BP 173/61
[2021-04-07 03:52] VITALS: BP 180/67
[2021-04-07 04:35] LABS: INFLUENZA A PATIENT NEGATIVE (NEGATIVE); INFLUENZA B PATIENT NEGATIVE (NEGATIVE)
[2021-04-07] MEDS: IV NORMAL SALINE 1000ML BAG 1,000 ML IV SCH (05:29)
[2021-04-07 07:00] VITALS: BP 180/64
[2021-04-07 07:57] LABS: BASO % 0 % (0-3); EOS % 0 % (0-3); HEMATOCRIT 35.6 % (39.0-53.0); HEMOGLOBIN 11.9 g/dL (13.0-17.5); LYMPH # 0.6 x10^3/uL (1.0-4.8); LYMPH % 9 % (24-48); MEAN CORPUSCULAR HEMOGLOBIN 29 pg (25-35); MEAN CORPUSCULAR HGB CONC 33 g/dL (31-37); MEAN CORPUSCULAR VOLUME 88 fL (79-100); MONO # 0.9 x10^3/uL (0.0-1.1); MONO % 12 % (0-9); NEUT # 5.7 x10^3/uL (1.8-7.7); NEUT % 79 % (31-73); PLATELET COUNT 99 x10^3/uL (140-400); RED BLOOD COUNT 4.06 x10^6/uL (4.30-5.70); RED CELL DISTRIBUTION WIDTH 14.7 % (11.5-14.5); WHITE BLOOD COUNT 7.2 x10^3/uL (4.0-11.0)
[2021-04-07] MEDS: CLOPIDOGREL BISULFATE 75 MG TABLET PO SCH (08:00)
[2021-04-07] MEDS: TAMSULOSIN 0.4 MG CAP.ER.24H. PO SCH (08:26)
[2021-04-07] MEDS: METOPROLOL TART IMMED RELEASE 25 MG TABLET. PO SCH ×2 (08:26→20:00)
[2021-04-07] MEDS: NYSTATIN 100,000 UNITS/ML 5 ML ORAL.SUSP. SWSW SCH ×4 (08:26→20:01)
[2021-04-07] MEDS: LACTOBACILLUS RHAMNOSUS GG 1 CAPSULE. PO SCH ×2 (08:26→19:59)
[2021-04-07] MEDS: ASPIRIN CHEWABLE 81 MG TABLET. PO SCH (08:26)
[2021-04-07] MEDS: ISOSORBIDE MONONITRATE ER 30 MG TAB.ER.24H PO SCH (08:26)
[2021-04-07 08:36] LABS: ALBUMIN 2.8 g/dL (3.4-5.0); ALBUMIN/GLOBULIN RATIO 0.6 (1.0-1.7); CALCIUM 8.2 mg/dL (8.5-10.1); CREATININE 2.5 mg/dL (0.7-1.3); GFR 30.7; POTASSIUM 4.4 mmol/L (3.5-5.1); TOTAL BILIRUBIN 0.2 mg/dL (0.2-1.0); TOTAL PROTEIN 7.4 g/dL (6.4-8.2)
--- NOTE | 2021-04-07 08:36 | RAD ---
EXAM: Bilateral lower extremity arterial Doppler sonogram. HISTORY: Peripheral vascular disease. Pain. Atherosclerosis. TECHNIQUE: Finch scale and color Doppler sonographic imaging of the lower extremity arteries was retur michell analysis was performed. COMPARISON: None. FINDINGS: There are abnormal monophasic waveforms throughout the left lower extremity arteries, with exception of a biphasic waveform within the common femoral artery. This can be seen with hemodynamica lly significant proximal stenosis. There is a severely elevated peak systolic velocity within the lef t anterior tibial artery, measuring 260 cm/s. The left peroneal artery is not seen. The remainder of the left lower extremity peak systolic velocities are within normal limits. There are abnormal monophasic waveforms within the right lower extremity arteries from the posterior tibial artery to the dorsalis pedis artery. This can be seen with hemodynamically significant proxima l stenosis. There are biphasic waveforms within the remainder of the right lower extremity arteries. There is an elevated peak systolic velocity within the right deep femoral artery, measuring 216 cm/s. There is also an elevated peak systolic velocity within the right anterior tibial artery, measuring 162 cm/s. The right peroneal artery is not seen. IMPRESSION: 1. Elevated peak systolic velocities within the left greater than right anterior tibial arteries, con sistent with hemodynamically significant stenosis. 2. Elevated peak systolic velocity within the right deep femoral artery, consistent with hemodynamica lly significant stenosis. 3. Abnormal monophasic waveforms throughout the left lower extremity arteries, with exception of the left common femoral artery, and abnormalities waveforms from the right tibial artery to the dorsalis pedis artery. This can be seen with low flow in the setting of hemodynamically significant proximal s tenosis. 4. Nonvisualization of the bilateral peroneal arteries. Electronically signed by: Carla Robins MD (04/07/2021 8:34 AM) [id number]
--- NOTE | 2021-04-07 09:14 | RAD ---
EXAM: Abdomen and pelvis CT without intravenous contrast. HISTORY: Pain. Bacteremia. TECHNIQUE: Computed tomographic images of the abdomen and pelvis were obtained without contrast. Mult iplanar reformatting was performed. *One or more of the following individualized dose reduction techniques were utilized for this examina tion: 1. Automated exposure control. 2. Adjustment of the mA and/or kV according to patient size. 3. Use of iterative reconstruction technique. COMPARISON: 03/17/2019. FINDINGS: Evaluation of the lower thorax demonstrates partially consolidated left lower lobe infiltra te. There is right posterior dependent and basilar atelectasis or infiltrate. The heart is normal in size. There is calcified atherosclerotic plaque involving the coronary arteries. There is incidental left gynecomastia. No hepatic lesion is seen. The gallbladder is surgically absent. The pancreas is u nremarkable. There is a splenule adjacent to an otherwise unremarkable spleen. The adrenal glands are unremarkable. There is bilateral perinephric stranding and left greater than right. Ureteral stranding. There is bl adder wall thickening. There is no hydronephrosis or suspicious renal lesion. There is no nephrourete rolithiasis. There is deformation of the bladder base due to the prostate. There is no appendicitis. There is a moderate to large amount of colonic stool. There is distal colon ic diverticulosis. There is formed stool within the rectal vault. There is distal colonic diverticulo sis. There is no diverticulitis. There is aortic and aortic branch vessel atherosclerosis. There is n o aneurysm. There is a small amount of gas within the right ventral abdominal wall subcutaneous fat d ue to a medication injection site. There is degenerative change throughout the spine and pelvis. Ther e is no acute or suspicious osseous finding. IMPRESSION: 1. Left lower lobe pneumonia. There is also right basilar atelectasis or interstitial infiltrate. 2. Bilateral perinephric and periureteral stranding with urinary bladder wall thickening. This is non specific. Correlate urinalysis to exclude cystitis and ascending urinary tract infection. 3. Distal colonic diverticulosis. 4. Margin large amount of colonic stool and formed stool within the rectal vault. Correlate for const ipation. 5. Prostatomegaly. Electronically signed by: Carla Robins MD (04/07/2021 9:12 AM) [id number]
[2021-04-07] MEDS: ASPIRIN RECTAL 300 MG SUPP. PR SCH (09:18)
[2021-04-07] MEDS: cefTRIAXone IV Push 1 GM VIAL. IVP SCH (09:29)
--- NOTE | 2021-04-07 09:43 | PDOC ---
DATE OF SERVICE DATE: 04/07/21 TIME: 09:43 SUBJECTIVE ROS Sleeping, NAD. No concerns voiced by nursing Per Nursing report good UOP, he is incontinent OBJECTIVE Vital Signs Vital Signs Date Time Temp Pulse Resp B/P (MAP) Pulse Ox O2 Delivery O2 Flow Rate FiO2 04/07/21 07:00 98.6 74 20 180/64 (102) 96 Room Air 98.6 I & 0 Intake and Output 04/07/21 07:00 Intake Total 0 ml Balance 0 ml Intake Oral 0 ml PHYSICAL EXAM Physical Exam General NAD HEEN OM moist Neck Supple Lungs Decreased at bases, Non labored CV S1S2 Abd soft, NT Ext No LE edema No evans , No cva or SP tenderness DIAGNOSIS/ASSESSMENT Assessment & Plan LUIS - Cr 3.1 POA 2 dehydration, improved with IVF .Lasix Held . Good UOP per nursing repor- not recorded as patient incontinent . Supportive care, Avoid Nephrotoxins HyperNatremia switch to IV Hyptonic fluid (D5W) CKD stage 3B - Baseline Creat 1.9; basline Creat was normal in Dec 2019( UTI - Bilat perinephric starnding reported on CT- defer Abx to Primary /ID Anemia- Hgb stable . No indication for CRISS Encephalopathy Dx of BPH- continue Flomax DM- Metformin Held HTN - BP elevated . DC IV NS, antihypertensives COMMENT/RELEVANT DATA Meds Current Medications Medications (Trade) Dose Ordered Sig/Ray Start Time Stop Time Status Last Admin Dose Admin Acetaminophen (Tylenol Supp) 650 mg PRN Q6HRS PRN 04/06/21 14:45 Acetaminophen (Tylenol) 650 mg PRN Q6HRS PRN 04/04/21 22:45 Albuterol/ Ipratropium (Duoneb) 2.5 ml PRN Q6HRS PRN 04/05/21 10:00 Aspirin (Aspirin Chewable) 81 mg DAILY 04/06/21 09:00 Aspirin (Aspirin Rectal Supp) 300 mg DAILY 04/07/21 09:00 04/07/21 09:18 300 MG Atorvastatin Calcium (Lipitor) 40 mg HS 04/05/21 21:00 04/05/21 20:43 40 MG Bisacodyl (Dulcolax Supp) 10 mg PRN DAILY PRN 04/06/21 14:45 Ceftriaxone Sodium (Rocephin) 1 gm Q24H 04/05/21 10:00 04/07/21 09:29 1 GM Chlorpromazine HCl (Thorazine) 10 mg PRN Q6HRS PRN 04/05/21 15:45 04/05/21 20:43 10 MG Clopidogrel Bisulfate (Plavix) 75 mg DAILYWBKFT 04/06/21 08:00 Enoxaparin Sodium (Lovenox 30mg Syringe) 30 mg Q24H 04/05/21 13:00 04/06/21 14:16 30 MG Hydralazine HCl (Apresoline) 50 mg TID 04/05/21 14:00 04/05/21 20:43 50 MG Isosorbide Mononitrate (Imdur) 30 mg DAILY 04/05/21 10:00 04/05/21 11:25 30 MG Lactobacillus Rhamnosus (Culturelle) 1 cap BID 04/06/21 10:00 Metoprolol Tartrate (Lopressor) 25 mg BID 04/05/21 21:00 04/05/21 20:43 25 MG Morphine Sulfate (Morphine Sulfate) 2 mg PRN Q2HR PRN 04/06/21 14:45 Nystatin (Nystatin Oral Susp) 5 ml 04/05/21 13:00 04/06/21 20:27 5 ML Ondansetron HCl (Zofran) 4 mg PRN Q8HRS PRN 04/04/21 22:45 04/05/21 22:44 DC Sodium Chloride 1,000 ml @ 100 mls/hr Q10H 04/05/21 11:00 04/07/21 05:29 100 MLS/HR Tamsulosin HCl (Flomax) 0.4 mg DAILY 04/05/21 10:00 04/05/21 11:27 0.4 MG Lab Laboratory Tests Test 04/07/21 04:10 04/07/21 06:55 Influenza Type A Antigen Negative (NEGATIVE) Influenza Type B Antigen Negative (NEGATIVE) White Blood Count 7.2 x10^3/uL (4.0-11.0) Red Blood Count 4.06 x10^6/uL (4.30-5.70) Hemoglobin 11.9 g/dL (13.0-17.5) Hematocrit 35.6 % (39.0-53.0) Mean Corpuscular Volume 88 fL (79-100) Mean Corpuscular Hemoglobin 29 pg (25-35) Mean Corpuscular Hemoglobin Concent 33 g/dL (31-37) Red Cell Distribution Width 14.7 % (11.5-14.5) Platelet Count 99 x10^3/uL (140-400) Neutrophils (%) (Auto) 79 % (31-73) Lymphocytes (%) (Auto) 9 % (24-48) Monocytes (%) (Auto) 12 % (0-9) Eosinophils (%) (Auto) 0 % (0-3) Basophils (%) (Auto) 0 % (0-3) Neutrophils # (Auto) 5.7 x10^3/uL (1.8-7.7) Lymphocytes # (Auto) 0.6 x10^3/uL (1.0-4.8) Monocytes # (Auto) 0.9 x10^3/uL (0.0-1.1) Eosinophils # (Auto) 0.0 x10^3/uL (0.0-0.7) Basophils # (Auto) 0.0 x10^3/uL (0.0-0.2) Sodium Level 153 mmol/L (136-145) Potassium Level 4.4 mmol/L (3.5-5.1) Chloride Level 120 mmol/L (98-107) Carbon Dioxide Level 19 mmol/L (21-32) Anion Gap 14 (6-14) Blood Urea Nitrogen 74 mg/dL (8-26) Creatinine 2.5 mg/dL (0.7-1.3) Estimated GFR (Cockcroft-Gault) 30.7 BUN/Creatinine Ratio 30 (6-20) Glucose Level 153 mg/dL (70-99) Calcium Level 8.2 mg/dL (8.5-10.1) Total Bilirubin 0.2 mg/dL (0.2-1.0) Aspartate Amino Transf (AST/SGOT) 21 U/L (15-37) Alanine Aminotransferase (ALT/SGPT) 12 U/L (16-63) Alkaline Phosphatase 87 U/L (46-116) Total Protein 7.4 g/dL (6.4-8.2) Albumin 2.8 g/dL (3.4-5.0) Albumin/Globulin Ratio 0.6 (1.0-1.7) Results All relevant outside records, renal labs, imaging studies, telemetry/EKG's were reviewed. Justicifation of Admission Dx: Justifications for Admission: Justification of Admission Dx: Yes Angina: [facility] at [facility] NAYELY ANGEL MD Apr 07, 2021 09:43
--- NOTE | 2021-04-07 09:58 | NUR ---
SW following. Discussed with RN, pt from home with , room air, NPO, confused, rapid COVID and FLU negative. Nephrology following. ST ordered. PT/OT being ordered. Pt not medically stable. SW will continue to follow.
[2021-04-07 11:00] VITALS: BP 183/75
[2021-04-07] MEDS: IV DEXTROSE 5% 1,000 ML IV SCH (11:04)
--- NOTE | 2021-04-07 13:07 | PDOC ---
[employer] PROGRESS NOTE Date of Service DOS: DATE: 04/07/21 TIME: 12:48 Chief Complaint Chief Complaint Metabolic encephalopathy - likely 2/2 UTI, sepsis LUIS E. coli sepsis - bacteremia and UTI Weakness - will have PT work with him. Recent history SDH with evacuation after a fall - no new hemorrhages noted on CT scan 04/17/17 Anemia - likely of chronic disease Diabetes mellitus type II - will hold sulfonylurea permanently given his hypoglycemia. Glucose checks History of chronic right leg weakness Hypertension - Cont meds CAD - with PCI in 2006. apparently had LHC this past wednesday12/14/2018 per daughter with no intervention but diffuse disease COPD - nebs Peripheral neuropathy - on gabapentin PAD - 12/14 LLE percutaneous revascularization and due for RLE with Dr. Medel on 12/29/2018 Hx of CVA/SDH and moderate carotid artery disease Abdominal pain with distention - will consult urology Abnormal weight loss - states he has had through w/u at [facility]. records ordered H/o Hep C - in [facility] History of Present Illness History of Present Illness Mr Oleary is a 75yo M w/ PMHx HTN, DM2, peripheral vascular disease, BPH, hep c in [facility], SDH, CAD, chronic pain, Anxiety, COPD brought into ED by EMS from home, after family reportedly noticed that he had been confused and weak, demonstrating alteration in mental status. No reported head trauma or falls. No reported vomiting. He normally is able to ambulate mostly on his own, occasionally with a walker, but for the past week or so, he has been "sliding around" and using a walker, requiring significant assistance. Developed renal failure and abnormal urinalysis. Admitted for further care 04/07: NA 153, CL 120, BUN 74, CR 2.5. Still trying to swallow. He is intermittently confused. No pain complaints today. Culture positive for E. coli bacteremia and urinary tract infection. CT with prostatomegaly. Will consult urology for further recommendations check PVR Vitals/I&O Vitals/I&O: Vital Signs Date Time Temp Pulse Resp B/P (MAP) Pulse Ox O2 Delivery O2 Flow Rate FiO2 04/07/21 11:00 98.5 81 20 183/75 (111) 93 Room Air 98.5 I & O 04/06/21 04/06/21 04/07/21 15:00 23:00 07:00 Intake Total 0 ml 0 ml Balance 0 ml 0 ml Physical Exam General: Alert, Cooperative, No acute distress Heart: Regular rate Lungs: Clear, Other Abdomen: Normal bowel sounds, Soft, No tenderness Extremities: No cyanosis Skin: No breakdown Labs Labs: Laboratory Tests Test 04/07/21 04:10 04/07/21 06:55 Influenza Type A Antigen Negative (NEGATIVE) Influenza Type B Antigen Negative (NEGATIVE) White Blood Count 7.2 x10^3/uL (4.0-11.0) Red Blood Count 4.06 x10^6/uL (4.30-5.70) Hemoglobin 11.9 g/dL (13.0-17.5) Hematocrit 35.6 % (39.0-53.0) Mean Corpuscular Volume 88 fL (79-100) Mean Corpuscular Hemoglobin 29 pg (25-35) Mean Corpuscular Hemoglobin Concent 33 g/dL (31-37) Red Cell Distribution Width 14.7 % (11.5-14.5) Platelet Count 99 x10^3/uL (140-400) Neutrophils (%) (Auto) 79 % (31-73) Lymphocytes (%) (Auto) 9 % (24-48) Monocytes (%) (Auto) 12 % (0-9) Eosinophils (%) (Auto) 0 % (0-3) Basophils (%) (Auto) 0 % (0-3) Neutrophils # (Auto) 5.7 x10^3/uL (1.8-7.7) Lymphocytes # (Auto) 0.6 x10^3/uL (1.0-4.8) Monocytes # (Auto) 0.9 x10^3/uL (0.0-1.1) Eosinophils # (Auto) 0.0 x10^3/uL (0.0-0.7) Basophils # (Auto) 0.0 x10^3/uL (0.0-0.2) Sodium Level 153 mmol/L (136-145) Potassium Level 4.4 mmol/L (3.5-5.1) Chloride Level 120 mmol/L (98-107) Carbon Dioxide Level 19 mmol/L (21-32) Anion Gap 14 (6-14) Blood Urea Nitrogen 74 mg/dL (8-26) Creatinine 2.5 mg/dL (0.7-1.3) Estimated GFR (Cockcroft-Gault) 30.7 BUN/Creatinine Ratio 30 (6-20) Glucose Level 153 mg/dL (70-99) Calcium Level 8.2 mg/dL (8.5-10.1) Total Bilirubin 0.2 mg/dL (0.2-1.0) Aspartate Amino Transf (AST/SGOT) 21 U/L (15-37) Alanine Aminotransferase (ALT/SGPT) 12 U/L (16-63) Alkaline Phosphatase 87 U/L (46-116) Total Protein 7.4 g/dL (6.4-8.2) Albumin 2.8 g/dL (3.4-5.0) Albumin/Globulin Ratio 0.6 (1.0-1.7) Assessment and Plan Assessmemt and Plan Problems Medical Problems: (1) Delirium Status: Acute (2) Generalized weakness Status: Acute (3) Urinary tract infection Status: Acute Comment Review of Relevant I have reviewed the following items denise (where applicable) has been applied. Medications: Current Medications Medications (Trade) Dose Ordered Sig/Ray Route PRN Reason Start Time Stop Time Status Last Admin Dose Admin Aspirin (Aspirin Rectal Supp) 300 mg DAILY DE 04/07/21 09:00 04/07/21 09:18 Dextrose 1,000 ml @ 75 mls/hr [id number] IV 04/07/21 10:30 04/07/21 11:04 Justifications for Admission Other Justification KIARRA FLORES MD Apr 07, 2021 13:07
[2021-04-07] MEDS: ENOXAPARIN 30 MG/0.3 ML SYRINGE. SQ SCH (13:18)
--- NOTE | 2021-04-07 13:50 | PDOC2 ---
UROLOGY CONSULT Date of Service DATE: 04/07/21 TIME: 13:35 Reason for Consult Reason for Consult: UTI, BPH Identification/Chief Complaint Chief Complaint n/a Source Source: Caregiver, Chart review History of Present Illness Reason for Visit: 75yo male hospitalized for urosepsis. CT a/p was done and showed enlarged prostate, bladder wall thickening acute vs. chronic, and perinephric stranding bilaterally. He presented to the ER with symptoms of confusion over the previous days. Blood cultures and urine cultures were positive for e.coli and he has been on antibiotics for this. He is NPO for swallow study, CT showed pneumonia as well. Pt did not speak to me, shook his head no when I asked about pain, but then would not shake his head yes/no or verbally respond to me after that. Drifting to sleep. Per RN, he is incontinent but had good urine output. Takes tamsulosin qd. [place] [facility] [place] we have not seen this patient before. states he has no history of recurrent UTIs. Sees [facility]. Past Medical History Cardiovascular: CAD, HTN, Hyperlipidemia, Other Pulmonary: COPD CENTRAL NERVOUS SYSTEM: CVA, Periperal neuropathy GI: Other Heme/Onc: Anemia NOS Hepatobiliary: Hep A/B/C Psych: Anxiety, Other Musculoskeletal: low back pain Renal/: Benign prostatic enlarg. Endocrine: Diabetes Past Surgical History Past Surgical History: Cholecystectomy, Cataract Removal, Other Family History Family History: Heart Disease Social History Social History: Parent ALCOHOL: occassional Drugs: None Lives: with Family Current Medications Current Medications Current Medications Acetaminophen (Tylenol Supp) 650 [address] PRN Q6HRS PR[address] CT MILD PAIN / TEMP > 100.3'F; Start 04/06/21 at 14:45 Aspirin (Aspirin Rectal Supp) [address] Last administered on 04/07/21at 09:18; Start 04/07/21 at 09:00 Bisacodyl (Dulcolax Supp) 10 mg PRN DAILY PRN CT CONSTIPATION; Start 04/06/21 at 14:45 Dextrose 1,000 ml @ 75 mls/hr [id number] IV Last administered on 04/07/21at 11:04; Start 04/07/21 at 10:30 Finasteride (Proscar) 5 mg DAILY PO ; Start 04/07/21 at 14:00 Morphine Sulfate (Morphine Sulfate) 2 mg PRN Q2HR PRN IVP PAIN; Start 04/06/21 at 14:45 Allergies Allergies: Coded Allergies: lisinopril (Verified Allergy, Severe, ANGIOEDEMA, 04/04/21) ROS Review Of Systems: Unable to obtain due to patient status Physical Exam Physical Exam: General: NAD, does not respond verbally to my questions Eyes: conjunctiva anicteric, eyes full range of motion ENT: moist oral mucosa Neck: Trachea midline Respiratory: unlabored breathing, not using accessory muscles Cardiovascular: Regular rate and rhythm Abdomen: abdomen mildly tender to palpation, nondistended Skin: no rashes or skin lesions on visualized skin Psych: unable to assess Vitals VITALS Vital Signs Date Time Temp Pulse Resp B/P (MAP) Pulse Ox O2 Delivery O2 Flow Rate FiO2 04/07/21 11:00 98.5 81 20 183/75 (111) 93 Room Air 98.5 Labs Labs Laboratory Tests Test 04/06/21 06:40 04/07/21 04:10 04/07/21 06:55 White Blood Count 6.6 x10^3/uL (4.0-11.0) 7.2 x10^3/uL (4.0-11.0) Red Blood Count 3.84 x10^6/uL (4.30-5.70) 4.06 x10^6/uL (4.30-5.70) Hemoglobin 11.1 g/dL (13.0-17.5) 11.9 g/dL (13.0-17.5) Hematocrit 33.6 % (39.0-53.0) 35.6 % (39.0-53.0) Mean Corpuscular Volume 87 fL (79-100) 88 fL (79-100) Mean Corpuscular Hemoglobin 29 pg (25-35) 29 pg (25-35) Mean Corpuscular Hemoglobin Concent 33 g/dL (31-37) 33 g/dL (31-37) Red Cell Distribution Width 14.5 % (11.5-14.5) 14.7 % (11.5-14.5) Platelet Count 90 x10^3/uL (140-400) 99 x10^3/uL (140-400) Neutrophils (%) (Auto) 81 % (31-73) 79 % (31-73) Lymphocytes (%) (Auto) 8 % (24-48) 9 % (24-48) Monocytes (%) (Auto) 10 % (0-9) 12 % (0-9) Eosinophils (%) (Auto) 0 % (0-3) 0 % (0-3) Basophils (%) (Auto) 0 % (0-3) 0 % (0-3) Neutrophils # (Auto) 5.4 x10^3/uL (1.8-7.7) 5.7 x10^3/uL (1.8-7.7) Lymphocytes # (Auto) 0.5 x10^3/uL (1.0-4.8) 0.6 x10^3/uL (1.0-4.8) Monocytes # (Auto) 0.7 x10^3/uL (0.0-1.1) 0.9 x10^3/uL (0.0-1.1) Eosinophils # (Auto) 0.0 x10^3/uL (0.0-0.7) 0.0 x10^3/uL (0.0-0.7) Basophils # (Auto) 0.0 x10^3/uL (0.0-0.2) 0.0 x10^3/uL (0.0-0.2) Sodium Level 145 mmol/L (136-145) 153 mmol/L (136-145) Potassium Level 4.1 mmol/L (3.5-5.1) 4.4 mmol/L (3.5-5.1) Chloride Level 109 mmol/L (98-107) 120 mmol/L (98-107) Carbon Dioxide Level 20 mmol/L (21-32) 19 mmol/L (21-32) Anion Gap 16 (6-14) 14 (6-14) Blood Urea Nitrogen 86 mg/dL (8-26) 74 mg/dL (8-26) Creatinine 3.1 mg/dL (0.7-1.3) 2.5 mg/dL (0.7-1.3) Estimated GFR (Cockcroft-Gault) 24.0 30.7 BUN/Creatinine Ratio 28 (6-20) 30 (6-20) Glucose Level 160 mg/dL (70-99) 153 mg/dL (70-99) Calcium Level 7.9 mg/dL (8.5-10.1) 8.2 mg/dL (8.5-10.1) Total Bilirubin 0.2 mg/dL (0.2-1.0) 0.2 mg/dL (0.2-1.0) Aspartate Amino Transf (AST/SGOT) 27 U/L (15-37) 21 U/L (15-37) Alanine Aminotransferase (ALT/SGPT) 12 U/L (16-63) 12 U/L (16-63) Alkaline Phosphatase 97 U/L (46-116) 87 U/L (46-116) Total Protein 7.3 g/dL (6.4-8.2) 7.4 g/dL (6.4-8.2) Albumin 2.9 g/dL (3.4-5.0) 2.8 g/dL (3.4-5.0) Albumin/Globulin Ratio 0.7 (1.0-1.7) 0.6 (1.0-1.7) Influenza Type A Antigen Negative (NEGATIVE) Influenza Type B Antigen Negative (NEGATIVE) Laboratory Tests Test 04/07/21 04:10 04/07/21 06:55 Influenza Type A Antigen Negative (NEGATIVE) Influenza Type B Antigen Negative (NEGATIVE) White Blood Count 7.2 x10^3/uL (4.0-11.0) Red Blood Count 4.06 x10^6/uL (4.30-5.70) Hemoglobin 11.9 g/dL (13.0-17.5) Hematocrit 35.6 % (39.0-53.0) Mean Corpuscular Volume 88 fL (79-100) Mean Corpuscular Hemoglobin 29 pg (25-35) Mean Corpuscular Hemoglobin Concent 33 g/dL (31-37) Red Cell Distribution Width 14.7 % (11.5-14.5) Platelet Count 99 x10^3/uL (140-400) Neutrophils (%) (Auto) 79 % (31-73) Lymphocytes (%) (Auto) 9 % (24-48) Monocytes (%) (Auto) 12 % (0-9) Eosinophils (%) (Auto) 0 % (0-3) Basophils (%) (Auto) 0 % (0-3) Neutrophils # (Auto) 5.7 x10^3/uL (1.8-7.7) Lymphocytes # (Auto) 0.6 x10^3/uL (1.0-4.8) Monocytes # (Auto) 0.9 x10^3/uL (0.0-1.1) Eosinophils # (Auto) 0.0 x10^3/uL (0.0-0.7) Basophils # (Auto) 0.0 x10^3/uL (0.0-0.2) Sodium Level 153 mmol/L (136-145) Potassium Level 4.4 mmol/L (3.5-5.1) Chloride Level 120 mmol/L (98-107) Carbon Dioxide Level 19 mmol/L (21-32) Anion Gap 14 (6-14) Blood Urea Nitrogen 74 mg/dL (8-26) Creatinine 2.5 mg/dL (0.7-1.3) Estimated GFR (Cockcroft-Gault) 30.7 BUN/Creatinine Ratio 30 (6-20) Glucose Level 153 mg/dL (70-99) Calcium Level 8.2 mg/dL (8.5-10.1) Total Bilirubin 0.2 mg/dL (0.2-1.0) Aspartate Amino Transf (AST/SGOT) 21 U/L (15-37) Alanine Aminotransferase (ALT/SGPT) 12 U/L (16-63) Alkaline Phosphatase 87 U/L (46-116) Total Protein 7.4 g/dL (6.4-8.2) Albumin 2.8 g/dL (3.4-5.0) Albumin/Globulin Ratio 0.6 (1.0-1.7) Images Images FINDINGS: Evaluation of the lower thorax demonstrates partially consolidated left lower lobe infiltrate. There is right posterior dependent and basilar atelectasis or infiltrate. The heart is normal in size. There is calcified atherosclerotic plaque involving the coronary arteries. There is incidental left gynecomastia. No hepatic lesion is seen. The gallbladder is surgically absent. The pancreas is unremarkable. There is a splenule adjacent to an otherwise unremarkable spleen. The adrenal glands are unremarkable. There is bilateral perinephric stranding and left greater than right. Ureteral stranding. There is bladder wall thickening. There is no hydronephrosis or suspicious renal lesion. There is no nephroureterolithiasis. There is deformation of the bladder base due to the prostate. There is no appendicitis. There is a moderate to large amount of colonic stool. There is distal colonic diverticulosis. There is formed stool within the rectal vault. There is distal colonic diverticulosis. There is no diverticulitis. There is aortic and aortic branch vessel atherosclerosis. There is no aneurysm. There is a small amount of gas within the right ventral abdominal wall subcutaneous fat due to a medication injection site. There is degenerative change throughout the spine and pelvis. There is no acute or suspicious osseous finding. IMPRESSION: 1. Left lower lobe pneumonia. There is also right basilar atelectasis or interstitial infiltrate. 2. Bilateral perinephric and periureteral stranding with urinary bladder wall thickening. This is nonspecific. Correlate urinalysis to exclude cystitis and ascending urinary tract infection. 3. Distal colonic diverticulosis. 4. Margin large amount of colonic stool and formed stool within the rectal vault. Correlate for constipation. 5. Prostatomegaly. Assessment/Plan Assessment/Plan UTI, BPH Likely cause of UTI is incomplete emptying in this case. RN will check PVR and call if >350mL. May need to increase tamsulosin. I reviewed images--bilateral perinephric stranding, bladder wall thickening diffuse, bladder moderately distended Continue tamsulosin. Add finasteride (to start when pt can tolerate PO again). Recommend 2wks total course of abx I d/w pt who states he as an appt with [facility] soon that they're planning to attend. MARISA RHOADES Apr 07, 2021 13:50
[2021-04-07] MEDS: FINASTERIDE 5 MG TABLET. PO SCH (14:00)
[2021-04-07 15:00] VITALS: BP 160/65
--- NOTE | 2021-04-07 16:00 | NUR ---
post void bladder scan resulted in 143mls urine.
[2021-04-07] MEDS: METOPROLOL IV PUSH 5 MG/5 ML VIAL. IVP SCH ×2 (17:57→23:55)
[2021-04-07 19:00] VITALS: BP 172/75
[2021-04-07] MEDS: ATORVASTATIN CALCIUM 40 MG TABLET. PO SCH (19:59)
[2021-04-07 23:00] VITALS: BP 190/78
[2021-04-08 03:00] VITALS: BP 180/78
[2021-04-08] MEDS: METOPROLOL IV PUSH 5 MG/5 ML VIAL. IVP SCH ×3 (05:51→16:51)
[2021-04-08 07:00] VITALS: BP 179/82
[2021-04-08] MEDS: cefTRIAXone IV Push 1 GM VIAL. IVP SCH (07:29)
[2021-04-08] MEDS: CLOPIDOGREL BISULFATE 75 MG TABLET PO SCH (07:29)
[2021-04-08] MEDS: NYSTATIN 100,000 UNITS/ML 5 ML ORAL.SUSP. SWSW SCH ×4 (07:29→19:53)
[2021-04-08] MEDS: ASPIRIN RECTAL 300 MG SUPP. PR SCH (07:29)
[2021-04-08] MEDS: METOPROLOL TART IMMED RELEASE 25 MG TABLET. PO SCH ×2 (07:30→19:53)
[2021-04-08] MEDS: ISOSORBIDE MONONITRATE ER 30 MG TAB.ER.24H PO SCH (07:30)
[2021-04-08] MEDS: ASPIRIN CHEWABLE 81 MG TABLET. PO SCH (07:30)
[2021-04-08] MEDS: TAMSULOSIN 0.4 MG CAP.ER.24H. PO SCH (07:30)
[2021-04-08] MEDS: LACTOBACILLUS RHAMNOSUS GG 1 CAPSULE. PO SCH ×2 (07:30→19:52)
[2021-04-08] MEDS: FINASTERIDE 5 MG TABLET. PO SCH (07:30)
--- NOTE | 2021-04-08 09:53 | PDOC ---
SUBJECTIVE Subjective Pt does not verbally respond to my questions, unable to get history OBJECTIVE Vital Signs Vital Signs Date Time Temp Pulse Resp B/P (MAP) Pulse Ox O2 Delivery O2 Flow Rate FiO2 04/08/21 08:00 Room Air 04/08/21 07:59 94 Room Air 04/08/21 07:00 98.0 82 18 179/82 (114) 93 Room Air 98.0 04/08/21 05:51 68 174/77 04/08/21 03:00 98.4 67 18 180/78 (112) 94 Room Air 98.4 04/07/21 23:55 74 190/78 04/07/21 23:00 98.2 74 20 190/78 (115) 94 Room Air 98.2 04/07/21 20:15 Room Air 04/07/21 19:00 98.5 74 20 172/75 (107) 94 Room Air 98.5 04/07/21 17:57 76 160/65 04/07/21 15:00 98.5 76 18 160/65 (96) 95 Room Air 98.5 04/07/21 11:00 98.5 81 20 183/75 (111) 93 Room Air 98.5 I & O Intake and Output 04/08/21 07:00 Intake Total 0 ml Balance 0 ml Intake Oral 0 ml # Voids 1 PHYSICAL EXAM Physical Exam NAD, resting comfortably abd tender nonlabored respirations ASSESSMENT/PLAN Assessment/Plan UTI, BPH Likely cause of UTI is incomplete emptying in this case. PVR 143mL. Pt is NPO and unable to take flomax/finasteride currently, though this volume does not warrant evans/cic. I reviewed images--bilateral perinephric stranding, bladder wall thickening diffuse, bladder moderately distended Increase tamsulosin to bid. Add finasteride. (When pt can tolerate PO again). Recommend 2wks total course of abx I d/w pt who states he as an appt with [facility] soon that they're planning to attend. Will sign off, please call with questions. Justifications for Admission Other Justification MARISA RHOADES Apr 08, 2021 09:53
--- NOTE | 2021-04-08 09:59 | PDOC ---
DATE OF SERVICE DATE: 04/08/21 TIME: 09:56 SUBJECTIVE ROS More awake , denies any complaints No concerns voiced by nursing Per Nursing report good UOP, he is incontinent OBJECTIVE Vital Signs Vital Signs Date Time Temp Pulse Resp B/P (MAP) Pulse Ox O2 Delivery O2 Flow Rate FiO2 04/08/21 08:00 Room Air 04/08/21 07:59 94 04/08/21 07:00 98.0 82 18 179/82 (114) 98.0 I & 0 Intake and Output 04/08/21 07:00 Intake Total 0 ml Balance 0 ml Intake Oral 0 ml # Voids 1 PHYSICAL EXAM Physical Exam General NAD HEEN OM moist Neck Supple Lungs Decreased at bases, Non labored CV S1S2 Abd soft, NT Ext No LE edema No evans , No cva or SP tenderness DIAGNOSIS/ASSESSMENT Assessment & Plan LUIS - Cr 3.1 POA 03/26 dehydration, improved with IVF .Lasix Held . Good UOP per nursing report- not recorded as patient incontinent . Supportive care, Avoid Nephrotoxins HyperNatremia switched to IV Hyptonic fluid (D5W) , Na trended up, Increase IVF rate CKD stage 3B - Baseline Creat 1.9; basline Creat was normal in Dec 2019( UTI - Bilat perinephric starnding reported on CT- defer Abx to Primary /ID Anemia- Hgb stable . No indication for CRISS Encephalopathy Dx of BPH- continue Flomax DM- Metformin Held HTN - BP elevated . DC IV NS, antihypertensives COMMENT/RELEVANT DATA Meds Current Medications Medications (Trade) Dose Ordered Sig/Ray Start Time Stop Time Status Last Admin Dose Admin Acetaminophen (Tylenol Supp) 650 mg PRN Q6HRS PRN 04/06/21 14:45 Acetaminophen (Tylenol) 650 mg PRN Q6HRS PRN 04/04/21 22:45 Albuterol/ Ipratropium (Duoneb) 2.5 ml PRN Q6HRS PRN 04/05/21 10:00 Aspirin (Aspirin Chewable) 81 mg DAILY 04/06/21 09:00 Aspirin (Aspirin Rectal Supp) 300 mg DAILY 04/07/21 09:00 04/08/21 07:29 300 MG Atorvastatin Calcium (Lipitor) 40 mg HS 04/05/21 21:00 04/05/21 20:43 40 MG Bisacodyl (Dulcolax Supp) 10 mg PRN DAILY PRN 04/06/21 14:45 04/08/21 07:29 10 MG Ceftriaxone Sodium (Rocephin) 1 gm Q24H 04/05/21 10:00 04/08/21 07:29 1 GM Chlorpromazine HCl (Thorazine) 10 mg PRN Q6HRS PRN 04/05/21 15:45 04/05/21 20:43 10 MG Clopidogrel Bisulfate (Plavix) 75 mg [id number] 04/06/21 08:00 Dextrose 1,000 ml @ 75 mls/hr [id number] 04/07/21 10:30 04/08/21 00:00 75 MLS/HR Enoxaparin Sodium (Lovenox 30mg Syringe) 30 mg Q24H 04/05/21 13:00 04/07/21 13:18 30 MG Finasteride (Proscar) 5 mg DAILY 04/07/21 14:00 Hydralazine HCl (Apresoline Inj) 10 mg PRN Q4HRS PRN 04/07/21 15:00 Hydralazine HCl (Apresoline) 50 mg TID 04/05/21 14:00 04/05/21 20:43 50 MG Isosorbide Mononitrate (Imdur) 30 mg DAILY 04/05/21 10:00 04/05/21 11:25 30 MG Lactobacillus Rhamnosus (Culturelle) 1 cap BID 04/06/21 10:00 Metoprolol Tartrate (Lopressor Vial) 2.5 mg Q6HRS 04/07/21 18:00 04/08/21 05:51 2.5 MG Metoprolol Tartrate (Lopressor) 25 mg BID 04/05/21 21:00 04/05/21 20:43 25 MG Morphine Sulfate (Morphine Sulfate) 2 mg PRN Q2HR PRN 04/06/21 14:45 Nystatin (Nystatin Oral Susp) 5 ml [id number] 04/05/21 13:00 04/08/21 07:29 5 ML Ondansetron HCl (Zofran) 4 mg PRN Q8HRS PRN 04/04/21 22:45 04/05/21 22:44 DC Sodium Chloride 1,000 ml @ 100 mls/hr Q10H 04/05/21 11:00 04/07/21 10:21 DC 04/07/21 05:29 100 MLS/HR Tamsulosin HCl (Flomax) 0.4 mg DAILY 04/05/21 10:00 04/05/21 11:27 0.4 MG Results All relevant outside records, renal labs, imaging studies, telemetry/EKG's were reviewed. Justicifation of Admission Dx: Justifications for Admission: Justification of Admission Dx: Yes Angina: Symp at Rest NAYELY ANGEL MD Apr 08, 2021 09:58
--- NOTE | 2021-04-08 10:32 | PDOC ---
[employer] PROGRESS NOTE Date of Service DOS: DATE: 04/08/21 TIME: 10:31 Chief Complaint Chief Complaint Metabolic encephalopathy - likely 2/2 UTI, sepsis LUIS E. coli sepsis - bacteremia and UTI Weakness - will have PT work with him. Recent history SDH with evacuation after a fall - no new hemorrhages noted on CT scan 04/17/17 Anemia - likely of chronic disease Diabetes mellitus type II - will hold sulfonylurea permanently given his hypoglycemia. Glucose checks History of chronic right leg weakness Hypertension - Cont meds CAD - with PCI in 2006. apparently had LHC this past wednesday12/14/2018 per daughter with no intervention but diffuse disease COPD - nebs Peripheral neuropathy - on gabapentin PAD - 12/14 LLE percutaneous revascularization and due for RLE with Dr. Medel on 12/29/2018 Hx of CVA/SDH and moderate carotid artery disease Abdominal pain with distention - will consult urology Abnormal weight loss - states he has had through w/u at [facility]. records ordered H/o Hep C - in SVR History of Present Illness History of Present Illness Mr Oleary is a 75yo M w/ PMHx HTN, DM2, peripheral vascular disease, BPH, hep c in SVR, SDH, CAD, chronic pain, Anxiety, COPD brought into ED by EMS from home, after family reportedly noticed that he had been confused and weak, demonstrating alteration in mental status. No reported head trauma or falls. No reported vomiting. He normally is able to ambulate mostly on his own, occasionally with a walker, but for the past week or so, he has been "sliding around" and using a walker, requiring significant assistance. Developed renal failure and abnormal urinalysis. Admitted for further care 04/07: NA 153, CL 120, BUN 74, CR 2.5. Still trying to swallow. He is intermittently confused. No pain complaints today. Culture positive for E. coli bacteremia and urinary tract infection. CT with prostatomegaly. Will consult urology for further recommendations. PVR 140cc. 04/08: Labs pending. Able to vocalize a little bit still trying to swallow. Intermittently confused. No complaints. Tolerating IV well. Vitals/I&O Vitals/I&O: Vital Signs Date Time Temp Pulse Resp B/P (MAP) Pulse Ox O2 Delivery O2 Flow Rate FiO2 04/08/21 08:00 Room Air 04/08/21 07:59 94 2/15/22 07:00 98.0 82 18 179/82 (114) 98.0 I & O 04/07/21 04/07/21 04/08/21 15:00 23:00 07:00 Intake Total 0 ml 0 ml Balance 0 ml 0 ml Physical Exam General: Alert, Cooperative, No acute distress Heart: Regular rate Lungs: Clear, Other Abdomen: Normal bowel sounds, Soft, No tenderness Extremities: No cyanosis Skin: No breakdown Assessment and Plan Assessmemt and Plan Problems Medical Problems: (1) Delirium Status: Acute (2) Generalized weakness Status: Acute (3) Urinary tract infection Status: Acute Comment Review of Relevant I have reviewed the following items denise (where applicable) has been applied. Medications: Current Medications Medications (Trade) Dose Ordered Sig/Ray Route PRN Reason Start Time Stop Time Status Last Admin Dose Admin Metoprolol Tartrate (Lopressor Vial) 2.5 mg Q6HRS IVP 04/07/21 18:00 04/08/21 05:51 Justifications for Admission Other Justification KIARRA FLORES MD Apr 08, 2021 10:32
[2021-04-08 11:00] VITALS: BP 178/73
[2021-04-08 11:06] LABS: CALCIUM 8.4 mg/dL (8.5-10.1); CREATININE 2.2 mg/dL (0.7-1.3); GFR 35.6; POTASSIUM 4.2 mmol/L (3.5-5.1)
[2021-04-08] MEDS: ENOXAPARIN 30 MG/0.3 ML SYRINGE. SQ SCH (11:16)
[2021-04-08] MEDS: IV DEXTROSE 5% 1,000 ML IV SCH ×3 (12:12→17:58)
[2021-04-08 15:00] VITALS: BP 171/63
[2021-04-08] MEDS: hydrALAZINE 20 MG/ML VIAL. IVP PRN (15:46)
[2021-04-08 19:00] VITALS: BP 149/68
[2021-04-08] MEDS: ATORVASTATIN CALCIUM 40 MG TABLET. PO SCH (19:53)
[2021-04-08 23:00] VITALS: BP 156/60
[2021-04-09] MEDS: METOPROLOL IV PUSH 5 MG/5 ML VIAL. IVP SCH ×4 (00:22→17:42)
[2021-04-09 03:00] VITALS: BP 175/85
[2021-04-09] MEDS: IV DEXTROSE 5% 1,000 ML IV SCH ×3 (03:05→20:30)
[2021-04-09 07:00] VITALS: BP 164/61
[2021-04-09 07:51] LABS: CALCIUM 8.1 mg/dL (8.5-10.1); CREATININE 2.1 mg/dL (0.7-1.3); GFR 37.5; POTASSIUM 3.8 mmol/L (3.5-5.1)
[2021-04-09] MEDS: CLOPIDOGREL BISULFATE 75 MG TABLET PO SCH (08:00)
[2021-04-09] MEDS: NYSTATIN 100,000 UNITS/ML 5 ML ORAL.SUSP. SWSW SCH ×4 (09:00→19:37)
[2021-04-09] MEDS: ASPIRIN CHEWABLE 81 MG TABLET. PO SCH (09:00)
[2021-04-09] MEDS: TAMSULOSIN 0.4 MG CAP.ER.24H. PO SCH (09:00)
[2021-04-09] MEDS: METOPROLOL TART IMMED RELEASE 25 MG TABLET. PO SCH ×2 (09:00→19:37)
[2021-04-09] MEDS: ISOSORBIDE MONONITRATE ER 30 MG TAB.ER.24H PO SCH (09:00)
[2021-04-09] MEDS: FINASTERIDE 5 MG TABLET. PO SCH (09:00)
[2021-04-09] MEDS: LACTOBACILLUS RHAMNOSUS GG 1 CAPSULE. PO SCH ×2 (09:00→19:37)
[2021-04-09] MEDS: ASPIRIN RECTAL 300 MG SUPP. PR SCH (10:19)
[2021-04-09] MEDS: cefTRIAXone IV Push 1 GM VIAL. IVP SCH (10:19)
[2021-04-09 11:00] VITALS: BP 143/71
--- NOTE | 2021-04-09 11:01 | PDOC ---
DATE OF SERVICE DATE: 04/09/21 TIME: 10:59 SUBJECTIVE ROS denies any complaints No concerns voiced by nursing Per Nursing report good UOP, he is incontinent OBJECTIVE Vital Signs Vital Signs Date Time Temp Pulse Resp B/P (MAP) Pulse Ox O2 Delivery O2 Flow Rate FiO2 04/09/21 09:00 64 164/61 04/09/21 07:00 97.4 16 95 97.4 04/08/21 19:42 Room Air PHYSICAL EXAM Physical Exam General NAD HEEN OM moist Neck Supple Lungs Decreased at bases, Non labored CV S1S2 Abd soft, NT Ext No LE edema No evans , No cva or SP tenderness DIAGNOSIS/ASSESSMENT Assessment & Plan LUIS - Cr 3.1 POA 2 dehydration, resolved .Lasix Held . Good UOP per nursing report- not recorded as patient incontinent . Supportive care, Avoid Nephrotoxins HyperNatremia switched to IV Hyptonic fluid (D5W) , Na improving. Can switch to PO free water of patient able to . Insulin per Primary CKD stage 3B - Baseline Creat 1.9; basline Creat was normal in Dec 2019( UTI - Bilat perinephric starnding reported on CT- defer Abx to Primary /ID Anemia- Hgb stable . No indication for CRISS Encephalopathy Dx of BPH- continue Flomax DM- Metformin Held HTN - BP elevated . DC IV NS, antihypertensives COMMENT/RELEVANT DATA Meds Current Medications Medications (Trade) Dose Ordered Sig/Ray Start Time Stop Time Status Last Admin Dose Admin Acetaminophen (Tylenol Supp) 650 mg PRN Q6HRS PRN 04/06/21 14:45 Acetaminophen (Tylenol) 650 mg PRN Q6HRS PRN 04/04/21 22:45 Albuterol/ Ipratropium (Duoneb) 2.5 ml PRN Q6HRS PRN 04/05/21 10:00 Aspirin (Aspirin Chewable) 81 mg DAILY 04/06/21 09:00 Aspirin (Aspirin Rectal Supp) 300 mg DAILY 04/07/21 09:00 04/09/21 10:19 300 MG Atorvastatin Calcium (Lipitor) 40 mg HS 04/05/21 21:00 04/05/21 20:43 40 MG Bisacodyl (Dulcolax Supp) 10 mg PRN DAILY PRN 04/06/21 14:45 04/08/21 07:29 10 MG Ceftriaxone Sodium (Rocephin) 1 gm Q24H 04/05/21 10:00 04/09/21 10:19 1 GM Chlorpromazine HCl (Thorazine) 10 mg PRN Q6HRS PRN 04/05/21 15:45 04/05/21 20:43 10 MG Clopidogrel Bisulfate (Plavix) 75 mg [id number] 04/06/21 08:00 Dextrose 1,000 ml @ 125 mls/hr Q8H 04/07/21 10:30 04/09/21 03:05 125 MLS/HR Enoxaparin Sodium (Lovenox 30mg Syringe) 30 mg Q24H 04/05/21 13:00 04/08/21 11:16 30 MG Finasteride (Proscar) 5 mg DAILY 04/07/21 14:00 Hydralazine HCl (Apresoline Inj) 10 mg PRN Q4HRS PRN 04/07/21 15:00 04/08/21 15:46 10 MG Hydralazine HCl (Apresoline) 50 mg TID 04/05/21 14:00 04/05/21 20:43 50 MG Isosorbide Mononitrate (Imdur) 30 mg DAILY 04/05/21 10:00 04/05/21 11:25 30 MG Lactobacillus Rhamnosus (Culturelle) 1 cap BID 04/06/21 10:00 Metoprolol Tartrate (Lopressor Vial) 2.5 mg Q6HRS 04/07/21 18:00 04/09/21 05:23 2.5 MG Metoprolol Tartrate (Lopressor) 25 mg BID 04/05/21 21:00 04/05/21 20:43 25 MG Morphine Sulfate (Morphine Sulfate) 2 mg PRN Q2HR PRN 04/06/21 14:45 04/08/21 13:22 DC Nystatin (Nystatin Oral Susp) 5 ml [id number] 04/05/21 13:00 04/08/21 15:45 5 ML Ondansetron HCl (Zofran) 4 mg PRN Q8HRS PRN 04/04/21 22:45 04/05/21 22:44 DC Sodium Chloride 1,000 ml @ 100 mls/hr Q10H 04/05/21 11:00 04/07/21 10:21 DC 04/07/21 05:29 100 MLS/HR Tamsulosin HCl (Flomax) 0.4 mg DAILY 04/05/21 10:00 04/05/21 11:27 0.4 MG Lab Laboratory Tests Test 04/09/21 06:45 Sodium Level 152 mmol/L (136-145) Potassium Level 3.8 mmol/L (3.5-5.1) Chloride Level 117 mmol/L (98-107) Carbon Dioxide Level 27 mmol/L (21-32) Anion Gap 8 (6-14) Blood Urea Nitrogen 54 mg/dL (8-26) Creatinine 2.1 mg/dL (0.7-1.3) Estimated GFR (Cockcroft-Gault) 37.5 Glucose Level 223 mg/dL (70-99) Calcium Level 8.1 mg/dL (8.5-10.1) Results All relevant outside records, renal labs, imaging studies, telemetry/EKG's were reviewed. Justicifation of Admission Dx: Justifications for Admission: Justification of Admission Dx: Yes Angina: Symp at Rest NAYELY ANGEL MD Apr 09, 2021 11:01
--- NOTE | 2021-04-09 12:10 | PDOC ---
[employer] PROGRESS NOTE Date of Service DOS: DATE: 04/09/21 TIME: 12:07 Chief Complaint Chief Complaint Metabolic encephalopathy - likely 2/2 UTI, sepsis LUIS - stable, nephrology following E. coli sepsis - bacteremia and UTI Weakness - will have PT work with him. Recent history SDH with evacuation after a fall - no new hemorrhages noted on CT scan 04/17/17 Anemia - likely of chronic disease Diabetes mellitus type II - will hold sulfonylurea permanently given his hypoglycemia. Glucose checks History of chronic right leg weakness Hypertension - Cont meds CAD - with PCI in 2006. apparently had LHC this past wednesday12/14/2018 per daughter with no intervention but diffuse disease COPD - nebs Peripheral neuropathy - on gabapentin PAD - 12/14 LLE percutaneous revascularization and due for RLE with Dr. Medel on 12/29/2018 Hx of CVA/SDH and moderate carotid artery disease Abdominal pain with distention - will consult urology Abnormal weight loss - states he has had through w/u at [facility]. records ordered H/o Hep C - in SVR History of Present Illness History of Present Illness Mr Oleary is a 75yo M w/ PMHx HTN, DM2, peripheral vascular disease, BPH, hep c in SVR, SDH, CAD, chronic pain, Anxiety, COPD brought into ED by EMS from home, after family reportedly noticed that he had been confused and weak, demonstrating alteration in mental status. No reported head trauma or falls. No reported vomiting. He normally is able to ambulate mostly on his own, occasionally with a walker, but for the past week or so, he has been "sliding around" and using a walker, requiring significant assistance. Developed renal failure and abnormal urinalysis. Admitted for further care 04/07: NA 153, CL 120, BUN 74, CR 2.5. Still trying to swallow. He is intermittently confused. No pain complaints today. Culture positive for E. coli bacteremia and urinary tract infection. CT with prostatomegaly. Will consult urology for further recommendations. PVR 140cc. 04/08: Labs pending. Able to vocalize a little bit still trying to swallow. Intermittently confused. No complaints. Tolerating IV well. 04/09: Na 152, CR 2.1, BUN 54. A lot of right lower back pain with therapy today. Significant pain trying to swallow with speech pathology today. Vitals/I&O Vitals/I&O: Vital Signs Date Time Temp Pulse Resp B/P (MAP) Pulse Ox O2 Delivery O2 Flow Rate FiO2 04/09/21 11:37 88 159/111 04/09/21 11:00 97.9 16 97 97.9 04/08/21 19:42 Room Air Physical Exam General: Alert, Cooperative, No acute distress Heart: Regular rate Lungs: Clear, Other Abdomen: Normal bowel sounds, Soft, No tenderness Extremities: No cyanosis Skin: No breakdown Labs Labs: Laboratory Tests Test 04/09/21 06:45 Sodium Level 152 mmol/L (136-145) Potassium Level 3.8 mmol/L (3.5-5.1) Chloride Level 117 mmol/L (98-107) Carbon Dioxide Level 27 mmol/L (21-32) Anion Gap 8 (6-14) Blood Urea Nitrogen 54 mg/dL (8-26) Creatinine 2.1 mg/dL (0.7-1.3) Estimated GFR (Cockcroft-Gault) 37.5 Glucose Level 223 mg/dL (70-99) Calcium Level 8.1 mg/dL (8.5-10.1) Assessment and Plan Assessmemt and Plan Problems Medical Problems: (1) Delirium Status: Acute (2) Generalized weakness Status: Acute (3) Urinary tract infection Status: Acute Comment Review of Relevant I have reviewed the following items denise (where applicable) has been applied. Justifications for Admission Other Justification KIARRA FLORES MD Apr 09, 2021 12:10
[2021-04-09] MEDS ORDERED: BISACODYL 10 MG SUPP.RECT. PR PRN (12:15)
[2021-04-09] MEDS ORDERED: BISACODYL 10 MG SUPP.RECT. PR ONE (12:15)
--- NOTE | 2021-04-09 13:04 | PDOC2 ---
GI CONSULT Date of Service: DATE: 04/09/21 TIME: 12:42 Reason For Consult: odynophagia HPI: HPI: 75 y/o male evaluated in ER on 04/04/21 for AMS, admitted w/ E. coli UTI and CKD/LUIS. DICE MANAGER following - previously oral dysphagia noted; however, today pt indicated pain with swallowing (more than once) and we are asked to see for this reason. Limited history from him - he says he's "not doing too good" and points to his left/central chest and says "hurt." I asked if it hurts to swallow; he was quiet for awhile and then said "hurts to swallow." We saw him in 2019 for chronic abdominal pain w/ anorexia and weight loss. At that time reported no reflux, dysphagia, or chronic issues w/ n/v, diarrhea, or bleeding. H/o constipation - was using Miralax then. Previous EGD and colonoscopy at in 2017 - no significant findings recalled. Diverticulosis on past imaging. S/p cholecystectomy (said for abdominal pain). H/o Hep C - treated - PCR and AFP negative/normal in 2019. H/o anemia - iron profile c/w ACD in 2018, 2018, and 2019. Normal B12 x 2 in 2018. ROGELIO negative in 2020. H/o CAD, PVD, and TIA on ASA and Plavix. Summary list includes B12, iron, lactulose, and pantoprazole. PMH: PMH: CAD w/ stents, TIA, HTN, HLD, COPD, DM, BPH, PVD w/ LLE revascularization, peripheral neuropathy, SDH w/ evacuation, CKD, UTI FH: Family History: Cancer (colon - brother) Social History: Smoke: Quit ALCOHOL: occassional Drugs: None ROS: Limited history - see HPI. Vitals: Vitals: Vital Signs Date Time Temp Pulse Resp B/P (MAP) Pulse Ox O2 Delivery O2 Flow Rate FiO2 04/09/21 11:37 88 159/111 04/09/21 11:00 97.9 16 97 97.9 04/08/21 19:42 Room Air Labs: Labs: Laboratory Tests Test 04/09/21 06:45 Sodium Level 152 mmol/L (136-145) Potassium Level 3.8 mmol/L (3.5-5.1) Chloride Level 117 mmol/L (98-107) Carbon Dioxide Level 27 mmol/L (21-32) Anion Gap 8 (6-14) Blood Urea Nitrogen 54 mg/dL (8-26) Creatinine 2.1 mg/dL (0.7-1.3) Estimated GFR (Cockcroft-Gault) 37.5 Glucose Level 223 mg/dL (70-99) Calcium Level 8.1 mg/dL (8.5-10.1) BLOOD CULTURE Final GRAM NEGATIVE RODS, IN 1 OF 4 BOTTLES, TWO SETS DRAWN. BLOOD CULTURE Final GROWTH OF GRAM NEGATIVE RODS on 04/06/21 at 1055. FINAL ID=ESCHERICHIA COLI Allergies: Coded Allergies: lisinopril (Verified Allergy, Severe, ANGIOEDEMA, 04/04/21) Medications: see HPI Imaging: Imaging: CXR 04/04 IMPRESSION: Strandy bibasilar airspace disease may relate to atelectasis. Head CT 04/04 IMPRESSION: Chronic changes without acute intracranial abnormality. Renal US 04/05 IMPRESSION: Normal sonographic survey of the kidneys and bladder. LE Duplex 04/06 IMPRESSION: 1. Elevated peak systolic velocities within the left greater than right anterior tibial arteries, consistent with hemodynamically significant stenosis. 2. Elevated peak systolic velocity within the right deep femoral artery, consistent with hemodynamically significant stenosis. 3. Abnormal monophasic waveforms throughout the left lower extremity arteries, with exception of the left common femoral artery, and abnormalities waveforms from the right tibial artery to the dorsalis pedis artery. This can be seen with low flow in the setting of hemodynamically significant proximal stenosis. 4. Nonvisualization of the bilateral peroneal arteries. CT A/P 04/07 IMPRESSION: 1. Left lower lobe pneumonia. There is also right basilar atelectasis or interstitial infiltrate. 2. Bilateral perinephric and periureteral stranding with urinary bladder wall thickening. This is nonspecific. Correlate urinalysis to exclude cystitis and ascending urinary tract infection. 3. Distal colonic diverticulosis. 4. Margin large amount of colonic stool and formed stool within the rectal vault. Correlate for constipation. 5. Prostatomegaly. DICE MANAGER 04/06 DICE MANAGER Bedside Swallow Eval: Pt demo's absent swallow. Held tsp bolus of honey thick liquid in anterior floor of mouth for greater than 5 min. DICE MANAGER manually removed majority of bolus. Pt remained fully awake throughout eval, so alertness was not a factor. IMPRESSIONS: Severe oral dyphagia w/ high risk for aspiration d/t absent swallow. Suspect current acutely altered mental status is primary etiology of current dysphagia. Anticipate return to PO diet depenent on improved mental status. RECOMMENDATIONS: NPO and aggressive oral care. Will continue DICE MANAGER f/u to determine safety of PO intake. 04/07 IMPRESSIONS: Severe oral dyphagia w/ high risk for aspiration d/t absent swallow . No change since SOC 04/06/21. Suspect current acute altered mental status is primary etiology of current dysphagia. Anticipate return to PO diet depenent on improved mental status. RECOMMENDATIONS: NPO and aggressive oral care. Will continue DICE MANAGER f/u per POC to determine safety of PO intake. PE: GEN: NAD - up in chair HEENT: Atraumatic, PERRL LUNGS: clear anteriorly bilaterally HEART: RRR ABD: quiet BS, soft, at first non-specifically tender in mid/upper abdomen to light palpation, then seemed non-tender EXTREMITY: No edema SKIN: No rashes, no jaundice NEURO/PSYCH: awake and alert, said hello and asked how I was, then less communicative though able to indicate pain in chest w/ swallowing A/P: A/P: Encephalopathy, UTI, CKD/LUIS, BPH Odynophagia ACD H/o chronic abdominal pain - ?GERD ?constipation ?non-GI issue CRC screen - reportedly normal @ [facility] in 2017 Diverticulosis H/o constipation - noted on CT S/p cholecystectomy H/o Hep C w/ SVR Rapid COVID negative -- D/w Dr. Lee - try IV Diflucan (renal dosing - d/w pharmacy - half normal dose recommended) and IV acid-herpetologist, observe. Getting suppositories for constipation - no stool per nurse - consider enema. I don't believe getting narcotics. GERMAN OLIVO Apr 09, 2021 13:04
[2021-04-09] MEDS: ENOXAPARIN 30 MG/0.3 ML SYRINGE. SQ SCH (14:30)
[2021-04-09] MEDS: LIDOCAINE (700MG/PATCH) PATCH. TD SCH (14:31)
[2021-04-09] MEDS: FLUCONAZOLE 100MG/50ML PREMIX 50 ML IV SCH (14:32)
[2021-04-09 15:00] VITALS: BP 152/62
[2021-04-09] MEDS: ATORVASTATIN CALCIUM 40 MG TABLET. PO SCH (19:37)
[2021-04-09 19:40] VITALS: BP 144/67
[2021-04-09] MEDS: PATCH REMOVAL. MC SCH (21:00)
[2021-04-09 23:29] VITALS: BP 136/57
[2021-04-10] MEDS: METOPROLOL IV PUSH 5 MG/5 ML VIAL. IVP SCH ×4 (00:01→18:08)
[2021-04-10 03:24] VITALS: BP 196/85
[2021-04-10] MEDS: hydrALAZINE 20 MG/ML VIAL. IVP PRN (03:31)
[2021-04-10] MEDS: IV DEXTROSE 5% 1,000 ML IV SCH ×3 (04:51→20:23)
[2021-04-10] MEDS ORDERED: MORPHINE SULFATE 2 MG/ML INJ. IVP PRN (05:00)
[2021-04-10 05:04] LABS: CALCIUM 7.8 mg/dL (8.5-10.1); CREATININE 2.1 mg/dL (0.7-1.3); GFR 37.5; POTASSIUM 3.7 mmol/L (3.5-5.1)
[2021-04-10 07:00] VITALS: BP 139/59
[2021-04-10] MEDS: CLOPIDOGREL BISULFATE 75 MG TABLET PO SCH (08:00)
[2021-04-10] MEDS: ISOSORBIDE MONONITRATE ER 30 MG TAB.ER.24H PO SCH (08:36)
[2021-04-10] MEDS: TAMSULOSIN 0.4 MG CAP.ER.24H. PO SCH (08:36)
[2021-04-10] MEDS: ASPIRIN CHEWABLE 81 MG TABLET. PO SCH (08:36)
[2021-04-10] MEDS: METOPROLOL TART IMMED RELEASE 25 MG TABLET. PO SCH ×2 (08:36→19:57)
[2021-04-10] MEDS: LACTOBACILLUS RHAMNOSUS GG 1 CAPSULE. PO SCH ×2 (08:36→19:57)
[2021-04-10] MEDS: NYSTATIN 100,000 UNITS/ML 5 ML ORAL.SUSP. SWSW SCH ×4 (08:37→19:57)
[2021-04-10] MEDS: FINASTERIDE 5 MG TABLET. PO SCH (08:37)
--- NOTE | 2021-04-10 08:59 | PDOC ---
[employer] PROGRESS NOTE Date of Service DOS: DATE: 04/10/21 TIME: 08:59 Chief Complaint Chief Complaint Metabolic encephalopathy - likely 2/2 UTI, sepsis LUIS - stable, nephrology following E. coli sepsis - bacteremia and UTI Amaya esophagitis - unable to swallow, on IV diflucan Weakness - will have PT work with him. Recent history SDH with evacuation after a fall - no new hemorrhages noted on CT scan 04/17/17 Anemia - likely of chronic disease Diabetes mellitus type II - will hold sulfonylurea permanently given his hypoglycemia. Glucose checks History of chronic right leg weakness Hypertension - Cont meds CAD - with PCI in 2006. apparently had LHC this past wednesday12/14/2018 per daughter with no intervention but diffuse disease COPD - nebs Peripheral neuropathy - on gabapentin PAD - 12/14 LLE percutaneous revascularization and due for RLE with Dr. Medel on 12/29/2018 Hx of CVA/SDH and moderate carotid artery disease Abdominal pain with distention - will consult urology Abnormal weight loss - states he has had through w/u at [facility]. records ordered H/o Hep C - in SVR History of Present Illness History of Present Illness Mr Oleary is a 75yo M w/ PMHx HTN, DM2, peripheral vascular disease, BPH, hep c in SVR, SDH, CAD, chronic pain, Anxiety, COPD brought into ED by EMS from home, after family reportedly noticed that he had been confused and weak, demonstrating alteration in mental status. No reported head trauma or falls. No reported vomiting. He normally is able to ambulate mostly on his own, occasionally with a walker, but for the past week or so, he has been "sliding around" and using a walker, requiring significant assistance. Developed renal failure and abnormal urinalysis. Admitted for further care 04/07: NA 153, CL 120, BUN 74, CR 2.5. Still trying to swallow. He is intermittently confused. No pain complaints today. Culture positive for E. coli bacteremia and urinary tract infection. CT with prostatomegaly. Will consult urology for further recommendations. PVR 140cc. 04/08: Labs pending. Able to vocalize a little bit still trying to swallow. Intermittently confused. No complaints. Tolerating IV well. 04/09: Na 152, CR 2.1, BUN 54. A lot of right lower back pain with therapy today. Significant pain trying to swallow with speech pathology today. GI consulted, started IV diflucan. 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 Vitals/I&O Vitals/I&O: Vital Signs Date Time Temp Pulse Resp B/P (MAP) Pulse Ox O2 Delivery O2 Flow Rate FiO2 04/10/21 05:48 82 196/85 04/10/21 03:24 98.0 18 98 Room Air 98.0 I & O 04/09/21 04/09/21 04/10/21 15:00 23:00 07:00 Intake Total 0 ml Balance 0 ml Physical Exam General: Alert, Cooperative, No acute distress Heart: Regular rate Lungs: Clear, Other Abdomen: Normal bowel sounds, Soft, No tenderness Extremities: No cyanosis Skin: No breakdown Labs Labs: Laboratory Tests Test 04/10/21 03:50 Sodium Level 149 mmol/L (136-145) Potassium Level 3.7 mmol/L (3.5-5.1) Chloride Level 112 mmol/L (98-107) Carbon Dioxide Level 26 mmol/L (21-32) Anion Gap 11 (6-14) Blood Urea Nitrogen 49 mg/dL (8-26) Creatinine 2.1 mg/dL (0.7-1.3) Estimated GFR (Cockcroft-Gault) 37.5 Glucose Level 165 mg/dL (70-99) Calcium Level 7.8 mg/dL (8.5-10.1) Assessment and Plan Assessmemt and Plan Problems Medical Problems: (1) Delirium Status: Acute (2) Generalized weakness Status: Acute (3) Urinary tract infection Status: Acute Comment Review of Relevant I have reviewed the following items denise (where applicable) has been applied. Medications: Current Medications Medications (Trade) Dose Ordered Sig/Ray Route PRN Reason Start Time Stop Time Status Last Admin Dose Admin Bisacodyl (Dulcolax Supp) 10 mg 1X ONCE MN 04/09/21 12:15 04/09/21 12:16 DC 04/09/21 17:55 Lidocaine (Lidoderm) 1 patch DAILY TD 04/09/21 12:15 04/09/21 14:31 Miscellaneous (Lidoderm Patch Removal) 1 ea QHS MC 04/09/21 21:00 04/09/21 21:00 Fluconazole/ Sodium Chloride 50 ml @ 50 mls/hr Q24H IV 04/09/21 15:00 04/09/21 14:32 Morphine Sulfate (Morphine Sulfate) 2 mg 1X PRN IVP PAIN 04/10/21 05:00 04/10/21 04:54 Justifications for Admission Other Justification KIARRA FLORES MD Apr 10, 2021 08:59
[2021-04-10] MEDS: ASPIRIN RECTAL 300 MG SUPP. PR SCH (09:00)
[2021-04-10] MEDS: cefTRIAXone IV Push 1 GM VIAL. IVP SCH (10:42)
[2021-04-10] MEDS: LIDOCAINE (700MG/PATCH) PATCH. TD SCH (10:43)
[2021-04-10 11:00] VITALS: BP 149/59
--- NOTE | 2021-04-10 11:46 | NUR ---
Nurse's note: ASA suppository not available per pharmacy, Dr. Camarena notified at [phone].
[2021-04-10] MEDS: ENOXAPARIN 30 MG/0.3 ML SYRINGE. SQ SCH (12:51)
--- NOTE | 2021-04-10 14:06 | NUR ---
SS following up with discharge planning. SS reviewed pt chart and discussed with pt RN. Pt is currently on room air. COVID19 negative. Pt on IV Rocephin and IV Fluconazole. PT/OT recommended [facility]cf unit. Referral was sent to [facility]. Currently awaiting acceptance decision for [facility], ; fax [phone]. SS will continue to follow for discharge planning.
[2021-04-10 15:00] VITALS: BP 149/57
[2021-04-10] MEDS: FLUCONAZOLE 100MG/50ML PREMIX 50 ML IV SCH (15:16)
[2021-04-10 19:00] VITALS: BP 156/77
[2021-04-10] MEDS: ATORVASTATIN CALCIUM 40 MG TABLET. PO SCH (19:57)
[2021-04-10] MEDS: PATCH REMOVAL. MC SCH (20:23)
[2021-04-10] MEDS ORDERED: chlorproMAZINE 25 MG in IV DEXTROSE 5% 50 ML IV ONE (22:45)
[2021-04-10 23:00] VITALS: BP 111/78
[2021-04-11] MEDS: METOPROLOL IV PUSH 5 MG/5 ML VIAL. IVP SCH ×5 (00:08→22:09)
[2021-04-11 03:00] VITALS: BP 165/97
[2021-04-11] MEDS: IV DEXTROSE 5% 1,000 ML IV SCH ×3 (04:21→20:10)
[2021-04-11 05:56] LABS: BASO % 1 % (0-3); EOS # 0.1 x10^3/uL (0.0-0.7); EOS % 1 % (0-3); HEMATOCRIT 34.8 % (39.0-53.0); HEMOGLOBIN 11.5 g/dL (13.0-17.5); LYMPH # 1.3 x10^3/uL (1.0-4.8); LYMPH % 16 % (24-48); MEAN CORPUSCULAR HEMOGLOBIN 29 pg (25-35); MEAN CORPUSCULAR HGB CONC 33 g/dL (31-37); MEAN CORPUSCULAR VOLUME 88 fL (79-100); MONO # 0.5 x10^3/uL (0.0-1.1); MONO % 6 % (0-9); NEUT # 6.2 x10^3/uL (1.8-7.7); NEUT % 77 % (31-73); PLATELET COUNT 117 x10^3/uL (140-400); RED BLOOD COUNT 3.96 x10^6/uL (4.30-5.70); RED CELL DISTRIBUTION WIDTH 14.3 % (11.5-14.5); WHITE BLOOD COUNT 8.1 x10^3/uL (4.0-11.0)
[2021-04-11 06:15] LABS: CALCIUM 7.9 mg/dL (8.5-10.1); CREATININE 1.9 mg/dL (0.7-1.3); GFR 42.1
[2021-04-11 06:26] LABS: POTASSIUM 3.7 mmol/L (3.5-5.1)
[2021-04-11 07:00] VITALS: BP 156/52
[2021-04-11] MEDS: CLOPIDOGREL BISULFATE 75 MG TABLET PO SCH (08:00)
[2021-04-11] MEDS: METOPROLOL TART IMMED RELEASE 25 MG TABLET. PO SCH ×2 (09:00→20:13)
[2021-04-11] MEDS: NYSTATIN 100,000 UNITS/ML 5 ML ORAL.SUSP. SWSW SCH ×4 (09:00→20:13)
[2021-04-11] MEDS: LACTOBACILLUS RHAMNOSUS GG 1 CAPSULE. PO SCH ×2 (09:00→20:13)
[2021-04-11] MEDS: ASPIRIN RECTAL 300 MG SUPP. PR SCH (09:00)
[2021-04-11] MEDS: FINASTERIDE 5 MG TABLET. PO SCH (09:00)
[2021-04-11] MEDS: TAMSULOSIN 0.4 MG CAP.ER.24H. PO SCH (09:00)
[2021-04-11] MEDS: cefTRIAXone IV Push 1 GM VIAL. IVP SCH (10:00)
--- NOTE | 2021-04-11 10:50 | PDOC ---
[employer] PROGRESS NOTE Date of Service DOS: DATE: 04/11/21 TIME: 10:49 Chief Complaint Chief Complaint Metabolic encephalopathy - likely 2/2 UTI, sepsis LUIS - stable, nephrology following E. coli sepsis - bacteremia and UTI Amaya esophagitis - unable to swallow, on IV diflucan Weakness - will have PT work with him. Recent history SDH with evacuation after a fall - no new hemorrhages noted on CT scan 04/17/17 Anemia - likely of chronic disease Diabetes mellitus type II - will hold sulfonylurea permanently given his hypoglycemia. Glucose checks History of chronic right leg weakness Hypertension - Cont meds CAD - with PCI in 2006. apparently had LHC this past wednesday12/14/2018 per daughter with no intervention but diffuse disease COPD - nebs Peripheral neuropathy - on gabapentin PAD - 12/14 LLE percutaneous revascularization and due for RLE with Dr. Medel on 12/29/2018 Hx of CVA/SDH and moderate carotid artery disease Abdominal pain with distention - will consult urology Abnormal weight loss - states he has had through w/u at [facility]. records ordered H/o Hep C - in SVR History of Present Illness History of Present Illness Mr Oleary is a 75yo M w/ PMHx HTN, DM2, peripheral vascular disease, BPH, hep c in SVR, SDH, CAD, chronic pain, Anxiety, COPD brought into ED by EMS from home, after family reportedly noticed that he had been confused and weak, demonstrating alteration in mental status. No reported head trauma or falls. No reported vomiting. He normally is able to ambulate mostly on his own, occasionally with a walker, but for the past week or so, he has been "sliding around" and using a walker, requiring significant assistance. Developed renal failure and abnormal urinalysis. Admitted for further care 04/07: NA 153, CL 120, BUN 74, CR 2.5. Still trying to swallow. He is intermittently confused. No pain complaints today. Culture positive for E. coli bacteremia and urinary tract infection. CT with prostatomegaly. Will consult urology for further recommendations. PVR 140cc. 04/08: Labs pending. Able to vocalize a little bit still trying to swallow. Intermittently confused. No complaints. Tolerating IV well. 04/09: Na 152, CR 2.1, BUN 54. A lot of right lower back pain with therapy today. Significant pain trying to swallow with speech pathology today. GI consulted, started IV diflucan. 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 04/11: Hiccups overnight remitted with IV Thorazine. Thinks his throat pain is improving a little still having difficulty vocalizing. NA 141, BUN 42, CR 1.9. Vitals/I&O Vitals/I&O: Vital Signs Date Time Temp Pulse Resp B/P (MAP) Pulse Ox O2 Delivery O2 Flow Rate FiO2 04/11/21 07:00 97.7 81 18 156/52 (86) 94 97.7 04/11/21 03:00 Room Air Physical Exam General: Alert, Cooperative, No acute distress Heart: Regular rate Lungs: Clear, Other Abdomen: Normal bowel sounds, Soft, No tenderness Extremities: No cyanosis Skin: No breakdown Labs Labs: Laboratory Tests Test 04/11/21 04:45 White Blood Count 8.1 x10^3/uL (4.0-11.0) Red Blood Count 3.96 x10^6/uL (4.30-5.70) Hemoglobin 11.5 g/dL (13.0-17.5) Hematocrit 34.8 % (39.0-53.0) Mean Corpuscular Volume 88 fL (79-100) Mean Corpuscular Hemoglobin 29 pg (25-35) Mean Corpuscular Hemoglobin Concent 33 g/dL (31-37) Red Cell Distribution Width 14.3 % (11.5-14.5) Platelet Count 117 x10^3/uL (140-400) Neutrophils (%) (Auto) 77 % (31-73) Lymphocytes (%) (Auto) 16 % (24-48) Monocytes (%) (Auto) 6 % (0-9) Eosinophils (%) (Auto) 1 % (0-3) Basophils (%) (Auto) 1 % (0-3) Neutrophils # (Auto) 6.2 x10^3/uL (1.8-7.7) Lymphocytes # (Auto) 1.3 x10^3/uL (1.0-4.8) Monocytes # (Auto) 0.5 x10^3/uL (0.0-1.1) Eosinophils # (Auto) 0.1 x10^3/uL (0.0-0.7) Basophils # (Auto) 0.0 x10^3/uL (0.0-0.2) Sodium Level 141 mmol/L (136-145) Potassium Level 3.7 mmol/L (3.5-5.1) Chloride Level 105 mmol/L (98-107) Carbon Dioxide Level 24 mmol/L (21-32) Anion Gap 12 (6-14) Blood Urea Nitrogen 42 mg/dL (8-26) Creatinine 1.9 mg/dL (0.7-1.3) Estimated GFR (Cockcroft-Gault) 42.1 Glucose Level 191 mg/dL (70-99) Calcium Level 7.9 mg/dL (8.5-10.1) Assessment and Plan Assessmemt and Plan Problems Medical Problems: (1) Delirium Status: Acute (2) Generalized weakness Status: Acute (3) Urinary tract infection Status: Acute Comment Review of Relevant I have reviewed the following items denise (where applicable) has been applied. Medications: Current Medications Medications (Trade) Dose Ordered Sig/Ray Route PRN Reason Start Time Stop Time Status Last Admin Dose Admin Chlorpromazine HCl 25 mg/Dextrose 51 ml @ 100 mls/hr 1X ONCE IV 04/10/21 22:45 04/10/21 23:15 DC 04/10/21 23:06 Justifications for Admission Other Justification KIARRA FLORES MD Apr 11, 2021 10:50
[2021-04-11 11:00] VITALS: BP 147/57
[2021-04-11] MEDS ORDERED: DEXTROSE 50% 25 GM / 50ML DISP.SYRIN. IV PRN (11:00)
[2021-04-11] MEDS ORDERED: IV DEXTROSE 5% 250 ML BAG. IV PRN (11:00)
--- NOTE | 2021-04-11 11:44 | PDOC ---
DATE OF SERVICE DATE: 04/11/21 TIME: 11:41 SUBJECTIVE ROS denies any N/V. No SOB Per Nursing report good UOP, he is incontinent Hiccups overnight resolved with IV Thorazine. Thinks his throat pain is improving a little still having difficulty vocalizing. OBJECTIVE Vital Signs Vital Signs Date Time Temp Pulse Resp B/P (MAP) Pulse Ox O2 Delivery O2 Flow Rate FiO2 04/11/21 07:00 97.7 81 18 156/52 (86) 94 97.7 04/11/21 03:00 Room Air PHYSICAL EXAM Physical Exam General NAD HEEN OM moist Neck Supple Lungs Decreased at bases, Non labored CV S1S2 Abd soft, NT Ext No LE edema No evans , No cva or SP tenderness DIAGNOSIS/ASSESSMENT Assessment & Plan LUIS - Cr 3.1 POA 2/ dehydration, resolved .Lasix Held . Good UOP per nursing report- not recorded as patient incontinent . Supportive care, Avoid N ephrotoxins HyperNatremia switched to IV Hyptonic fluid (D5W) , Resolve . DC IVF . Switch to PO free water of patient able to . Insulin per Primary CKD stage 3B - Baseline Creat 1.9; basline Creat was normal in Dec 2019( UTI - Bilat perinephric starnding reported on CT- defer Abx to Primary /ID Anemia- Hgb stable . No indication for CRISS Encephalopathy Dx of BPH- continue Flomax DM- Metformin Held HTN - BP elevated . DC IV NS, antihypertensives COMMENT/RELEVANT DATA Meds Current Medications Medications (Trade) Dose Ordered Sig/Ray Start Time Stop Time Status Last Admin Dose Admin Acetaminophen (Tylenol Supp) 650 mg PRN Q6HRS PRN 04/06/21 14:45 Acetaminophen (Tylenol) 650 mg PRN Q6HRS PRN 04/04/21 22:45 Albuterol/ Ipratropium (Duoneb) 2.5 ml PRN Q6HRS PRN 04/05/21 10:00 Aspirin (Aspirin Chewable) 81 mg DAILY 04/06/21 09:00 04/11/21 08:20 DC Aspirin (Aspirin Rectal Supp) 300 mg DAILY 04/07/21 09:00 04/09/21 10:19 300 MG Atorvastatin Calcium (Lipitor) 40 mg HS 04/05/21 21:00 04/05/21 20:43 40 MG Bisacodyl (Dulcolax Supp) 10 mg PRN DAILY PRN 04/09/21 12:15 Ceftriaxone Sodium (Rocephin) 1 gm Q24H 04/05/21 10:00 04/10/21 10:42 1 GM Chlorpromazine HCl 25 mg/Dextrose 51 ml @ 100 mls/hr 1X ONCE 04/10/21 22:45 04/10/21 23:15 DC 04/10/21 23:06 100 MLS/HR Chlorpromazine HCl (Thorazine) 25 mg 1X ONCE 04/10/21 22:30 04/10/21 22:31 UNV Clopidogrel Bisulfate (Plavix) 75 mg DAILYWBKFT 04/06/21 08:00 Dextrose (Dextrose 50%-Water Syringe) 12.5 gm PRN Q15MIN PRN 04/11/21 11:00 Dextrose (Iv Dextrose 5%) 250 ml PRN Q15MIN PRN 04/11/21 11:00 Enoxaparin Sodium (Lovenox 30mg Syringe) 30 mg Q24H 04/05/21 13:00 04/10/21 12:51 30 MG Finasteride (Proscar) 5 mg DAILY 04/07/21 14:00 Fluconazole/ Sodium Chloride 50 ml @ 50 mls/hr Q24H 04/09/21 15:00 04/10/21 15:16 50 MLS/HR Hydralazine HCl (Apresoline Inj) 10 mg PRN Q4HRS PRN 04/07/21 15:00 04/10/21 03:31 10 MG Hydralazine HCl (Apresoline) 50 mg TID 04/05/21 14:00 04/05/21 20:43 50 MG Insulin Human Lispro (HumaLOG) 0-9 UNITS TIDWMEALS 04/11/21 12:00 Isosorbide Mononitrate (Imdur) 30 mg DAILY 04/05/21 10:00 04/05/21 11:25 30 MG Lactobacillus Rhamnosus (Culturelle) 1 cap BID 04/06/21 10:00 Lidocaine (Lidoderm) 1 patch DAILY 04/09/21 12:15 04/10/21 10:43 1 PATCH Metoprolol Tartrate (Lopressor Vial) 2.5 mg Q6HRS 04/07/21 18:00 04/11/21 05:44 2.5 MG Metoprolol Tartrate (Lopressor) 25 mg BID 04/05/21 21:00 04/05/21 20:43 25 MG Miscellaneous (Lidoderm Patch Removal) 1 ea QHS 04/09/21 21:00 04/10/21 20:23 1 EA Morphine Sulfate (Morphine Sulfate) 2 mg 1X PRN 04/10/21 05:00 04/10/21 04:54 2 MG Nystatin (Nystatin Oral Susp) 5 ml [id number] 04/05/21 13:00 04/08/21 15:45 5 ML Ondansetron HCl (Zofran) 4 mg PRN Q8HRS PRN 04/04/21 22:45 04/05/21 22:44 DC Sodium Chloride 1,000 ml @ 100 mls/hr Q10H 04/05/21 11:00 04/07/21 10:21 DC 04/07/21 05:29 100 MLS/HR Tamsulosin HCl (Flomax) 0.4 mg DAILY 04/05/21 10:00 04/05/21 11:27 0.4 MG Lab Laboratory Tests Test 04/11/21 04:45 White Blood Count 8.1 x10^3/uL (4.0-11.0) Red Blood Count 3.96 x10^6/uL (4.30-5.70) Hemoglobin 11.5 g/dL (13.0-17.5) Hematocrit 34.8 % (39.0-53.0) Mean Corpuscular Volume 88 fL (79-100) Mean Corpuscular Hemoglobin 29 pg (25-35) Mean Corpuscular Hemoglobin Concent 33 g/dL (31-37) Red Cell Distribution Width 14.3 % (11.5-14.5) Platelet Count 117 x10^3/uL (140-400) Neutrophils (%) (Auto) 77 % (31-73) Lymphocytes (%) (Auto) 16 % (24-48) Monocytes (%) (Auto) 6 % (0-9) Eosinophils (%) (Auto) 1 % (0-3) Basophils (%) (Auto) 1 % (0-3) Neutrophils # (Auto) 6.2 x10^3/uL (1.8-7.7) Lymphocytes # (Auto) 1.3 x10^3/uL (1.0-4.8) Monocytes # (Auto) 0.5 x10^3/uL (0.0-1.1) Eosinophils # (Auto) 0.1 x10^3/uL (0.0-0.7) Basophils # (Auto) 0.0 x10^3/uL (0.0-0.2) Sodium Level 141 mmol/L (136-145) Potassium Level 3.7 mmol/L (3.5-5.1) Chloride Level 105 mmol/L (98-107) Carbon Dioxide Level 24 mmol/L (21-32) Anion Gap 12 (6-14) Blood Urea Nitrogen 42 mg/dL (8-26) Creatinine 1.9 mg/dL (0.7-1.3) Estimated GFR (Cockcroft-Gault) 42.1 Glucose Level 191 mg/dL (70-99) Calcium Level 7.9 mg/dL (8.5-10.1) Results All relevant outside records, renal labs, imaging studies, telemetry/EKG's were reviewed. Justicifation of Admission Dx: Justifications for Admission: Justification of Admission Dx: Yes Angina: [facility] NAYELY ANGEL MD Apr 11, 2021 11:43
--- NOTE | 2021-04-11 11:57 | PDOC ---
Date of Service: DATE: 04/11/21 TIME: 11:50 Subjective: Subjective: "I'm having trouble swallowing so they're going to check it." I asked if he has pain with swallowing - eventually said yes. I asked him where his pain was located - eventually pointed to right neck. Objective: Objective: D/w nurse - no complaints of painful swallowing, DC to SNU discussed. Reviewed other notes - hiccups overnight, received thorazine. Vital Signs: Vital Signs Date Time Temp Pulse Resp B/P (MAP) Pulse Ox O2 Delivery O2 Flow Rate FiO2 04/11/21 07:00 97.7 81 18 156/52 (86) 94 97.7 04/11/21 03:00 Room Air Labs: Laboratory Tests Test 04/11/21 04:45 White Blood Count 8.1 x10^3/uL Red Blood Count 3.96 x10^6/uL Hemoglobin 11.5 g/dL Hematocrit 34.8 % Mean Corpuscular Volume 88 fL Mean Corpuscular Hemoglobin 29 pg Mean Corpuscular Hemoglobin Concent 33 g/dL Red Cell Distribution Width 14.3 % Platelet Count 117 x10^3/uL Neutrophils (%) (Auto) 77 % Lymphocytes (%) (Auto) 16 % Monocytes (%) (Auto) 6 % Eosinophils (%) (Auto) 1 % Basophils (%) (Auto) 1 % Neutrophils # (Auto) 6.2 x10^3/uL Lymphocytes # (Auto) 1.3 x10^3/uL Monocytes # (Auto) 0.5 x10^3/uL Eosinophils # (Auto) 0.1 x10^3/uL Basophils # (Auto) 0.0 x10^3/uL Sodium Level 141 mmol/L Potassium Level 3.7 mmol/L Chloride Level 105 mmol/L Carbon Dioxide Level 24 mmol/L Anion Gap 12 Blood Urea Nitrogen 42 mg/dL Creatinine 1.9 mg/dL Estimated GFR (Cockcroft-Gault) 42.1 Glucose Level 191 mg/dL Calcium Level 7.9 mg/dL PE: GEN: NAD - a couple hiccups LUNGS: CTAB HEART: RRR ABD: S/ND/NT NEURO/PSYCH: perhaps a bit more alert today, still limited history/verbalization A/P: Encephalopathy, UTI, CKD/LUIS, BPH Odynophagia - on empiric IV Diflucan (half dose w/ renal disease) started 03/25 08/13 (and hasn't received today's dose yet) Hiccups H/o constipation - now stooling Rapid COVID negative -- Difficult situation, limited history from pt - still seems to c/o painful swallowing. Will follow-up w/ Dr. Lee this afternoon. Justicifation of Admission Dx: Justifications for Admission: Justification of Admission Dx: Yes Angina: [facility] GERMAN OLIVO Apr 11, 2021 11:56
[2021-04-11] MEDS ORDERED: PANTOPRAZOLE IV PUSH 40 MG VIAL. IVP SCH (12:00)
[2021-04-11] MEDS: INSULIN LISPRO 300 UNITS/3 ML VIAL. SQ SCH ×2 (12:00→18:21)
[2021-04-11] MEDS: FLUCONAZOLE 100MG/50ML PREMIX 50 ML IV SCH (14:59)
[2021-04-11 15:00] VITALS: BP 144/61
[2021-04-11] MEDS: ISOSORBIDE MONONITRATE ER 30 MG TAB.ER.24H PO SCH (15:52)
[2021-04-11] MEDS: ENOXAPARIN 30 MG/0.3 ML SYRINGE. SQ SCH (15:54)
[2021-04-11] MEDS: LIDOCAINE (700MG/PATCH) PATCH. TD SCH (18:01)
[2021-04-11 19:00] VITALS: BP 103/61
[2021-04-11] MEDS: ATORVASTATIN CALCIUM 40 MG TABLET. PO SCH (20:13)
[2021-04-11] MEDS: PATCH REMOVAL. MC SCH (20:14)
[2021-04-11 23:00] VITALS: BP 125/68
[2021-04-12 03:32] VITALS: BP 128/68
[2021-04-12] MEDS: IV DEXTROSE 5% 1,000 ML IV SCH (04:55)
[2021-04-12 07:00] VITALS: BP 137/57
--- NOTE | 2021-04-12 08:51 | PDOC ---
[employer] PROGRESS NOTE Date of Service DOS: DATE: 04/12/21 TIME: 08:51 Chief Complaint Chief Complaint Metabolic encephalopathy - likely 2/2 UTI, sepsis LUIS - stable, nephrology following E. coli sepsis - bacteremia and UTI Amaya esophagitis - unable to swallow, on IV diflucan Weakness - will have PT work with him. Recent history SDH with evacuation after a fall - no new hemorrhages noted on CT scan 04/17/17 Anemia - likely of chronic disease Diabetes mellitus type II - will hold sulfonylurea permanently given his hypoglycemia. Glucose checks History of chronic right leg weakness Hypertension - Cont meds CAD - with PCI in 2006. apparently had LHC this past wednesday12/14/2018 per daughter with no intervention but diffuse disease COPD - nebs Peripheral neuropathy - on gabapentin PAD - 12/14 LLE percutaneous revascularization and due for RLE with Dr. Medel on 12/29/2018 Hx of CVA/SDH and moderate carotid artery disease Abdominal pain with distention - will consult urology Abnormal weight loss - states he has had through w/u at [facility]. records ordered H/o Hep C - in [facility] History of Present Illness History of Present Illness Mr Oleary is a 75yo M w/ PMHx HTN, DM2, peripheral vascular disease, BPH, hep c in [facility], SDH, CAD, chronic pain, Anxiety, COPD brought into ED by EMS from home, after family reportedly noticed that he had been confused and weak, demonstrating alteration in mental status. No reported head trauma or falls. No reported vomiting. He normally is able to ambulate mostly on his own, occasionally with a walker, but for the past week or so, he has been "sliding around" and using a walker, requiring significant assistance. Developed renal failure and abnormal urinalysis. Admitted for further care 04/07: NA 153, CL 120, BUN 74, CR 2.5. Still trying to swallow. He is intermittently confused. No pain complaints today. Culture positive for E. coli bacteremia and urinary tract infection. CT with prostatomegaly. Will consult urology for further recommendations. PVR 140cc. 04/08: Labs pending. Able to vocalize a little bit still trying to swallow. Intermittently confused. No complaints. Tolerating IV well. 04/09: Na 152, CR 2.1, BUN 54. A lot of right lower back pain with therapy today. Significant pain trying to swallow with speech pathology today. GI consulted, started IV diflucan. 04/10: NA 149, BUN 49, CR 2.1, still with a little bit of flank pain thinks it is improved with Lidoderm patch, he notes he is very thirsty but did have a lot of pain when he worked with [employer]. 04/11: Hiccups overnight remitted with IV Thorazine. Thinks his throat pain is improving a little still having difficulty vocalizing. NA 141, BUN 42, CR 1.9. 04/12: Speech-language pathology and patient able to swallow advanced to dysphagia 1 with honey thick liquids. Pain is improving. He felt too weak to work with therapy 04/11/2021 but is willing to work to get out of bed today. Transition to oral medications today Vitals/I&O Vitals/I&O: Vital Signs Date Time Temp Pulse Resp B/P (MAP) Pulse Ox O2 Delivery O2 Flow Rate FiO2 04/12/21 07:00 98.0 68 20 137/57 (83) 97 Room Air 98.0 Physical Exam General: Alert, Cooperative, No acute distress Heart: Regular rate Lungs: Clear, Other Abdomen: Normal bowel sounds, Soft, No tenderness Extremities: No cyanosis Skin: No breakdown Labs Labs: Laboratory Tests Test 04/11/21 17:23 04/11/21 20:39 04/12/21 07:15 Glucose (Fingerstick) 175 mg/dL (70-99) 146 mg/dL (70-99) 157 mg/dL (70-99) Assessment and Plan Assessmemt and Plan Problems Medical Problems: (1) Delirium Status: Acute (2) Generalized weakness Status: Acute (3) Urinary tract infection Status: Acute Comment Review of Relevant I have reviewed the following items denise (where applicable) has been applied. Medications: Current Medications Medications (Trade) Dose Ordered Sig/Ray Route PRN Reason Start Time Stop Time Status Last Admin Dose Admin Insulin Human Lispro (HumaLOG) 0-9 UNITS TIDWMEALS SQ 04/11/21 12:00 04/11/21 18:21 Pantoprazole Sodium (PROTONIX VIAL for IV PUSH) 40 mg DAILYAC IVP 04/11/21 12:00 04/11/21 12:00 Justifications for Admission Other Justification KIARRA FLORES MD Apr 12, 2021 08:51
[2021-04-12] MEDS: LIDOCAINE (700MG/PATCH) PATCH. TD SCH (09:24)
[2021-04-12] MEDS: ASPIRIN 325 MG TABLET PO SCH (09:25)
[2021-04-12] MEDS: CLOPIDOGREL BISULFATE 75 MG TABLET PO SCH (09:25)
[2021-04-12] MEDS: FINASTERIDE 5 MG TABLET. PO SCH (09:25)
[2021-04-12] MEDS: LACTOBACILLUS RHAMNOSUS GG 1 CAPSULE. PO SCH ×2 (09:25→20:23)
[2021-04-12] MEDS: ISOSORBIDE MONONITRATE ER 30 MG TAB.ER.24H PO SCH (09:26)
[2021-04-12] MEDS: TAMSULOSIN 0.4 MG CAP.ER.24H. PO SCH (09:26)
[2021-04-12] MEDS: METOPROLOL TART IMMED RELEASE 25 MG TABLET. PO SCH ×2 (09:26→20:24)
[2021-04-12] MEDS: CIPROFLOXACIN HCL 250 MG TABLET. PO SCH ×2 (09:30→20:23)
[2021-04-12] MEDS: NYSTATIN 100,000 UNITS/ML 5 ML ORAL.SUSP. SWSW SCH ×5 (09:30→20:24)
[2021-04-12] MEDS: PANTOPRAZOLE 40 MG TABLET.DR. PO SCH (09:31)
[2021-04-12] MEDS: FLUCONAZOLE 100 MG TABLET. PO SCH (09:31)
[2021-04-12] MEDS: cefTRIAXone IV Push 1 GM VIAL. IVP SCH (09:31)
[2021-04-12] MEDS: INSULIN LISPRO 300 UNITS/3 ML VIAL. SQ SCH ×3 (09:58→16:52)
[2021-04-12 11:00] VITALS: BP 101/49
[2021-04-12] MEDS: ENOXAPARIN 30 MG/0.3 ML SYRINGE. SQ SCH (13:33)
[2021-04-12 15:00] VITALS: BP 108/60
[2021-04-12 19:00] VITALS: BP 132/63
[2021-04-12] MEDS: ATORVASTATIN CALCIUM 40 MG TABLET. PO SCH (20:22)
[2021-04-12] MEDS: PATCH REMOVAL. MC SCH (20:24)
[2021-04-12 23:00] VITALS: BP 143/63
[2021-04-13 03:00] VITALS: BP 122/47
[2021-04-13 07:00] VITALS: BP 140/83
[2021-04-13] MEDS: INSULIN LISPRO 300 UNITS/3 ML VIAL. SQ SCH ×3 (08:00→17:00)
--- NOTE | 2021-04-13 08:39 | PDOC ---
[employer] PROGRESS NOTE Date of Service DOS: DATE: 04/13/21 TIME: 08:38 Chief Complaint Chief Complaint Metabolic encephalopathy - likely 2/2 UTI, sepsis LUIS - stable, nephrology following E. coli sepsis - bacteremia and UTI Amaya esophagitis - unable to swallow, on IV diflucan, now on PO Weakness - will have PT work with him. History of SDH with evacuation after a fall - no new hemorrhages Anemia - likely of chronic disease Diabetes mellitus type II - will hold sulfonylurea permanently given his hypoglycemia. Glucose checks History of chronic right leg weakness Hypertension - Cont meds CAD - with PCI in [facility] 12/14/2018 with no intervention but diffuse disease COPD - nebs Peripheral neuropathy - on gabapentin PAD - 12/14 LLE percutaneous revascularization and due for RLE with Dr. Medel on 12/29/2018 Hx of CVA/SDH and moderate carotid artery disease Abdominal pain with distention - will consult urology Abnormal weight loss - states he has had through w/u at [facility]. records ordered H/o Hep C - in SVR FEN - Dysphagia 1 honey thick PPX - heparin FULL CODE Dispo - inpatient will need skilled rehab History of Present Illness History of Present Illness Mr Oleary is a 75yo M w/ PMHx HTN, DM2, peripheral vascular disease, BPH, hep c in [facility], SDH, CAD, chronic pain, Anxiety, COPD brought into ED by EMS from home, after family reportedly noticed that he had been confused and weak, demonstrating alteration in mental status. No reported head trauma or falls. No reported vomiting. He normally is able to ambulate mostly on his own, occasionally with a walker, but for the past week or so, he has been "sliding around" and using a walker, requiring significant assistance. Developed renal failure and abnormal urinalysis. Admitted for further care 04/07: NA 153, CL 120, BUN 74, CR 2.5. Still trying to swallow. He is intermittently confused. No pain complaints today. Culture positive for E. coli bacteremia and urinary tract infection. CT with prostatomegaly. Will consult urology for further recommendations. PVR 140cc. 04/08: Labs pending. Able to vocalize a little bit still trying to swallow. Intermittently confused. No complaints. Tolerating IV well. 04/09: Na 152, CR 2.1, BUN 54. A lot of right lower back pain with therapy today. Significant pain trying to swallow with speech pathology today. GI consulted, started IV diflucan. 04/10: NA 149, BUN 49, CR 2.1, still with a little bit of flank pain thinks it is improved with Lidoderm patch, he notes he is very thirsty but did have a lot of pain when he worked with [employer]. 04/11: Hiccups overnight remitted with IV Thorazine. Thinks his throat pain is improving a little still having difficulty vocalizing. NA 141, BUN 42, CR 1.9. 04/12: Speech-language pathology and patient able to swallow advanced to dysphagia 1 with honey thick liquids. Pain is improving. He felt too weak to work with therapy 04/11/2021 but is willing to work to get out of bed today. Transition to oral medications today 04/13: Afebrile. Still with right lower quadrant and right flank pain. Able to vocalize quite a bit better today has not had a bowel movement in 5 days. Still profoundly weak. He is amenable to rehab once get home to his and his dogs. Vitals/I&O Vitals/I&O: Vital Signs Date Time Temp Pulse Resp B/P (MAP) Pulse Ox O2 Delivery O2 Flow Rate FiO2 04/13/21 07:00 98.3 65 17 140/83 (102) 95 Room Air 98.3 I & O 04/12/21 04/12/21 04/13/21 15:00 23:00 07:00 Intake Total 200 ml 100 ml Balance 200 ml 100 ml Physical Exam General: Alert, Cooperative, No acute distress Heart: Regular rate Lungs: Clear, Other Abdomen: Normal bowel sounds, Soft, No tenderness Extremities: No cyanosis Skin: No breakdown Labs Labs: Laboratory Tests Test 04/12/21 11:10 04/12/21 16:11 04/12/21 20:28 04/13/21 07:55 Glucose (Fingerstick) 223 mg/dL (70-99) 105 mg/dL (70-99) 161 mg/dL (70-99) 135 mg/dL (70-99) Assessment and Plan Assessmemt and Plan Problems Medical Problems: (1) Delirium Status: Acute (2) Generalized weakness Status: Acute (3) Urinary tract infection Status: Acute Comment Review of Relevant I have reviewed the following items denise (where applicable) has been applied. Medications: Current Medications Medications (Trade) Dose Ordered Sig/Ray Route PRN Reason Start Time Stop Time Status Last Admin Dose Admin Hydralazine HCl (Apresoline) 25 mg TID PO 04/12/21 09:00 04/12/21 20:23 Pantoprazole Sodium (Protonix) 40 mg DAILYAC PO 04/12/21 08:45 04/12/21 09:31 Ciprofloxacin (Cipro) 250 mg BID PO 04/12/21 09:00 04/15/21 09:01 04/12/21 20:23 Fluconazole (Diflucan) 100 mg DAILY PO 04/12/21 09:00 04/22/21 09:01 04/12/21 09:31 Justifications for Admission Other Justification KIARRA FLORES MD Apr 13, 2021 08:39
[2021-04-13] MEDS: LIDOCAINE (700MG/PATCH) PATCH. TD SCH (09:00)
[2021-04-13] MEDS: NYSTATIN 100,000 UNITS/ML 5 ML ORAL.SUSP. SWSW SCH (09:00)
[2021-04-13] MEDS: ISOSORBIDE MONONITRATE ER 30 MG TAB.ER.24H PO SCH (09:00)
[2021-04-13] MEDS: FINASTERIDE 5 MG TABLET. PO SCH (09:01)
[2021-04-13] MEDS: METOPROLOL TART IMMED RELEASE 25 MG TABLET. PO SCH ×2 (09:01→20:37)
[2021-04-13] MEDS: TAMSULOSIN 0.4 MG CAP.ER.24H. PO SCH (09:06)
[2021-04-13] MEDS: PANTOPRAZOLE 40 MG TABLET.DR. PO SCH (09:06)
[2021-04-13] MEDS: ASPIRIN 325 MG TABLET PO SCH (09:06)
[2021-04-13] MEDS: CIPROFLOXACIN HCL 250 MG TABLET. PO SCH ×2 (09:06→20:36)
[2021-04-13] MEDS: CLOPIDOGREL BISULFATE 75 MG TABLET PO SCH (09:06)
[2021-04-13] MEDS: LACTOBACILLUS RHAMNOSUS GG 1 CAPSULE. PO SCH ×3 (09:06→21:02)
[2021-04-13] MEDS: FLUCONAZOLE 100 MG TABLET. PO SCH (09:06)
[2021-04-13] MEDS ORDERED: traMADol 50 MG TABLET PO PRN (09:30)
[2021-04-13] MEDS ORDERED: SENNOSIDES/DOCUSATE 8.6/50MG TABLET. PO PRN (09:30)
[2021-04-13] MEDS ORDERED: fentaNYL PF VIAL 100 MCG/2 ML VIAL IVP PRN (09:30)
[2021-04-13] MEDS: POLYETHYLENE GLYCOL 3350 17 GM PACKET. PO SCH (10:26)
[2021-04-13] MEDS: POTASSIUM CL 20MEQ D5-0.45NACL 1,000 ML IV SCH (10:26)
[2021-04-13 11:00] VITALS: BP 141/59
[2021-04-13] MEDS: ENOXAPARIN 30 MG/0.3 ML SYRINGE. SQ SCH (12:59)
[2021-04-13 15:00] VITALS: BP 107/56
[2021-04-13 19:00] VITALS: BP 139/52
[2021-04-13] MEDS: PSYLLIUM HUSK (SUGAR FREE) 1 PKT PACKET PO SCH ×2 (20:36→21:02)
[2021-04-13] MEDS: ATORVASTATIN CALCIUM 40 MG TABLET. PO SCH ×2 (20:37→21:02)
[2021-04-13] MEDS: PATCH REMOVAL. MC SCH (20:38)
[2021-04-13 23:00] VITALS: BP 132/64
[2021-04-14] MEDS: POTASSIUM CL 20MEQ D5-0.45NACL 1,000 ML IV SCH (00:16)
[2021-04-14 03:00] VITALS: BP 144/59
[2021-04-14 07:00] VITALS: BP 148/82
[2021-04-14 07:38] LABS: CALCIUM 7.8 mg/dL (8.5-10.1); CREATININE 2.3 mg/dL (0.7-1.3); GFR 33.8; POTASSIUM 4.6 mmol/L (3.5-5.1)
[2021-04-14] MEDS: INSULIN LISPRO 300 UNITS/3 ML VIAL. SQ SCH ×3 (08:00→17:00)
--- NOTE | 2021-04-14 08:45 | NUR ---
Patient eating very little, sliding scale held at this time
[2021-04-14] MEDS: POLYETHYLENE GLYCOL 3350 17 GM PACKET. PO SCH (09:00)
--- NOTE | 2021-04-14 09:45 | PDOC ---
DATE OF SERVICE DATE: 04/14/21 TIME: 09:40 SUBJECTIVE ROS denies any N/V. No SOB . States he thinks he is ready to get out of here OBJECTIVE Vital Signs Vital Signs Date Time Temp Pulse Resp B/P (MAP) Pulse Ox O2 Delivery O2 Flow Rate FiO2 04/14/21 07:00 98.1 68 18 148/82 (104) 96 98.1 04/13/21 20:15 Room Air I & 0 Intake and Output 04/14/21 07:00 Intake Total 300 ml Balance 300 ml Intake Oral 300 ml # Voids 2 # Bowel Movements 1 PHYSICAL EXAM Physical Exam General NAD HEEN OM moist Neck Supple Lungs Decreased at bases, Non labored CV S1S2 Abd soft, NT Ext No LE edema No evans , No cva or SP tenderness DIAGNOSIS/ASSESSMENT Assessment & Plan LUIS - Cr 3.1 POA 2/2 dehydration, resolved ; Cr trended up ; suspect 2/2 dehydration .Encourage PO fluid untake. If Poor PO intake will need IVF / Nutrition . Lasix Held . Good UOP per nursing report- not recorded as patient incontinent . Supportive care, Avoid Nephrotoxins HyperNatremia switched to IV Hyptonic fluid (D5W) , Resolved . Na Mildly elevated again .He needs to drink fluids CKD stage 3B - Baseline Creat 1.9; basline Creat was normal in Dec 2019( UTI - Bilat perinephric stranding reported on CT- defer Abx to Primary /ID Anemia- Hgb stable . No indication for CRISS Encephalopathy Dx of BPH- continue Flomax DM- Metformin Held HTN - BP elevated . DC IV NS, antihypertensives DC per primary COMMENT/RELEVANT DATA Meds Current Medications Medications (Trade) Dose Ordered Sig/Ray Start Time Stop Time Status Last Admin Dose Admin Acetaminophen (Tylenol Supp) 650 mg PRN Q6HRS PRN 04/06/21 14:45 Acetaminophen (Tylenol) 650 mg PRN Q6HRS PRN 04/04/21 22:45 Albuterol/ Ipratropium (Duoneb) 2.5 ml PRN Q6HRS PRN 04/05/21 10:00 Aspirin (Aspirin Chewable) 81 mg DAILY 04/06/21 09:00 04/11/21 08:20 DC Aspirin (Aspirin Rectal Supp) 300 mg DAILY 04/07/21 09:00 04/12/21 04:57 DC 04/09/21 10:19 300 MG Aspirin (Yonatan Aspirin) 325 mg [id number] 04/12/21 08:00 04/13/21 09:06 325 MG Atorvastatin Calcium (Lipitor) 40 mg HS 04/05/21 21:00 04/12/21 20:22 40 MG Bisacodyl (Dulcolax Supp) 10 mg PRN DAILY PRN 04/09/21 12:15 Ceftriaxone Sodium (Rocephin) 1 gm Q24H 04/05/21 10:00 04/12/21 10:01 DC 04/12/21 09:31 1 GM Chlorpromazine HCl 25 mg/Dextrose 51 ml @ 100 mls/hr 1X ONCE 04/10/21 22:45 04/10/21 23:15 DC 04/10/21 23:06 100 MLS/HR Chlorpromazine HCl (Thorazine) 25 mg 1X ONCE 04/10/21 22:30 04/10/21 22:31 UNV Ciprofloxacin (Cipro) 250 mg BID 04/12/21 09:00 04/15/21 09:01 04/13/21 20:36 250 MG Clopidogrel Bisulfate (Plavix) 75 mg DAILYWBKFT 04/06/21 08:00 04/13/21 09:06 75 MG Dextrose (Dextrose 50%-Water Syringe) 12.5 gm PRN Q15MIN PRN 04/11/21 11:00 Dextrose (Iv Dextrose 5%) 250 ml PRN Q15MIN PRN 04/11/21 11:00 Enoxaparin Sodium (Lovenox 30mg Syringe) 30 mg Q24H 04/05/21 13:00 04/13/21 12:59 30 MG Fentanyl Citrate (Fentanyl 2ml Vial) 25 mcg PRN Q3HRS PRN 04/13/21 09:30 Finasteride (Proscar) 5 mg DAILY 04/07/21 14:00 04/13/21 09:01 5 MG Fluconazole (Diflucan) 100 mg DAILY 04/12/21 09:00 04/22/21 09:01 04/13/21 09:06 100 MG Fluconazole/ Sodium Chloride 50 ml @ 50 mls/hr Q24H 04/09/21 15:00 04/12/21 08:51 DC 04/11/21 14:59 50 MLS/HR Hydralazine HCl (Apresoline Inj) 10 mg PRN Q4HRS PRN 04/07/21 15:00 04/10/21 03:31 10 MG Hydralazine HCl (Apresoline) 25 mg TID 04/12/21 09:00 04/13/21 20:38 25 MG Insulin Human Lispro (HumaLOG) 0-9 UNITS TIDWMEALS 04/11/21 12:00 04/13/21 13:01 5 UNITS Isosorbide Mononitrate (Imdur) 30 mg DAILY 04/05/21 10:00 04/13/21 09:00 30 MG Lactobacillus Rhamnosus (Culturelle) 1 cap BID 04/06/21 10:00 04/13/21 09:06 1 CAP Lidocaine (Lidoderm) 1 patch DAILY 04/09/21 12:15 04/13/21 09:00 1 PATCH Metoprolol Tartrate (Lopressor Vial) 2.5 mg Q6HRS 04/07/21 18:00 04/11/21 22:10 DC 04/11/21 05:44 2.5 MG Metoprolol Tartrate (Lopressor) 25 mg BID 04/05/21 21:00 04/13/21 20:37 25 MG Miscellaneous (Lidoderm Patch Removal) 1 ea QHS 04/09/21 21:00 04/13/21 20:38 1 EA Morphine Sulfate (Morphine Sulfate) 2 mg 1X PRN 04/10/21 05:00 04/13/21 16:03 DC 04/10/21 04:54 2 MG Nystatin (Nystatin Oral Susp) 5 ml [id number] 04/05/21 13:00 04/13/21 13:05 DC 04/12/21 09:30 5 ML Ondansetron HCl (Zofran) 4 mg PRN Q8HRS PRN 04/04/21 22:45 04/05/21 22:44 DC Pantoprazole Sodium (PROTONIX VIAL for IV PUSH) 40 mg DAILYAC 04/11/21 12:00 04/12/21 08:51 DC 04/11/21 12:00 40 MG Pantoprazole Sodium (Protonix) 40 mg DAILYAC 04/12/21 08:45 04/13/21 09:06 40 MG Polyethylene Glycol (miraLAX PACKET) 17 gm DAILY 04/13/21 09:30 04/13/21 10:26 17 GM Potassium Chloride/Dextrose/ Sod Cl 1,000 ml @ 75 mls/hr [id number] 04/13/21 09:30 04/14/21 12:09 04/14/21 00:16 75 MLS/HR Psyllium Hydrophilic Mucilloid (Metamucil Fiber Packet) 1 pkt QHS 04/13/21 21:00 Senna/Docusate Sodium (Senna Plus) 2 tab PRN BID PRN 04/13/21 09:30 Sodium Chloride 1,000 ml @ 100 mls/hr Q10H 04/05/21 11:00 04/07/21 10:21 DC 04/07/21 05:29 100 MLS/HR Tamsulosin HCl (Flomax) 0.4 mg DAILY 04/05/21 10:00 04/13/21 09:06 0.4 MG Tramadol HCl (Ultram) 50 mg PRN Q6HRS PRN 04/13/21 09:30 Lab Laboratory Tests Test 04/13/21 11:57 04/13/21 17:32 04/13/21 20:26 04/14/21 06:15 Glucose (Fingerstick) 215 mg/dL (70-99) 135 mg/dL (70-99) 195 mg/dL (70-99) Sodium Level 146 mmol/L (136-145) Potassium Level 4.6 mmol/L (3.5-5.1) Chloride Level 111 mmol/L (98-107) Carbon Dioxide Level 23 mmol/L (21-32) Anion Gap 12 (6-14) Blood Urea Nitrogen 57 mg/dL (8-26) Creatinine 2.3 mg/dL (0.7-1.3) Estimated GFR (Cockcroft-Gault) 33.8 Glucose Level 167 mg/dL (70-99) Calcium Level 7.8 mg/dL (8.5-10.1) Test 04/14/21 07:33 Glucose (Fingerstick) 160 mg/dL (70-99) Results All relevant outside records, renal labs, imaging studies, telemetry/EKG's were reviewed. Justicifation of Admission Dx: Justifications for Admission: Justification of Admission Dx: Yes Angina: [facility] NAYELY ANGEL MD Apr 14, 2021 09:45
[2021-04-14 10:59] VITALS: BP 126/54
[2021-04-14] MEDS: FLUCONAZOLE 100 MG TABLET. PO SCH (11:46)
[2021-04-14] MEDS: TAMSULOSIN 0.4 MG CAP.ER.24H. PO SCH (11:46)
[2021-04-14] MEDS: ASPIRIN 325 MG TABLET PO SCH (11:47)
[2021-04-14] MEDS: LACTOBACILLUS RHAMNOSUS GG 1 CAPSULE. PO SCH ×2 (11:47→20:42)
[2021-04-14] MEDS: ISOSORBIDE MONONITRATE ER 30 MG TAB.ER.24H PO SCH (11:47)
[2021-04-14] MEDS: CLOPIDOGREL BISULFATE 75 MG TABLET PO SCH (11:47)
[2021-04-14] MEDS: PANTOPRAZOLE 40 MG TABLET.DR. PO SCH (11:47)
[2021-04-14] MEDS: CIPROFLOXACIN HCL 250 MG TABLET. PO SCH ×2 (11:47→20:42)
[2021-04-14] MEDS: METOPROLOL TART IMMED RELEASE 25 MG TABLET. PO SCH ×2 (11:48→20:43)
[2021-04-14] MEDS: FINASTERIDE 5 MG TABLET. PO SCH (11:48)
[2021-04-14] MEDS: LIDOCAINE (700MG/PATCH) PATCH. TD SCH (11:49)
--- NOTE | 2021-04-14 12:06 | PDOC ---
Date of Service: DATE: 04/14/21 TIME: 12:01 Subjective: Subjective: Denies odynophagia. "I'm drinking water like crazy!" Objective: Objective: 1 stool charted. Vital Signs: Vital Signs Date Time Temp Pulse Resp B/P (MAP) Pulse Ox O2 Delivery O2 Flow Rate FiO2 04/14/21 11:48 70 126/54 04/14/21 10:59 97.8 18 96 97.8 04/14/21 08:00 Room Air Labs: Laboratory Tests Test 04/13/21 17:32 04/13/21 20:26 04/14/21 06:15 04/14/21 07:33 Glucose (Fingerstick) 135 mg/dL 195 mg/dL 160 mg/dL Sodium Level 146 mmol/L Potassium Level 4.6 mmol/L Chloride Level 111 mmol/L Carbon Dioxide Level 23 mmol/L Anion Gap 12 Blood Urea Nitrogen 57 mg/dL Creatinine 2.3 mg/dL Estimated GFR (Cockcroft-Gault) 33.8 Glucose Level 167 mg/dL Calcium Level 7.8 mg/dL Test 04/14/21 11:44 Glucose (Fingerstick) 179 mg/dL Imaging: CVT RN Dysphagia F/U: Dysphagia resolved. Pt now demo's functional oropharyngeal swallow w/ regular diet & thin liquids. See ST Tx Note in Interventions for details. Recommendations: Upgrade to regular diet w/ thin liquids. No add'l CVT RN f/u indicated. PE: GEN: NAD - up in chair, looks better compared to last week LUNGS: CTAB HEART: RRR ABD: S/ND/NT NEURO/PSYCH: A & O 3 - much more communicative A/P: Encephalopathy - better E coli bacteremia/UTI Odynophagia - resolved CKD H/o constipation - stooling COVID negative -- Improved and eating without issue. Note was changed to PO Diflucan - consider renal dosing (was receiving 50mg QD IV instead of usual 100mg dose). Justicifation of Admission Dx: Justifications for Admission: Justification of Admission Dx: Yes Angina: [facility] GERMAN OLIVO Apr 14, 2021 12:06
[2021-04-14] MEDS: ENOXAPARIN 30 MG/0.3 ML SYRINGE. SQ SCH (12:12)
--- NOTE | 2021-04-14 13:38 | PDOC ---
[employer] PROGRESS NOTE Date of Service DOS: DATE: 04/14/21 TIME: 13:33 Chief Complaint Chief Complaint Metabolic encephalopathy - likely 2/2 UTI, sepsis LUIS - stable, nephrology following E. coli sepsis - bacteremia and UTI Amaya esophagitis - unable to swallow, on IV diflucan, now on PO Weakness - will have PT work with him. History of SDH with evacuation after a fall - no new hemorrhages Anemia - likely of chronic disease Diabetes mellitus type II - will hold sulfonylurea permanently given his hypoglycemia. Glucose checks History of chronic right leg weakness Hypertension - Cont meds CAD - with PCI in 2006.[facility] 12/14/2018 with no intervention but diffuse disease COPD - nebs Peripheral neuropathy - on gabapentin PAD - 12/14 LLE percutaneous revascularization and due for RLE with Dr. Medel on 12/29/2018 Hx of CVA/SDH and moderate carotid artery disease Abdominal pain with distention - will consult urology Abnormal weight loss - states he has had through w/u at [facility]. records ordered H/o Hep C - in SVR FEN - Dysphagia 1 honey thick PPX - heparin FULL CODE Dispo - inpatient will need skilled rehab History of Present Illness History of Present Illness Mr Oleary is a 75yo M w/ PMHx HTN, DM2, peripheral vascular disease, BPH, hep c in SVR, SDH, CAD, chronic pain, Anxiety, COPD brought into ED by EMS from home, after family reportedly noticed that he had been confused and weak, demonstrating alteration in mental status. No reported head trauma or falls. No reported vomiting. He normally is able to ambulate mostly on his own, occasionally with a walker, but for the past week or so, he has been "sliding around" and using a walker, requiring significant assistance. Developed renal failure and abnormal urinalysis. Admitted for further care 04/07: NA 153, CL 120, BUN 74, CR 2.5. Still trying to swallow. He is intermittently confused. No pain complaints today. Culture positive for E. coli bacteremia and urinary tract infection. CT with prostatomegaly. Will consult urology for further recommendations. PVR 140cc. 04/08: Labs pending. Able to vocalize a little bit still trying to swallow. Intermittently confused. No complaints. Tolerating IV well. 04/09: Na 152, CR 2.1, BUN 54. A lot of right lower back pain with therapy today. Significant pain trying to swallow with speech pathology today. GI consulted, started IV diflucan. 04/10: NA 149, BUN 49, CR 2.1, still with a little bit of flank pain thinks it is improved with Lidoderm patch, he notes he is very thirsty but did have a lot of pain when he worked with [employer]. 04/11: Hiccups overnight remitted with IV Thorazine. Thinks his throat pain is improving a little still having difficulty vocalizing. NA 141, BUN 42, CR 1.9. 04/12: Speech-language pathology and patient able to swallow advanced to dysphagia 1 with honey thick liquids. Pain is improving. He felt too weak to work with therapy 04/11/2021 but is willing to work to get out of bed today. Transition to oral medications today 04/13: Afebrile. Still with right lower quadrant and right flank pain. Able to vocalize quite a bit better today has not had a bowel movement in 5 days. Still profoundly weak. He is amenable to rehab once get home to his and his dogs. 04/14 Evaluate examined at bedside. Improving overall. Continue Cipro. Gram- negative hannah bacteremia on cultures from a week ago. Has been on antibiotics. Will consult infectious disease today for antibiotic duration and choice. Otherwise swallowing is improved notably. Dose reduce fluconazole from 100-50. Plan discussed with bedside RN. Vitals/I&O Vitals/I&O: Vital Signs Date Time Temp Pulse Resp B/P (MAP) Pulse Ox O2 Delivery O2 Flow Rate FiO2 04/14/21 12:17 70 126/54 04/14/21 10:59 97.8 18 96 97.8 04/14/21 08:00 Room Air I & O 04/13/21 04/13/21 04/14/21 15:00 23:00 07:00 Intake Total 300 ml 0 ml Balance 300 ml 0 ml Physical Exam General: Alert, Cooperative, No acute distress Heart: Regular rate Lungs: Clear, Other Abdomen: Normal bowel sounds, Soft, No tenderness Extremities: No cyanosis Skin: No breakdown Labs Labs: Laboratory Tests Test 04/13/21 17:32 04/13/21 20:26 04/14/21 06:15 04/14/21 07:33 Glucose (Fingerstick) 135 mg/dL (70-99) 195 mg/dL (70-99) 160 mg/dL (70-99) Sodium Level 146 mmol/L (136-145) Potassium Level 4.6 mmol/L (3.5-5.1) Chloride Level 111 mmol/L (98-107) Carbon Dioxide Level 23 mmol/L (21-32) Anion Gap 12 (6-14) Blood Urea Nitrogen 57 mg/dL (8-26) Creatinine 2.3 mg/dL (0.7-1.3) Estimated GFR (Cockcroft-Gault) 33.8 Glucose Level 167 mg/dL (70-99) Calcium Level 7.8 mg/dL (8.5-10.1) Test 04/14/21 11:44 Glucose (Fingerstick) 179 mg/dL (70-99) Assessment and Plan Assessmemt and Plan Problems Medical Problems: (1) Delirium Status: Acute (2) Generalized weakness Status: Acute (3) Urinary tract infection Status: Acute Comment Review of Relevant I have reviewed the following items denise (where applicable) has been applied. Justifications for Admission Other Justification KIARRA SEQUEIRA MD Apr 14, 2021 13:38
[2021-04-14 14:33] VITALS: BP 127/59
[2021-04-14 19:00] VITALS: BP 139/69
[2021-04-14] MEDS: ATORVASTATIN CALCIUM 40 MG TABLET. PO SCH (20:42)
[2021-04-14] MEDS: PSYLLIUM HUSK (SUGAR FREE) 1 PKT PACKET PO SCH (20:42)
[2021-04-14] MEDS: PATCH REMOVAL. MC SCH (20:50)
[2021-04-14 23:00] VITALS: BP 139/56
[2021-04-15 03:00] VITALS: BP 130/55
[2021-04-15 07:00] VITALS: BP 154/52
[2021-04-15] MEDS: INSULIN LISPRO 300 UNITS/3 ML VIAL. SQ SCH ×2 (08:00→12:00)
[2021-04-15 08:33] LABS: CALCIUM 7.8 mg/dL (8.5-10.1); CREATININE 1.9 mg/dL (0.7-1.3); GFR 42.1; POTASSIUM 4.5 mmol/L (3.5-5.1)
[2021-04-15] MEDS: CIPROFLOXACIN HCL 250 MG TABLET. PO SCH (08:49)
[2021-04-15] MEDS: LACTOBACILLUS RHAMNOSUS GG 1 CAPSULE. PO SCH (08:49)
[2021-04-15] MEDS: ASPIRIN 325 MG TABLET PO SCH (08:49)
[2021-04-15] MEDS: METOPROLOL TART IMMED RELEASE 25 MG TABLET. PO SCH (08:49)
[2021-04-15] MEDS: CLOPIDOGREL BISULFATE 75 MG TABLET PO SCH (08:49)
[2021-04-15] MEDS: PANTOPRAZOLE 40 MG TABLET.DR. PO SCH (08:50)
[2021-04-15] MEDS: FINASTERIDE 5 MG TABLET. PO SCH (08:50)
[2021-04-15] MEDS: ISOSORBIDE MONONITRATE ER 30 MG TAB.ER.24H PO SCH (08:50)
[2021-04-15] MEDS: TAMSULOSIN 0.4 MG CAP.ER.24H. PO SCH (08:50)
[2021-04-15] MEDS: LIDOCAINE (700MG/PATCH) PATCH. TD SCH (08:51)
[2021-04-15] MEDS: POLYETHYLENE GLYCOL 3350 17 GM PACKET. PO SCH (08:51)
[2021-04-15] MEDS ORDERED: FLUCONAZOLE 100 MG TABLET. PO SCH (09:00)
--- NOTE | 2021-04-15 09:42 | PDOC ---
DATE OF SERVICE DATE: 04/15/21 TIME: 09:37 SUBJECTIVE ROS denies any N/V. No SOB OBJECTIVE Vital Signs Vital Signs Date Time Temp Pulse Resp B/P (MAP) Pulse Ox O2 Delivery O2 Flow Rate FiO2 04/15/21 08:50 61 154/52 04/15/21 07:00 98.1 17 96 Room Air 98.1 I & 0 Intake and Output 04/15/21 07:00 Intake Total 0 ml Balance 0 ml Intake Oral 0 ml # Voids 2 # Bowel Movements 2 PHYSICAL EXAM Physical Exam General NAD HEEN OM moist Neck Supple Lungs Decreased at bases, Non labored CV S1S2 Abd soft, NT Ext No LE edema No evans , No cva or SP tenderness DIAGNOSIS/ASSESSMENT Assessment & Plan LUIS - Cr 3.1 POA 2/2 dehydration, resolved ;; suspect 2/2 dehydration .Encourage PO fluid untake. Lasix Held . Good UOP per nursing report- not r ecorded as patient incontinent . Supportive care, Avoid Nephrotoxins HyperNatremia switched to IV Hyptonic fluid (D5W) , Resolved . CKD stage 3B - Baseline Creat 1.9; baseline Creat was normal in Dec 2019( UTI - Bilat perinephric stranding reported on CT- defer Abx to Primary /ID Anemia- Hgb stable . No indication for CRISS Encephalopathy Dx of BPH- continue Flomax DM- Metformin Held HTN - BP elevated . DC IV NS, antihypertensives DC per primary COMMENT/RELEVANT DATA Meds Current Medications Medications (Trade) Dose Ordered Sig/Ray Start Time Stop Time Status Last Admin Dose Admin Acetaminophen (Tylenol Supp) 650 mg PRN Q6HRS PRN 04/06/21 14:45 Acetaminophen (Tylenol) 650 mg PRN Q6HRS PRN 04/04/21 22:45 Albuterol/ Ipratropium (Duoneb) 2.5 ml PRN Q6HRS PRN 04/05/21 10:00 Aspirin (Aspirin Chewable) 81 mg DAILY 04/06/21 09:00 04/11/21 08:20 DC Aspirin (Aspirin Rectal Supp) 300 mg DAILY 04/07/21 09:00 04/12/21 04:57 DC 04/09/21 10:19 300 MG Aspirin (Yonatan Aspirin) 325 mg DAILYWBKFT 04/12/21 08:00 04/15/21 08:49 325 MG Atorvastatin Calcium (Lipitor) 40 mg HS 04/05/21 21:00 04/14/21 20:42 40 MG Bisacodyl (Dulcolax Supp) 10 mg PRN DAILY PRN 04/09/21 12:15 Ceftriaxone Sodium (Rocephin) 1 gm Q24H 04/05/21 10:00 04/12/21 10:01 DC 04/12/21 09:31 1 GM Chlorpromazine HCl 25 mg/Dextrose 51 ml @ 100 mls/hr 1X ONCE 04/10/21 22:45 04/10/21 23:15 DC 04/10/21 23:06 100 MLS/HR Chlorpromazine HCl (Thorazine) 25 mg 1X ONCE 04/10/21 22:30 04/10/21 22:31 UNV Ciprofloxacin (Cipro) 250 mg BID 04/12/21 09:00 04/15/21 09:01 DC 04/15/21 08:49 250 MG Clopidogrel Bisulfate (Plavix) 75 mg DAILYWBKFT 04/06/21 08:00 04/15/21 08:49 75 MG Dextrose (Dextrose 50%-Water Syringe) 12.5 gm PRN Q15MIN PRN 04/11/21 11:00 Dextrose (Iv Dextrose 5%) 250 ml PRN Q15MIN PRN 04/11/21 11:00 Enoxaparin Sodium (Lovenox 30mg Syringe) 30 mg Q24H 04/05/21 13:00 04/14/21 12:12 30 MG Fentanyl Citrate (Fentanyl 2ml Vial) 25 mcg PRN Q3HRS PRN 04/13/21 09:30 Finasteride (Proscar) 5 mg DAILY 04/07/21 14:00 04/15/21 08:50 5 MG Fluconazole (Diflucan) 50 mg DAILY 04/15/21 09:00 04/22/21 09:01 04/15/21 08:49 50 MG Fluconazole/ Sodium Chloride 50 ml @ 50 mls/hr Q24H 04/09/21 15:00 04/12/21 08:51 DC 04/11/21 14:59 50 MLS/HR Hydralazine HCl (Apresoline Inj) 10 mg PRN Q4HRS PRN 04/07/21 15:00 04/10/21 03:31 10 MG Hydralazine HCl (Apresoline) 25 mg TID 04/12/21 09:00 04/15/21 08:50 25 MG Insulin Human Lispro (HumaLOG) 0-9 UNITS TIDWMEALS 04/11/21 12:00 04/14/21 12:16 4 UNITS Isosorbide Mononitrate (Imdur) 30 mg DAILY 04/05/21 10:00 04/15/21 08:50 30 MG Lactobacillus Rhamnosus (Culturelle) 1 cap BID 04/06/21 10:00 04/15/21 08:49 1 CAP Lidocaine (Lidoderm) 1 patch DAILY 04/09/21 12:15 04/15/21 08:51 1 PATCH Metoprolol Tartrate (Lopressor Vial) 2.5 mg Q6HRS 04/07/21 18:00 04/11/21 22:10 DC 04/11/21 05:44 2.5 MG Metoprolol Tartrate (Lopressor) 25 mg BID 04/05/21 21:00 04/15/21 08:49 25 MG Miscellaneous (Lidoderm Patch Removal) 1 ea QHS 04/09/21 21:00 04/13/21 20:38 1 EA Morphine Sulfate (Morphine Sulfate) 2 mg 1X PRN 04/10/21 05:00 04/13/21 16:03 DC 04/10/21 04:54 2 MG Nystatin (Nystatin Oral Susp) 5 ml [id number] 04/05/21 13:00 04/13/21 13:05 DC 04/12/21 09:30 5 ML Ondansetron HCl (Zofran) 4 mg PRN Q8HRS PRN 04/04/21 22:45 04/05/21 22:44 DC Pantoprazole Sodium (PROTONIX VIAL for IV PUSH) 40 mg DAILYAC 04/11/21 12:00 04/12/21 08:51 DC 04/11/21 12:00 40 MG Pantoprazole Sodium (Protonix) 40 mg DAILYAC 04/12/21 08:45 04/15/21 08:50 40 MG Polyethylene Glycol (miraLAX PACKET) 17 gm DAILY 04/13/21 09:30 04/13/21 10:26 17 GM Potassium Chloride/Dextrose/ Sod Cl 1,000 ml @ 75 mls/hr [id number] 04/13/21 09:30 04/14/21 12:09 DC 04/14/21 00:16 75 MLS/HR Psyllium Hydrophilic Mucilloid (Metamucil Fiber Packet) 1 pkt QHS 04/13/21 21:00 04/14/21 20:42 1 PKT Senna/Docusate Sodium (Senna Plus) 2 tab PRN BID PRN 04/13/21 09:30 Sodium Chloride 1,000 ml @ 100 mls/hr Q10H 04/05/21 11:00 04/07/21 10:21 DC 04/07/21 05:29 100 MLS/HR Tamsulosin HCl (Flomax) 0.4 mg DAILY 04/05/21 10:00 04/15/21 08:50 0.4 MG Tramadol HCl (Ultram) 50 mg PRN Q6HRS PRN 04/13/21 09:30 Lab Laboratory Tests Test 04/14/21 11:44 04/14/21 12:20 04/14/21 18:40 04/14/21 19:37 Glucose (Fingerstick) 179 mg/dL (70-99) 150 mg/dL (70-99) 169 mg/dL (70-99) Coronavirus (COVID-19)(PCR) Not detected (NOT DETECTD) Test 04/15/21 07:20 04/15/21 07:44 Sodium Level 140 mmol/L (136-145) Potassium Level 4.5 mmol/L (3.5-5.1) Chloride Level 109 mmol/L (98-107) Carbon Dioxide Level 24 mmol/L (21-32) Anion Gap 7 (6-14) Blood Urea Nitrogen 41 mg/dL (8-26) Creatinine 1.9 mg/dL (0.7-1.3) Estimated GFR (Cockcroft-Gault) 42.1 Glucose Level 101 mg/dL (70-99) Calcium Level 7.8 mg/dL (8.5-10.1) Glucose (Fingerstick) 113 mg/dL (70-99) Results All relevant outside records, renal labs, imaging studies, telemetry/EKG's were reviewed. Justicifation of Admission Dx: Justifications for Admission: Justification of Admission Dx: Yes Angina: [facility] NAYELY ANGEL MD Apr 15, 2021 09:42
--- NOTE | 2021-04-15 10:42 | PDOC ---
Date of Service: DATE: 04/15/21 TIME: 10:40 Subjective: Subjective: No GI complaints. Eating and stooling. No odynophagia. Objective: Objective: D/w nurse - he declined Miralax today, stooled yesterday. Vital Signs: Vital Signs Date Time Temp Pulse Resp B/P (MAP) Pulse Ox O2 Delivery O2 Flow Rate FiO2 04/15/21 08:50 61 154/52 04/15/21 08:30 Room Air 04/15/21 07:00 98.1 17 96 98.1 Labs: Laboratory Tests Test 04/14/21 11:44 04/14/21 12:20 04/14/21 18:40 04/14/21 19:37 Glucose (Fingerstick) 179 mg/dL 150 mg/dL 169 mg/dL Coronavirus (COVID-19)(PCR) Not detected Test 04/15/21 07:20 04/15/21 07:44 Sodium Level 140 mmol/L Potassium Level 4.5 mmol/L Chloride Level 109 mmol/L Carbon Dioxide Level 24 mmol/L Anion Gap 7 Blood Urea Nitrogen 41 mg/dL Creatinine 1.9 mg/dL Estimated GFR (Cockcroft-Gault) 42.1 Glucose Level 101 mg/dL Calcium Level 7.8 mg/dL Glucose (Fingerstick) 113 mg/dL PE: GEN: NAD - staff changing brief LUNGS: CTAB HEART: RRR ABD: soft, non-distended NEURO/PSYCH: A & O 3 A/P: E coli bacteremia/UTI Odynophagia - resolved, on empiric Diflucan CKD H/o constipation COVID negative -- Better form GI standpoint. Adjust constipation treatment as needed. Justicifation of Admission Dx: Justifications for Admission: Justification of Admission Dx: Yes Angina: [facility] GERMAN OLIVO Apr 15, 2021 10:42
[2021-04-15 11:00] VITALS: BP 142/58
[2021-04-15] MEDS ORDERED: FINA5TAB4 PO (11:10)
[2021-04-15] MEDS ORDERED: HYDR-2869 PO (11:10)
[2021-04-15] MEDS ORDERED: POLY17PO52 PO (11:10)
[2021-04-15] MEDS ORDERED: PSYL3.4P PO (11:10)
[2021-04-15] MEDS ORDERED: FLUC100T6 PO (11:10)
--- NOTE | 2021-04-15 11:12 | SNU/HH DC ---
DISCHARGE ORDERS DISCHARGE INFORMATION: DISCHARGE DATE: Apr 15, 2021 FINAL DIAGNOSIS Problems Medical Problems: (1) Delirium Status: Acute (2) Generalized weakness Status: Acute (3) Urinary tract infection Status: Acute CONDITION ON DISCHARGE: Stable CODE STATUS: Code Status: Full DETENTION: SNF STAY <30 DAYS: Yes POST DISCHARGE ORDERS: ACTIVITY ORDERS: Activity as tolerated WEIGHT BEARING STATUS: As tolerated BATHING ORDERS: Shower-keep dressing dry DIET AFTER DISCHARGE: Renal WOUND/INCISION CARE: Keep wound/cast CDI CHECKS AFTER DISCHARGE: CHECKS AFTER DISCHARGE: Check blood press - daily, Check blood sugar, ac/hs TREATMENT/EQUIPMENT ORDERS: ADAPTIVE EQUIPMENT NEEDED: Walker Physical Therapy For: Evalulation/Treatment Occupational Therapy For: Evaluation/Treatment DISCHARGE MEDICATIONS: Home Meds Active Scripts Fluconazole (FLUCONAZOLE) 100 Mg Tablet, 0.5 TAB PO DAILY for jeanine for 7 Days, #4 TAB Prov:KIARRA SEQUEIRA MD 04/15/21 Finasteride (FINASTERIDE) 5 Mg Tablet, 5 MG PO DAILY for bph for 30 Days, #30 TAB Prov:KIARRA SEQUEIRA MD 04/15/21 Psyllium Husk/Aspartame (METAMUCIL FIBER SINGLES PACKET) 3.4 Gm Powd.pack, 1 PKT PO QHS for constipation for 30 Days, #30 PKT Prov:KIARRA SEQUEIRA MD 04/15/21 Polyethylene Glycol 3350 (POLYETHYLENE GLYCOL 3350) 17 Gm Powd.pack, 17 GM PO DAILY for constipation for 30 Days, #30 PKT Prov:KIARRA SEQUEIRA MD 04/15/21 Hydralazine Hcl (HYDRALAZINE HCL) 50 Mg Tablet, 25 MG PO TID for htn for 30 Days, #45 TAB Prov:KIARRA SEQUEIRA MD 04/15/21 Patiromer Calcium Sorbitex (Veltassa) 8.4 Gm Powd.pack, 8.4 GM PO DAILY for Hyperkalemia, #30 PKT 1 Refill Prov:HERLINDA AQUINO MD 01/16/20 Alprazolam (ALPRAZOLAM) 0.5 Mg Tablet, 1 TAB PO PRN QHS for anxiety- home med, #30 TAB Prov:DMITRIY HI MD 03/06/19 Dicyclomine Hcl (DICYCLOMINE HCL) 10 Mg Capsule, 10 MG PO PRN TID PRN for abdominal cramping for 30 Days, #90 CAP 2 Refills Prov:KIARRA FLORES MD 12/26/18 Clopidogrel Bisulfate (CLOPIDOGREL) 75 Mg Tablet, 75 MG PO DAILYWBKFT for PVD for 30 Days, #30 TAB Prov:KIARRA FLORES MD 12/26/18 Isosorbide Mononitrate (ISOSORBIDE MONONITRATE ER) 30 Mg Tab.er.24h, 30 MG PO DAILY for HTN for 30 Days, #30 TAB.SR Prov:KIARRA FLROES MD 12/26/18 Pantoprazole Sodium (PANTOPRAZOLE SODIUM ) 40 Mg Tablet.dr, 40 MG PO DAILYAC for GERD for 30 Days, #30 TAB.SR Prov:KIARRA FLORES MD 12/26/18 Cholecalciferol (Vitamin D3) (VITAMIN D3) 5,000 Unit Capsule, 5000 UNIT PO DAILY for 30 Days, #30 CAP Prov:SADAF IGLESIAS MD 04/26/17 Reported Medications Cholecalciferol (Vitamin D3) (Vitamin D3) 10 Mcg Tablet, 10 MCG PO DAILY for supplement, TAB 01/13/20 Ergocalciferol (Vitamin D2) (Vitamin D2) 1,250 Mcg Capsule, 1250 MCG PO WEEKLY for supplement, CAP 01/13/20 Acetaminophen (ACETAMINOPHEN) 500 Mg Tablet, 1 TAB PO PRN Q6HRS PRN for pain or fever for 15 Days, #60 TAB 0 Refills 01/13/20 Tamsulosin Hcl (FLOMAX) 0.4 Mg Cap.er.24h, 1 CAP PO DAILY for bph, #30 CAP 11 Refills 01/13/20 Nystatin (NYSTATIN) 15 Gm Powder, 1 RICHARD TP BID for athletes foot for 7 Days, #1 BOTTLE 0 Refills apply to affected area(s) 01/13/20 Nitroglycerin (NITROSTAT) 0.4 Mg Tab.subl, 0.4 MG SL PRN Q5MIN PRN for CHEST PAIN, BOTTLE 01/13/20 Hydroxyzine Hcl (HYDROXYZINE HCL) 25 Mg Tablet, 1 TAB PO PRN QID PRN for RASH, #30 TAB 01/13/20 Escitalopram Oxalate (Escitalopram Oxalate) 5 Mg Tablet, 5 MG PO DAILY for anxiety, TAB 01/13/20 Cyanocobalamin (Vitamin B-12) (CYANOCOBALAMIN INJECTION) 1,000 Mcg/1 Ml Vial, 1000 MCG IM QMONTH for supplement, #1 VIAL 3 Refills 01/13/20 Aspirin (ASPIRIN) 81 Mg Tab.chew, 1 TAB PO DAILY for heart health, #30 TAB 3 Refills 01/13/20 Glimepiride (GLIMEPIRIDE) 4 Mg Tablet, 4 MG PO DAILY for DM 03/01/19 Ferrous Gluconate (FERROUS GLUCONATE) 324 Mg Tablet, 1 TAB PO DAILYWBKFT for Anemia 03/01/19 Metformin Hcl (METFORMIN HCL ER) 750 Mg Tab.er.24h, 750 MG PO TID for DM 03/01/19 Ipratropium/Albuterol Sulfate (DUONEB 0.5-3(2.5) MG/3 ML) 3 Ml Ampul.neb, 1 VIAL NEB PRN Q6HRS PRN for SHORTNESS OF BREATH 03/01/19 Metoprolol Tartrate (METOPROLOL TARTRATE) 25 Mg Tablet, 1 TAB PO BID, #180 TAB 1 Refill 03/30/17 Pregabalin (LYRICA) 100 Mg Capsule, 1 CAP PO BID for Neuropathy, #90 CAP 2 Refills 03/30/17 Cyclobenzaprine Hcl (CYCLOBENZAPRINE HCL) 5 Mg Tablet, 1-2 TAB PO PRN TID PRN for PAIN, #30 TAB 03/30/17 Atorvastatin Calcium (ATORVASTATIN CALCIUM) 40 Mg Tablet, 1 TAB PO HS, #30 TAB 5 Refills 03/30/17 Discontinued Reported Medications Lactulose (LACTULOSE) 20 Gm/30 Ml Solution, 20 GM PO PRN BID PRN for CONSTIPATION, MISC 01/13/20 Hydrocodone Bit/Acetaminophen (HYDROCODONE-APAP 5-325 ) 1 Tab Tablet, 1 TAB PO PRN TID PRN for PAIN, TAB 0 Refills 01/13/20 Hydralazine Hcl (HYDRALAZINE HCL) 50 Mg Tablet, 1 TAB PO TID for htn, #90 TAB 5 Refills 01/13/20 Discontinued Scripts Furosemide (LASIX) 40 Mg Tablet, 1 TAB PO DAILY for hyperkalemia for 5 Days, #5 TAB 0 Refills Prov:TOAN GERMAN MD 12/01/19 KIARRA SEQUEIRA MD Apr 15, 2021 11:12
--- NOTE | 2021-04-15 11:15 | PDOC3 ---
[facility]-Discharge Summary Date of Admission: Date of Admission: Apr 04, 2021 Date of Discharge: Date of Discharge: Apr 15, 2021 Admission Diagnosis: Problems: (1) Urinary tract infection (2) Delirium Hospital Course: Hospital Course: Chief Complaint Metabolic encephalopathy - likely 2/2 UTI, sepsis LUIS - stable, nephrology following E. coli sepsis - bacteremia and UTI Jeanine esophagitis - unable to swallow, on IV diflucan, now on PO Weakness - will have PT work with him. History of SDH with evacuation after a fall - no new hemorrhages Anemia - likely of chronic disease Diabetes mellitus type II - will hold sulfonylurea permanently given his hypoglycemia. Glucose checks History of chronic right leg weakness Hypertension - Cont meds CAD - with PCI in 2006.LHC 12/14/2018 with no intervention but diffuse disease COPD - nebs Peripheral neuropathy - on gabapentin PAD - 12/14 LLE percutaneous revascularization and due for RLE with Dr. Medel on 12/29/2018 Hx of CVA/SDH and moderate carotid artery disease Abdominal pain with distention - will consult urology Abnormal weight loss - states he has had through w/u at [facility]. records ordered H/o Hep C - in SVR FEN - Dysphagia 1 honey thick PPX - heparin FULL CODE Dispo - inpatient will need skilled rehab History of Present Illness History of Present Illness Mr Oleary is a 75yo M w/ PMHx HTN, DM2, peripheral vascular disease, BPH, hep c in SVR, SDH, CAD, chronic pain, Anxiety, COPD brought into ED by EMS from home, after family reportedly noticed that he had been confused and weak, demonstrating alteration in mental status. No reported head trauma or falls. No reported vomiting. He normally is able to ambulate mostly on his own, occasionally with a walker, but for the past week or so, he has been "sliding around" and using a walker, requiring significant assistance. Developed renal failure and abnormal urinalysis. Admitted for further care 04/07: NA 153, CL 120, BUN 74, CR 2.5. Still trying to swallow. He is inter mittently confused. No pain complaints today. Culture positive for E. coli bacteremia and urinary tract infection. CT with prostatomegaly. Will consult urology for further recommendations. PVR 140cc. 04/08: Labs pending. Able to vocalize a little bit still trying to swallow. Intermittently confused. No complaints. Tolerating IV well. 04/09: Na 152, CR 2.1, BUN 54. A lot of right lower back pain with therapy today. Significant pain trying to swallow with speech pathology today. GI consulted, started IV diflucan. 04/10: NA 149, BUN 49, CR 2.1, still with a little bit of flank pain thinks it is improved with Lidoderm patch, he notes he is very thirsty but did have a lot of pain when he worked with [employer]. 04/11: Hiccups overnight remitted with IV Thorazine. Thinks his throat pain is improving a little still having difficulty vocalizing. NA 141, BUN 42, CR 1.9. 04/12: Speech-language pathology and patient able to swallow advanced to dysphagia 1 with honey thick liquids. Pain is improving. He felt too weak to w ork with therapy 04/11/2021 but is willing to work to get out of bed today. Transition to oral medications today 04/13: Afebrile. Still with right lower quadrant and right flank pain. Able to vocalize quite a bit better today has not had a bowel movement in 5 days. Still profoundly weak. He is amenable to rehab once get home to his and his dogs. 04/14 Evaluate examined at bedside. Improving overall. Continue Cipro. Gram- negative hannah bacteremia on cultures from a week ago. Has been on antibiotics. Will consult infectious disease today for antibiotic duration and choice. Otherwise swallowing is improved notably. Dose reduce fluconazole from 100-50. Plan discussed with bedside RN. 04/15 Patient evaluate examined at bedside. No major complaints. Plan for discharge to [facility] today. Greater than 30 minutes spent on discharge. Disposition: Disposition/Orders: D/C to Another Facility Activity: Activity: Resume previous activity Diet: Diet: Regular Medications: Home Meds Active Scripts Fluconazole (FLUCONAZOLE) 100 Mg Tablet, 0.5 TAB PO DAILY for jeanine for 7 Days, #4 TAB Prov:KIARRA SEQUEIRA MD 04/15/21 Finasteride (FINASTERIDE) 5 Mg Tablet, 5 MG PO DAILY for bph for 30 Days, #30 TAB Prov:KIARRA SEQUEIRA MD 04/15/21 Psyllium Husk/Aspartame (METAMUCIL FIBER SINGLES PACKET) 3.4 Gm Powd.pack, 1 PKT PO QHS for constipation for 30 Days, #30 PKT Prov:KIARRA SEQUEIRA MD 04/15/21 Polyethylene Glycol 3350 (POLYETHYLENE GLYCOL 3350) 17 Gm Powd.pack, 17 GM PO DAILY for constipation for 30 Days, #30 PKT Prov:KIARRA SEQUEIRA MD 04/15/21 Hydralazine Hcl (HYDRALAZINE HCL) 50 Mg Tablet, 25 MG PO TID for htn for 30 Days, #45 TAB Prov:KIARRA SEQUEIRA MD 04/15/21 Patiromer Calcium Sorbitex (Veltassa) 8.4 Gm Powd.pack, 8.4 GM PO DAILY for Hyperkalemia, #30 PKT 1 Refill Prov:HERLINDA AQUINO MD 01/16/20 Alprazolam (ALPRAZOLAM) 0.5 Mg Tablet, 1 TAB PO PRN QHS for anxiety- home med, #30 TAB Prov:DMITRIY HI MD 03/06/19 Dicyclomine Hcl (DICYCLOMINE HCL) 10 Mg Capsule, 10 MG PO PRN TID PRN for abdominal cramping for 30 Days, #90 CAP 2 Refills Prov:KIARRA FLORES MD 12/26/18 Clopidogrel Bisulfate (CLOPIDOGREL) 75 Mg Tablet, 75 MG PO DAILYWBKFT for PVD for 30 Days, #30 TAB Prov:KIARRA FLORES MD 12/26/18 Isosorbide Mononitrate (ISOSORBIDE MONONITRATE ER) 30 Mg Tab.er.24h, 30 MG PO DAILY for HTN for 30 Days, #30 TAB.SR Prov:KIARRA FLORES MD 12/26/18 Pantoprazole Sodium (PANTOPRAZOLE SODIUM ) 40 Mg Tablet.dr, 40 MG PO DAILYAC for GERD for 30 Days, #30 TAB.SR Prov:KIARRA FLORES MD 12/26/18 Cholecalciferol (Vitamin D3) (VITAMIN D3) 5,000 Unit Capsule, 5000 UNIT PO DAILY for 30 Days, #30 CAP Prov:SADAF IGLESIAS MD 04/26/17 Reported Medications Cholecalciferol (Vitamin D3) (Vitamin D3) 10 Mcg Tablet, 10 MCG PO DAILY for supplement, TAB 01/13/20 Ergocalciferol (Vitamin D2) (Vitamin D2) 1,250 Mcg Capsule, 1250 MCG PO WEEKLY for supplement, CAP 01/13/20 Acetaminophen (ACETAMINOPHEN) 500 Mg Tablet, 1 TAB PO PRN Q6HRS PRN for pain or fever for 15 Days, #60 TAB 0 Refills 01/13/20 Tamsulosin Hcl (FLOMAX) 0.4 Mg Cap.er.24h, 1 CAP PO DAILY for bph, #30 CAP 11 Refills 01/13/20 Nystatin (NYSTATIN) 15 Gm Powder, 1 RICHARD TP BID for athletes foot for 7 Days, #1 BOTTLE 0 Refills apply to affected area(s) 01/13/20 Nitroglycerin (NITROSTAT) 0.4 Mg Tab.subl, 0.4 MG SL PRN Q5MIN PRN for CHEST PAIN, BOTTLE 01/13/20 Hydroxyzine Hcl (HYDROXYZINE HCL) 25 Mg Tablet, 1 TAB PO PRN QID PRN for RASH, #30 TAB 01/13/20 Escitalopram Oxalate (Escitalopram Oxalate) 5 Mg Tablet, 5 MG PO DAILY for anxiety, TAB 01/13/20 Cyanocobalamin (Vitamin B-12) (CYANOCOBALAMIN INJECTION) 1,000 Mcg/1 Ml Vial, 1000 MCG IM QMONTH for supplement, #1 VIAL 3 Refills 01/13/20 Aspirin (ASPIRIN) 81 Mg Tab.chew, 1 TAB PO DAILY for heart health, #30 TAB 3 Refills 01/13/20 Glimepiride (GLIMEPIRIDE) 4 Mg Tablet, 4 MG PO DAILY for DM 03/01/19 Ferrous Gluconate (FERROUS GLUCONATE) 324 Mg Tablet, 1 TAB PO DAILYWBKFT for Anemia 03/01/19 Metformin Hcl (METFORMIN HCL ER) 750 Mg Tab.er.24h, 750 MG PO TID for DM 03/01/19 Ipratropium/Albuterol Sulfate (DUONEB 0.5-3(2.5) MG/3 ML) 3 Ml Ampul.neb, 1 VIAL NEB PRN Q6HRS PRN for SHORTNESS OF BREATH 03/01/19 Metoprolol Tartrate (METOPROLOL TARTRATE) 25 Mg Tablet, 1 TAB PO BID, #180 TAB 1 Refill 03/30/17 Pregabalin (LYRICA) 100 Mg Capsule, 1 CAP PO BID for Neuropathy, #90 CAP 2 Refills 03/30/17 Cyclobenzaprine Hcl (CYCLOBENZAPRINE HCL) 5 Mg Tablet, 1-2 TAB PO PRN TID PRN for PAIN, #30 TAB 03/30/17 Atorvastatin Calcium (ATORVASTATIN CALCIUM) 40 Mg Tablet, 1 TAB PO HS, #30 TAB 5 Refills 03/30/17 Discontinued Reported Medications Lactulose (LACTULOSE) 20 Gm/30 Ml Solution, 20 GM PO PRN BID PRN for CONSTIPATION, MISC 01/13/20 Hydrocodone Bit/Acetaminophen (HYDROCODONE-APAP 5-325 ) 1 Tab Tablet, 1 TAB PO PRN TID PRN for PAIN, TAB 0 Refills 01/13/20 Hydralazine Hcl (HYDRALAZINE HCL) 50 Mg Tablet, 1 TAB PO TID for htn, #90 TAB 5 Refills 01/13/20 Discontinued Scripts Furosemide (LASIX) 40 Mg Tablet, 1 TAB PO DAILY for hyperkalemia for 5 Days, #5 TAB 0 Refills Prov:TOAN GERMAN MD 12/01/19 Scheduled Alprazolam (Alprazolam), 1 TAB PO PRN QHS Aspirin (Aspirin), 1 TAB PO DAILY, (Reported) Atorvastatin Calcium (Atorvastatin Calcium), 1 TAB PO HS, (Reported) Cholecalciferol (Vitamin D3) (Vitamin D3), 5,000 UNIT PO DAILY Cholecalciferol (Vitamin D3) (Vitamin D3), 10 MCG PO DAILY, (Reported) Clopidogrel Bisulfate (Clopidogrel), 75 MG PO DAILYWBKFT Cyanocobalamin (Vitamin B-12) (Cyanocobalamin Injection), 1,000 MCG IM QMONTH, (Reported) Ergocalciferol (Vitamin D2) (Vitamin D2), 1,250 MCG PO WEEKLY, (Reported) Escitalopram Oxalate (Escitalopram Oxalate), 5 MG PO DAILY, (Reported) Ferrous Gluconate (Ferrous Gluconate), 1 TAB PO DAILYWBKFT, (Reported) Finasteride (Finasteride), 5 MG PO DAILY Fluconazole (Fluconazole), 0.5 TAB PO DAILY Glimepiride (Glimepiride), 4 MG PO DAILY, (Reported) Hydralazine Hcl (Hydralazine Hcl), 25 MG PO TID Isosorbide Mononitrate (Isosorbide Mononitrate Er), 30 MG PO DAILY Metformin Hcl (Metformin Hcl Er), 750 MG PO TID, (Reported) Metoprolol Tartrate (Metoprolol Tartrate), 1 TAB PO BID, (Reported) Nystatin (Nystatin), 1 RICHARD TP BID, (Reported) Pantoprazole Sodium (Pantoprazole Sodium ), 40 MG PO DAILYAC Patiromer Calcium Sorbitex (Veltassa), 8.4 GM PO DAILY Polyethylene Glycol 3350 (Polyethylene Glycol 3350), 17 GM PO DAILY Pregabalin (Lyrica), 1 CAP PO BID, (Reported) Psyllium Husk/Aspartame (Metamucil Fiber Singles Packet), 1 PKT PO QHS Tamsulosin Hcl (Flomax), 1 CAP PO DAILY, (Reported) Scheduled PRN Acetaminophen (Acetaminophen), 1 TAB PO PRN Q6HRS PRN for pain or fever, (Repo rted) Cyclobenzaprine Hcl (Cyclobenzaprine Hcl), 1-2 TAB PO PRN TID PRN for PAIN, (Reported) Dicyclomine Hcl (Dicyclomine Hcl), 10 MG PO PRN TID PRN for abdominal cramping Hydroxyzine Hcl (Hydroxyzine Hcl), 1 TAB PO PRN QID PRN for RASH, (Reported) Ipratropium/Albuterol Sulfate (Duoneb 0.5-3(2.5) Mg/3 Ml), 1 VIAL NEB PRN Q6HRS PRN for SHORTNESS OF BREATH, (Reported) Nitroglycerin (Nitrostat), 0.4 MG SL PRN Q5MIN PRN for CHEST PAIN, (Reported) Discontinued Medications Furosemide (Lasix), 1 TAB PO DAILY Hydralazine Hcl (Hydralazine Hcl), 1 TAB PO TID, (Reported) Hydrocodone Bit/Acetaminophen (Hydrocodone-Apap 5-325 ), 1 TAB PO PRN TID PRN for PAIN, (Reported) Lactulose (Lactulose), 20 GM PO PRN BID PRN for CONSTIPATION, (Reported) Justicifation of Admission Dx: Justifications for Admission: Justification of Admission Dx: Yes Angina: [facility] KIARRA SEQUEIRA MD Apr 15, 2021 11:15
--- NOTE | 2021-04-15 11:44 | SNU/HH DC ---
DISCHARGE WITH HOME HEALTH DISCHARGE INFORMATION: Discharge Date: Apr 15, 2021 Final Diagnosis: Problems Medical Problems: (1) Delirium Status: Acute (2) Generalized weakness Status: Acute (3) Urinary tract infection Status: Acute Condition on Discharge: Stable CODE STATUS: Code Status: Full HOME HEALTH: Face to Face: I certify this patient is under my care and that I, or a nurse practitioner or physician's reference assistant working with me, had a face to face encounter that meets the physician face to face encounter requirements with this patient on []. RN For Eval/Treatment: Yes Physical Therapy For: Evalulation/Treatment Occupational Therapy For: Evaluation/Treatment Pt Meets Homebound Status: Poor coordination w/ amb., Unsteady balance w/ amb,, Extreme weakness w/ amb. POST DISCHARGE ORDERS: Activity Instructions for Disc: Activity as tolerated Weight Bearing Status after Di: As tolerated Bathing Instructions: Shower-keep dressing dry DIET AFTER DISCHARGE: Renal Wound/Incision Care: Ice to area for comfort, Keep wound/cast CDI CHECKS AFTER DISCHARGE: Checks after discharge: Check blood press - daily, Check blood sugar, ac/hs TREATMENT/EQUIPMENT ORDERS: Adaptive Equipment Issued: Walker CERTIFICATION STATEMENT: Certification Statement: Certification Statement: Based on the above finding, I certify that this patient is confined to the home and needs intermittent detention care, physical therapy and/or speech therapy, or continues to need occupational therapy.~ This patient is under my care, and I have initiated the establishment of the plan of care.~ This patient will be followed by myself or a community physician who will periodically review the plan of care. Home Meds Active Scripts Fluconazole (FLUCONAZOLE) 100 Mg Tablet, 0.5 TAB PO DAILY for jeanine for 7 Days, #4 TAB Prov:KIARRA SEQUEIRA MD 04/15/21 Finasteride (FINASTERIDE) 5 Mg Tablet, 5 MG PO DAILY for bph for 30 Days, #30 TAB Prov:KIARRA SEQUEIRA MD 04/15/21 Psyllium Husk/Aspartame (METAMUCIL FIBER SINGLES PACKET) 3.4 Gm Powd.pack, 1 PKT PO QHS for constipation for 30 Days, #30 PKT Prov:KIARRA SEQUEIRA MD 04/15/21 Polyethylene Glycol 3350 (POLYETHYLENE GLYCOL 3350) 17 Gm Powd.pack, 17 GM PO DAILY for constipation for 30 Days, #30 PKT Prov:KIARRA SEQUEIRA MD 04/15/21 Hydralazine Hcl (HYDRALAZINE HCL) 50 Mg Tablet, 25 MG PO TID for htn for 30 Days, #45 TAB Prov:KIARRA SEQUEIRA MD 04/15/21 Patiromer Calcium Sorbitex (Veltassa) 8.4 Gm Powd.pack, 8.4 GM PO DAILY for Hyperkalemia, #30 PKT 1 Refill Prov:HERLINDA AQUINO MD 01/16/20 Alprazolam (ALPRAZOLAM) 0.5 Mg Tablet, 1 TAB PO PRN QHS for anxiety- home med, #30 TAB Prov:DMITRIY HI MD 03/06/19 Dicyclomine Hcl (DICYCLOMINE HCL) 10 Mg Capsule, 10 MG PO PRN TID PRN for abdominal cramping for 30 Days, #90 CAP 2 Refills Prov:KIARRA FLORES MD 12/26/18 Clopidogrel Bisulfate (CLOPIDOGREL) 75 Mg Tablet, 75 MG PO DAILYWBKFT for PVD for 30 Days, #30 TAB Prov:KIARRA FLORES MD 12/26/18 Isosorbide Mononitrate (ISOSORBIDE MONONITRATE ER) 30 Mg Tab.er.24h, 30 MG PO DAILY for HTN for 30 Days, #30 TAB.SR Prov:KIARRA FLORES MD 12/26/18 Pantoprazole Sodium (PANTOPRAZOLE SODIUM ) 40 Mg Tablet.dr, 40 MG PO DAILYAC for GERD for 30 Days, #30 TAB.SR Prov:KIARRA FLORES MD 12/26/18 Cholecalciferol (Vitamin D3) (VITAMIN D3) 5,000 Unit Capsule, 5000 UNIT PO DAILY for 30 Days, #30 CAP Prov:SADAF IGLESIAS MD 04/26/17 Reported Medications Cholecalciferol (Vitamin D3) (Vitamin D3) 10 Mcg Tablet, 10 MCG PO DAILY for supplement, TAB 01/13/20 Ergocalciferol (Vitamin D2) (Vitamin D2) 1,250 Mcg Capsule, 1250 MCG PO WEEKLY for supplement, CAP 01/13/20 Acetaminophen (ACETAMINOPHEN) 500 Mg Tablet, 1 TAB PO PRN Q6HRS PRN for pain or fever for 15 Days, #60 TAB 0 Refills 01/13/20 Tamsulosin Hcl (FLOMAX) 0.4 Mg Cap.er.24h, 1 CAP PO DAILY for bph, #30 CAP 11 Refills 01/13/20 Nystatin (NYSTATIN) 15 Gm Powder, 1 RICHARD TP BID for athletes foot for 7 Days, #1 BOTTLE 0 Refills apply to affected area(s) 01/13/20 Nitroglycerin (NITROSTAT) 0.4 Mg Tab.subl, 0.4 MG SL PRN Q5MIN PRN for CHEST YUE N, BOTTLE 01/13/20 Hydroxyzine Hcl (HYDROXYZINE HCL) 25 Mg Tablet, 1 TAB PO PRN QID PRN for RASH, #30 TAB 01/13/20 Escitalopram Oxalate (Escitalopram Oxalate) 5 Mg Tablet, 5 MG PO DAILY for anxiety, TAB 01/13/20 Cyanocobalamin (Vitamin B-12) (CYANOCOBALAMIN INJECTION) 1,000 Mcg/1 Ml Vial, 1000 MCG IM QMONTH for supplement, #1 VIAL 3 Refills 01/13/20 Aspirin (ASPIRIN) 81 Mg Tab.chew, 1 TAB PO DAILY for heart health, #30 TAB 3 Refills 01/13/20 Glimepiride (GLIMEPIRIDE) 4 Mg Tablet, 4 MG PO DAILY for DM 03/01/19 Ferrous Gluconate (FERROUS GLUCONATE) 324 Mg Tablet, 1 TAB PO DAILYWBKFT for Anemia 03/01/19 Metformin Hcl (METFORMIN HCL ER) 750 Mg Tab.er.24h, 750 MG PO TID for DM 03/01/19 Ipratropium/Albuterol Sulfate (DUONEB 0.5-3(2.5) MG/3 ML) 3 Ml Ampul.neb, 1 VIAL NEB PRN Q6HRS PRN for SHORTNESS OF BREATH 03/01/19 Metoprolol Tartrate (METOPROLOL TARTRATE) 25 Mg Tablet, 1 TAB PO BID, #180 TAB 1 Refill 03/30/17 Pregabalin (LYRICA) 100 Mg Capsule, 1 CAP PO BID for Neuropathy, #90 CAP 2 Refills 03/30/17 Cyclobenzaprine Hcl (CYCLOBENZAPRINE HCL) 5 Mg Tablet, 1-2 TAB PO PRN TID PRN for PAIN, #30 TAB 03/30/17 Atorvastatin Calcium (ATORVASTATIN CALCIUM) 40 Mg Tablet, 1 TAB PO HS, #30 TAB 5 Refills 03/30/17 Discontinued Reported Medications Lactulose (LACTULOSE) 20 Gm/30 Ml Solution, 20 GM PO PRN BID PRN for CONSTIPATION, MISC 01/13/20 Hydrocodone Bit/Acetaminophen (HYDROCODONE-APAP 5-325 ) 1 Tab Tablet, 1 TAB PO PRN TID PRN for PAIN, TAB 0 Refills 01/13/20 Hydralazine Hcl (HYDRALAZINE HCL) 50 Mg Tablet, 1 TAB PO TID for htn, #90 TAB 5 Refills 01/13/20 Discontinued Scripts Furosemide (LASIX) 40 Mg Tablet, 1 TAB PO DAILY for hyperkalemia for 5 Days, #5 TAB 0 Refills Prov:TOAN GERMAN MD 12/01/19 KIARRA SEQUEIRA MD Apr 15, 2021 11:44
[2021-04-15] MEDS: ENOXAPARIN 30 MG/0.3 ML SYRINGE. SQ SCH (12:30)
--- NOTE | 2021-04-15 13:00 | NUR ---
Discharge Note: Patient was discharged home with home health services. Patients IV was discontinued without any complications per [facility]. at the bedside at the time of discharge education. Patient and were given discharge summary/instructions, follow-ups, and educational material. Patients new prescriptions were sent to patients preferred pharmacy. Patient and did not have any further questions or concerns. Patient was taken down to the main entrance via wheelchair with all personal belongings accompanied by [facility] [place], where patients was waiting for him to take him home.
== END 2021-04-15 13:00 | disposition home health service (06) | DRG 871 ==
LOC: ER 19:50 → 5 NORTH 21:00
PROVIDERS: ADMIT Internal Medicine; ATTEND Internal Medicine
DX: A41.51 Sepsis due to Escherichia coli [E. coli] (principal); G93.41 Metabolic encephalopathy; N39.0 Urinary tract infection, site not specified; B37.81 Candidal esophagitis; N17.9 Acute kidney failure, unspecified; D63.8 Anemia in other chronic diseases classified elsewhere; E11.22 Type 2 diabetes mellitus with diabetic chronic kidney disease; E11.42 Type 2 diabetes mellitus with diabetic polyneuropathy; E11.51 Type 2 diabetes mellitus with diabetic peripheral angiopathy without gangrene; E78.00 Pure hypercholesterolemia, unspecified; E78.5 Hyperlipidemia, unspecified; E86.0 Dehydration; I12.9 Hypertensive chronic kidney disease with stage 1 through stage 4 chronic kidney disease, or unspecified chronic kidney disease; I25.10 Atherosclerotic heart disease of native coronary artery without angina pectoris; J44.9 Chronic obstructive pulmonary disease, unspecified; M54.50 Low back pain, unspecified; G89.29 Other chronic pain; K57.90 Diverticulosis of intestine, part unspecified, without perforation or abscess without bleeding; F41.9 Anxiety disorder, unspecified; N18.32 Chronic kidney disease, stage 3b; N40.0 Benign prostatic hyperplasia without lower urinary tract symptoms; Z20.822 Contact with and (suspected) exposure to COVID-19; Z80.0 Family history of malignant neoplasm of digestive organs; Z86.73 Personal history of transient ischemic attack (TIA), and cerebral infarction without residual deficits; Z90.49 Acquired absence of other specified parts of digestive tract; Z95.5 Presence of coronary angioplasty implant and graft; Z88.8 Allergy status to other drugs, medicaments and biological substances
CPT/HCPCS: 36415; 70450; 71045; 74176; 76770; 80048; 80053; 81001; 82550; 82962; 83605; 83735; 83880; 84100; 84443; 84484; 85025; 87040; 87077; 87086; 87186; 87426; 87428; 93005; 93925; 96361; 96374; C9113; J0360; J0696; J1450; J1650; J1815; J2270; J3230; J3480; J3490; J7030; J7040; J7060; U0003; 92526-GN; 92610-GN; 97110-GP; 97530-GO; 97530-GP; 97535-GO; 99285-25; G0378; Q0161